=== PATIENT | male | born 1980 | race Caucasian/White ===

== ENCOUNTER 2023-07-17 07:51 | Outpatient (AMB) | payer OTHER, SELFPAY ==
--- NOTE | 2023-07-17 08:07 | MHC.PC.OV ---
Vital Signs 07/17/23 08:11 Height 5 ft 8 in Weight 178 lb 2 oz BMI 27.1 BP 118/80 Blood Pressure Location Rt brachial Position Sitting Pulse 64 Pulse Source Pulse Oximeter Pulse Oximetry (%) 98 Oxygen Delivery Method Room Air Intake Visit Reasons: Annual PE [employer] Intake Note: [facility] is [facility] [place] pt says he tends to have anxiety/Bp issues but with stress and life changes this changesd Allergies No Known Allergies Allergy (Verified 07/17/23 08:26) Medication List - Last Reconciled 07/17/23 by HEATHER Garcia ascorbate calcium (vitamin C) 500 mg PO DAILY cholecalciferol (vitamin D3) 50 mcg PO DAILY fexofenadine (Pinky Allergy) 180 mg PO DAILY Tobacco use date assessed: 07/17/23 Dental Screening Dental Screen Date: 07/17/23 Did you have a dental visit in the last 12 months?: Yes Did you have a dental problem in the last 6 months where you did not have access to dental care?: No Was dental information given to patient?: Patient has dentist HPI HPI Comments History of Present Illness Details Patient is a 43-year-old male here to [facility] and have his annual physical exam. He is an active member of the and recently moved up here from [place]. He has a past medical history significant for hypertension which he resolved with diet exercise. He has a surgical history of right ACL repair. He is up-to-date on immunizations. He has strong family history of prostate cancer, will draw PSA. He has a chief complaint of scratchy throat, particularly at night. The in office strep swab was negative. Patient denies any difficulty breathing, shortness of breath, recent fevers, chest pain, dizziness. He has tried taking honey which does provide some relief. [facility] Medical History (Updated 07/17/23 @ 10:23 by HEATHER Garcia) Lower back pain Rupture of anterior cruciate ligament of right knee Sleep apnea Hypertension Surgical History (Updated 07/17/23 @ 10:18 by HEATHER Garcia) History of repair of anterior cruciate ligament of right knee Family History Father Prostate cancer Paternal Grandmother Diabetes type 2, controlled Social History Housing: House Patient Tobacco Use Status: Never used Tobacco e-Cigarette/Vaping Use: Never Used Second Hand Smoke Exposure: No service: Yes ([employer] ) Current occupational status: employed Current occupational exposures/hazards: Yes Cognitive needs: No Hearing needs: No Vision needs: No Questionnaire PHQ-9 Over the last 2 weeks, how often have you been bothered by any of the following problems? 1. Little interest or pleasure in doing things: not at all 2. Feeling down, depressed, or hopeless: not at all 3. Trouble falling or staying asleep, or sleeping too much: not at all 4. Feeling tired or having little energy: not at all 5. Poor appetite or overeating: not at all 6. Feeling bad about yourself - or that you are a failure or have let yourself or your family down: not at all 7. Trouble concentrating on things, such as reading the newspaper or watching television: not at all 8. Moving or speaking so slowly that other people could have noticed. Or the opposite - being so fidgety or restless that you have been moving around a lot more than usual: not at all 9. Thoughts that you would be better off or of hurting yourself in some way: not at all Total score: 0 Depression Screening Interpretation: Negative Depression Screening Done: Yes 17466 - PHQ-9 Billing: Yes Source: Developed by Drs. Scar Mortensen, Priya Quinteros, Doe Palumbo and colleagues, with an educational gege from [employer]. Thrive Questionnaire Date Thrive assessed: 07/17/23 I am a: Patient What is your living situation today?: I have a steady place to live Within the past 12 months, did the food you bought not last and you didn't have the money to get more?: Never true Within the past 12 months, did you worry whether your food would run out before you got money to buy more?: Never true Do you have trouble paying for medicines?: No Do you have trouble getting transportation to medical appointments?: No Do you have trouble paying your heating and electricity bill?: No Do you have trouble taking care of your child, family member or friend?: No Do you have trouble with day-to-day activities such as bathing, preparing meals, shopping, managing finances, etc.?: No Are you currently unemployed and looking for a job?: No Are you interested in more education?: Yes AUDIT C Alcohol Use Questionnaire (AUDIT-C) 1. How often do you have a drink containing alcohol?: Monthly or less 2. How many drinks containing alcohol do you have on a typical day when you are drinking?: 1 or 2 3. How often do you have six or more drinks on one occasion?: Never Total Score: 1 BHUPINDER-7 AMB Questionnaire BHUPINDER-7 Date BHUPINDER - 7 assessed: 07/17/23 Feeling nervous, anxious, or on edge: 0 = Not at all Not being able to stop or control worryin = Not at all Worrying too much about different things: 0 = Not at all Trouble relaxin = Not at all Being so restless that it is hard to sit still: 0 = Not at all Becoming easily annoyed or irritable: 0 = Not at all Feeling afraid as if something awful might happen: 0 = Not at all Total BHUPINDER-7 score (0-4 normal; 5-9 mild; 10-14 moderate; 15-21 severe): 0 Source: Developed by Drs. Scar Mortensen, Priya Quinteros, Doe Palumbo and colleagues, with an educational gege from [employer]. BHUPINDER-7 Assessment Billing BHUPINDER-7 Assessment Tool: BHUPINDER-7 Assessment 25667 Review of Systems Const Details: Constitutional : No Weight loss, No Fever, No Chills, No Fatigue, No Malaise ENT/Mouth : Admits scratchy throat, No Rhinorrhea. Admits slightly diminished hearing in right ear. Eyes: No Eye Pain, No Swelling, No Redness Cardiovascular : No Chest Pain, No SOB, No Dyspnea on Exertion, No Orthopnea, No Edema, No Palpitations Respiratory : No Cough, No Sputum, No Wheezing Gastrointestinal : No Nausea, No Vomiting, No Diarrhea, No Constipation, No abdominal Pain, No Hematochezia, No Melena Genitourinary : No Dysuria, No Urinary Frequency, No Hematuria, Musculoskeletal : No joint pain, No Myalgias, No Joint Swelling Skin : Admits small hard white bump below eye, denies pain. Neuro : No Weakness, No Numbness, No Dizziness, No Headache Psych : No Anxiety/Panic, No Depression Heme/Lymph: No Bruising, No Bleeding,No Lymphadenopathy Endocrine : No Polyuria, No Polydipsia All other systems reviewed and are negative Physical exam (Primary Care) Vital Signs: Last Vital Signs Pulse 64 07/17/23 08:11 BP 118/80 07/17/23 08:11 Pulse Ox 98 07/17/23 08:11 Oxygen Delivery Method Room Air 07/17/23 08:11 Care Plan Goal for BP management: Vital signs reviewed are stable BMI result Body Mass Index 27.1 Tobacco/Smoking Status: Tobacco use Status Tobacco use date assessed 07/17/23 07/17/23 08:20 Patient Tobacco Use Status Never used Tobacco 07/17/23 08:20 e-Cigarette/Vaping Use Never Used 07/17/23 08:20 Depression Screening Interpretation: Negative Const Other: Appearance: Alert.? Oriented X3.? No acute distress.? Head: Normocephalic, atraumatic, no step-offs or deformities Eyes: Pupils equal, round and reactive to light.? ENT: Tonsils plus 2, positive for pharynx erythema, no exudates. Right TM not visible due to cerumen impaction. ? Neck: Normal inspection.? Neck supple.? No lymphadenopathy CVS: Normal heart rate and rhythm.? Pulses normal.? Respiratory: No respiratory distress.? Breath sounds normal.? Abdomen: Soft and nontender.? Bowel sounds normal Skin: Small round hard white bump, inferior to the left eye. No discharge. Extremities: No lower extremity edema.? Full ROM. Back: No midline tenderness, no C-spine tenderness, full range of motion, no CVA tenderness bilaterally Neuro: Oriented X 3.? No motor deficit.? No sensory deficit. CN 2-12 intact Results AMB Rapid Strep AMB Rapid Strep Negative Last Edit by Sarah Pleitez CMA on 07/17/23 08:53 Results Reviewed Results Reviewed: Will call patient with results. Assessment and Plan Assessment & Plan (1) Throat soreness: Comment: Patient's pharynx erythema tonsils are +2 bilaterally. Strep in office was negative. Some postnasal drip present. Patient will start on fluticasone. He has been educated on side effects these medication and how to take it properly. Code(s): J02.9 - Acute pharyngitis, unspecified (2) Milia: Comment: Patient has been instructed that he can try wash his face with an exfoliating face wash. He has been instructed to call the office if the problem is not resolved in 2 weeks. Code(s): L72.0 - Epidermal cyst (3) Impacted cerumen, right ear: Comment: Patient has been instructed to use [id number] earwax softening drops. Can return to the office or walk-in clinic for ear lavage. Code(s): H61.21 - Impacted cerumen, right ear Plan Take your medications as prescribed. If you were prescribed antibiotics today, it is important that you take your medication to their entirety, do not skip any doses, do not finish them early. Follow-up with your primary care provider this week. Return to the emergency department with new or worsening symptoms. Such as fevers, chills, chest pain, shortness of breath, nausea, vomiting, dizziness, headache, vision changes, lethargy In case of emergency call 911 Orders: Orders AMB Rapid Strep Screen Today Z13.9 - Encounter for screening, unspecified Complete Blood Count Auto Diff Today Z13.0 - Encounter for screening for diseases of the blood and blood-forming organs and certain disorders involving the immune mechanism Lipid Panel Today Z13.220 - Encounter for screening for lipoid disorders Vitamin D 25-OH (D2 and D3) Today Z13.21 - Encounter for screening for nutritional disorder Comprehensive Met. Panel Today Z91.89 - Other specified personal risk factors, not elsewhere classified PSA,Total (Free>4and<10) Today Z12.5 - Encounter for screening for malignant neoplasm of prostate TSH reflex Free T4 Today Z13.29 - Encounter for screening for other suspected endocrine disorder UA CC w/rflx Micro + Cult Today E86.0 - Dehydration Medications: New fluticasone propionate 50 mcg/actuation (Allergy Relief (fluticasone)) administer into each nostril 2 sprays intranasal DAILY 16 grams 0RF Coding Level of Care Code New Pt Level 4 (77881) Diagnoses Throat soreness J02.9 Milia L72.0 Impacted cerumen, right ear H61.21 Additional Codes BHUPINDER-7 Assessment Billing - BHUPINDER-7 Assessment Tool: BHUPINDER-7 Assessment 34594 ([id number]) Time Spent (min) 45
[2023-07-17 08:11] VITALS: BP 118/80; PULSE 64; O2SAT 98; BMI 27.1
== END 2023-07-17 09:04 | disposition home or self-care (01) ==
PROVIDERS: Visit Provider Nurse Practitioner Primary Care
DX: J02.9 Acute pharyngitis, unspecified (principal); L72.0 Epidermal cyst; H61.21 Impacted cerumen, right ear
CPT/HCPCS: 87880; 99204

== ENCOUNTER 2023-07-17 09:06 | Outpatient (REF) | payer OTHER, SELFPAY ==
[2023-07-22 12:53] LABS: Vitamin D 25-OH, D2 <4 ng/mL; Vitamin D 25-OH, D3 33 ng/mL; Vitamin D 25-OH, Total 33 ng/mL (30-100)
== END 2023-07-17 09:07 | disposition home or self-care (01) ==
LOC: HO.HMGCLDS 09:06
PROVIDERS: PCP Nurse Practitioner Primary Care; Visit Provider Nurse Practitioner Primary Care
DX: Z13.29 Encounter for screening for other suspected endocrine disorder (principal); Z12.5 Encounter for screening for malignant neoplasm of prostate; Z13.21 Encounter for screening for nutritional disorder; Z13.220 Encounter for screening for lipoid disorders; Z13.0 Encounter for screening for diseases of the blood and blood-forming organs and certain disorders involving the immune mechanism; E86.0 Dehydration; Z91.89 Other specified personal risk factors, not elsewhere classified
CPT/HCPCS: 36415; 80053; 80061; 81003; 82306; 84153; 84443; 85025

== ENCOUNTER 2023-10-27 14:21 | Outpatient (AMB) | payer OTHER, SELFPAY ==
--- NOTE | 2023-10-27 14:27 | MHC.OFFWIV ---
Intake Vital Signs 10/27/23 14:28 Height 5 ft 8 in Weight 178 lb BMI 27.1 BP 120/80 Blood Pressure Location Lt brachial Position Sitting Pulse 66 Pulse Source Pulse Oximeter Temp 97.9 F Temp Source Oral Pulse Oximetry (%) 98 Intake Visit Reasons: EP Dizzy Intake Note: pt is here today for dizzy started whiling laying down and felt weird and felt dizziness when standing Patient Tobacco Use Status: Never used Tobacco Allergies No Known Allergies Allergy (Verified 10/27/23 14:47) Medication List - Last Reconciled 10/27/23 by HEATHER Garcia ascorbate calcium (vitamin C) 500 mg PO DAILY cholecalciferol (vitamin D3) 50 mcg PO DAILY fexofenadine (Pinky Allergy) 180 mg PO DAILY fluticasone propionate 50 mcg/actuation (Allergy Relief (fluticasone)) 2 sprays intranasal DAILY Do you need a note to return to daycare/school/sports/work: Yes HPI HPI Comments History of Present Illness Details Patient is a 43-year-old man in today for sick visit. Patient states that 1 day prior when he was lying down he developed dizziness where he felt like the room was starting to spin. Since then he was able to go to sleep woke up and felt like though his symptoms had improved, he still was feeling dizzy throughout the day depending on position change. Denies recent fever, denies chest pain, shortness a breath, nausea, vomiting, diarrhea. Denies headache. He states that he did take out a large clump of ear wax 1 day prior. A physical exam patient has impacted cerumen. Also positive for Court-Hallpike maneuver. Will initiate bilateral ear lavage, prescribed meclizine, refer patient to physical therapy. [facility] Medical History (Updated 10/27/23 @ 14:56 by HEATHER Garcia) Lower back pain Rupture of anterior cruciate ligament of right knee Sleep apnea Hypertension Surgical History (Updated 07/17/23 @ 10:18 by HEATHER Garcia) History of repair of anterior cruciate ligament of right knee Family History Father Prostate cancer Paternal Grandmother Diabetes type 2, controlled Social History (Reviewed 07/17/23 @ 10:18 by FABIEN Garcia Housing: House Patient Tobacco Use Status: Never used Tobacco e-Cigarette/Vaping Use: Never Used Second Hand Smoke Exposure: No service: Yes ([employer] ) Current occupational status: employed Current occupational exposures/hazards: Yes Cognitive needs: No Hearing needs: No Vision needs: No Review of Systems Const All systems reviewed & are unremarkable except as noted in HPI and below Denies chills, Denies fever(s) and Denies headache(s) Eyes Denies blurry vision, Denies diplopia and Denies eye pain ENT Reports vertigo, Reports dizziness, Denies ear discharge, Denies otalgia, Denies headache(s) and Denies sore throat Card Denies chest pain and Denies dyspnea Resp Denies dyspnea Musc Denies tingling Neuro Reports vertigo, Reports dizziness, Denies headache(s), Denies tingling and Denies paresthesias Physical Exam Vital Signs: Last Vital Signs Temp 97.9 F 10/27/23 14:28 Pulse 66 10/27/23 14:28 BP 120/80 10/27/23 14:28 Pulse Ox 98 10/27/23 14:28 BMI result Body Mass Index 27.1 Vital signs reviewed stable. Const Other: Appearance: Alert.? Oriented X3.? No acute distress.? Head: Normocephalic, atraumatic. Eyes: Pupils equal, round and reactive to light.? ENT: Pharynx normal.?Cerumen impacted bilaterally. Post Lavage TM intact and pearly munoz. Neck: Normal inspection.? Neck supple.? CVS: Normal heart rate and rhythm.? Pulses normal.? Respiratory: No respiratory distress.? Breath sounds normal.? Neuro: Oriented X 3.? No motor deficit.? No sensory deficit. CN 2-12 intact Positive Court-Hallpike maneuver Assessment & Plan Assessment & Plan (1) Benign positional vertigo: Comment: Will prescribe meclizine. Will refer patient to physical therapy Code(s): H81.10 - Benign paroxysmal vertigo, unspecified ear Qualifiers: Laterality: unspecified laterality Qualified Code(s): H81.10 - Benign paroxysmal vertigo, unspecified ear Plan: Take your medications as prescribed. If you were prescribed antibiotics today, it is important that you take your medication to their entirety, do not skip any doses, do not finish them early. Follow-up with your primary care provider this week. Return to the emergency department with new or worsening symptoms. Such as fevers, chills, chest pain, shortness of breath, nausea, vomiting, dizziness, headache, vision changes, lethargy In case of emergency call 911 Plan Follow-up if problem persists. Orders: Orders AMB Cerumen Removal Today H61.23 - Impacted cerumen, bilateral PT Evaluation and Treatment Today H81.10 - Benign paroxysmal vertigo, unspecified ear Medications: New meclizine 50 mg PO DAILY PRN 20 tabs 0RF motion sickness Coding Level of Care Code Est Pt Level 3 (13757) Diagnoses Benign paroxysmal positional vertigo, unspecified laterality H81.10 Laterality: unspecified laterality Time Spent (min) 23
[2023-10-27 14:28] VITALS: BP 120/80; PULSE 66; TEMP 36.6; O2SAT 98; BMI 27.1
== END 2023-10-27 15:04 | disposition home or self-care (01) ==
PROVIDERS: PCP Nurse Practitioner Primary Care; Visit Provider Nurse Practitioner Primary Care
DX: H81.10 Benign paroxysmal vertigo, unspecified ear (principal)
CPT/HCPCS: 99213

== ENCOUNTER 2023-12-04 10:18 | Outpatient (AMB) | payer OTHER, SELFPAY ==
[2023-12-04 10:30] VITALS: BP 100/70; PULSE 66; O2SAT 96; BMI 27.1
--- NOTE | 2023-12-04 10:30 | A.OFFPC_ITS ---
Vital Signs 12/04/23 10:30 Height 5 ft 8 in Weight 178 lb BMI 27.1 BP 100/70 Blood Pressure Location Rt brachial Position Sitting Pulse 66 Pulse Source Pulse Oximeter Pulse Oximetry (%) 96 Oxygen Delivery Method Room Air Intake Visit Reasons: Rescheduled from 11/29 Intake Note: Pt is here today to c/o Lt knee pain due to falling playing freesbee and Lt foot has a calicus Allergies No Known Allergies Allergy (Verified 12/04/23 10:30) Tobacco use date assessed: 12/04/23 Dental Screening Dental Screen Date: 12/04/23 Did you have a dental visit in the last 12 months?: Yes Did you have a dental problem in the last 6 months where you did not have access to dental care?: Yes Was dental information given to patient?: Patient has dentist HPI HPI Comments History of Present Illness Details Patient is a 43-year-old male in today for follow-up. He has a past medical history significant for. Frequent impacted cerumen bilaterally: Patient utilizing earwax softening drops. Benign positional proximal vertigo: Patient currently undergoing PT with good effect. Dyslipidemia: Slightly elevated LDL. Patient is lower in with improved diet and exercise. Will redraw lipids within the next month. Patient has complaints of left knee discomfort x2 weeks. Patient states that he was playing ultimate Frisbee jumped and landed on his left knee awkwardly, and was unable to continue playing Frisbee after that. Denies hearing any popping or cracking. States that the pain has gotten progressively better over the past 2 weeks however he still feels that he is favoring the joint. Has utilized ibuprofen with mild to moderate effect patient denies any tingling or numbness, denies any deformities. He also reports full he believes to be a callus the plantar region of his foot that is started become painful. States that he runs often and feels like this has gotten worse over time. Patient utilizes proper foot wear while running. Denies any tingling or numbness. Denies any redness or discharge. [facility] Medical History (Updated 12/04/23 @ 10:57 by HEATHER Garcia) Lower back pain Rupture of anterior cruciate ligament of right knee Sleep apnea Hypertension Surgical History (Updated 07/17/23 @ 10:18 by HEATHER Garcia) History of repair of anterior cruciate ligament of right knee Family History Father Prostate cancer Paternal Grandmother Diabetes type 2, controlled Social History Housing: House Patient Tobacco Use Status: Never used Tobacco e-Cigarette/Vaping Use: Never Used Second Hand Smoke Exposure: No service: Yes ([employer] ) Current occupational status: employed Current occupational exposures/hazards: Yes Cognitive needs: No Hearing needs: No Vision needs: No Questionnaire Thrive Questionnaire Date Thrive assessed: 07/17/23 BHUPINDER-7 AMB Questionnaire BHUPINDER-7 Date BHUPINDER - 7 assessed: 07/17/23 Source: Developed by Drs. Scar Mortensen, Priya Quinteros, Doe Palumbo and colleagues, with an educational gege from [employer]. Review of Systems Const All systems reviewed & are unremarkable except as noted in HPI and below Physical exam (Primary Care) Tobacco/Smoking Status: Tobacco use Status Tobacco use date assessed 07/17/23 07/17/23 08:20 Patient Tobacco Use Status Never used Tobacco 10/27/23 14:30 e-Cigarette/Vaping Use Never Used 07/17/23 08:20 Thrive Assessment: Date of Thrive Assessment Date Thrive assessed 07/17/23 07/17/23 09:17 Const Other: Appearance: Alert.? Oriented X3.? No acute distress.? Head: Normocephalic, ?Neck: Normal inspection.? Neck supple.? Respiratory: No respiratory distress.? .? Abdomen: Soft and nontender.? Skin: Skin warm and dry.? Normal skin color.? Normal skin turgor. +Small plantar wart on left foot. +tenderness. No erythema or discharge. ? Extremities: No lower extremity edema.? No knee crepitus. Able to ambulate on toes and heels. Negative rosalba and Radha test. Neuro: Oriented X 3.? No motor deficit.? No sensory deficit. Assessment and Plan Assessment & Plan (1) Benign positional vertigo: Comment: Will prescribe meclizine. Patient undergoing physical therapy with good results Code(s): H81.10 - Benign paroxysmal vertigo, unspecified ear Qualifiers: Laterality: unspecified laterality Qualified Code(s): H81.10 - Benign paroxysmal vertigo, unspecified ear (2) Elevated LDL cholesterol level: Comment: Patient utilizing diet and exercise will redraw lipid panel 1 month Code(s): E78.00 - Pure hypercholesterolemia, unspecified (3) Plantar wart: Comment: Patient educated use proper footwear. Will refer to Podiatry Code(s): B07.0 - Plantar wart (4) Left knee pain: Comment: Negative Radha's and Rosalba's test in office. Will order left knee x-ray. Patient can utilize Tylenol and ibuprofen as directed. Code(s): M25.562 - Pain in left knee Qualifiers: Chronicity: acute Qualified Code(s): M25.562 - Pain in left knee Plan: Will follow-up with x-ray results Coding Level of Care Code Est Pt Level 4 (33120) Diagnoses Benign paroxysmal positional vertigo, unspecified laterality H81.10 Laterality: unspecified laterality Elevated LDL cholesterol level E78.00 Plantar wart B07.0 Acute pain of left knee M25.562 Chronicity: acute Time Spent (min) 30
== END 2023-12-04 16:09 | disposition home or self-care (01) ==
PROVIDERS: PCP Nurse Practitioner Primary Care; Visit Provider Nurse Practitioner Primary Care
DX: H81.10 Benign paroxysmal vertigo, unspecified ear (principal); E78.00 Pure hypercholesterolemia, unspecified; B07.0 Plantar wart; M25.562 Pain in left knee
CPT/HCPCS: 99214

== ENCOUNTER 2023-12-04 10:53 | Outpatient (REF) | payer OTHER, SELFPAY ==
--- NOTE | ~2023-12-04 | XR_ITS ---
EXAMINATION: XR KNEE, LEFT CLINICAL INFORMATION: Left knee pain. COMPARISON: None available. TECHNIQUE: Four views of the left knee. FINDINGS: Normal alignment. Joint spaces are maintained. No displaced fracture or dislocation. No significant joint effusion. XR/XR knee LT 4V IMPRESSION: No acute abnormality.
== END 2023-12-04 10:54 | disposition home or self-care (01) ==
LOC: HO.HMGCX 10:53
PROVIDERS: PCP Nurse Practitioner Primary Care; Visit Provider Nurse Practitioner Primary Care
DX: M25.562 Pain in left knee (principal)
CPT/HCPCS: 73564

== ENCOUNTER 2023-12-11 11:00 | Outpatient (RCR) | payer OTHER, SELFPAY ==
[2023-11-13 10:58] VITALS: BP 122/80
--- NOTE | 2023-11-13 12:11 | MHC.PT.EP ---
[facility] [place] Office [place] Office [place] Office [address] Samm Esteban [address] [phone] F: [phone] F: [phone] F: [phone] F: [phone] Physical Therapy Plan of Care Date of Evaluation: 11/13/23 Date of Surgery: Diagnosis: BPPV, unspecified ear Assessment: 43 y/o male referred to PT with BPPV. He desribes dizziness as wooziness, on a boat, a rocking sensation. THis started 3-4 weeks ago of insidious onset and was initially constant but now is intermittent. Sx increase with quick head movements, walking in the dark, and moving too quickly. Denies hearing changes, visual changes, recent illness, or recent tick bites. S/s consistent with a unilateral vestibular hypofunction (L side) secondary to impaired VOR, poor balance with head turns during gait, FGA, and negative for BPPV. Recommend PT every other week for 4 visits. He is a good candidate for PT d/t motivation and PLOF. Educated pt on vestibular sx, hypofunction, adaptation exercises, safety, and HEP. Frequency and Duration: The patient will be seen 1x/week for 6 weeks Short Term Goals: I with HEP Snf Goals: Pt to be able to functionally move in all planes without provocation of dizziness and return to PLOF in 6 weeks Pt to be educated on sx and indications to return to therapy when needed in 6 weeks Pt to be I with HEP and self management Treatment Plan: Modalities to reduce pain, spasms and effusion. Manual therapy to restore motion and function. Therapeutic exercise to improve strength and flexibility. Neuromuscular re-education for posture and balance. Therapeutic activities to return to functional activities of daily living. Electronically signed by: Maribel Nunez PT Please sign and return to therapist. Thank you for your referral.
--- NOTE | 2023-12-11 11:41 | MHC.PT.DC ---
[facility] [place] Office [place] Office [place] Office [address] Samm Esteban [address] [phone] F: [phone] F: [phone] F: [phone] F: [phone] Physical Therapy Discharge Report Diagnosis: BPPV, unspecified ear Date of Surgery: Date of Evaluation: 11/13/23 Date of Discharge: 12/11/23 Treatments to Date: 3 Cancellations to Date: 0 No Shows to Date: 0 Discharge Status: Achieved Goals Improved Function Independent with HEP Discharge Summary: Pt has met all goals and s appropriate for d/c at this time. He demonstrates minimal-no sway with eyes closed conditions and had no dizziness with high level exercises. Reviewed HEP and d/c at this time Electronically signed by: Maribel Nunez PT Please sign and return to therapist. Thank you for your referral.
== END 2023-12-11 11:41 | disposition home or self-care (01) ==
LOC: HO.PTCHIC 11:00
PROVIDERS: PCP Nurse Practitioner Primary Care; Visit Provider Nurse Practitioner Primary Care
DX: H81.10 Benign paroxysmal vertigo, unspecified ear (principal)
CPT/HCPCS: 97112; 97161

== ENCOUNTER 2024-02-19 07:00 | Outpatient (RCR) | payer OTHER, SELFPAY ==
--- NOTE | 2024-01-06 14:49 | MHC.PT.EP ---
[facility] [place] [facility] [place] [facility] [place] [facility] [address] Samm Esteban [address] [phone] F: [phone] F: [phone] F: [phone] F: [phone] Physical Therapy Plan of Care Date of Evaluation: 01/06/24 Date of Surgery: n/a Diagnosis: pain in L knee Assessment: Patient is a 43 year old male presenting to PT with complaints of pain in his L knee. Pt reports onset of pain began 1-2 months ago due to jumping and hyperextending his knee when playing frisbee. He presents today with impairments in pain, hip strength, knee strength. 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 Clinical presentation today is most consistent with signs and sx associated with L knee pain and pt will benefit from skilled PT 2 week x 4 weeks to address the following problems and impairments noted upon evaluation: pain, hip strength, knee strength. These problems limit the patient with the following functional activities: work, ADLs, running, stair negotiation, transfers. The prescribed treatment plan of care is medically necessary. Co-morbidities of HTN were identified and taken into considerations of plan of care. Pt was educated on HEP, role of PT, prognosis, POC. Frequency and Duration: The patient will be seen 2 x week x 4 weeks Short Term Goals: Pt will demonstrate improved hip MMT strength by 1/3 grade in 2 weeks for improved lumbopelvic stability. Pt will demonstrate improved L knee MMT strength to 5/5 in 2 weeks. [employer] Goals: Pt will demonstrate improved LEFI score by 9 points in 4 weeks for improved functional mobility. Pt will demonstrate ability to descend stairs with min to no pain in 4 weeks for improved access to his home. Pt will demonstrate ability to transfer and push off his LLE with min to no pain or instability in 4 weeks for return to PLOF. Treatment Plan: Modalities to reduce pain, spasms and effusion. Manual therapy to restore motion and function. Therapeutic exercise to improve strength and flexibility. Neuromuscular re-education for posture and balance. Therapeutic activities to return to functional activities of daily living. Electronically signed by: Jamila Yanes, PT, DPT, ATC Please sign and return to therapist. Thank you for your referral.
--- NOTE | 2024-02-19 07:51 | MHC.PT.DC ---
[facility] [place] [facility] [place] [facility] [place] Office [address] Samm Esteban [address] [phone] F: [phone] F: [phone] F: [phone] F: [phone] Physical Therapy Discharge Report Diagnosis: pain in L knee Date of Surgery: n/a Date of Evaluation: 01/06/24 Date of Discharge: 02/19/24 Treatments to Date: 4 Cancellations to Date: 0 No Shows to Date: Discharge Status: Achieved Goals Improved Function Independent with HEP Patient Elected to Stop Discharge Summary: 02/19/2024: Pt has made good progress since start of care. He is having much less pain overall and able to complete almost every activity pain free. Occasionally he gets some mild discomfort. He feels he is ready to continue with HEP at home and I feel this is reasonable based on his progress. Pt to be d/c today and knows to continue with his HEP. Electronically signed by: Jamila Yanes, PT, DPT, ATC Please sign and return to therapist. Thank you for your referral.
== END 2024-02-19 07:51 | disposition home or self-care (01) ==
LOC: HO.PTCHIC 07:00
PROVIDERS: PCP Nurse Practitioner Primary Care; Visit Provider Nurse Practitioner Primary Care
DX: M25.562 Pain in left knee (principal)
CPT/HCPCS: 97110; 97161

== ENCOUNTER 2024-07-04 08:01 | Outpatient (AMB) | payer OTHER, SELFPAY ==
--- OUTSIDE RECORDS SUMMARY | 2024-07-04 08:07 | XMS_ITS ---
Author Organization [facility] Address [address] [place] [address] Phone Care Team Providers Care Activities Director Name Role Phone Luis Fernando WALDROP, Lobito George [phone] [facility] P rovider [phone] Plan of Treatment Findings Encounter Date Recommended mattress / helen w covers for dust mites Post Test with Lobito Gould MD 03/11/2021 Last Documented On 1 1:12PM ; [facility] Recommended allergy sensitiv ity testing - abbrev New Patient with Lobito Gould MD 03/04/2021 Last Documented On 1 3:12PM ; [facility] Instructions to patient Avoid allergens Last Documented On 1 1:11PM ; [facility] Instructions for patient - p janell use of nasal spray Last Documented On 1 3:11PM ; [facility] Assessments Includes: Assessments for all patient encounters Findings Encounter Date Allergic rhinitis Follow Up with Lobito fiore MD 06/10/2021 Last Documented On 1 12:44PM ; [facility] Chronic rhinitis Post Test with Lobito Gould MD 03/11/2021 Last Documented On 1 1:12PM ; [facility] Chronic rhinitis New Patient with Lobito kebede MD 03/04/2021 Last Documented On 1 3:12PM ; [facility] Instructions Includes: Instructions for all patient encounters Instructions to patient Avoid allergens Last Documented On 1 1:11PM ; [facility] Instructions for patient - p janell use of nasal spray Last Documented On 3:11PM ; [facility] Medical Equipment - Implanted Devices Includes: Current and historical Devices No Medical Equipment Recorded Medications Includes: Current and historical Medications Current Medications (continue as prescribed) Fluticasone Propionate 50 MCG/ACT Nasal Suspension 06/10/2021 Provider: Lobito fiore MD Diagnosis: Allergic rhiniti s, unspecified 2 sp en qd as needed Last Documented On 12:45PM By Lobito Gould MD ; [facility] Fexofenadine HCl 180 MG Oral Tablet 03/02/2021 Provider: Lisa REYNA ([place]) Diagnosis: 1 tab po qd Last Documented On 2:43PM By Jimmy Luther ; [facility] Past Medications on file Fluticasone Propionate 50 MCG/ACT Nasal Suspension 03/04/2021 - 06/10/2021 Provider: Lobito pham MD Diagnosis: Chronic rhinitis 2 sp en qam Last Documented On 12:25PM By Stef Snow ; [facility] Azelastine HCl 0.1% Nasal Solution 03/02/2021 - 03/02/2021 Provider: Lisa REYNA ([place]) Diagnosis: prn Last Documented On 2:58PM By Lobito Gould MD ; [facility] Medications Administered Includes: Administered Medications in patient's chart No Administered Medications Recorded Results Includes: Results from 07/04/2023 through 07/04/2024 No Results Recorded For Specified Dates History of Present Illness History of Present Illness not supported for this document type No History of Present Illness Recorded Social History Description Last Updated Past medical history reviewed 06/10/2021 Last Documented On 12:44PM ; [facility] Smoking status : Never smoker 03/04/2021 Last Documented On 3:12PM ; [facility] Air-conditioning filters are changed tim ry 3 months 03/04/2021 Last Documented On 3:12PM ; [facility] Environmental history reviewed 1 Last Documented On 1 3:12PM ; [facility] Housing has central cooling 03/04/2021 Last Documented On 1 3:12PM ; [facility] Housing has windows closed 03/04/2021 Last Documented On 1 3:12PM ; [facility] Lives in apartment 03/04/2021 Last Documented On 1 3:12PM ; [facility] Mattress is encased 03/04/2021 Last Documented On 1 3:12PM ; [facility] No carpets in residence 03/04/2021 Last Documented On 1 3:12PM ; [facility] No contact with pets or other animals Last Documented On 1 3:12PM ; [facility] No exposure to environmental tobacco smo ke 03/04/2021 Last Documented On 1 3:12PM ; [facility] No exposure to molds 03/04/2021 Last Documented On 1 3:12PM ; [facility] No HEPA filters 03/04/2021 Last Documented On 1 3:12PM ; [facility] No secondhand cigarette smoke exposure 0 03/04/2021 Last Documented On 1 3:12PM ; [facility] No wall unit cooling in residence 2020 Last Documented On 1 3:12PM ; [facility] Not living near a major source of pollut ion 03/04/2021 Last Documented On 1 3:12PM ; [facility] Patient does not sleep with stuffed anim als 03/04/2021 Last Documented On 1 3:12PM ; [facility] Patient is not exposed to clutter that c ollects dust in the residence 03/04/2021 Last Documented On 1 3:12PM ; [facility] [place] Pillows are encased 03/04/2021 Last Documented On 3:12PM ; [facility] [place] Pillows are not feather 03/04/2021 Last Documented On 3:12PM ; [facility] [place] Presence of ceiling fan(s) in residence 03/04/2021 Last Documented On 3:12PM ; [facility] [place] The age of the mattress is 2 years old 0 03/04/2021 Last Documented On 3:12PM ; [facility] [place] The age of the residence is 50 years old 03/04/2021 Last Documented On 3:12PM ; [facility] [place] The residence is surrounded by Last Documented On 3:12PM ; [facility] [place] Windows are covered with horizontal blin ds 03/04/2021 Last Documented On 3:12PM ; [facility] [place] Procedures and Surgical History Surgical History Last Updated Prior surgery - knee 03/04/2021 Last Documented On 3:12PM ; [facility] [place] Medical History Includes: Medical History in patient's chart Description Last Updated Past medical history reviewed 06/10/2021 Last Documented On 12:44PM ; [facility] [place] Patient reported no PMH 03/04/2021 Last Documented On 3:12PM ; [facility] [place] Family History Includes: Family History in patient's chart Description Last Updated No family history of allergies Last Documented On 3:12PM ; [facility] [place] No family history of asthma 03/04/2021 Last Documented On 3:12PM ; [facility] [place] Review of Systems Review of Systems not supported for this document type No Review of Systems Recorded Mental Status No Mental Status Recorded Functional Status No Functional Status Recorded Physical Exam Physical Exam not supported for this document type No Physical Exam Recorded Allergies Includes: Active, inactive, and resolved Allergies No Known Allergies Insurance Includes: Active Insurance Policies Plan Name Member ID Group # Subscriber Relationship Effect kiran Dates 1 - [facility] [id number] Ellis Ellis Self 07/13/2017 - Un known Clinical Notes Includes: Signed Clinical Notes starting from 11/29/2022 No Clinical Notes Recorded
--- OUTSIDE RECORDS SUMMARY | 2024-07-04 08:07 | XMS_ITS | Continuity of Care Document ---
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 It does not include entries that were removed or entered in error. Problem Status Onset Date Problem Type Date of Resolution Comments Source Encounter for other administrative examinations Inactive 1 Condition DoD Encounter for immunization Inactive 1 Condition DoD Other insomnia Active 8 Condition DoD Pain in right knee Active 8 Condition DoD Other chronic pain Active 8 Condition DoD Low back pain Active 8 Condition DoD Chondromalacia patellae, right knee Active 8 Condition DoD Other disorders of refraction Active 8 Condition DoD Other intervertebral disc degeneration, lumbar region Active 8 Condition DoD Acquired spondylolysis Active Condition [facility] Low back pain Active Condition [facility] Personal History of return from Deployment Active Condition [facility] Primary hypertension Active Condition [facility] Adjustment disorder with anxiety Active Condition [facility] Personal history of deployment Active Condition DoD Vasectomy status Active Condition DoD backache lower Active Condition DoD diarrhea Inactive Condition [facility] Need For Vaccination Against Bacterial Diseases Inactive Condition [facility] Need For Vaccination Against Smallpox Inactive Condition [facility] visit for: occupational health / fitness exam Active Condition [facility] routine pre-employment screening examination Active Condition Do[facility] visit for: screening exam pulmonary tuberculosis Inactive Condition [facility] assessment of patient condition work status Active Condition [facility] assessment of patient condition work-related Active Condition [facility] visit for: follow-up exam Inactive Condition DoD pain in leg lower Inactive Condition Do[facility] visit for: administrative purpose Inactive Condition DoD upper respiratory infection Inactive Condition [facility] visit for: services physical Active Condition Do[facility] Patient Education Active Condition DoD Guidance: Concerns About Unsafe Sexual Practices Inactive Condition DoD Inquiry And Counseling: Contraceptive Practices Active Condition DoD Patient Education Dietary Changing Eating Habits Active Condition [facility] visit for: ears / hearing exam Active Condition [facility] Medications Combined list of outpatient medications from Department of 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Medications provided include 1) outpatient medications from the last 15 months, and 2) patient-reported medications. Medication Details Route Status Patient Instructions Prescription Expires Prescription Number Last Dispense Date Ordering Provider Order Date Order Qty Source chlorhexidi ne oral rinse 0.12% liquid [473mL] See Rx Instruct ions, 0, 0, # 473 mL, 0 total refill(s ), Hard Stop Complet ed 03/26/2023 473.0 Ambulat ory Pharmac y FLUTICASONE PROPIONATE (FLUTICASON E PROPIONATE) , 50MCG, SPRAY SUSP, NASAL, APOTEX CONNER, 16 g AER W/ADAP Cancele d [id number] : 2023 0 Pharmac y Data Transac tion Service Facilit y FLUTICASONE PROPIONATE (FLUTICASON E PROPIONATE) , 50MCG, SPRAY SUSP, NASAL, [facility] 16 g AER W/ADAP Active [id number] 2023 16 Pharmac y Data Transac tion Service Facilit y PriLOSEC OTC 20 mg oral delayed release tablet 1 tab(s), Oral, BID, before a meal, # 90 cap(s), 3 total refill(s ), Maintena nce, 1 tab(s) Oral BID,Inst r:before a meal, Pharmacy : [facility] Oral (given by mouth) Discont inued 04/22/2022 90.0 7239C-S [facility] Allergies, Adverse Reactions, Alerts Combined list of allergies from Department of 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 It does not include entries that were removed or entered in error. Substance Category Reaction Severity Reaction type Status Date Reported Comments Source No Known Allergies Drug allergy (disorder) active 08/06/2017 [facility] [place] Immunizations Combined list of available immunizations from the Department of 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 Immunization Series Date Given Administered By Site Reaction Lot Number CVX Code Drug Sales Support Rep Status Comments Source COVID Vaccine ThermoCeramix 2020 SREE [id number] complet ed Result Comment: Unit: Unknown Route: Intramusc ular(IM) Manufactu rer: ThermoCeramix, [employer]ur[employer] (PFR) 39C-S [facility] SARS-COV-2 (COVID-19) vaccine, mRNA, spike protein, LNP, preservative free, 30 mcg/0.3mL dose 2 12/01/ 2021 JOI CHURCHILL [id number] Pfizer, Inc (PFR) complet ed SARS-COV- 2 (COVID-19 ) vaccine, mRNA, spike protein, LNP, preservat kiran free, 30 mcg/0.3mL dose DoD influenza, injectable, quadrivalent- pf 2020 OLLIECOLLINS [id number] complet ed Result Comment: Route: Unknown Manufactu rer: Seqirus (SEQ) [facility] [place], inj, MDCK, quadrivalent- pf 2020 OLLIECOLLINS 171 complet ed Result Comment: Unit: Unknown Manufactu rer: () [facility] Influenza, injectable, MDCK, preservative free, quadrivalent 2020 ANDREA, () Not Given Influenza , injectabl e, MDCK, preservat kiran free, quadrival ent DoD Influenza, injectable, quadrivalent, preservative free 1 2020 [id number] 150 Seqirus (SEQ) comple t ed Influenza , injectabl e, quadrival ent, preservat kiran free DoD Influenza, injectable, Madin Anna Canine Kidney, preservative free, quadrivalent 0 2020 171 Seqirus (SEQ) comple t ed Influenza , injectabl e, Madin Anna Canine Kidney, preservat kiran free, quadrival ent DoD anthrax vaccine 2020 OLLIECOLLINS [id number] 24 complet ed Result Comment: Route: Unknown Manufactu rer: [employer] [place] ([facility]) 39CS [facility] anthrax vaccine 4 2020 [id number] [employer] [place] (MIP) complet ed anthrax vaccine DoD SARS-CoV-2 (COVID-19) Ad26 vaccine, rec 2020 OLLIECOLLINS [id number] complet ed Result Comment: Route: Unknown Manufactu rer: Rosa (BESSY) [facility] SARS-COV-2 (COVID-19) vaccine, vector non-replicati ng, recombinant spike protein-Ad26, preservative free, 0.5 mL 1 2020 [id number] Rosa (JSN) comple t ed SARS-COV- 2 (COVID-19 ) vaccine, vector non-repli cating, recombina nt spike protein-A d26, preservat kiran free, 0.5 mL DoD influenza, seasonal, injectable 2019 OLLIECOLLINS [id number] 141 complet ed Result Comment: Route: Unknown Manufactu rer: Seqirus (SEQ) [facility] Influ[facility], inj, MDCK, quadrivalent- pf 2019 OLLIECOLLINS 171 complet ed Result Comment: Unit: Unknown Manufactu rer: () 7239C-S [facility] Influenza, injectable, MDCK, preservative free, quadrivalent 2019 FINDLEN, () Not Given Influenza , injectabl e, MDCK, preservat kiran free, quadrival ent DoD Influenza, seasonal, injectable 1 2019 [id number] 141 Seqirus (SEQ) comple t ed Influenza , seasonal, injectabl e DoD Influenza, injectable, Madin Anna Canine Kidney, preservative free, quadrivalent 0 2019 171 (MVX) complet ed Influenza , injectabl e, Madin Anna Canine Kidney, preservat kiran free, quadrival ent DoD typhoid Vi capsular polysaccharid e vac 2019 [id number] 101 sanofi pasteur complet ed typhoid Vi capsular polysacch aride vac 03/07/20 Given Ambulat ory Pharmac y anthrax vaccine 2019 [id number] 24 Emergent Bios[employer] complet ed anthrax vaccine 03/07/20 Given Ambulat ory Pharmac y poliovirus vaccine, inactivated 2019 [id number] 10 sanofi pasteur complet ed polioviru s vaccine, inactivat ed 03/07/20 Given Ambulat ory Pharmac y tetanus-dipht h toxoids (Td) adult/adol 2019 [id number] 09 sanofi pasteur complet ed tetanus-d iphth toxoids (Td) adult/ado l 03/07/20 Given Ambulat ory Pharmac y measles/mumps /rubella virus vaccine 2019 [id number] 03 Merck & Company Inc complet ed measles/m umps/rube lla virus vaccine 03/07/20 Given Ambulat ory Pharmac y typhoid Vi capsular polysaccharid e vac 2019 [id number] 101 sanofi pasteur complet ed typhoid Vi capsular polysacch aride vac 03/07/20 Given Ambulat ory Pharmac y anthrax vaccine 2019 [id number] 24 [employer] complet ed anthrax vaccine 03/07/20 Given Ambulat ory Pharmac y poliovirus vaccine, inactivated 2019 [id number] 10 sanofi pasteur complet ed polioviru s vaccine, inactivat ed 03/07/20 Given Ambulat ory Pharmac y tetanus-dipht h toxoids (Td) adult/adol 2019 [id number] 09 sanofi pasteur complet ed tetanus-d iphth toxoids (Td) adult/ado l 03/07/20 Given Ambulat ory Pharmac y measles/mumps /rubella virus vaccine 2019 [id number] Merck & Company Inc complet ed measles/m umps/rube lla virus vaccine 03/07/20 Given Ambulat ory Pharmac y measles, mumps and rubella virus vaccine 1 2019 [id number] 03 Merck (MSD) complet ed measles, mumps and rubella virus vaccine DoD tetanus and diphtheria toxoids, adsorbed, preservative free, for adult use (2 Lf of tetanus toxoid and 2 Lf of diphtheria toxoid) 1 2019 [id number] 09 Sanofi Pasteur (PMC) complet ed tetanus and diphtheri a toxoids, adsorbed, preservat kiran free, for adult use (2 Lf of tetanus toxoid and 2 Lf of diphtheri a toxoid) DoD poliovirus vaccine, inactivated 1 2019 [id number] 10 Sanofi Pasteur (PMC) complet ed polioviru s vaccine, inactivat ed DoD anthrax vaccine 1 2019 [id number] 24 [facility] [employer] [place] ([facility]) complet ed anthrax vaccine DoD typhoid Vi capsular polysaccharid e vaccine 1 2019 [id number] 101 Sanofi Pasteur (PMC) complet ed typhoid Vi capsular polysacch aride vaccine DoD influenza, seasonal, injectable 2018 TRANSCR IBED 141 Seqirus complet ed influenza , seasonal, injectabl e 04/04/19 Given Ambulat ory Pharmac y Influenza, inj, MDCK, quadrivalent- pf 2018 171 complet ed Influenza , inj, MDCK, quadrival ent-pf 04/04/19 Given Ambulat ory Pharmac y Influenza, inj, MDCK, quadrivalent- pf 2018 171 complet ed Influenza , inj, MDCK, quadrival ent-pf 04/04/19 Given Ambulat ory Pharmac y influenza, seasonal, injectable 2018 TRANSCR IBED 141 Seqirus complet ed influenza , seasonal, injectabl e 04/04/19 Given Ambulat ory Pharmac y Influenza, seasonal, injectable 1 2018 141 Seqirus (SEQ) comple t ed Influenza , seasonal, injectabl e DoD Influenza, injectable, Madin Anna Canine Kidney, preservative free, quadrivalent 0 2018 171 (MVX) complet ed Influenza , injectabl e, Madin Palmer Canine Kidney, preservat kiran free, quadrival ent DoD Influenza, inj, MDCK, quadrivalent- pf 2017 171 complet ed Influenza , inj, MDCK, quadrival ent-pf 04/30/18 Given Ambulat ory Pharmac y influenza, seasonal, injectable 2017 [id number] 141 Seqirus complet ed influenza , seasonal, injectabl e 04/30/18 Given Ambulat ory Pharmac y Influenza, inj, MDCK, quadrivalent- pf 2017 171 complet ed Influenza , inj, MDCK, quadrival ent-pf 04/30/18 Given Ambulat ory Pharmac y influenza, seasonal, injectable 2017 [id number] 141 Seqirus complet ed influenza , seasonal, injectabl e 04/30/18 Given Ambulat ory Pharmac y Influenza, seasonal, injectable 1 2017 [id number] 141 Seqirus (SEQ) comple t ed Influenza , seasonal, injectabl e DoD Influenza, injectable, Madin Anna Canine Kidney, preservative free, quadrivalent 0 2017 171 (MVX) complet ed Influenza , injectabl e, Madin Anna Canine Kidney, preservat kiran free, quadrival ent DoD Influenza, inj, MDCK, quadrivalent- pf 2016 [id number] 171 Seqirus complet ed Influenza , inj, MDCK, quadrival ent-pf 05/15/17 Given Ambulat ory Pharmac y Influenza, inj, MDCK, quadrivalent- pf [id number] 171 Seqirus complet ed Influenza , inj, MDCK, quadrival ent-pf 05/15/17 Given Ambulat ory Pharmac y Influenza, injectable, Madin Palmer Canine Kidney, preservative free, quadrivalent 7 [id number] 171 Seqirus (SEQ) comple t ed Influenza , injectabl e, Madin Anna Canine Kidney, preservat kiran free, quadrival ent DoD influenza, seasonal, injectable 2015 TRANSCR IBED 141 complet ed influenza , seasonal, injectabl e 05/05/16 Given Ambulat ory Pharmac y influenza, seasonal, injectable 2015 TRANSCR IBED 141 complet ed influenza , seasonal, injectabl e 05/05/16 Given Ambulat ory Pharmac y Influenza, seasonal, injectable 1 2015 141 Transcribed (TRS) complet ed Influenza , seasonal, injectabl e DoD INFLUENZA, SEASONAL, INJECTABLE 2015 141 complet ed [facility] influenza, seasonal, injectable-pf 2014 [id number] 140 [employer] complet ed influenza , seasonal, injectabl e-pf 04/14/15 Given Ambulat ory Pharmac y influenza, seasonal, injectable-pf 2014 [id number] 140 [employer] complet ed influenza , seasonal, injectabl e-pf 04/14/15 Given Ambulat ory Pharmac y INFLUENZA, UNSPECIFIED FORMULATION 2014 88 complet ed [employer] [facility], [place] - Immunizat ion record [facility] Influenza, seasonal, injectable, preservative free 8 2014 [id number] 140 [employer] (CSL) complet ed Influenza , seasonal, injectabl e, preservat kiran free DoD tuberculin purified protein derivative 2014 [id number] 96 sanofi pasteur complet ed tuberculi n purified protein derivativ e 02/18/15 Given Ambulat ory Pharmac y measles, mumps and rubella virus vaccine 0 2014 03 () Not Given measles, mumps and rubella virus vaccine DoD varicella virus vaccine 0 2014 21 () Not Given varicella virus vaccine DoD INFLUENZA, UNSPECIFIED FORMULATION 2013 88 complet ed [facility] influenza, seasonal, injectable 2012 UNK 141 Unknown complet ed influenza , seasonal, injectabl e 06/03/13 Given Ambulat ory Pharmac y influenza, seasonal, injectable 2012 UNK 141 Unknown complet ed influenza , seasonal, injectabl e 06/03/13 Given Ambulat ory Pharmac y Influenza, seasonal, injectable 0 2012 UNK 141 Unknown (UNK) comple t ed Influenza , seasonal, injectabl e DoD INFLUENZA, UNSPECIFIED FORMULATION 2012 88 complet ed [place] [facility] typhoid Vi capsular polysaccharid e vac 2012 UNK 101 Unknown complet ed typhoid Vi capsular polysacch aride vac 08/25/12 Given Ambulat ory Pharmac y typhoid Vi capsular polysaccharid e vac 2012 UNK 101 Unknown complet ed typhoid Vi capsular polysacch aride vac 08/25/12 Given Ambulat ory Pharmac y typhoid Vi capsular polysaccharid e vaccine 1 2012 UNK 101 Unknown (UNK) comple t ed typhoid Vi capsular polysacch aride vaccine DoD influenza, seasonal, injectable 2011 UNKNOWN 141 Unknown complet ed influenza , seasonal, injectabl e 04/01/12 Given Ambulat ory Pharmac y influenza, seasonal, injectable-pf 2011 [id number] 140 sanofi pasteur complet ed influenza , seasonal, injectabl e-pf 04/01/12 Given Ambulat ory Pharmac y influenza, seasonal, injectable 2011 UNKNOWN 141 Unknown complet ed influenza , seasonal, injectabl e 04/01/12 Given Ambulat ory Pharmac y influenza, seasonal, injectable-pf 2011 [id number] 140 sanofi pasteur complet ed influenza , seasonal, injectabl e-pf 04/01/12 Given Ambulat ory Pharmac y Influenza, seasonal, injectable, preservative free 0 2011 [id number] 140 Sanofi Pasteur ([facility]) complet ed Influenza , seasonal, injectabl e, preservat kiran free DoD Influenza, seasonal, injectable 0 2011 UNKNOWN 141 Unknown (UNK) comple t ed Influenza , seasonal, injectabl e DoD anthrax vaccine 2011 UNK 24 complet ed anthrax vaccine 07/16/11 Given Ambulat ory Pharmac y anthrax vaccine 3 2011 UNK 24 (EBS) complet ed anthrax vaccine DoD vaccinia (smallpox) vaccine 2010 zzLef t Arm VV04-00 3A 75 complet ed vaccinia (smallpox ) vaccine 05/20/11 Given Ambulat ory Pharmac y anthrax vaccine 2010 zzRig ht Arm [id number] 24 Unknown complet ed anthrax vaccine 05/20/11 Given Ambulat ory Pharmac y vaccinia (smallpox) vaccine 2010 VV04-00 3A 75 complet ed vaccinia (smallpox ) vaccine 05/20/11 Given Ambulat ory Pharmac y anthrax vaccine 2010 UNK 24 complet ed anthrax vaccine 05/20/11 Given Ambulat ory Pharmac y anthrax vaccine 1 2010 DANTE XIONG [id number] 24 Other (OTH) complet ed anthrax vaccine DoD vaccinia (smallpox) vaccine 1 2010 DANTE XIONG VV04-00 3A 75 Paula ([place]) complet ed vaccinia (smallpox ) vaccine DoD tuberculin purified protein derivative 2010 zzLef t Arm [id number] 96 complet ed tuberculi n purified protein derivativ e 04/23/11 Given Ambulat ory Pharmac y tuberculin skin test; purified protein derivative solution, intradermal 1 2010 RAFA TREJO [id number] 96 [employer] [facility] complet ed tuberculi n skin test; purified protein derivativ e solution, intraderm al DoD influenza, seasonal, injectable 2010 [id number] 141 Unknown complet ed influenza , seasonal, injectabl e 03/06/11 Given Ambulat ory Pharmac y influenza virus vaccine,split 2010 [id number] 15 Unknown complet ed influenza virus vaccine,s plit 03/06/11 Given Ambulat ory Pharmac y influenza, seasonal, injectable 2010 [id number] 141 Unknown complet ed influenza , seasonal, injectabl e 03/06/11 Given Ambulat ory Pharmac y influenza virus vaccine,split 2010 [id number] 15 Unknown complet ed influenza virus vaccine,s plit 03/06/11 Given Ambulat ory Pharmac y influenza virus vaccine, split virus (incl. purified surface antigen)-reti red CODE 0 2010 [id number] 15 Other (OTH) complet ed influenza virus vaccine, split virus (incl. purified surface antigen)- retired CODE DoD Influenza, seasonal, injectable 0 2010 [id number] 141 Other (OTH) complet ed Influenza , seasonal, injectabl e DoD hepatitis A-hepatitis B vaccine 2010 UNK 104 Unknown complet ed hepatitis A-hepatit is B vaccine 10/05/10 Given Ambulat ory Pharmac y hepatitis A-hepatitis B vaccine 2010 UNK 104 Unknown complet ed hepatitis A-hepatit is B vaccine 10/05/10 Given Ambulat ory Pharmac y hepatitis A and hepatitis B vaccine 3 2010 UNK 104 Unknown (UNK) comple t ed hepatitis A and hepatitis B vaccine DoD influenza virus vaccine, live 2009 [id number] 111 Unknown complet ed influenza virus vaccine, live 04/29/10 Given Ambulat ory Pharmac y influenza virus vaccine,split 2009 UNKNOWN 15 Unknown complet ed influenza virus vaccine,s plit 04/29/10 Given Ambulat ory Pharmac y influenza virus vaccine, live 2009 [id number] 111 Unknown complet ed influenza virus vaccine, live 04/29/10 Given Ambulat ory Pharmac y influenza virus vaccine,split 2009 UNKNOWN 15 Unknown complet ed influenza virus vaccine,s plit 04/29/10 Given Ambulat ory Pharmac y influenza virus vaccine, split virus (incl. purified surface antigen)-reti red CODE 0 2009 UNKNOWN 15 Unknown (UNK) comple t ed influenza virus vaccine, split virus (incl. purified surface antigen)- retired CODE DoD influenza virus vaccine, live, attenuated, for intranasal use 0 2009 [id number] 111 Unknown (UNK) comple t ed influenza virus vaccine, live, attenuate d, for intranasa l use DoD hepatitis A-hepatitis B vaccine 2009 [id number] 4BA 104 [employer] complet ed hepatitis A-hepatit is B vaccine 04/01/10 Given Ambulat ory Pharmac y typhoid Vi capsular polysaccharid e vac 2009 [id number] 101 [employer] complet ed typhoid Vi capsular polysacch aride vac 04/01/10 Given Ambulat ory Pharmac y yellow fever vaccine 2009 [id number] 37 [employer] complet ed yellow fever vaccine 04/01/10 Given Ambulat ory Pharmac y anthrax vaccine 2009 UNK 24 complet ed anthrax vaccine 04/01/10 Given Ambulat ory Pharmac y poliovirus vaccine, inactivated 2009 E0123 10 [employer] comple t ed polioviru s vaccine, inactivat ed 04/01/10 Given Ambulat ory Pharmac y yellow fever vaccine 2009 [id number] 37 [employer] complet ed yellow fever vaccine 04/01/10 Given Ambulat ory Pharmac y anthrax vaccine 2009 UNK 24 complet ed anthrax vaccine 04/01/10 Given Ambulat ory Pharmac y poliovirus vaccine, inactivated 2009 e0123 10 [employer] comple t ed polioviru s vaccine, inactivat ed 04/01/10 Given Ambulat ory Pharmac y hepatitis A-hepatitis B vaccine 2009 ahabb18 4ba 104 [facility] complet ed hepatitis A-hepatit is B vaccine 04/01/10 Given Ambulat ory Pharmac y typhoid Vi capsular polysaccharid e vac 2009 [id number] 101 [employer] complet ed typhoid Vi capsular polysacch aride vac 04/01/10 Given Ambulat ory Pharmac y poliovirus vaccine, inactivated 0 2009 E0123 10 [employer] (MED) complet ed polioviru s vaccine, inactivat ed DoD anthrax vaccine 1 2009 UNK 24 (EBS) complet ed anthrax vaccine DoD yellow fever vaccine 0 2009 [id number] 37 [employer] [place] (MIP) complet ed yellow fever vaccine DoD typhoid Vi capsular polysaccharid e vaccine 1 2009 [id number] 101 [facility] ([facility]) complet ed typhoid Vi capsular polysacch aride vaccine DoD hepatitis A and hepatitis B vaccine 2 2009 [id number] 4BA 104 [employer] (SKB) complet ed hepatitis A and hepatitis B vaccine DoD tetanus, diphtheria, acellular pertu is 2009 [id number] 4BA 115 sanofi pasteur complet ed tetanus, diphtheri a, acellular pertussis 02/25/10 Given Ambulat ory Pharmac y meningococcal A,C,Y,W-135 (MCV4P) 2009 [id number] 114 [employer] complet ed meningoco ccal A,C,Y,W-1 35 (MCV4P) 02/25/10 Given Ambulat ory Pharmac y hepatitis A-hepatitis B vaccine 2009 AHABB18 4AA 104 [employer] complet ed hepatitis A-hepatit is B vaccine 02/25/10 Given Ambulat ory Pharmac y meningococcal polysaccharid e (MPSV4) 2009 UNKNOWN 32 Unknown complet ed meningoco ccal polysacch aride (MPSV4) 02/25/10 Given Ambulat ory Pharmac y tetanus-dipht h toxoids (Td) adult/adol 2009 UNKNOWN 09 Unknown complet ed tetanus-d iphth toxoids (Td) adult/ado l 02/25/10 Given Ambulat ory Pharmac y tetanus, diphtheria, acellular pertu is 2009 [id number] 4BA 115 sanofi pasteur complet ed tetanus, diphtheri a, acellular pertussis 02/25/10 Given Ambulat ory Pharmac y meningococcal A,C,Y,W-135 (MCV4P) 2009 [id number] 114 [employer] complet ed meningoco ccal A,C,Y,W-1 35 (MCV4P) 02/25/10 Given Ambulat ory Pharmac y hepatitis A-hepatitis B vaccine 2009 [id number] 4AA 104 [employer] complet ed hepatitis A-hepatit is B vaccine 02/25/10 Given Ambulat ory Pharmac y meningococcal polysaccharid e (MPSV4) 2009 UNKNOWN 32 Unknown complet ed meningoco ccal polysacch aride (MPSV4) 02/25/10 Given Ambulat ory Pharmac y tetanus-dipht h toxoids (Td) adult/adol 2009 UNKNOWN 09 Unknown complet ed tetanus-d iphth toxoids (Td) adult/ado l 02/25/10 Given Ambulat ory Pharmac y TDAP 2009 115 complet ed [facility] tetanus and diphtheria toxoids, adsorbed, preservative free, for adult use (2 Lf of tetanus toxoid and 2 Lf of diphtheria toxoid) 1 2009 UNKNOWN 09 Unknown (UNK) comple t ed tetanus and diphtheri a toxoids, adsorbed, preservat kiran free, for adult use (2 Lf of tetanus toxoid and 2 Lf of diphtheri a toxoid) DoD meningococcal polysaccharid e vaccine (MPSV4) 1 2009 UNKNOWN 32 Unknown (UNK) comple t ed meningoco ccal polysacch aride vaccine (MPSV4) DoD hepatitis A and hepatitis B vaccine 1 2009 [id number] 4AA 104 [employer] (SKB) complet ed hepatitis A and hepatitis B vaccine DoD meningococcal polysaccharid e (groups A, C, Y and W-135) diphtheria toxoid conjugate vaccine (MCV4P) 0 2009 [id number] 114 [employer] (AVB) complet ed meningoco ccal polysacch aride (groups A, C, Y and W-135) diphtheri a toxoid conjugate vaccine (MCV4P) DoD tetanus toxoid, reduced diphtheria toxoid, and acellular pertu is vaccine, adsorbed 0 2009 [id number] 4BA 115 Sanofi Pasteur (PMC) complet ed tetanus toxoid, reduced diphtheri a toxoid, and acellular pertussis vaccine, adsorbed DoD Results Combined list of recent chemistry, hematology and other laboratory results from Department of Defense and Veterans Affairs, ranging from 15 months to all on record, depending upon the facility. Order Name Results Value Reference Range Date Interpretation Specimen Comments Source Infectio us Disease HIV-1/O/2 Non-Reac tive 1 ( 3 2:47 PM) 04/21 N Interpretiv e Data: INTERPRETAT ION: This method is a screening procedure for the detection of HIV p24 Antigen and Antibodies to HIV-1, including Group O, and/or HIV-2. NON-REACTIV E: HIV-1 antigen and HIV-1 / HIV-2 antibodies were not detected. No laboratory evidence of HIV infection. A negative test result does not exclude the possibility of exposure to or infection with HIV. HIV antibodies and/or p24 antigen may be undetectabl e in some stages of the infection and in some clinical conditions. If acute HIV infection is suspected, consider submitting another specimen to a reference laboratory for HIV-1 RNA. SCREEN REACTIVE - CONFIRMATIO N TO FOLLOW: Possible presence of HIV-1antibo dies, HIV-2 antibodies and/or HIV-1 p24 antigen. Specimen will reflex to the confirmatio n testing that fulfills the Center for Disease Control and Prevention' s HIV diagnostic algorithm. Refer to [facility] Lab Guide for additional information : [email or web address]. [email or web address]/ [email or web address]/EPIL [email or web address]/la [email or web address] x Testing performed by [facility] Rogelio whitfield Sendouts Repository Sample Received ( 3 2:47 PM) 04/21 N [facility] Vital Signs Combined list of inpatient and outpatient Vital Signs from Department of Defense and Veterans Affairs, ranging from 12 months to all on record, depending upon the facility. Vital Sign Value Date Comments Source Systolic Blood Pressure 123mm[Hg] 04/22/2022 11:55:00 Ambulatory Pharmacy Diastolic Blood Pressure 78mm[Hg] 04/22/2022 11:55:00 [facility]ulatory [facility] Mean Arterial Pressure, Calc 93mm[Hg] 04/22/2022 11:55:00 Ambulatory [facility] Peripheral Pulse Rate 58bpm 04/22/2022 11:55:00 [facility]ulatory [facility]acy Respiratory Rate 16br/min 04/22/2022 11:55:00 [facility]ulatory Pharmacy Temperature Temporal Artery 36.3Cel 04/22/2022 11:55:00 Ambulatory Pharmacy Blood Pressure Manual 04/22/2022 11:55:00 Ambulatory Pharmacy Encounters Combined list of: 1) Encounters from Department of Veterans Affairs facilities going back up to thelast 18 months. 2) Encounters from the Department of Defense facilities going back up to 280 months. Location Location Details Encounter Type Encounter Number Reason For Visit Attending Provider ADM Date DC Date Status Disposition Source [facility](Au diology [facility] 1523) OUTPATIENT [id number] TAWNY JOYCE 02/22 Released w/o Limitations [facility]( Audiolo gy [facility] 1523) [facility](We [facility] Male) OUTPATIENT [id number] ARTI VILLEGAS 02/25 Released w/o Limitations [facility]( [facility](Op tometry [facility] 1523) OUTPATIENT [id number] recruit screen OMER MEJÍA 02/28 Released w/o Limitations [facility]( Optomet ry [facility] 1523) [facility](Ct litary Sick Call [facility] 237) OUTPATIENT [id number] att...h ead and neck issues ELZBIETA RDZ 08/02 Released w/o Limitations [facility]( Militar y Sick Call [facility] 237) [facility](Ct litary Sick Call [place] [address]) OUTPATIENT [id number] OSS MICHELE EMMANUEL 08/20 Released w/o Limitations [facility]( Militar y Sick Call [facility] 237) [facility](Ct litary Sick Call [place] [address]) OUTPATIENT [id number] 9 Finn : Twisted right ankle COLTRO, JB 09/05 Released with Work/Duty Limitations [facility]( Militar y Sick Call [facility] 237) [facility](Ct litary Sick Call [place] [address]) TELE CONSULT [id number] pt to see coltro tomorro w 09-06-10 for xray results ROMA NAVARRO 09/05 Referred for Appointment [facility]( Militar y Sick Call [facility] 237) [facility] [place] [address] OUTPATIENT [id number] 9C: FOLLOW UP JB BARON 09/06 Released with Work/Duty Limitations [facility]( Militar y Sick Call [facility] 237) [facility](Ct litary Sick Call [place] [address]) OUTPATIENT [id number] 9C f/u COLTRO, JB 09/13 Released w/o Limitations [facility]( Militar y Sick Call [facility] 237) [facility](Immuniz ations [facility]) OUTPATIENT [id number] vaccine MORIAH ODELL 01/30 Released w/o Limitations [facility](Imm unizati ons [facility] ) [facility](Hearing Cons Dane Sta) OUTPATIENT [id number] FRANKI MELO Lashay 01/30 Released w/o Limitations [facility](Hea ring Cons Dane Sta) [facility] h(Optomet ry [facility]) OUTPATIENT [id number] CARLOS CHELSEA MANNING [place] 02/05 Released w/o Limitations [facility](Opt ometry [facility] ) [facility](Immuniz ations [facility]) OUTPATIENT [id number] vaccine RAFA TREJO 04/23 Released w/o Limitations [facility](Imm unizati ons [facility] ) [facility] OUTPATIENT [id number] IA/AFG RAFA PARHAM 05/16 Released w/o Limitations [facility](Dep loyment [facility] ) [facility](Immuniz ation NMCP) OUTPATIENT [id number] NMPS- ANT, SPDANTE SHELTON 05/19 [facility]ased w/o Limitations [facility](Imm unizati on NMCP) [facility] h(NMPS) OUTPATIENT [id number] MOB RAFA PARHAM 05/19 Released w/o Limitations [facility] OUTPATIENT [id number] 10/30 Released w/o Limitations [facility] OUTPATIENT [id number] 12/27 Released w/o Limitations Theater Facilit y [facility] h(NMPS) OUTPATIENT [id number] Notes Entered by: JARVIS HAIR 28 May 2012 0847 ------- ------- ------- ------- -- GUERO WEBER 05/28 Released w/o Limitations [facility](NMP S) [facility] [facility](Hearing Cons Dane Sta) OUTPATIENT [id number] JOSE ALFREDO GARZON 09/21 Released w/o Limitations [facility](Hea ring Cons Dane Sta) [facility](Hearing Cons Dane Sta) OUTPATIENT [id number] MARI SYLVESTER 09/24 Released w/o Limitations [facility](Hea ring Cons Dane Sta) [facility](Hearing Cons Dane Sta) OUTPATIENT [id number] JOSE ALFREDO GARZON 11/08 Released w/o Limitations [facility](Hea ring Cons Dane Sta) [facility](Hearing Cons Dane Sta) OUTPATIENT [id number] JOSE ALFREDO GARZON 12/16 Released w/o Limitations [facility](Hea ring Cons Dane Sta) [facility]) OUTPATIENT [id number] Notes Entered by: BRANDO HARRISON 09 Jan 2014 1329 ------- ------- ------- ------- -- Lower back pain, worseni ng over past 2-3 days CHELLE DANIELS 01/09 Released w/o Limitations [facility] ) [facility](Medical Readiness SURFLANT) OUTPATIENT [id number] Notes Entered by: WALT HOWELL F 10 Jan 2014 0904 ------- ------- ------- ------- -- Separat ion Physica l IRENE HOWELL 01/10 Released w/o Limitations [facility](Med ical Readine ss SURFLAN T) [facility]) OUTPATIENT [id number] LOWER BACK SPRAIN ABHIJIT PORTILLO 01/19 Released w/o Limitations [facility](Oce anuj Fleet Chiropr actic Clinic) [employer]([facility]) OUTPATIENT [id number] REFERRA L FOR CHIROPR ACTIC CLINIC MISSAEL MULLEN 09/12 Released w/o Limitations [employer](F [facility] [place]) [employer](PT [facility]) OUTPATIENT [id number] RIDGE MEANS 09/17 Released w/o Limitations [employer](P T Family Health) [employer](Chi ropractic -Clinic) OUTPATIENT [id number] Low Back MATHEUS DE [place] 09/19 Released w/o Limitations [employer](C hiropra ctic-Cl inic) [employer](PT Physical Thpy-Out) OUTPATIENT [id number] Pas entered the order SG CONSTANTINO 09/20 Released w/o Limitations [employer](P T Physica l Thpy-Ou t) [employer](Chi ropractic -Clinic) OUTPATIENT [id number] MATHEUS DE [place] 09/25 Released w/o Limitations [employer](C hiropra ctic-Cl inic) [employer](PT Physical Thpy-Out) OUTPATIENT [id number] DEMETRIUS KOHLI 10/04 Released w/o Limitations [employer](P T Physica l Thpy-Ou t) [employer](Chi ropractic -Clinic) OUTPATIENT [id number] MATHEUS DE [place] 10/16 Released w/o Limitations [employer](C hiropra ctic-Cl inic) [employer](Urg ent Care Clinic) OUTPATIENT [id number] referra l to urology SAMANTHA BRANDON 10/17 Released w/o Limitations [employer](U [facility]) [employer](Chi ropractic -Clinic) OUTPATIENT [id number] MATHEUS DE [place] 10/23 Released w/o Limitations [employer](C hiropra ctic-Cl inic) [employer](Urg ent Care Clinic) TELE CONSULT [id number] Notes Entered by: BRANDT FRAIRE 26 Oct 2015 2136 ------- ------- ------- ------- -- SUYAPA Dougherty 10/26 [employer](U ent Care Clinic) [employer](Urg ent Care Clinic) TELE CONSULT [id number] Notes Entered by: RODERICK PRIETO 29 Oct 2015 1113 ------- ------- ------- ------- -- Lab results ARLENE HAYNES Marissa 10/28 [employer]([facility]) [employer]([facility]) TELE CONSULT [id number] Notes Entered by: CHRISTIAN GRANT CIA 13 Nov 2015 0945 ------- ------- ------- ------- -- Network Results Sleep Titrati on DIEGO RYAN 11/12 [employer]([facility]) [employer] OUTPATIENT [id number] MATHEUS DE [place] 11/18 Released w/o Limitations [facility](C hiropra ctic-Cl inic) Maribeth zayas [facility] [place]([address] [place]) OUTPATIENT [id number] initial visit ERNIE CERVANTES 07/20 Released with Work/Duty Limitations Maribeth corcoran [facility] [place]([address] Team A [place]) Maribeth zayas [facility] [place]([address] Team A [place]) OUTPATIENT [id number] sore throat ERNIE CERVANTES 08/06 Sick at Home/Quarter s DCarlos corcoran [facility] [place]([address] Team A [place]) Maribeth zayas [facility] [place]([address] Team A [place]) TELE CONSULT [id number] Notes Entered by: RAINE JAIN 01 Sep 2017 1025 ------- ------- ------- ------- -- MRI lumbar spine wo GENEVIEVE Lang 09/01 Maribeth corcoran [facility] [place]([address] Team A SCOM) Maribeth zayas [facility] [place]([address] Team A [place]) OUTPATIENT [id number] test results ERNIE CERVANTES 09/14 Released with Work/Duty Limitations [facility] [place]([address] Team A SCOM) Maribeth zayas [facility] [place]([address] Team A SCOM) OUTPATIENT [id number] harrisontamiko klein in leg/reinaldo ERNIE Molina 02/24 Released with Work/Duty Limitations [facility] [place]([address] Team A SCOM) Maribeth zayas [facility]([address] Team A SCOM) OUTPATIENT [id number] pha ERNIE CERVANTES 03/08 Released w/o Limitations Mar[facility] [place] ([address] Team A SCOM) Maribeth zayas [facility] [place] Team A SCOM) OUTPATIENT [id number] Notes Entered by: HUEY BURRELL 07 Apr 2018 0709 ------- ------- ------- ------- -- Right Knee Pain (No Referra ls) ERNIE CERVANTES 04/07 Released with Work/Duty Limitations Mar[facility] [place] ([address] Team A SCOM) Maribeth zayas [facility]([address] Team A SCOM) TELE CONSULT [id number] Notes Entered by: CORA VINCENT 12 Apr 2018 1429 ------- ------- ------- ------- -- pt referra l ERNIE CERVANTES 04/12 [facility] [place]([address] Team A SCOM) Maribeth zayas [facility]([address] Team A SCOM) TELE CONSULT [id number] Notes Entered by: RAINE JAIN 27 May 2018 0755 ------- ------- ------- ------- -- MRI right knee wo contras t ERNIE CERVANTES 05/27 [facility] [place] ([facility] F01A Team A SCOM) Maribeth zayas [facility] [place] ([facility] F01A Team A SCOM) TELE CONSULT [id number] Notes Entered by: RAINE JAIN 14 Jun 2018 0949 ------- ------- ------- ------- -- Orthope dic consult report - right knee ERNIE CERVANTES 06/14 [facility] [place] ([facility] F01A Team A SCOM) Maribeth zayas [facility] [place]([facility] Team A SCOM) TELE CONSULT [id number] Notes Entered by: Raza CARBAJAL 15 Jun 2018 1444 ------- ------- ------- ------- -- Pre-op (ortho) ERNIE CERVANTES 06/15 [facility] A SCOM) Maribeth zayas [facility] [place]([facility] F01A Team A SCOM) OUTPATIENT [id number] check up/ phy ERNIE CERVANTES 06/18 Released with Work/Duty Limitations [facility] [place] ([facility] F01A Team A SCOM) Maribeth zayas [facility] [place] ([facility] Team A SCOM) OUTPATIENT [id number] 9 provide r called to follow up ERNIE CERVANTES 07/09 Released with Work/Duty Limitations Mar[facility] [place] ([facility] F01A Team A SCOM) Maribeth zayas [facility] [place] ([facility] F01A Team A SCOM) OUTPATIENT [id number] eavl from having knee surg KSENIA CANTU 09/24 Released w/o Limitations Mar[facility] [place] ([facility] F01A Team A SCOM) Maribeth zayas [facility] [place] ([facility] F01A Team A SCOM) OUTPATIENT [id number] follow up from knee surgery MELQUIADES CANTUDA J 10/21 Released w/o Limitations Maribeth corcoran [facility] [place]([facility] Team A SCOM) Maribeth zayas [facility] [place]([address] Team A SCOM) OUTPATIENT [id number] 4 f/u ER visit ISHAAN-YURIY SCOTTY, KSENIA J 11/15 Released w/o Limitations Maribeth corcoran [facility] [place]([address] Team A SCOM) Maribeth zayas [facility]([address] Team A SCOM) TELE CONSULT [id number] Notes Entered by: RAINE JAIN 10 Dec 2018 0758 ------- ------- ------- ------- -- Orthope dic f/u consult report - right knee ISHAAN-YURIY SCOTTY, [facility] 12/10 Maribeth corcoran [facility] [place]([address] Team A SCOM) Maribeth zayas [facility] [place]([address] Team A [place]) TELE CONSULT [id number] Notes Entered by: RAINE JAIN 02 Feb 2019 0841 ------- ------- ------- ------- -- Orthope dic f/u consult report - right knee postop ISHAAN-YURIY SCOTTY, KSENIA J 02/02 Maribeth corcoran [facility] [place]([address] Team A SCOM) Maribeth zayas [facility] [place]([address] Team A SCOM) OUTPATIENT [id number] ishaan-e scobar/ back pain ISHAAN-YURIY SCOTTY, KSENIA J 02/07 Released w/o Limitations Maribeth corcoran [facility] [place]([address] Team A SCOM) Maribeth zayas [facility] [place]([address] Team A SCOM) OUTPATIENT [id number] ishaan-e scobar/ pha ISHAAN-YURIY BAR, KSENIA J 04/01 Released w/o Limitations Maribeth corcoran [facility] [place]([address] Team A SC) Maribeth zayas [facility] [place]([address] Team A [facility]) TELE CONSULT [id number] Notes Entered by: Heber SCOTT 10 May 2019 1432 ------- ------- ------- ------- -- pt report KSENIA CANTU 05/10 [facility] [place]([address] Team A [facility]) Maribeth zayas [facility] [place]([address] Team A [facility]) TELE CONSULT [id number] Notes Entered by: АЛЕКСАНДР MCGOVERN 07 Jun 2019 1327 ------- ------- ------- ------- -- Physica l Therapy ReferHERMELINDO Mac 06/07 [facility] [place]([address] Team A [facility] Maribeth Benjamin r [facility] [place]([address] Team A [facility]) OUTPATIENT [id number] acd/pro blem with shots/3 05[birth year]491- 1934/vi rtHERMELINDO Kirby 03/08 Released w/o Limitations [facility] [place] ([address] Team A [facility]) Maribeth Benjamin r [facility] [place]([address] Team A [facility]) OUTPATIENT [id number] Ear Checkup KSENIA CANTU 06/12 Released w/o Limitations DCarlos [facility] [place]([address] Team A [facility]) Maribeth Benjamin r [facility] [place](Opsurg e Multi-Spe cialty [facility]) TELE CONSULT [id number] Notes Entered by: RADHA LEWIS 21 Jun 2020 1343 ------- ------- ------- ------- -- COVID Results MARQUES DAVIS 06/21 Maribeth corcoran [facility] [place](Opsu rge Multi-S pecialt y [facility]) [facility] Facility OUTPATIENT [id number] Theater Provider 09/25 Released w/o Limitations [facility] OUTPATIENT [id number] 1 Theater Provider 11/13 Released w/o Limitations Theater Facilit y D. DCarlos zayas [facility] [place]([facility] F01A Team A SCOM) OUTPATIENT [id number] 2 resched uled//g eneral checkup /physic al f2f KSENIA CANTU 01/22 Released w/o Limitations DCarlos corcoran [facility] [place] JACQUELINE([facility] F01A Team A SCOM) Maribeth zayas [facility] [place] JACQUELINE([facility] F01A Team A SCOM) OUTPATIENT [id number] f2f//fo llow-up urgent care visit KSENIA CANTU 09/12 Released w/o Limitations DCarlos corcoran [facility] [place] JACQUELINE([facility] Team A SCOM) Maribeth zayas [facility] [place] JACQUELINE([facility] Team A SCOM) TELE CONSULT [id number] Notes Entered by: RAINE JAIN 23 Sep 2021 0950 ------- ------- ------- ------- -- Chest Xray KSENIA CANTU 09/23 Maribeth corcoran [facility] [place] JACQUELINE([facility] Team A SCOM) Maribeth zayas [facility] [place]([facility] Team A SCOM) OUTPATIENT [id number] Discuss followu p on hbp medicat ion//vr //[id number] KSENIA CANTU 10/29 Released w/o Limitations DCarlos [facility] [place] JACQUELINE([facility] F01A Team A SCOM) [facility]) TELE CONSULT [id number] Notes Entered by: Nicole GR 15 Nov 2021 0720 ------- ------- ------- ------- -- SICK CALL- COVID TEST SHONA OCONNOR Chloe 11/15 [facility]) Maribeth zayas [facility] F01A Team A SCOM) OUTPATIENT [id number] VR [id number] 934/[facility] CARLY Murphy 01/08 Sick at Home/Quarter s Maribeth [facility] F01A Team A SCOM) Maribeth zayas [facility] F01A Team A SCOM) OUTPATIENT [id number] 2 annual check up KSENIA CANTU 04/22 Released w/o Limitations Mar[facility]eth [place] [facility] F01A Team A SCOM) [id number] AMDS Dental [id number] SILVANA CAO 08/15 Discharge Disposition: Home or Self Care 8344R-4 39 AMDS 6118M-[facility] Between Visit [id number] 05/03 Discharge Disposition: Home or Self Care 6118M-[facility] [id number]-439 AMDS Between Visit [id number] 05/06 Discharge Disposition: Home or Self Care 8344R-4 39 AMDS Procedures Combined list of: 1) Procedures from Department of Veterans Affairs facilities going [facility], not all VA non-surgical procedures are included; 2) All procedures from the Department of Defense facilities. Procedure Procedure Type Code Date Perfomer Comments Sour e Application of a modality to one or more areas; traction, mechanical Application of a modality to one or more areas; traction, mechanical [address] [place], [place] [address]Michael oglesby Chiropractic manipulative treatment (CMT); spinal, one to two regions Chiropractic manipulative treatment (CMT); spinal, one to two regions [address] [place], [place] [address]Brandan oglesby Application of a modality to one or more areas; hot or cold packs Application of a modality to one or more areas; hot or cold packs [id number] Chiropractic manipulative treatment (CMT); spinal, three to four regions Chiropractic manipulative treatment (CMT); spinal, three to four regions [phone] [facility] miguel ELECTROCARDIOGRAM, ROUTINE ECG WITH AT LEAST 12 LEADS; WITH INTERPRETATION AND REPORT 12/23/2021 [facility] APPLICATION OF A MODALITY TO 1 OR MORE AREAS; HOT OR COLD PACKS 11/19/2015 [facility] APPLICATION OF A MODALITY TO 1 OR MORE AREAS; HOT OR COLD PACKS 10/24/2015 [facility] APPLICATION OF A MODALITY TO 1 OR MORE AREAS; HOT OR COLD PACKS 10/17/2015 [facility] THERAPEUTIC PROCEDURE, 1 OR MORE AREAS, EACH 15 MINUTES; THERAPEUTIC EXERCISES TO DEVELOP STRENGTH AND ENDURANCE, RANGE OF MOTION AND FLEXIBILITY 10/05/2015 [facility] APPLICATION OF A MODALITY TO 1 OR MORE AREAS; HOT OR COLD PACKS 09/26/2015 [facility] THERAPEUTIC PROCEDURE, 1 OR MORE AREAS, EACH 15 MINUTES; THERAPEUTIC EXERCISES TO DEVELOP STRENGTH AND ENDURANCE, RANGE OF MOTION AND FLEXIBILITY 09/21/2015 [facility] POSITIONING CUSHION/PILLOW/WEDGE, ANY SHAPE OR SIZE, INCLUDES ALL COMPONENTS AND ACCESSORIES 09/20/2015 [facility] THERAPEUTIC PROCEDURE, 1 OR MORE AREAS, EACH 15 MINUTES; THERAPEUTIC EXERCISES TO DEVELOP STRENGTH AND ENDURANCE, RANGE OF MOTION AND FLEXIBILITY 09/18/2015 [facility] BRIEF EMOTIONAL/BEHAVIORAL ASSESSMENT (EG, DEPRESSION INVENTORY, ATTENTION-DEFICIT/HYP ERACTIVITY DISORDER [ADHD] SCALE), WITH SCORING AND DOCUMENTATION, PER STANDARDIZED INSTRUMENT 04/15/2021 [facility] TELE ASSESS & MGT SRV PROV QUAL NONPHYS HLTH CARE PRO TO EST PAT,PARENT,GUARD NOT ORIG REL ASSESS & MGT SRV PROV W/IN PREV 7 DAYS NOR LEAD ASSESS & MGT SRV/PX W/IN NXT 24 HR/SOON APT;5-10 MIN MED DIS 04/12/2021 [facility] WAIVER SERVICES; NOT OTHERWISE SPECIFIED (NOS) 03/08/2020 [facility] LIDOCAINE 70 MG/TETRACAINE 70 MG, PER PATCH 07/20/2017 [facility] INFLUENZA VIRUS VACCINE, TRIVALENT, LIVE (LAIV3), FOR INTRANASAL USE 04/29/2010 [facility] YELLOW FEVER VACCINE, LIVE, FOR SUBCUTANEOUS USE 04/01/2010 [facility] VIS FUNCT SCREEN,AUTOMAT/SEMI-A UTOMAT BILAT QUANT DETERM VISUAL ACUITY,OCULAR ALIGN,COLOR VISION,PSEUDOISOCHROM AT PLATES,& FIELD VIS (MAY INC ALL/SOME SCRN DETERM FOR CONTRAST SENSITIV,VIS UND GLARE) 02/28/2010 [facility] YELLOW FEVER VACCINE, LIVE, FOR SUBCUTANEOUS USE 02/25/2010 [facility] SKIN TEST; TUBERCULOSIS, INTRADERMAL 02/22/2010 [facility] AUDIOMETRIC TESTING OF GROUPS 02/22/2010 [facility] COLLECTION OF VENOUS BLOOD BY VENIPUNCTURE 02/21/2010 [facility] CHIROPRACTIC MANIPULATIVE TREATMENT (CMT); SPINAL, 1-2 REGIONS 01/19/2014 [facility]D SCREENING TEST, PURE TONE, AIR ONLY 12/16/2013 [facility]D AUDIOMETRIC TESTING OF GROUPS 11/08/2012 DoD SCREENING TEST, PURE TONE, AIR ONLY 09/24/2012 DoD AUDIOMETRIC TESTING OF GROUPS 09/21/2012 [facility] COLLECTION OF VENOUS BLOOD BY VENIPUNCTURE 05/28/2012 [facility] IMMUNIZATION ADMINISTRATION (INCLUDES PERCUTANEOUS, INTRADERMAL, SUBCUTANEOUS, OR INTRAMUSCULAR INJECTIONS); EACH ADDITIONAL VACCINE (SINGLE OR COMBINATION VACCINE/TOXOID) 05/19/2011 DoD SKIN TEST; TUBERCULOSIS, INTRADERMAL 04/23/2011 DoD VIS FUNCT SCREEN,AUTOMAT/SEMI-A UTOMAT BILAT QUANT DETERM VISUAL ACUITY,OCULAR ALIGN,COLOR VISION,PSEUDOISOCHROM AT PLATES,& FIELD VIS (MAY INC ALL/SOME SCRN DETERM FOR CONTRAST SENSITIV,VIS UND GLARE) 02/05/2011 DoD SCREENING TEST, PURE TONE, AIR ONLY 01/30/2011 DoD Social History Combined list of available smoking, tobacco, and other social history from Department of 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 Social History Type Response Date Comment Sourc e Male 03/13/2020 [facility] Tobacco smoking status NHIS LIFETIME NON-USER OF TOBACCO 04/15/2016 [facility] History of tobacco use LIFETIME NON-USER OF TOBACCO 05/28/2015 [facility] History of tobacco use LIFETIME NON-USER OF TOBACCO 05/08/2015 [facility] History of tobacco use LIFETIME NON-USER OF TOBACCO 06/14/2014 [facility] Sexual Orientation Ambula tory Pharmacy Gender identity Ambulator y Pharmacy This section is an empty social history section. DoD Assessment and Plan Combined list of future care activities from Department of Defense and Veterans Affairs facilities (e.g., assessment and plan notes, appointments, orders, and referrals). Additional future care activities may be listed in the Plan of Care section. Result Assessment and Plan Date Source Assessment and Plan Extracted from:Title : LONNIE Author: KSENIA TURNER Date: 02/04/23 1.?Obstructive sleep apnea of adult Reviewed sleep study, with obstructive sleep apnea, referral given for CPAP machine and all equipment Ordered: Referral Request 2.0 ? [facility] ? ? Extracted from:Title: LONNIE Author: KSENIA TURNER Date: 11/28/22 1.?Obstructive sleep apnea of adult Reviewed sleep study, obstructive sleep apnea, referral given for sleep study with CPAP titration. Ordered: Referral Request 2.0 ? Extracted from:Title: sleep disorder Author: KSENIA TURNER Date: 10/29/22 1.?Sleep disorder Pt with hx of obstructive sleep apnea, was recommended CPAP in 2016 but never picked up machine to start treatment, pt would like a sleep study, continues with sleep issues. Ordered: Referral Request 2.0 ? 2.?Obstructive sleep apnea of adult Ordered: Referral Request 2.0 ? 3.?Encounter for screening for eye and ear disorders Referral for annual eye exam Ordered: Referral Request 2.0 ? Extracted from:Title: Office Clinic Note Author: KSENIA TURNER Date: 04/22/22 1.?Well adult monitoring check done 2.?Primary hypertension Extracted from:Title: Office Clinic Note- annual exam Author: KSENIA TURNER Date: 04/22/22 1.?Well adult monitoring check done Patient presents today for annual visit. ?Physical exam complete.??..?Counseled?on avoidance of ETOH and tobacco.?Discussed?current recommended schedule for cancer screening testing and exams for; thyroid, mouth, skin, genital/gonadal and lymphatic cancers.?Discussed with patient to keep a healthy lifestyle by eating a well balanced diet low in fat and sodium, discussed exercise regimen 3-5 times a week for 30 minutes a daily and proper hygiene.? ? ? 2.?Primary hypertension Pt was previously diagnosed with HTN, he reports self discontinuing anti-HTN medication.? Pt reports he started exercise program, meditating and watching his diet with sodium intake, VS stable today.? Recommended to f/u with PCM if blood pressure starts to rise, verb understanding. 07/04/2024 Ambulatory Pharmacy Advance Directives List of completed, amended, or rescinded Advance Directives on record at Department of Veterans Affairs facilities. An actual copy of the Directive is not included. Date Advance Directive Provider Source 06/14/2014 ADVANCE DIRECTIVE DISCUSSION AARON KWON [facility] Functional Status Combined list of recent functional and cognitive assessments recorded at Department of Defense and Veterans Affairs (VA).VA Functional [place] Measurement (FIM) Scale: 1 = Total Assistance (Subject = 0% +), 2 = Maximal Assistance (Subject = 25% +), 3 = Moderate Assistance (Subject = 50% +), 4 = Minimal Assistance (Subject = 75% +), 5 = Supervision, 6 = Modified Wheatland (Device), 7 = Complete [place] (Timely, Safely). Assessment Date/Time Source Assessment Type Assessment Skill Assessment Score Assessment Details No data available for this section
--- OUTSIDE RECORDS SUMMARY | 2024-07-04 08:07 | XMS_ITS ---
Care Plan - [facility] Created on: July 04, 2024 Ellis Corral : 1980 Sex: Male Author Organization [facility] Address [address] [place] [id number] Phone Care Team Providers Care Endocrinology Physician Name Role Phone Luis Fernando WALDROP, Lobito George [phone] [facility], Clinic Station Primary Care Milan mckeon [phone]
--- OUTSIDE RECORDS SUMMARY | 2024-07-04 08:08 | XMS_ITS | Clinical Summary ---
Author Organization [facility] Address [address] [place] [address] Phone Care Team Providers Care Vp Strategy Name Role Phone Luis Fernando WALDROP, Lobito George [phone] [facility], Clinic Station Primary Care P rovider [phone] Reason for Visit and Chief Complaint visit for: comprehensive medical evaluation :Consultation - The Chief Complaint is: allergies Plan of Treatment - Recommended allergy sensitivity testing - abbrev - Last Documented On 03/04/2021 3:12PM ; [facility] Pending Tests Order Diagnosis Results Due Ordering P rovider Plan:Test/Treatme nt1 - Allergy Tests Allergy Sensitivity Test Chronic rhinitis 03/04/21 Lobito Gould MD Last Documented On 3:09PM ; [facility] Instructions to patient Instructions for patient - p janell use of nasal spray Last Documented On 1 3:11PM ; [facility] Assessments Includes: Assessments from this encounter Findings - Chronic rhinitis - Last Documented On 03/04/2021 3:12PM ; [facility] Instructions Includes: Instructions from this encounter Instructions to patient Instructions for patient - p janell use of nasal spray Last Documented On 3:11PM ; [facility] Medical Equipment - Implanted Devices Includes: Current Devices No Medical Equipment Recorded Medications Includes: Medications discussed during this encounter and other current Medications New / Renewed during this visit Lobito Gould MD on 03/04/2021 Fluticasone Propionate 50 MCG/ACT Nasal Suspension Provider: Lobito fiore MD 30 day supply: 16 gram, 3 refills Diagnosis: Chronic rhinitis 2 sp en qam [facility] [id number] [facility] [address] [place] [address], [phone] - Last Documented On 1 12:25PM By Stef Snow ; [facility] Current Medications (continue as prescribed) Fluticasone Propionate 50 MCG/ACT Nasal Suspension 06/10/2021 Provider: Lobito fiore MD Diagnosis: Allergic rhiniti s, unspecified 2 sp en qd as needed Last Documented On 1 12:45PM By Lobito Gould MD ; [facility] Fexofenadine HCl 180 MG Oral Tablet 03/02/2021 Provider: Lisa Renee ([place]) [employer] Diagnosis: 1 tab po qd Last Documented On 2:43PM By Jimmy Luther ; [facility] Medications Administered Includes: Administered Medications from this encounter No Administered Medications Recorded Vital Signs Includes: Vital Signs from this encounter Vital Name 03/04/2021 02:39P Blood Pressure Sitting L 122/70 Pulse Rate-Sitting (bpm) 75 Respiration Rate (breaths/min) 20 Temp-Tympanic (F) 98 Height (in) 68 Weight (lb) 176 Body Mass Index (kg/m2) 26.8 Body Surface Area (m2) 1.9 Oxygen Saturation (%) 98 Last Documented: On 03/04/2021 2:40PM ; [facility] Results Includes: Results discussed during this encounter No Results Recorded For Specified Dates History of Present Illness Includes: History of Present Illness from this encounter HPI He is referred by PCP for evaluation. He gets itchy throat at night for several years. 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 Itchy throat improved with use of Astelin or Pinky. He has sneezing and runny nose in the morning. No nasal congestion. Ellis Corral is a 41 year old male. - Allergy list reviewed - Medication reconciliation performed - Reliability of source of patient information was good - Occasional itching of the eyes - Occasional eyes watering / discharge - Nasal discharge - Sneezing - Frequent itchy throat for 5 years - No postnasal drip - No nasal passage blockage (stuffiness) - No shortness of breath - No cough - No wheezing - No taste disturbances Social History Description Last Updated Smoking status : Never smoker 03/04/2021 Last Documented On 1 3:12PM ; [facility] Air-conditioning filters are changed tim ry 3 months 03/04/2021 Last Documented On 1 3:12PM ; [facility] Environmental history reviewed 1 Last Documented On 1 3:12PM ; [facility] Housing has central cooling 03/04/2021 Last Documented On 3:12PM ; [facility] Housing has windows closed 03/04/2021 Last Documented On 1 3:12PM ; [facility] Lives in apartment 03/04/2021 Last Documented On 3:12PM ; [facility] Mattress is encased 03/04/2021 Last Documented On 3:12PM ; [facility] No carpets in residence 03/04/2021 Last Documented On 1 3:12PM ; [facility] No contact with pets or other animals Last Documented On 1 3:12PM ; [facility] No exposure to environmental tobacco smo ke 03/04/2021 Last Documented On 1 3:12PM ; [facility] No exposure to molds 03/04/2021 Last Documented On 3:12PM ; [facility] No HEPA filters 03/04/2021 Last Documented On 1 3:12PM ; [facility] No secondhand cigarette smoke exposure 0 03/04/2021 Last Documented On 1 3:12PM ; [facility] No wall unit cooling in residence 2020 Last Documented On 1 3:12PM ; [facility] Not living near a major source of pollut ion 03/04/2021 Last Documented On 3:12PM ; [facility] Patient does not sleep with stuffed anim als 03/04/2021 Last Documented On 3:12PM ; [facility] [place] Patient is not exposed to clutter that c ollects dust in the residence 03/04/2021 Last Documented On 3:12PM ; [facility] [place] Pillows are encased 03/04/2021 Last Documented On 3:12PM ; [facility] [place] Pillows are not feather 03/04/2021 Last Documented On 1 3:12PM ; [...] [place] Medical History Includes: Medical History addressed during this encounter Description Last Updated Patient reported no PMH 03/04/2021 Last Documented On 3:12PM ; [facility] [place] Family History Includes: Family History addressed during this encounter Description Last Updated No family history of allergies Last Documented On 3:12PM ; [facility] [place] No family history of asthma 03/04/2021 Last Documented On 3:12PM ; [facility] [place] Review of Systems Includes: Review of Systems from this encounter Encounter Background Information: ROS obtainable: The patient has provided me with the following subjective historic information. Systemic: Not feeling tired. No fever, no recent weight loss, and no recent weight gain. Head: No headache, no complains of recurrent sinus infections (recurrent), no sinus pain, and no sinus pressure. Eyes: No excessive blinking. No swelling around the eyes, no dryness of the eyes, and no itching of the eyes. No discharge from the eyes and no red eyes. Otolaryngeal: Ears do not feel clogged, no earache, and no recurrent infections of the ears. No popping noise in the ears and no tinnitus. Nasal discharge watery. No postnasal drip (PND) and no epistaxis. Frequent breathing through the mouth, snoring (excessive), sneezing, and nasal itching. No nasal lump or mass (polyp). Nasal congestion, hoarseness /laryngitis, and sore throat. No feeling of tightness in the throat, no swollen lips, and no swollen tongue. Cardiovascular: No chest pain or discomfort and no chest tightness or heavy pressure. Pulmonary: No shortness of breath, no dry cough, and no constant chronic cough. No nocturnal cough. Not coughing up sputum and no complaints of recurrent pneumonia. No hemoptysis and no wheezing. Gastrointestinal: No dysphagia and no heartburn /indigestion. No nausea, no vomiting, and no abdominal pain. Genitourinary: No increase in urinary frequency. Able to urinate (retention). No dysuria. Endocrine: No polydipsia. Hematologic: No hematologic symptoms and no tendency for easy bruising. Musculoskeletal: No back pain and no soft tissue swelling. Neurological: No dizziness, no vertigo, no convulsions /seizures, and no anosmia. No numbness. Psychological: No insomnia and no sleep apnea. Skin: No pruritus and no rash. Allergic and Immunologic: No complaint of allergic reaction from ingested food. Other Reporting Data: No other reporting data. Cardiovascular Disorder: No diagnosis of hypertension. Endocrine Disorder: No diagnosis of diabetes mellitus. Rheumatologic Disorder: No diagnosis of arthritis. Orthopedic Disorder: No diagnosis of fracture. Hematologic Disorder: No diagnosis of anemia. Immunologic Disorder: No diagnosis of hay fever. Past Medical: No recurrent bronchopulmonary infections (bronchitis/chest colds). No allergy to insects and no known drug allergies. No food intolerance. Standard Measurements: The patient was not overweight. Eyes: Infraorbital discoloration (shiners). Lymph Nodes: No adenopathy. Skin: No urticaria (hives), no abscess was noted, and no eczema. Mental Status Includes: Mental Status from this encounter No Mental Status Recorded Functional Status Includes: Functional Status from this encounter No Functional Status Recorded Physical Exam Includes: Physical Exam from this encounter Allergies Includes: Active Allergies No Known Allergies Encounters Encounter Provider Location Date Check-In Time Check-Out Time Diagnosis New Patient Lobito Gould MD [facility] 1 2:26PM 3:12PM Rhinitis Chronic Insurance Includes: Active Insurance Policies Plan Name Member ID Group # Subscriber Relationship Effect kiran Dates 1 - [id number] [id number] Ellis Ellis Self 07/13/2017 - Un known Clinical Notes Includes: Clinical Notes from this encounter No Clinical Notes Recorded
--- OUTSIDE RECORDS SUMMARY | 2024-07-04 08:08 | XMS_ITS | Clinical Summary ---
Author Organization [facility] Address [address] [place] [address] Phone Care Team Providers Care Group Home Paraprofessional Name Role Phone Luis Fernando WALDROP, Lobito George [phone] [facility] ([facility], Clinic [facility] Primary Care P rovider [phone] Reason for Visit and Chief Complaint visit for: follow-up exam - The Chief Complaint is: allergies Plan of Treatment - Recommended mattress / pillow covers for dust mites - Last Documented On 03/11/2021 1:12PM ; [facility] Pending Tests Order Diagnosis Results Due Ordering P rovider Return Follow Up - Month(s) 3 months Chronic rhinitis Lobito Gould MD Last Documented On 1 1:12PM ; [facility] Plan: Medications - Medication Care Plan Continue current Medications Chronic rhinitis 03/11/21 Lobito Gould MD Last Documented On 1 1:12PM ; [facility] Instructions to patient Avoid allergens Last Documented On 1:11PM ; [facility] Assessments Includes: Assessments from this encounter Findings - Chronic rhinitis - Last Documented On 03/11/2021 1:12PM ; [facility] Instructions Includes: Instructions from this encounter Instructions to patient Avoid allergens Last Documented On 1:11PM ; [facility] Medical Equipment - Implanted Devices Includes: Current Devices No Medical Equipment Recorded Medications Includes: Medications discussed during this encounter and other current Medications Current Medications (continue as prescribed) Fluticasone Propionate 50 MCG/ACT Nasal Suspension 06/10/2021 Provider: Lobito fiore MD Diagnosis: Allergic rhiniti s, unspecified 2 sp en qd as needed Last Documented On 11/29/202 1 12:45PM By Lobito Gould MD ; [facility] Fexofenadine HCl 180 MG Oral Tablet 03/02/2021 Provider: Lisa REYNA ([place]) Diagnosis: 1 tab po qd Last Documented On 2:43PM By Jimmy Luther ; [facility] Medications Administered Includes: Administered Medications from this encounter No Administered Medications Recorded Vital Signs Includes: Vital Signs from this encounter Vital Name 03/11/2021 11:51A Blood Pressure Sitting L 110/80 Pulse Rate-Sitting (bpm) 63 Respiration Rate (breaths/min) 20 Temp-Oral (F) 97.1 Height (in) 68 Weight (lb) 175 Body Mass Index (kg/m2) 26.6 Body Surface Area (m2) 1.9 Oxygen Saturation (%) 99 Last Documented: On 03/11/2021 11:52A M ; [facility] Results Includes: Results discussed during this encounter No Results Recorded For Specified Dates History of Present Illness Includes: History of Present Illness from this encounter HPI Patient doing well. No nasal congestion, sneezing or runny nose. No cough, SOB or wheezing. Ellis Corral is a 41 year old male. - Allergy list reviewed - Medication reconciliation performed - Reliability of source of patient information was good - No nasal discharge - No nasal passage blockage (stuffiness) - No sneezing - No shortness of breath - No cough - No wheezing Social History Description Last Updated Past medical history reviewed 03/11/2021 Last Documented On 1 1:12PM ; [facility] Smoking Status Unknown Procedures and Surgical History Includes: Procedures from this encounter Procedures Code Diagnosis Performing Provider Service L ocation Service Date avoid allergens Last Documented On 1 1:11PM ; [facility] medication list reviewed Last Documented On 1 1:09PM ; [facility] percutaneous tests with allergenic extracts was [id number] Last Documented On 11:52AM ; [facility] intradermal tests with allergenic extracts (imme diate) was 58 [id number] Last Documented On 12:38PM ; [facility] allergy sensitivity testing Last Documented On 1 11:52AM ; [facility] Medical History Includes: Medical History addressed during this encounter Description Last Updated Past medical history reviewed 03/11/2021 Last Documented On 1 1:12PM ; [facility] Family History Includes: Family History addressed during this encounter No Family History Recorded Review of Systems Includes: Review of Systems from this encounter No Review of Systems Recorded Mental Status Includes: Mental Status from this encounter No Mental Status Recorded Functional Status Includes: Functional Status from this encounter No Functional Status Recorded Physical Exam Includes: Physical Exam from this encounter Allergies Includes: Active Allergies No Known Allergies Encounters Encounter Provider Location Date Check-In Time Check-Out Time Diagnosis Post Test Lobito Gould MD [place] [facility] 1 11:04AM 1:08PM Rhinitis Chronic Insurance Includes: Active Insurance Policies Plan Name Member ID Group # Subscriber Relationship Effect kiran Dates 1 - [facility] [id number] Ellis Corral Self 07/13/2017 - Un known Clinical Notes Includes: Clinical Notes from this encounter No Clinical Notes Recorded
--- OUTSIDE RECORDS SUMMARY | 2024-07-04 08:08 | XMS_ITS | Clinical Summary ---
Author Organization [facility] Address [address] [place] [address] Phone Care Team Providers Care Architectural Inspector Name Role Phone Luis Fernando WALDROP, Lobito George [phone] [facility] [place] Primary Care P rovider [phone] Reason for Visit and Chief Complaint visit for: follow-up exam - The Chief Complaint is: allergies Plan of Treatment Pending Tests Order Diagnosis Results Due Ordering P rovider Return Follow Up - Month(s) 6 months Allergic rhinitis, unspecified 06/10/21 Lobito Gould MD Last Documented On 12:44PM ; [facility] Assessments Includes: Assessments from this encounter Findings - Allergic rhinitis - Last Documented On 06/10/2021 12:44PM ; [facility] Medical Equipment - Implanted Devices Includes: Current Devices No Medical Equipment Recorded Medications Includes: Medications discussed during this encounter and other current Medications Discontinued / Stopped on this date Lobito Gould MD on 03/04/2021 Fluticasone Propionate 50 MC G/ACT Nasal Suspension Provider: Lobito Gould MD Diagnosis: Chronic rhinitis Last Documented On 12:25PM By Stef Snow ; [facility] New / Renewed during this visit Lobito Gould MD on 06/10/2021 Fluticasone Propionate 50 MCG/ACT Nasal Suspension Provider: Lobito fiore MD 30 day supply: 16 gram, 3 refills Diagnosis: Allergic rhinitis, unspecified 2 sp en qd as needed Pharmacy: [facility] [id number] [address], [phone] - Last Documented On 12:45PM By Lobito Gould MD ; [facility] Current Medications (continue as prescribed) Fexofenadine HCl 180 MG Oral Tablet 03/02/2021 Provider: Lisa REYNA ([place]) Diagnosis: 1 tab po qd Last Documented On 1 2:43PM By Jimmy Luther ; [facility] Medications Administered Includes: Administered Medications from this encounter No Administered Medications Recorded Vital Signs Includes: Vital Signs from this encounter Vital Name 06/10/2021 12:25P Blood Pressure Sitting R 122/84 Pulse Rate-Sitting (bpm) 68 Respiration Rate (breaths/min) 22 Temp-Tympanic (F) 96.9 Height (in) 68 Weight (lb) 172 Body Mass Index (kg/m2) 26.2 Body Surface Area (m2) 1.9 Oxygen Saturation (%) 98 Last Documented: On 06/10/2021 12:26P M ; [facility] Results Includes: Results discussed during this encounter No Results Recorded For Specified Dates History of Present Illness Includes: History of Present Illness from this encounter HPI He feels much better since he has been taking Pinky. Ellis Corral is a 41 year old male. - Allergy list reviewed - Medication list reviewed - Reliability of source of patient information was good - No nasal discharge - No nasal passage blockage (stuffiness) - No sneezing - No shortness of breath - No cough - No wheezing Social History Description Last Updated Past medical history reviewed 06/10/2021 Last Documented On 12:44PM ; [facility] Smoking Status Unknown Procedures and Surgical History Includes: Procedures from this encounter Procedures Code Diagnosis Performing Provider Service L ocation Service Date medication list reviewed Last Documented On 1 12:26PM ; [facility] Medical History Includes: Medical History addressed during this encounter Description Last Updated Past medical history reviewed 06/10/2021 Last Documented On 12:44PM ; [facility] Family History Includes: Family History addressed during [...] Location Date Check-In Time Check-Out Time Diagnosis Follow Up Lobito Gould MD [place] [facility] 1 12:16PM 12:46PM Allergic Rhinitis Insurance Includes: Active Insurance Policies Plan Name Member ID Group # Subscriber Relationship Effect kiran Dates 1 - [facility] [id number] Ellis Ellis Self 07/13/2017 - Un known Clinical Notes Includes: Clinical Notes from this encounter No Clinical Notes Recorded
[2024-07-04 08:11] VITALS: BP 126/90; PULSE 64; TEMP 36.9; O2SAT 98
--- NOTE | 2024-07-04 08:11 | AM.OFFWIN_ITS ---
Intake Vital Signs 07/04/24 08:11 Weight 185 lb BP 126/90 H Blood Pressure Location Rt brachial Position Sitting Pulse 64 Pulse Source Pulse Oximeter Temp 98.4 F Temp Source Oral Pulse Oximetry (%) 98 Oxygen Delivery Method Room Air Intake Visit Reasons: EP-stomach ache Intake Note: Patient here for stomach issues for the past month, states he feels like a tickle in the anus at night. Patient Tobacco Use Status: Never used Tobacco Allergies No Known Allergies Allergy (Verified 07/04/24 08:20) Do you need a note to return to daycare/school/sports/work: No HPI EP-stomach ache HPI Details This note is constructed using voice recognition software. While every effort has been made to ensure accuracy, campaign management specialist errors may have been included. The patient is a 44 year old male who presents to the clinic today with anal itch. He reports that he has itch in the evening time, and when he Google that he saw pinworms which made him nervous. He has not had any particular exposure to anything. He denies fever, chills, nausea, vomiting, diarrhea, or any other GI change in pattern. [facility] Medical History Lower back pain Rupture of anterior cruciate ligament of right knee Sleep apnea Hypertension Surgical History (Updated 07/17/23 @ 10:18 by HEATHER Garcia) History of repair of anterior cruciate ligament of right knee Family History Father Prostate cancer Paternal Grandmother Diabetes type 2, controlled Social History Housing: House Patient Tobacco Use Status: Never used Tobacco e-Cigarette/Vaping Use: Never Used Second Hand Smoke Exposure: No service: Yes ([employer] ) Current occupational status: employed Current occupational exposures/hazards: Yes Cognitive needs: No Hearing needs: No Vision needs: No Review of Systems Const All systems reviewed & are unremarkable except as noted in HPI and below Physical Exam Vital Signs: Last Vital Signs Temp 98.4 F 07/04/24 08:11 Pulse 64 07/04/24 08:11 BP 126/90 H 07/04/24 08:11 Pulse Ox 98 07/04/24 08:11 Oxygen Delivery Method Room Air 07/04/24 08:11 Const General: cooperative, healthy appearing, comfortable, no acute distress and well developed Orientation/consciousness: patient oriented x3 Limitations: no limitations Resp Effort & Inspection: normal respiratory effort and able to speak in complete sentences GI Inspection: Yes normal to inspection Palpation (GI): Soft to palpation and nontender Rectal Exam - Male: Yes Visual inspection abnormal (Fungal rash perirectal, no discharge) Neuro General: patient oriented x3 Assessment & Plan Assessment & Plan (1) Anal itch: Code(s): L29.0 - Pruritus ani Plan: Physical examination consistent with fungal rash. Atypical cream sent to requested pharmacy. Advised patient to follow up as needed with worsening or failure to resolve. Plan See above for full details and plan. Medications: New clotrimazole 1% 1 appl topical BID 2 weeks 15 grams 0RF Coding Level of Care Code Est Pt Level 3 (18006) Diagnoses Anal itch L29.0
== END 2024-07-04 09:22 | disposition home or self-care (01) ==
PROVIDERS: Visit Provider Registered Nurse
DX: L29.0 Pruritus ani (principal)

== ENCOUNTER → 2024-07-04 08:01 | Outpatient (BNVA) | payer OTHER, SELFPAY | PROVIDERS: Visit Provider Registered Nurse | DX: L29.0 Pruritus ani (principal) | CPT/HCPCS: 99212 ==

== ENCOUNTER 2024-08-04 08:09 | Outpatient (AMB) | payer OTHER, SELFPAY ==
--- OUTSIDE RECORDS SUMMARY | 2024-08-04 08:22 | XMS_ITS ---
Author Organization [facility] Address [address] [place] [address] Phone Care Team Providers Care Industrial Training Specialist Name Role Phone Luis Fernando WALDROP, Lobito George [phone] [facility] Primary Care P rovider [phone] Plan of Treatment Findings Encounter Date Recommended mattress / helen w covers for dust mites Post Test with Lobito Gould MD 03/11/2021 Last Documented On 1 1:12PM ; [facility] Recommended allergy sensitiv ity testing - abbrev New Patient with Lobito Gould MD 03/04/2021 Last Documented On 1 3:12PM ; [facility] Instructions to patient Avoid allergens Last Documented On 1 1:11PM ; [facility] Instructions for patient - p janell use of nasal spray Last Documented On 1 3:11PM ; [facility] Assessments Includes: Assessments for all patient encounters Findings Encounter Date Allergic rhinitis Follow Up with Lobito fiore MD 06/10/2021 Last Documented On 1 12:44PM ; [facility] Chronic rhinitis Post Test with Lobito Gould MD 03/11/2021 Last Documented On 1 1:12PM ; [facility] Chronic rhinitis New Patient with Lobito kebede MD 03/04/2021 Last Documented On 1 3:12PM ; [facility] Instructions Includes: Instructions for all patient encounters Instructions to patient Avoid allergens Last Documented On 1 1:11PM ; [facility] Instructions for patient - p janell use of nasal spray Last Documented On 3:11PM ; [facility] Medical Equipment - Implanted Devices Includes: Current and historical Devices No Medical Equipment Recorded Medications Includes: Current and historical Medications Current Medications (continue as prescribed) Fluticasone Propionate 50 MCG/ACT Nasal Suspension 06/10/2021 Provider: Lobito fiore MD Diagnosis: Allergic rhiniti s, unspecified 2 sp en qd as needed Last Documented On 12:45PM By Lobito Gould MD ; [facility] Fexofenadine HCl 180 MG Oral Tablet 03/02/2021 Provider: Lisa REYNA ([place]) Diagnosis: 1 tab po qd Last Documented On 2:43PM By Jimmy Luther ; [facility] Past Medications on file Fluticasone Propionate 50 MCG/ACT Nasal Suspension 03/04/2021 - 06/10/2021 Provider: Lobito pham MD Diagnosis: Chronic rhinitis 2 sp en qam Last Documented On 12:25PM By Stef Snow ; [facility] Azelastine HCl 0.1% Nasal Solution 03/02/2021 - 03/02/2021 Provider: Lisa REYNA ([place]) Diagnosis: prn Last Documented On 2:58PM By Lobito Gould MD ; [facility] Medications Administered Includes: Administered Medications in patient's chart No Administered Medications Recorded Results Includes: Results from 08/04/2023 through 08/04/2024 No Results Recorded For Specified Dates History of Present Illness History of Present Illness not supported for this document type No History of Present Illness Recorded Social History Description Last Updated Past medical history reviewed 06/10/2021 Last Documented On 12:44PM ; [facility] Smoking status : Never smoker 03/04/2021 Last Documented On 3:12PM ; [facility] Air-conditioning filters are changed tim ry 3 months 03/04/2021 Last Documented On 3:12PM ; [facility] Environmental history reviewed 1 Last Documented On 1 3:12PM ; [facility] Housing has central cooling 03/04/2021 Last Documented On 1 3:12PM ; [facility] Housing has windows closed 03/04/2021 Last Documented On 1 3:12PM ; [facility] Lives in apartment 03/04/2021 Last Documented On 1 3:12PM ; [facility] Mattress is encased 03/04/2021 Last Documented On 1 3:12PM ; [facility] No carpets in residence 03/04/2021 Last Documented On 1 3:12PM ; [facility] No contact with pets or other animals Last Documented On 1 3:12PM ; [facility] No exposure to environmental tobacco smo ke 03/04/2021 Last Documented On 1 3:12PM ; [facility] No exposure to molds 03/04/2021 Last Documented On 1 3:12PM ; [facility] No HEPA filters 03/04/2021 Last Documented On 1 3:12PM ; [facility] No secondhand cigarette smoke exposure 0 03/04/2021 Last Documented On 1 3:12PM ; [facility] No wall unit cooling in residence 2020 Last Documented On 1 3:12PM ; [facility] Not living near a major source of pollut ion 03/04/2021 Last Documented On 1 3:12PM ; [facility] Patient does not sleep with stuffed anim als 03/04/2021 Last Documented On 1 3:12PM ; [facility] Patient is not exposed to clutter that [...] Subscriber Relationship Effect kiran Dates 1 - [facility] [id number] Ellis Ellis Self 07/13/2017 - Un known Clinical Notes Includes: Signed Clinical Notes starting from 11/29/2022 No Clinical Notes Recorded
--- OUTSIDE RECORDS SUMMARY | 2024-08-04 08:22 | XMS_ITS | Clinical Summary ---
Author Organization [facility] Address [address] [place] [address] Phone Care Team Providers Care Actuarial Associate Name Role Phone Luis Fernando WALDROP, Lobito George [phone] [facility] ([facility], [facility] Station Primary Care P rovider [phone] Reason for Visit and Chief Complaint visit for: follow-up exam - The Chief Complaint is: allergies Plan of Treatment Pending Tests Order Diagnosis Results Due Ordering P rovider Return Follow Up - Month(s) 6 months Allergic rhinitis, unspecified 06/10/21 Lobito Gould MD Last Documented On 12:44PM ; [facility] Assessments Includes: Assessments from this encounter Findings - Allergic rhinitis - Last Documented On 06/10/2021 12:44PM ; [facility] Medical Equipment - Implanted Devices Includes: Current Devices No Medical Equipment Recorded Medications Includes: Medications discussed during this encounter and other current Medications Discontinued / Stopped on this date Lobito Gould MD on 03/04/2021 Fluticasone Propionate 50 MC G/ACT Nasal Suspension Provider: Lobito Gould MD Diagnosis: Chronic rhinitis Last Documented On 12:25PM By Stef Snow ; [facility] New / Renewed during this visit Lobito Gould MD on 06/10/2021 Fluticasone Propionate 50 MCG/ACT Nasal Suspension Provider: Lobito fiore MD 30 day supply: 16 gram, 3 refills Diagnosis: Allergic rhinitis, unspecified 2 sp en qd as needed Pharmacy: [facility] [id number] [address], [phone] - Last Documented On 12:45PM By Lobito Gould MD ; [facility] Current Medications (continue as prescribed) Fexofenadine HCl 180 MG Oral Tablet 03/02/2021 Provider: Lisa REYNA ([place]) Diagnosis: 1 tab po qd Last Documented On 1 2:43PM By Jimmy Luther ; [facility] Medications Administered Includes: Administered Medications from this [...] 12:26P M ; [facility] Results Includes: Results discussed during this encounter [...] On 12:44PM ; [facility] Smoking Status Unknown Procedures and Surgical History Includes: Procedures from this encounter Procedures Code Diagnosis Performing Provider Service L ocation Service Date medication list reviewed Last Documented On 1 12:26PM ; [facility] Medical History Includes: Medical History addressed during this encounter Description Last Updated Past medical history reviewed 06/10/2021 Last Documented On 12:44PM ; [facility] Family History Includes: Family History addressed during [...] Time Diagnosis Follow Up Lobito Gould MD [place] Office 1 12:16PM 12:46PM Allergic Rhinitis Insurance Includes: Active Insurance Policies Plan Name Member ID Group # Subscriber Relationship Effect kiran Dates 1 - [facility] [id number] Ellis Ellis Self 07/13/2017 - Un known Clinical Notes Includes: Clinical Notes from this encounter No Clinical Notes Recorded
--- OUTSIDE RECORDS SUMMARY | 2024-08-04 08:22 | XMS_ITS ---
Care Plan - [facility] Created on: August 04, 2024 Ellis Ellis : 1980 Sex: Male Author Organization [facility] Address [address] [place] [id number] Phone Care Team Providers Care Lamp Assembler Name Role Phone Luis Fernando WALDROP, Lobito George [phone] [facility], Clinic Station Primary Care [place] mckeon [phone]
--- OUTSIDE RECORDS SUMMARY | 2024-08-04 08:22 | XMS_ITS | Continuity of Care Document ---
Author Name [facility] Organization [facility] Care Team Providers Care Securities Consultant Name Role Phone [facility] Unavailable Unavailable Problems Combined list of problems from Department of 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 It does not include entries that were removed or entered in error. Problem Status Onset Date Problem Type Date of Resolution Comments Source Encounter for other administrative examinations Inactive 1 Condition [facility] Encounter for immunization Inactive 1 Condition DoD Other insomnia Active 8 Condition DoD Pain in right knee Active 8 Condition DoD Other chronic pain Active 8 Condition DoD Low back pain Active 8 Condition DoD Chondromalacia patellae, right knee Active 8 Condition DoD Other disorders of refraction Active 8 Condition DoD Other intervertebral disc degeneration, lumbar region Active 8 Condition DoD Primary hypertension Active Condition Ambulatory Pharmacy Acquired spondylolysis Active Condition [facility] Low back pain Active Condition [facility] Personal History of return from Deployment Active Condition [facility] Adjustment disorder with anxiety Active Condition [facility] Personal history of deployment Active Condition [facility] Vasectomy status Active Condition DoD backache lower Active Condition DoD diarrhea Inactive Condition DoD Need For Vaccination Against Bacterial Diseases Inactive Condition [facility] Need For Vaccination Against Smallpox Inactive Condition [facility] visit for: occupational health / fitness exam Active Condition [facility] routine pre-employment screening examination Active Condition DoD [...] CONNER, 16 g AER W/ADAP Cancele d [id number] : 2023 0 Pharmac y Data Transac tion Service Facilit y FLUTICASONE PROPIONATE (FLUTICASON E PROPIONATE) , 50MCG, SPRAY SUSP, NASAL, [facility]., 16 g AER W/ADAP Active [id number] 2023 16 Pharmac y Data Transac tion Service Facilit y PriLOSEC OTC 20 mg oral delayed release tablet 1 tab(s), Oral, BID, before a meal, # 90 cap(s), 3 total refill(s ), Maintena mie, Pharmacy : [facility] Oral (given by mouth) Discont inued 04/22/2022 90.0 7239C-S [facility] Allergies, Adverse Reactions, Alerts Combined list of allergies from Department of 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 It does not include entries that were removed or entered in error. Substance Category Reaction Severity Reaction type Status Date Reported Comments Source No Known Allergies Drug allergy (disorder) active 08/06/2017 [facility] Immunizations Combined list of available immunizations from the Department of 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 Immunization Series Date Given Administered By Site Reaction Lot Number CVX Code Drug Binman Status Comments Source COVID Vaccine Wm 2020 SREE [id number] complet ed Result Comment: Unit: Unknown Route: Intramusc ular(IM) Manufactu rer: Advestigo, Inc (PFR) 7275C-S [facility] SARS-COV-2 (COVID-19) vaccine, mRNA, spike protein, LNP, preservative free, 30 mcg/0.3mL dose 2 2020 JOI CHURCHILL [id number] Pfizer, Inc (PFR) complet ed SARS-COV- 2 (COVID-19 ) vaccine, mRNA, spike protein, LNP, preservat kiran free, 30 mcg/0.3mL dose DoD influenza, injectable, quadrivalent- pf 2020 OLLIECOLLINS [id number] complet ed Result Comment: Route: Unknown Manufactu rer: Seqirus (SEQ) [facility] Influenza, inj, MDCK, quadrivalent- pf 2020 OLLIECOLLINS 171 complet ed Result Comment: Unit: Unknown Manufactu rer: () 7239CS [facility] Influenza, injectable, MDCK, preservative free, quadrivalent 2020 ANDREA, () Not Given Influenza , injectabl e, MDCK, preservat kiran free, quadrival ent DoD Influenza, injectable, quadrivalent, preservative free 1 2020 [id number] 150 Seqirus (SEQ) comple t ed Influenza , injectabl e, quadrival ent, preservat kiran free DoD Influenza, injectable, Madin [place] Canine Kidney, preservative free, quadrivalent 0 2020 171 Seqirus (SEQ) comple t ed Influenza , injectabl e, Madin Anna Canine Kidney, preservat kiran free, quadrival ent DoD anthrax vaccine 2020 OLLIECOLLINS [id number] complet ed Result Comment: Route: Unknown Manufactu rer: Emergent [employer] e [employer] s [place] (MIP) [facility] anthrax [facility] 4 2020 [id number] 24 [employer] [place] (MIP) complet ed anthrax vaccine DoD SARS-CoV-2 (COVID-19) Ad26 vaccine, rec 2020 OLLIECOLLINS [id number] complet ed Result Comment: Route: Unknown Manufactu rer: Rosa (BESSY) [facility] [place] SARS-COV-2 (COVID-19) vaccine, vector non-replicati ng, recombinant spike protein-Ad26, preservative free, 0.5 mL 1 2020 [id number] 212 Rosa (JSN) comple t ed SARS-COV- 2 (COVID-19 ) vaccine, vector non-repli cating, recombina nt spike protein-A d26, preservat kiran free, 0.5 mL DoD influenza, seasonal, injectable 2019 OLLIECOLLINS [id number] 141 complet ed Result Comment: Route: Unknown Manufactu rer: Seqirus (SEQ) 7239[facility] [place] Influenza, inj, MDCK, quadrivalent- pf 2019 OLLIECOLLINS 171 complet ed Result Comment: Unit: Unknown Manufactu rer: () 7239C[facility] [place] Influenza, injectable, MDCK, preservative free, quadrivalent 2019 FINDLEN, () Not Given Influenza , injectabl e, MDCK, preservat kiran free, quadrival ent DoD Influenza, seasonal, injectable 1 2019 [id number] 141 Seqirus (SEQ) comple t ed Influenza , seasonal, injectabl e DoD Influenza, injectable, Madin [place] Canine Kidney, preservative free, quadrivalent 0 2019 171 (MVX) complet ed Influenza , injectabl e, Madin Anna Canine Kidney, preservat kiran free, quadrival ent DoD typhoid Vi capsular polysaccharid e vac 2019 [id number] 101 sanofi pasteur complet ed typhoid Vi capsular polysacch aride vac 03/07/20 Given Ambulat ory Pharmac y anthrax vaccine 2019 [id number] 24 Emergent Biosolutions complet ed anthrax vaccine 03/07/20 Given Ambulat ory Pharmac y poliovirus vaccine, inactivated 2019 [id number] 10 sanofi pasteur complet ed polioviru s vaccine, inactivat ed 03/07/20 Given Ambulat ory Pharmac y tetanus-dipht h toxoids (Td) adult/adol 2019 [id number] 09 sanofi pasteur complet ed tetanus-d iphth toxoids (Td) adult/ado l 03/07/20 Given Ambulat ory Pharmac y measles/mumps /rubella virus vaccine 2019 [id number] 03 Merck & Company Inc complet ed measles/m umps/rube lla virus vaccine 03/07/20 Given Ambulat ory Pharmac y typhoid Vi capsular polysaccharid e vac 2019 [id number] 101 sanofi pasteur complet ed typhoid Vi capsular polysacch aride vac 03/07/20 Given Ambulat ory Pharmac y anthrax vaccine 2019 [id number] 24 [employer] complet ed anthrax vaccine 03/07/20 Given Ambulat ory Pharmac y poliovirus vaccine, inactivated 2019 [id number] 10 sanofi pasteur complet ed polioviru s vaccine, inactivat ed 03/07/20 Given Ambulat ory Pharmac y tetanus-dipht h toxoids (Td) adult/adol 2019 [id number] 09 sanofi pasteur complet ed tetanus-d iphth toxoids (Td) adult/ado l 03/07/20 Given Ambulat ory Pharmac y measles/mumps /rubella virus vaccine 2019 [id number] 03 Merck & Company Inc complet ed measles/m umps/rube lla virus vaccine 03/07/20 Given Ambulat ory Pharmac y measles, mumps and rubella virus vaccine 1 2019 [id number] 03 Merck (MSD) complet ed measles, mumps and rubella virus vaccine DoD tetanus and diphtheria toxoids, adsorbed, preservative free, for adult use (2 Lf of tetanus toxoid and 2 Lf of diphtheria toxoid) 1 2019 [id number] 09 Sanofi Pasteur ([facility]) complet ed tetanus and diphtheri a toxoids, adsorbed, preservat kiran free, for adult use (2 Lf of tetanus toxoid and 2 Lf of diphtheri a toxoid) DoD poliovirus vaccine, inactivated 1 2019 [id number] 10 Sanofi Pasteur (PMC) complet ed polioviru s vaccine, inactivat ed DoD anthrax vaccine 1 2019 [id number] 24 [facility] [employer] [place] ([facility]) complet ed anthrax vaccine DoD typhoid Vi capsular polysaccharid e vaccine 1 2019 [id number] 101 Sanofi Pasteur (PMC) complet ed typhoid [...] seasonal, injectabl e DoD Influenza, injectable, Madin [place] Canine Kidney, preservative free, quadrivalent 0 2018 171 (MVX) complet ed Influenza , injectabl e, Madin Anna Canine Kidney, preservat kiran free, quadrival ent DoD Influenza, inj, MDCK, quadrivalent- pf 2017 171 complet ed Influenza , inj, MDCK, quadrival ent-pf 04/30/18 Given Ambulat ory Pharmac y influenza, seasonal, injectable 2017 [id number] 141 Seqirus complet ed influenza , seasonal, injectabl e 04/30/18 Given Ambulat ory Pharmac y Influenza, inj, MDCK, quadrivalent- pf 2017 171 complet ed Influenza , inj, MDCK, quadrival ent-pf 04/30/18 Given Ambulat ory Pharmac y influenza, seasonal, injectable 2017 [id number] 141 Seqirus complet ed influenza , seasonal, injectabl e 04/30/18 Given Ambulat ory Pharmac y Influenza, seasonal, injectable 1 2017 [id number] 141 Seqirus (SEQ) comple t ed Influenza , seasonal, injectabl e DoD Influenza, injectable, Madin [place] Canine Kidney, preservative free, quadrivalent 0 2017 171 (MVX) complet ed Influenza , injectabl e, Madin [place] Canine Kidney, preservat kiran free, quadrival ent DoD Influenza, inj, MDCK, quadrivalent- pf [id number] 171 Seqirus complet ed Influenza , inj, MDCK, quadrival ent-pf 05/15/17 Given Ambulat ory Pharmac y Influenza, inj, MDCK, quadrivalent- pf [id number] 171 Seqirus complet ed Influenza , inj, MDCK, quadrival ent-pf 05/15/17 Given Ambulat ory Pharmac y Influenza, injectable, Madin [place] Canine Kidney, preservative free, quadrivalent 7 [id number] [...] INFLUENZA, SEASONAL, INJECTABLE 2015 141 complet ed [facility] influenza, seasonal, injectable-pf 2014 [id number] 140 CSL Behring complet ed influenza , seasonal, injectabl e-pf 04/14/15 Given Ambulat ory Pharmac y influenza, seasonal, injectable-pf 2014 [id number] 140 CSL Behring complet ed influenza , seasonal, injectabl e-pf 04/14/15 Given Ambulat ory Pharmac y INFLUENZA, UNSPECIFIED FORMULATION 2014 88 complet ed [facility] [facility] - Immunizat ion record [facility] Influenza, seasonal, injectable, preservative free 8 2014 [id number] 140 CSL [employer] Inc[employer] (CSL) complet ed Influenza , seasonal, injectabl e, preservat kiran free DoD tuberculin purified protein derivative 2014 [id number] 96 sanofi pasteur complet ed tuberculi n purified protein derivativ e 02/18/15 Given Ambulat ory Pharmac y measles, mumps and rubella virus vaccine 0 2014 03 () Not Given measles, mumps and rubella virus vaccine DoD varicella virus vaccine 0 2014 21 () Not Given varicella virus vaccine DoD INFLUENZA, UNSPECIFIED FORMULATION 2013 88 complet ed [facility] influenza, seasonal, injectable 2012 UNK 141 Unknown [...] INFLUENZA, UNSPECIFIED FORMULATION 2012 88 complet ed [place] [facility] typhoid Vi capsular polysaccharid e vac 2012 [...] ory Pharmac y influenza, seasonal, injectable-pf 2011 [id number] 140 sanofi pasteur complet ed influenza , seasonal, injectabl e-pf 04/01/12 Given Ambulat ory Pharmac y influenza, seasonal, injectable 2011 UNKNOWN 141 Unknown complet ed influenza , seasonal, injectabl e 04/01/12 Given Ambulat ory Pharmac y influenza, seasonal, injectable-pf 2011 [id number] 140 sanofi pasteur complet ed influenza , seasonal, injectabl e-pf 04/01/12 Given Ambulat ory Pharmac y Influenza, seasonal, injectable, preservative free 0 2011 [id number] 140 Sanofi Pasteur ([facility]) complet ed Influenza , seasonal, injectabl e, [...] ory Pharmac y anthrax vaccine 2010 zzRig Arm [id number] 24 Unknown complet ed anthrax vaccine 05/20/11 Given Ambulat ory Pharmac y vaccinia (smallpox) vaccine 2010 VV04-00 3A 75 complet ed vaccinia (smallpox ) vaccine 05/20/11 Given Ambulat ory Pharmac y anthrax vaccine 2010 UNK 24 complet ed anthrax vaccine 05/20/11 Given Ambulat ory Pharmac y anthrax vaccine 1 2010 DANTE XIONG [id number] 24 Other (OTH) complet ed anthrax vaccine DoD vaccinia (smallpox) vaccine 1 2010 DANTE XIONG VV04-00 3A 75 Paula (BAY) complet ed vaccinia (smallpox ) vaccine DoD tuberculin purified protein derivative 2010 zzLef t Arm [id number] 96 complet ed tuberculi n purified protein derivativ e 04/23/11 Given Ambulat ory Pharmac y tuberculin skin test; purified protein derivative solution, intradermal 1 2010 RAFA TREJO [id number] 96 AVENTIS PASTEUR (PROTECTION SPECIALIST) complet ed tuberculi n skin test; purified protein derivativ e solution, intraderm al DoD influenza, seasonal, injectable 2010 [id number] 141 Unknown complet ed influenza , seasonal, injectabl e 03/06/11 Given Ambulat ory Pharmac y influenza virus vaccine,split 2010 [id number] 15 Unknown complet ed influenza virus vaccine,s plit 03/06/11 Given Ambulat ory Pharmac y influenza, seasonal, injectable 2010 [id number] 141 Unknown complet ed influenza , seasonal, injectabl e 03/06/11 Given Ambulat ory Pharmac y influenza virus vaccine,split 2010 [id number] 15 Unknown complet ed influenza virus vaccine,s plit 03/06/11 Given Ambulat ory Pharmac y influenza virus vaccine, split virus (incl. purified surface antigen)-reti red CODE 0 2010 [id number] 15 Other (OTH) complet ed influenza virus vaccine, split virus (incl. purified surface antigen)- retired CODE DoD Influenza, seasonal, injectable 0 2010 [id number] 141 Other (OTH) complet ed Influenza , [...] vaccine DoD influenza virus vaccine, live 2009 [id number] 111 Unknown complet ed influenza virus vaccine, live 04/29/10 Given Ambulat ory Pharmac y influenza virus vaccine,split 2009 UNKNOWN 15 Unknown complet ed influenza virus vaccine,s plit 04/29/10 Given Ambulat ory Pharmac y influenza virus vaccine, live 2009 [id number] 111 Unknown complet ed influenza virus vaccine, [...] live, attenuated, for intranasal use 0 2009 [id number] 111 Unknown (UNK) comple t ed influenza virus vaccine, live, attenuate d, for intranasa l use DoD hepatitis A-hepatitis B vaccine 2009 [id number] 4BA 104 EzFlop - A First of Its Kind Flip FlopoSmithKli me complet ed hepatitis A-hepatit is B vaccine 04/01/10 Given Ambulat ory Pharmac y typhoid Vi capsular polysaccharid e vac 2009 [id number] 101 [id number] complet ed typhoid Vi capsular polysacch aride vac 04/01/10 Given Ambulat ory Pharmac y yellow fever vaccine 2009 [id number] 37 Emergent Biosolutions complet ed yellow fever vaccine 04/01/10 Given Ambulat ory Pharmac y anthrax vaccine 2009 UNK 24 complet ed anthrax vaccine 04/01/10 Given Ambulat ory Pharmac y poliovirus vaccine, inactivated 2009 E0123 10 PayEase Inc comple t ed polioviru s vaccine, inactivat ed 04/01/10 Given Ambulat ory Pharmac y yellow fever vaccine 2009 [id number] 37 Emergent [employer]olutions complet ed yellow fever vaccine 04/01/10 Given Ambulat ory Pharmac y anthrax vaccine 2009 UNK 24 complet ed anthrax vaccine 04/01/10 Given Ambulat ory Pharmac y poliovirus vaccine, inactivated 2009 e0123 10 [employer] Inc comple t ed polioviru s vaccine, inactivat ed 04/01/10 Given Ambulat ory Pharmac y hepatitis A-hepatitis B vaccine 2009 ahabb18 4ba [facility] hepatitis A-hepatit is B vaccine 04/01/10 Given Ambulat ory Pharmac y typhoid Vi capsular polysaccharid e vac 2009 [id number] 101 [id number] complet ed typhoid Vi capsular polysacch aride vac 04/01/10 Given Ambulat ory Pharmac y poliovirus vaccine, inactivated 0 2009 E0123 10 Novacta Biosystems. (MED) complet ed polioviru s vaccine, inactivat ed DoD anthrax vaccine 1 2009 UNK 24 (EBS) complet ed anthrax vaccine DoD yellow fever vaccine 0 2009 [id number] 37 [employer]gent [employer] [place] ([facility]) complet ed yellow fever vaccine DoD typhoid Vi capsular polysaccharid e vaccine 1 2009 [id number] 101 [facility] ([facility]AL) complet ed typhoid Vi capsular polysacch aride vaccine DoD hepatitis A and hepatitis B vaccine 2 2009 [id number] 4BA 104 [email or web address] (SKB) complet ed hepatitis A and hepatitis B vaccine DoD tetanus, diphtheria, acellular pertu is 2009 [id number] 4BA 115 sanofi pasteur complet ed tetanus, diphtheri a, acellular pertussis 02/25/10 Given Ambulat ory Pharmac y meningococcal A,C,Y,W-135 (MCV4P) 2009 [id number] 114 CSL Behring complet ed meningoco ccal [...] y tetanus, diphtheria, acellular pertu is 2009 [id number] 4BA 115 sanofi pasteur complet ed tetanus, diphtheri a, acellular pertussis 02/25/10 Given Ambulat ory Pharmac y meningococcal A,C,Y,W-135 (MCV4P) 2009 [id number] 114 CSL Behring complet ed meningoco ccal [...] Pharmac y TDAP 2009 115 complet ed [facility] tetanus and diphtheria toxoids, adsorbed, preservative free, [...] B vaccine 1 2009 AHABB18 4AA 104 [employer] (SKB) complet ed hepatitis A and hepatitis B vaccine DoD meningococcal polysaccharid e (groups A, C, Y and W-135) diphtheria toxoid conjugate vaccine (MCV4P) 0 2009 [id number] 114 [employer] Behring [employer] (AVB) complet ed meningoco ccal polysacch aride (groups A, C, Y and W-135) diphtheri a toxoid conjugate vaccine (MCV4P) DoD tetanus toxoid, reduced diphtheria toxoid, and acellular pertu is vaccine, adsorbed 0 2009 [id number] 4BA 115 Sanofi Pasteur (PMC) complet ed [...] Prevention' s HIV diagnostic algorithm. Refer to [facility] Lab Guide for additional information : [email or web address] x Testing [...] ADM Date DC Date Status Disposition Source [facility](Au diology [facility] 1523) OUTPATIENT [id number] TAWNY JOYCE 02/22 Released w/o Limitations [facility]( Audiolo gy [facility] 1523) [facility] Male) OUTPATIENT [id number] ARTI VILLEGAS 02/25 Released w/o Limitations [facility]( [facility] Male) [facility](Op tometry [facility] 1523) OUTPATIENT [id number] recruit screen OMER MEJÍA 02/28 Released w/o Limitations [facility]( Optomet ry [facility] 1523) [facility](Mi litary Sick Call [facility] 237) OUTPATIENT [id number] att...h ead and neck issues KELBYMALATHI ELZBIETA Raza 08/02 Released w/o Limitations [facility]( Militar y Sick Call [facility] 237) [facility](Mi [place]itary S[place] [address]) OUTPATIENT [id number] OSS MICHELE EMMANUEL 08/20 Released w/o Limitations [facility]( Militar y Sick Call [facility] 237) [facility]([place]itary S[place] [address]) OUTPATIENT [id number] 9 Finn : Twisted right ankle COLTRO, JB 09/05 Released with Work/Duty Limitations [facility]( Militar y Sick Call [facility] 237) [facility]([place]itary [place] [address]) TELE CONSULT [id number] pt to see coltro tomorro w 09-06-10 for xray results ROMA NAVARRO 09/05 Referred for Appointment [facility]( Militar y Sick Call [facility] 237) [facility]([place]itary [place] [address]) OUTPATIENT [id number] 9C: FOLLOW UP COLTRTorrie, JB 09/06 Released with Work/Duty Limitations [facility]( Militar y Sick Call [facility] 237) [facility]([place]itary [place] [address]) OUTPATIENT [id number] 9C f/u COLTRO, JB 09/13 Released w/o Limitations [facility] [place]( Militar y Sick Call [facility] 237) [facility](Immuniz ations [facility]) OUTPATIENT [id number] vaccine MORIAH ODELL 01/30 Released w/o Limitations [facility](Imm unizati ons [facility] ) [facility](Hearing Cons [place]ane [place]) OUTPATIENT [id number] FRANKI MELO 01/30 Released w/o Limitations [facility] [place] [facility](Hea ring Cons [facility]ane [facility]) [facility] [place](Optomet [place] [facility]) OUTPATIENT [id number] CARLOS CHELSEA MANNING [place] 02/05 Released w/o Limitations [facility] [place]Opt [place] [facility] ) [facility] [place](Immuniz ations [facility]) OUTPATIENT [id number] vaccine RAFA TREJO 04/23 Released w/o Limitations [facility] [place](Imm unizati [place] [facility] ) [facility] [place](Deploym [facility]) OUTPATIENT [id number] IA/AFG RAFA PARHAM 05/16 Released w/o Limitations [facility] [place] [facility](Dep loyment [facility] ) [facility] [place](Immuniz ation [facility]) OUTPATIENT [id number] NMPS- ANT, SPDANTE SHELTON 05/19 Released w/o Limitations [facility] [place] [facility](Imm unizati on [facility]) [facility] [place](NM[facility]) OUTPATIENT [id number] MOB RAFA PARHAM 05/19 Released w/o Limitations [facility] [place] [facility](NMP S) [facility] OUTPATIENT [id number] 10/30 Released w/o Limitations [facility] OUTPATIENT [id number] 12/27 Released w/o Limitations [facility] [place]([facility]) OUTPATIENT [id number] Notes Entered by: JARVIS HAIR 28 May 2012 0847 ------- ------- ------- ------- -- GUERO WEBER 05/28 Released w/o Limitations [facility] [place]) [facility] [place](Hearing Cons [facility]) OUTPATIENT [id number] JOSE ALFREDO GARZON 09/21 Released w/o Limitations [facility] [place] [facility](Hea ring Cons [facility]) [facility](Hearing Cons Dane Sta) OUTPATIENT [id number] MARI SYLVESTER 09/24 Released w/o Limitations [facility](Hea ring Cons [facility]) [facility](Hearing Cons Dane Sta) OUTPATIENT [id number] JOSE ALFREDO GARZON 11/08 Released w/o Limitations [facility](Hea ring Cons [facility]ane [facility]) [facility](Hearing Cons Dane Sta) OUTPATIENT [id number] JOSE ALFREDO GARZON 12/16 Released w/o Limitations [facility](Hea ring Cons Dane Sta) [facility]) OUTPATIENT [id number] Notes Entered by: BRANDO HARRISON 09 Jan 2014 1329 ------- ------- ------- ------- -- Lower back pain, worseni ng over past 2-3 days CHELLE DANIELS 01/09 Released w/o Limitations [facility] [place] ) [facility](Medical Readiness SURFLANT) OUTPATIENT [id number] Notes Entered by: WALT HOWELL 10 Jan 2014 0904 ------- ------- ------- ------- -- Separat ion Physica l IRENE HOWELL 01/10 Released w/o Limitations [facility](Med ical Readine ss SURFLAN T) [facility]) OUTPATIENT [id number] LOWER BACK SPRAIN ABHIJIT PORTILLO 01/19 Released w/o Limitations [facility]) [employer]([facility]) OUTPATIENT [id number] REFERRA L FOR CHIROPR ACTIC CLINIC MISSAEL MULLEN 09/12 Released w/o Limitations [employer]([facility]) [employer]([facility]) OUTPATIENT [id number] RIDGE MEANS 09/17 Released w/o Limitations [employer](P T Family [facility]) [employer] OUTPATIENT [id number] Low Back MATHEUS DE LOS SANTOS 09/19 Released w/o Limitations [employer](C hiropra ctic-Cl inic) [employer](PT Physical Thpy-Out) OUTPATIENT [id number] Pas entered the order SG CONSTANTINO 09/20 Released w/o Limitations [employer](P T Physica l Thpy-Ou t) [employer]([facility] OUTPATIENT [id number] MATHEUS DE LOS SANTOS 09/25 Released w/o Limitations [employer](C hiropra ctic-Cl inic) [employer](PT Physical Thpy-Out) OUTPATIENT [id number] DEMETRIUS KOHLI 10/04 Released w/o Limitations [employer](P T Physica l Thpy-Ou t) [employer]([facility] OUTPATIENT [id number] MATHEUS DE LOS SANTOS 10/16 Released w/o Limitations [employer](C hiropra ctic-Cl inic) [employer]([facility] Clinic) OUTPATIENT [id number] referra l to urology SAMANTHA BRANDON 10/17 Released w/o Limitations [employer](U [facility]) [employer]([facility] OUTPATIENT [id number] MATHEUS DE LOS SANTOS 10/23 Released w/o Limitations [employer](C hiropra ctic-Cl inic) [employer]([facility]) TELE CONSULT [id number] Notes Entered by: BRANDT FRAIRE 26 Oct [id number] ------- ------- ------- ------- -- SUYAPA Dougherty 10/26 [employer]([facility] ent Care [facility]) [employer]([facility]) TELE CONSULT [id number] Notes Entered by: RODERICK PRIETO 29 Oct 2015 1113 ------- ------- ------- ------- -- Lab results ARLENE HAYNES Marissa 10/28 [employer]([facility]) [employer]([facility]) TELE CONSULT [id number] Notes Entered by: CHRISTIAN GRANT CIA 13 Nov 2015 0945 ------- ------- ------- ------- -- Network Results Sleep Titrati on DIEGO RYAN 11/12 [employer]([facility]) [employer]([facility] ropractic [facility]) OUTPATIENT [id number] MATHEUS DE LOS SANTOS 11/18 Released w/o Limitations [facility](C hiropra ctic-Cl inic) Maribeth zayas [facility] [employer]ILL[employer]([address] Team A [place]) OUTPATIENT [id number] initial visit ERNIE CERVANTES 07/20 Released with Work/Duty Limitations Maribeth corcoran [facility] [employer] [facility]([address] Team A SCOM) Maribeth zayas [facility] [employer] [facility]([address] Team A SCOM) OUTPATIENT [id number] sore throat ERNIE CERVANTES 08/06 Sick at Home/Quarter s D. Maribeth corcoran [facility] [employer] [facility]([address] Team A SCOM) Maribeth zayas [facility] [employer] [facility]([address] Team A [place]) TELE CONSULT [id number] Notes Entered by: RAINE JAIN 01 Sep 2017 1025 ------- ------- ------- ------- -- MRI lumbar spine wo GENEVIEVE Lang 09/01 Maribeth corcoran [facility] [facility]([address] Team A SCOM) Maribeth zayas [facility] [employer] [facility]([address] Team A SCOM) OUTPATIENT [id number] test results ERNIE CERVANTES 09/14 Released with Work/Duty Limitations [facility] Team A SCOM) Maribeth zayas [facility] ([facility] Team A SCOM) OUTPATIENT [id number] harrisontamiko klein in leg/reinaldoERNIE Dawson 02/24 Released with Work/Duty Limitations Maribeth [facility] ([facility] Team A SCOM) Maribeth zayas [facility] ([address] Team A SCOM) OUTPATIENT [id number] ERNIE Beckett 03/08 Released w/o Limitations [facility] ([address] Team A SCOM) Maribeth zayas [facility] ([address] Team A SCOM) OUTPATIENT [id number] Notes Entered by: HUEY BURRELL 07 Apr 2018 0709 ------- ------- ------- ------- -- Right Knee Pain (No Referra ls) ERNIE CERVANTES 04/07 Released with Work/Duty Limitations [facility] ([address] Team A SCOM) Maribeth zayas [facility] ([address] Team A SCOM) TELE CONSULT [id number] Notes Entered by: CORA VINCENT 12 Apr 2018 1429 ------- ------- ------- ------- -- pt referra l ERNIE CERVANTES 04/12 [facility] ([address] Team A SCOM) Maribeth zayas [facility] ([address] Team A SCOM) TELE CONSULT [id number] Notes Entered by: RAINE JAIN 27 May 2018 0755 ------- ------- ------- ------- -- MRI right knee wo contras t ERNIE CERVANTES 05/27 [facility] [place]([address] Team A SCOM) Maribeth zayas [facility] HI([facility] F01A Team A SCOM) TELE CONSULT [id number] Notes Entered by: RAINE JAIN 14 Jun 2018 0949 ------- ------- ------- ------- -- Orthope dic consult report - right knee ERNIE CERVANTES 06/14 Maribeth [facility] HI([facility] F01A Team A SCOM) Maribeth zayas [facility] F01A Team A SCOM) TELE CONSULT [id number] Notes Entered by: Raza CARBAJAL 15 Jun 2018 1444 ------- ------- ------- ------- -- Pre-op (ortho) ERNIE CERVANTES 06/15 Maribeth corcoran [facility] [place]([address] Team A SCOM) Maribeth zayas [facility]([address] Team A SCOM) OUTPATIENT [id number] check up/ phy ERNIE CERVANTES 06/18 Released with Work/Duty Limitations Maribeth [facility] HI([facility] Team A SCOM) Maribeth zayas [facility] [place]([address] Team A SCOM) OUTPATIENT [id number] provide r called to follow up ERNIE CERVANTES 07/09 Released with Work/Duty Limitations Maribeth [facility] HI([facility] F01A Team A SCOM) Maribeth zayas [facility] [facility] F01A Team A SCOM) OUTPATIENT [id number] eavl from having knee surg KSENIA CANTU 09/24 Released w/o Limitations Maribeth corcoran [facility] HI([facility] F01A Team A SCOM) Maribeth zayas [facility] [facility] F01A Team A SCOM) OUTPATIENT [id number] follow up from knee surgery KSENIA CANTU 10/21 Released w/o Limitations Maribeth corcoran [facility] [employer] [facility] F01A Team A SCOM) Maribeth zayas [facility] [facility] Team A SCOM) OUTPATIENT [id number] f/u ER visit ISHAAN-YURIY BAR, KSENIA J 11/15 Released w/o Limitations Maribeth corcoran [facility] [employer] [facility]([address] Team A SCOM) Maribeth zayas [facility] Team A SC) TELE CONSULT [id number] Notes Entered by: RAINE JAIN 10 Dec 2018 0758 ------- ------- ------- ------- -- Orthope dic f/u consult report - right knee ISHAAN-YURIY BAR, KSENIA J 12/10 Maribeth corcoran [facility] [facility]([address] Team A SC) Marbieth zayas [facility] [place]([address] Team A SC) TELE CONSULT [id number] Notes Entered by: RAINE JAIN 02 Feb 2019 0841 ------- ------- ------- ------- -- Orthope dic f/u consult report - right knee postop ISHAAN-YURIY BAR, KSENIA J 02/02 Maribeth corcoran [facility] [facility]([address] Team A SC) Maribeth zayas [facility] [place]([address] Team A SC) OUTPATIENT [id number] ishaan-e scobar/ back pain ISHAAN-YURIY BAR, KSENIA J 02/07 Released w/o Limitations Maribeth corcoran [facility] HI([facility] F0 Team A SCOM) Maribeth zayas [facility] [place]([address] Team A SCOM) OUTPATIENT [id number] ishaan-e scobar/ pha ISHAAN-YURIY BAR, KSENIA J 04/01 Released w/o Limitations Maribeth corcoran [facility] HI([facility] Team A SCOM) Maribeth zayas [facility] [place]([address] Team A SC) TELE CONSULT [id number] Notes Entered by: Heber SCOTT 10 May 2019 1432 ------- ------- ------- ------- -- pt report KSENIA CANTU 05/10 Maribeth [facility] [place]([address] Team A SC) Maribeth zayas [facility] HI([address] A SC) TELE CONSULT [id number] Notes Entered by: АЛЕКСАНДР MCGOVERN 07 Jun 2019 1327 ------- ------- ------- ------- -- Physica l Therapy HERMELINDO Estrella 06/07 Maribeth [facility] [place]([address] Team A SC) Maribeth zayas [facility] [place]([address] Team A SC) OUTPATIENT [id number] acd/pro blem with shots/3 05-491- 1934/vi rtHERMELINDO Kirby 03/08 Released w/o Limitations DCarlos [facility] [place]([address] Team A SC) Maribeth zayas [facility] [place]([address] Team [facility] OUTPATIENT [id number] Ear Checkup KSENIA CANTU 06/12 Released w/o Limitations DCarlos [facility] [place]([address] Team A SCOM) Maribeth zayas [facility] [facility] TELE CONSULT [id number] Notes Entered by: RADHA LEWIS 21 Jun 2020 1343 ------- ------- ------- ------- -- COVID Results MARQUES DAVIS 06/21 Maribeth [facility] [employer] JACQUELINE(Opsu rge Multi-S pecialt y [facility]) Theater Facility OUTPATIENT [id number] Theater Provider 09/25 Released w/o Limitations Theater Facilit y Theater Facility OUTPATIENT [id number] Theater Provider 11/13 Released w/o Limitations Theater Facilit y D. DCarlos zayas [facility] [employer] JACQUELINE([facility] F01A Team A SCOM) OUTPATIENT [id number] resched uled//g eneral checkup /physic al f2f KSENIA CANTU 01/22 Released w/o Limitations DCarlos corcoran [facility] [employer] [facility] Team A SCOM) Maribeth zayas [facility] [facility] Team A SCOM) OUTPATIENT [id number] 9 f2f//fo llow-up urgent care visit KSENIA CANTU 09/12 Released w/o Limitations Maribeth corcoran [facility] [place] Team A SCOM) Maribeth zayas [facility] [employer] [facility]([address] Team A SCOM) TELE CONSULT [id number] Notes Entered by: RAINE JAIN 23 Sep 2021 0950 ------- ------- ------- ------- -- Chest Xray KSENIA CANTU 09/23 Maribeth corcoran [facility] [place]([facility] Team A SCOM) Maribeth zayas [facility] [employer] [facility]([address] Team A SCOM) OUTPATIENT [id number] Discuss followu p on hbp medicat ion//vr //[id number] KSENIA CANTU 10/29 Released w/o Limitations Maribeth [facility] PH[facility]IPS([facility] F01A Team A SCOM) [facility]) TELE CONSULT [id number] Notes Entered by: Nicole GR 15 Nov 2021 0720 ------- ------- ------- ------- -- SICK CALL- COVID TEST SHONA OCONNOR 11/15 [facility] Maribeth zayas [facility] F01A Team A SCOM) OUTPATIENT [id number] 93/[facility] CARLY Murphy 01/08 Sick at Home/Quarter s Maribeth corcoran [facility] F01A Team A SCOM) Maribeth zayas [facility] F01A Team A SCOM) OUTPATIENT [id number] annual check up KSENIA CANTU 04/22 Released w/o Limitations Maribeth [facility] F01A Team A SCOM) [id number] AMDS Dental [id number] SILVANA KILEY 08/15 Discharge Disposition: Home or Self Care 8344R-4 39 AMDS 6118M-CBM [facility] Between Visit [id number] 05/03 Discharge Disposition: Home or Self Care 6118M-C [facility] r 8344R-439 AMDS Between Visit [id number] 05/06 Discharge Disposition: Home or Self Care 8344R-4 39 AMDS Procedures Combined list of: 1) Procedures from Department of Veterans Affairs facilities [facility], not all VA non-surgical procedures are included; 2) All procedures from the Department of Defense facilities. Procedure Procedure Type Code Date Perfomer Comments Sourc e Application of a modality to one or more areas; traction, mechanical Application of a modality to one or more areas; traction, mechanical 14065 7239[facility] Chiropractic manipulative treatment (CMT); spinal, one to two regions Chiropractic manipulative treatment (CMT); spinal, one to two regions 52260 7239[facility] Application of a modality to one or more areas; hot or cold packs Application of a modality to one or more areas; hot or cold packs 92709 7239[facility] Chiropractic manipulative treatment (CMT); spinal, three to four regions Chiropractic manipulative treatment (CMT); spinal, three to four regions 44100 7239[facility] ELECTROCARDIOGRAM, ROUTINE ECG WITH AT LEAST 12 LEADS; WITH INTERPRETATION AND REPORT 12/24/19 22 [facility] APPLICATION OF A MODALITY TO 1 OR MORE AREAS; HOT OR COLD PACKS 11/19/19 16 [facility] APPLICATION OF A MODALITY TO 1 OR MORE AREAS; HOT OR COLD PACKS 10/24/19 16 [facility] APPLICATION OF A MODALITY TO 1 OR MORE AREAS; HOT OR COLD PACKS 10/17/19 16 [facility] THERAPEUTIC PROCEDURE, 1 OR MORE AREAS, EACH 15 MINUTES; THERAPEUTIC EXERCISES TO DEVELOP STRENGTH AND ENDURANCE, RANGE OF MOTION AND FLEXIBILITY 10/05/19 16 [facility] APPLICATION OF A MODALITY TO 1 OR MORE AREAS; HOT OR COLD PACKS 09/26/19 16 [facility] THERAPEUTIC PROCEDURE, 1 OR MORE AREAS, EACH 15 MINUTES; THERAPEUTIC EXERCISES TO DEVELOP STRENGTH AND ENDURANCE, RANGE OF MOTION AND FLEXIBILITY 09/21/19 16 [facility] POSITIONING CUSHION/PILLOW/WED GE, ANY SHAPE OR SIZE, INCLUDES ALL COMPONENTS AND ACCESSORIES 09/20/19 16 [facility] THERAPEUTIC PROCEDURE, 1 OR MORE AREAS, EACH 15 MINUTES; THERAPEUTIC EXERCISES TO DEVELOP STRENGTH AND ENDURANCE, RANGE OF MOTION AND FLEXIBILITY 09/18/19 16 [facility] BRIEF EMOTIONAL/BEHAVIOR AL ASSESSMENT (EG, DEPRESSION INVENTORY, ATTENTION-DEFICIT/ HYPERACTIVITY DISORDER [ADHD] SCALE), WITH SCORING AND DOCUMENTATION, PER STANDARDIZED INSTRUMENT 04/15/20 [facility] TELE ASSESS & MGT SRV PROV QUAL NONPHYS HLTH CARE PRO TO EST PAT,PARENT,GUARD NOT ORIG REL ASSESS & MGT SRV PROV W/IN PREV 7 DAYS NOR LEAD ASSESS & MGT SRV/PX W/IN NXT 24 HR/SOON APT;5-10 MIN MED DIS 04/12/20 21 [facility] WAIVER SERVICES; NOT OTHERWISE SPECIFIED (NOS) 03/08/20 20 [facility] LIDOCAINE 70 MG/TETRACAINE 70 MG, PER PATCH 07/20/19 18 [facility] INFLUENZA VIRUS VACCINE, TRIVALENT, LIVE (LAIV3), FOR INTRANASAL USE 04/29/20 10 [facility] YELLOW FEVER VACCINE, LIVE, FOR SUBCUTANEOUS USE 04/01/20 10 [facility] VIS FUNCT SCREEN,AUTOMAT/LINH I-AUTOMAT BILAT QUANT DETERM VISUAL ACUITY,OCULAR ALIGN,COLOR VISION,PSEUDOISOCH ROMAT PLATES,& FIELD VIS (MAY INC ALL/SOME SCRN DETERM FOR CONTRAST SENSITIV,VIS UND GLARE) 02/29/20 10 [facility] YELLOW FEVER VACCINE, LIVE, FOR SUBCUTANEOUS USE 02/26/20 10 [facility] SKIN TEST; TUBERCULOSIS, INTRADERMAL 02/23/20 10 [facility] AUDIOMETRIC TESTING OF GROUPS 02/23/20 10 [facility] COLLECTION OF VENOUS BLOOD BY VENIPUNCTURE 02/22/20 10 [facility] CHIROPRACTIC MANIPULATIVE TREATMENT (CMT); SPINAL, 1-2 REGIONS 01/20/20 14 [facility] SCREENING TEST, PURE TONE, AIR ONLY 12/17/19 14 [facility] AUDIOMETRIC TESTING OF GROUPS 11/09/19 13 [facility] SCREENING TEST, PURE TONE, AIR ONLY 09/25/19 13 [facility] AUDIOMETRIC TESTING OF GROUPS 09/22/19 13 [facility] COLLECTION OF VENOUS BLOOD BY VENIPUNCTURE 05/28/20 12 [facility] IMMUNIZATION ADMINISTRATION (INCLUDES PERCUTANEOUS, INTRADERMAL, SUBCUTANEOUS, OR INTRAMUSCULAR INJECTIONS); EACH ADDITIONAL VACCINE (SINGLE OR COMBINATION VACCINE/TOXOID) 05/19/20 11 [facility] SKIN TEST; TUBERCULOSIS, INTRADERMAL 04/23/20 11 [facility] VIS FUNCT SCREEN,AUTOMAT/LINH I-AUTOMAT BILAT QUANT DETERM VISUAL ACUITY,OCULAR ALIGN,COLOR VISION,PSEUDOISOCH ROMAT PLATES,& FIELD VIS (MAY INC ALL/SOME SCRN DETERM FOR CONTRAST SENSITIV,VIS UND GLARE) 02/06/20 11 [facility] SCREENING TEST, PURE TONE, AIR ONLY 01/31/20 11 [facility] Modalities Traction Modalities Traction 97893 11/19/19 16 MATHEUS DE LOS SANTOS [facility] Modalities Heat Hot Packs Modalities Heat Hot Packs 02010 11/19/19 16 MATHEUS DE LOS SANTOS [facility] Chiropractic Manip Treatmt (CMT) Spinal Three To Four Region Chiropractic Manip Treatmt (CMT) Spinal Three To Four Region 45461 11/19/19 16 MATHEUS DE LOS SANTOS [facility] Modalities Traction Modalities Traction 80137 10/24/19 16 MATHEUS DE LOS SANTOS Modalities Heat Hot Packs Modalities Heat Hot Packs 76477 10/24/19 16 MATHEUS DE LOS SANTOS [facility] Chiropractic Manip Treatmt (CMT) Spinal Three To Four Region Chiropractic Manip Treatmt (CMT) Spinal Three To Four Region 20357 10/24/19 16 MATHEUS DE LOS SANTOS Modalities Traction Modalities Traction 50188 10/17/19 16 MATHEUS DE LOS SANTOS Modalities Heat Hot Packs Modalities Heat Hot Packs 11602 10/17/19 16 MATHEUS DE LOS SANTOS Chiropractic Manip Treatmt (CMT) Spinal Three To Four Region Chiropractic Manip Treatmt (CMT) Spinal Three To Four Region 75994 10/17/19 16 MATHEUS DE LOS SANTOS Physical Therapy: ___ Se ion Segments, 15 Minutes Each Physical Therapy: ___ Session Segments, 15 Minutes Each 45940 10/05/19 16 DEMETRIUS KOHLI Modalities Traction Modalities Traction 13027 09/26/19 16 MATHEUS DE LOS SANTOS Modalities Heat Hot Packs Modalities Heat Hot Packs 45231 09/26/19 16 MATHEUS DE LOS SANTOS Chiropractic Manip Treatmt (CMT) Spinal Three To Four Region Chiropractic Manip Treatmt (CMT) Spinal Three To Four Region 86825 09/26/19 16 MATHEUS DE LOS SANTOS Physical Therapy: ___ Se ion Segments, 15 Minutes Each Physical Therapy: ___ Session Segments, 15 Minutes Each 34922 09/21/19 16 SG CONSTANTINO Positioning cushion/pillow/wed ge, any shape or size, includes all components and acce ories 09/20/19 16 MATHEUS DE LOS SANTOS Cervical pillow, coby, soft Bettye Hot water bottle, ice cap or collar, heat and/or cold wrap, any type 09/20/19 16 MATHEUS DE LOS SANTOS Chiropractic Manip Treatmt (CMT) Spinal Three To Four Region Chiropractic Manip Treatmt (CMT) Spinal Three To Four Region 57488 09/20/19 16 MATHEUS DE LOS SANTOS A isted Exercises For ROM Assisted Exercises For ROM 63353 09/18/19 16 [facility] Physical Therapy Service Evaluation Physical Therapy Service Evaluation 98131 09/18/19 16 [facility] Chiropractic Manip Treatmt (CMT) Spinal One To Two Regions Chiropractic Manip Treatmt (CMT) Spinal One To Two Regions 84129 01/20/20 14 ABHIJIT PORTILLO Audiogram (Screening) Audiogram (Screening) 12944 12/17/19 14 JOSE ALFREDO GARZON [facility] Audiometry Group Testing Audiometry Group Testing 40334 12/17/19 14 JOSE ALFREDO GARZON [facility] Audiogram (Screening) Audiogram (Screening) 88001 11/09/19 13 JOSE ALFREDO GARZON [facility] Audiometry Group Testing Audiometry Group Testing 60495 11/09/19 13 JOSE ALFREDO GARZON [facility] Audiometry Group Testing Audiometry Group Testing 91629 09/25/19 13 JOJO ARMENTA [facility] Audiogram (Screening) Audiogram (Screening) 90448 09/25/19 13 JOJO ARMENTA [facility] Audiogram (Screening) Audiogram (Screening) 16026 09/22/19 13 JOSE ALFREDO GARZON [facility] Audiometry Group Testing Audiometry Group Testing 07736 09/22/19 13 JOSE ALFREDO GARZON [facility] Venipuncture Venipuncture 57388 05/28/20 12 GUERO MCKEON DRAWN AT [facility] Immunization Administration By Injection, Each Additional Vaccine 05/20/20 11 DANTE PISANO [facility] Physician Supervised Services Provision Of Educational Supplies Physician Supervised Services Provision Of Educational Supplies 80435 05/20/20 [address] [facility] Physician Services Special Review / Reporting Of Patient Status Physician Services Special Review / Reporting Of Patient Status 27261 05/20/20 11 [facility] L[facility]IA [facility] Physician Supervised Group Educational Services 05/20/[address] [facility] Vaccines Vaccines 02369 05/20/20 11 [facility] Immunization Administration By Injection, One Vaccine Immunization Administration By Injection, One Vaccine 26492 05/20/20 11 [facility] Skin Test Anergy Tuberculin Intradermal Skin Test Anergy Tuberculin Intradermal 83289 04/23/20 11 RAFA TREJO [facility] Visual Function Screening Visual Function Screening 97251 02/06/20 11 CHELSEA PORTER [facility] Screening Test Of Visual Acuity, Quantitative, Bilateral Screening Test Of Visual Acuity, Quantitative, Bilateral 84231 02/06/20 11 CHELSEA PORTER [facility] Audiometry Group Testing Audiometry Group Testing 26675 01/31/20 11 FRANKI MELO [facility] Audiogram (Screening) Audiogram (Screening) 84544 01/31/20 11 FRANKI MELO [facility] Visual Function Screening Visual Function Screening 12103 02/29/20 10 OMER MEJÍA [facility] Screening Test Of Visual Acuity, Quantitative, Bilateral Screening Test Of Visual Acuity, Quantitative, Bilateral 80599 02/29/20 10 OMER MEJÍA [facility] Threshold Audiogram (Pure Tone) Threshold Audiogram (Pure Tone) 82015 02/23/20 10 [facility] Audiometry Group Testing Audiometry Group Testing 99318 02/23/20 10 [facility] Waiver services; not otherwise specified (NOS) HERMELINDO LOMELI [facility] Non-Physician Phone Call To Patient/Provider Brief (5-10min) Non-Physician Phone Call To Patient/Provider Brief (5-10min) 58022 SHEBA CURTIS [facility] Psychiatric Diagnostic Evaluation Psychiatric Diagnostic Evaluation 15515 SHBEA CURTIS [facility] Psychometric Emotional / Behavioral A e ment Psychometric Emotional / Behavioral Assessment 57910 SHEBA CURTIS [facility] Social History Combined list of available smoking, tobacco, and other social history from Department of 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 Social History Type Response Date Comment Sourc e Male 03/13/2020 Ambulatory Pha rmacy Tobacco smoking status NHIS LIFETIME NON-USER OF TOBACCO 04/15/2016 [facility] History of tobacco use LIFETIME NON-USER OF TOBACCO 05/28/2015 [facility] History of tobacco use LIFETIME NON-USER OF TOBACCO 05/08/2015 [facility] History of tobacco use LIFETIME NON-USER OF TOBACCO 06/14/2014 [facility] Sexual Orientation Ambula tory Pharmacy Gender identity [...] Plan Extracted from:Title : LONNIE Author: KSENIA TUNRER Date: 02/04/23 1.?Obstructive sleep apnea of adult Reviewed sleep study, with obstructive sleep apnea, referral given for CPAP machine and all equipment Ordered: Referral Request 2.0 ? [facility] ? ? Extracted from:Title: LONNIE Author: KSENIA [...] blood pressure starts to rise, verb understanding. 08/04/2024 Ambulatory Pharmacy Advance Directives List of completed, amended, or rescinded Advance Directives on record at Department of [facility] Affairs facilities. An actual copy of the Directive is not included. Date Advance Directive Provider Source 06/14/2014 ADVANCE DIRECTIVE DISCUSSION AARON KWON [facility] Functional Status Combined list of recent functional and cognitive assessments recorded at Department of Defense and Veterans Affairs (VA).VA Functional [place] Measurement (FIM) Scale: 1 = Total Assistance (Subject = 0% +), 2 = Maximal Assistance (Subject = 25% +), 3 = Moderate Assistance (Subject = 50% +), 4 = Minimal Assistance (Subject = 75% +), 5 = Supervision, 6 = Modified [place] (Device), 7 = Complete [place] (Timely, Safely). Assessment Date/Time Source Assessment Type Assessment Skill Assessment Score Assessment Details No data available for this section
--- OUTSIDE RECORDS SUMMARY | 2024-08-04 08:23 | XMS_ITS | Clinical Summary ---
Author Organization [facility] Address [address] [place] [address] Phone Care Team Providers Care Instructor Traffic Safety Name Role Phone Luis Fernando WALDROP, Lobito George [phone] [facility], [facility] Primary Care P rovider [phone] Reason for Visit and Chief Complaint visit for: comprehensive medical evaluation :Consultation - The Chief Complaint is: allergies Plan of Treatment - Recommended allergy sensitivity testing - abbrev - Last Documented On 03/04/2021 3:12PM ; [facility] Pending Tests Order Diagnosis Results Due Ordering P rovider Plan:Test/Treatme nt1 - Allergy Tests Allergy Sensitivity Test Chronic rhinitis 03/04/21 Lobito Gould MD Last Documented On 1 3:09PM ; [facility] Instructions to patient Instructions for patient - p janell use of nasal spray Last Documented On 1 3:11PM ; [facility] Assessments Includes: Assessments from this encounter Findings - Chronic rhinitis - Last Documented On 03/04/2021 3:12PM ; [facility] Instructions Includes: Instructions from this encounter Instructions to patient Instructions for patient - p janell use of nasal spray Last Documented On 3:11PM ; [facility] Medical Equipment - Implanted Devices Includes: Current Devices No Medical Equipment Recorded Medications Includes: Medications discussed during this encounter and other current Medications New / Renewed during this visit Lobito Gould MD on 03/04/2021 Fluticasone Propionate 50 MCG/ACT Nasal Suspension Provider: Lobito fiore MD 30 day supply: 16 gram, 3 refills Diagnosis: Chronic rhinitis 2 sp en qam [facility]: [facility] [id number] [id number] [place] [address], [phone] - Last Documented On 1 12:25PM By Stef Snow ; [facility] Current Medications (continue as prescribed) Fluticasone Propionate 50 MCG/ACT Nasal Suspension 06/10/2021 Provider: Lobito fiore MD Diagnosis: Allergic rhiniti s, unspecified 2 sp en qd as needed Last Documented On 1 12:45PM By Lobito Gould MD ; [facility] Fexofenadine HCl 180 MG Oral Tablet 03/02/2021 Provider: Lisa Renee ([place]) 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 He gets itchy throat at night for several years. 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 Itchy throat improved with use of [...] 3:12PM ; [facility] Air-conditioning filters are changed tim ry 3 months 03/04/2021 Last Documented On 1 3:12PM ; [facility] Environmental history reviewed 1 Last Documented On 1 3:12PM ; [facility] Housing has central cooling 03/04/2021 Last Documented On 3:12PM ; [facility] Housing has windows closed 03/04/2021 Last Documented On 1 3:12PM ; [facility] Lives in apartment 03/04/2021 Last Documented On 3:12PM ; [facility] Mattress is encased 03/04/2021 Last Documented On 3:12PM ; [facility] No carpets in residence 03/04/2021 Last Documented On 1 3:12PM ; [facility] No contact with pets or other animals Last Documented On 1 3:12PM ; [facility] No exposure to environmental tobacco smo ke 03/04/2021 Last Documented On 1 3:12PM ; [facility] No exposure to molds 03/04/2021 Last Documented On 3:12PM ; [facility] No HEPA filters 03/04/2021 Last Documented On 1 3:12PM ; [facility] No secondhand cigarette smoke exposure 0 03/04/2021 Last Documented On 1 3:12PM ; [facility] No wall unit cooling in residence 2020 Last Documented On 1 3:12PM ; [facility] Not living near a major source of pollut ion 03/04/2021 Last Documented On 3:12PM ; [facility] Patient does not sleep with stuffed anim [...] Time Diagnosis New Patient Lobito Gould MD [place] [facility] 1 2:26PM 3:12PM Rhinitis Chronic Insurance Includes: Active Insurance Policies Plan Name Member ID Group # Subscriber Relationship Effect kiran Dates 1 - [facility] [id number] Ellis Ellis Self 07/13/2017 - Un known Clinical Notes Includes: Clinical Notes from this encounter No Clinical Notes Recorded
--- OUTSIDE RECORDS SUMMARY | 2024-08-04 08:23 | XMS_ITS | Clinical Summary ---
Author Organization [facility] Address [address] [place] [address] Phone Care Team Providers Care Roll Icer Machine Name Role Phone Luis Fernando WALDROP, Lobito George [phone] [facility], [facility] Primary Care P rovider [phone] Reason for Visit and Chief Complaint visit for: follow-up exam - The Chief Complaint is: allergies Plan of Treatment - Recommended mattress / pillow covers for dust mites - Last Documented On 03/11/2021 1:12PM ; [facility] Pending Tests Order Diagnosis Results Due Ordering P rovider Return Follow Up - Month(s) 3 months Chronic rhinitis Lobito Gould MD Last Documented On 1 1:12PM ; [facility] Plan: Medications - Medication Care Plan Continue current Medications Chronic rhinitis 03/11/21 Lobito Gould MD Last Documented On 1 1:12PM ; [facility] Instructions to patient Avoid allergens Last Documented On 1:11PM ; [facility] Assessments Includes: Assessments from this encounter Findings - Chronic rhinitis - Last Documented On 03/11/2021 1:12PM ; [facility] Instructions Includes: Instructions from this encounter Instructions to patient Avoid allergens Last Documented On 1:11PM ; [facility] Medical Equipment - Implanted Devices Includes: [...] Gould MD ; [facility] Fexofenadine HCl 180 MG Oral Tablet 03/02/2021 Provider: Lisa REYNA ([place]) Diagnosis: 1 tab po qd Last Documented On 2:43PM By Jimmy Luther ; [facility] Medications Administered Includes: Administered Medications from [...] 11:52A M ; [facility] Results Includes: Results discussed during this [...] 1:12PM ; [facility] Smoking Status Unknown Procedures and Surgical History Includes: Procedures from this encounter Procedures Code Diagnosis Performing Provider Service L ocation Service Date avoid allergens Last Documented On 1 1:11PM ; [facility] medication list reviewed Last Documented On 1 1:09PM ; [facility] percutaneous tests with allergenic extracts was [id number] Last Documented On 11:52AM ; [facility] intradermal tests with allergenic extracts (imme diate) was [id number] Last Documented On 12:38PM ; [facility] allergy sensitivity testing Last Documented On 1 11:52AM ; [facility] Medical History Includes: Medical History addressed during this encounter Description Last Updated Past medical history reviewed 03/11/2021 Last Documented On 1 1:12PM ; [facility] Family History Includes: Family History addressed during [...] Time Diagnosis Post Test Lobito Gould MD [place] Office 1 11:04AM 1:08PM Rhinitis Chronic Insurance Includes: Active Insurance Policies Plan Name Member ID Group # Subscriber Relationship Effect kiran Dates 1 - [facility] [id number] Ellis Corral Self 07/13/2017 - Un known Clinical Notes Includes: Clinical Notes from this encounter No Clinical Notes Recorded
--- NOTE | 2024-08-04 08:39 | MHC.OFFWIV ---
Intake Vital Signs 08/04/24 08:40 Weight 184 lb BP 118/80 Blood Pressure Location Rt brachial Position Sitting Pulse 63 Pulse Source Pulse Oximeter Pulse Oximetry (%) 98 Oxygen Delivery Method Room Air Intake Visit Reasons: EP-lt wrist pain Intake Note: Patient here for left wrist pain that has been present for a couple of months, he is so he is having difficulty bearing weight and doing push ups. Patient Tobacco Use Status: Never used Tobacco Allergies No Known Allergies Allergy (Verified 08/04/24 08:42) Do you need a note to return to daycare/school/sports/work: No HPI HPI Comments History of Present Illness Details 44 y/o male patient who presents to the walk in clinic with c/o left wrist pain x 2 months. Pt is in and he is required to do Push-ups daily. Pt reports wrist tenderness when lifting weights and doing push ups. [facility] Medical History Lower back pain Rupture of anterior cruciate ligament of right knee Sleep apnea Hypertension Surgical History (Updated 07/17/23 @ 10:18 by HEATHER Garcia) History of repair of anterior cruciate ligament of right knee Family History Father Prostate cancer Paternal Grandmother Diabetes type 2, controlled Social History Housing: House Patient Tobacco Use Status: Never used Tobacco e-Cigarette/Vaping Use: Never Used Second Hand Smoke Exposure: No service: Yes ([employer] ) Current occupational status: employed Current occupational exposures/hazards: Yes Cognitive needs: No Hearing needs: No Vision needs: No Review of Systems Const All systems reviewed & are unremarkable except as noted in HPI and below Physical Exam Vital Signs: Last Vital Signs Pulse 63 08/04/24 08:40 BP 118/80 08/04/24 08:40 Pulse Ox 98 08/04/24 08:40 Oxygen Delivery Method Room Air 08/04/24 08:40 Const General: cooperative and no acute distress Nutritional Appearance: well nourished Orientation/consciousness: patient oriented x3 Neuro General: patient oriented x3, gait normal and moves all extremities Extrem General: Yes capillary refill normal Left upper extremity: normal to inspection and hand Details: normal to inspection, normal capillary refill, neuromotor exam normal, neurosensory exam normal, normal ROM of fingers and no swelling; no tenderness and no crepitus Psych Speech and movement: Normal speech and movement present Assessment & Plan Assessment & Plan (1) Wrist pain, left: Code(s): M25.532 - Pain in left wrist Plan: Wrapped Hand/Wrist with Danie bandage Ice/Hot Rest joint Recomm referral for EMG with PCP. NSAIDs PRN for pain relief. Coding Level of Care Code Est Pt Level 3 (47116) Diagnoses Wrist pain, left M25.532 Time Spent (min) 15
[2024-08-04 08:40] VITALS: BP 118/80; PULSE 63; O2SAT 98
== END 2024-08-04 09:14 | disposition home or self-care (01) ==
PROVIDERS: Visit Provider Nurse Practitioner Family
DX: M25.532 Pain in left wrist (principal)

== ENCOUNTER → 2024-08-04 08:09 | Outpatient (BNVA) | payer OTHER, SELFPAY | PROVIDERS: Visit Provider Nurse Practitioner Family | DX: M25.532 Pain in left wrist (principal) | CPT/HCPCS: 99212 ==

== ENCOUNTER 2024-09-16 12:56 | Outpatient (AMB) | payer OTHER, SELFPAY ==
[2024-09-16 13:00] VITALS: BP 118/84; PULSE 67; O2SAT 99; BMI 27.4
--- NOTE | 2024-09-16 13:00 | MHC.PC.OV ---
Vital Signs 09/16/24 13:00 Height 5 ft 8 in Weight 180 lb 8 oz BMI 27.4 BP 118/84 Blood Pressure Location Rt brachial Position Sitting Pulse 67 Pulse Source Pulse Oximeter Pulse Oximetry (%) 99 Oxygen Delivery Method Room Air Intake Visit Reasons: Transfer from [facility] Allergies No Known Allergies Allergy (Verified 09/16/24 13:00) Medication List - Last Reconciled 09/16/24 by Katya Chandra MD ascorbate calcium (vitamin C) 500 mg PO DAILY cholecalciferol (vitamin D3) 50 mcg PO DAILY diphenhydramine HCl (Benadryl Allergy) 25 mg PO BEDTIME PRN Tobacco use date assessed: 09/16/24 Dental Screening Dental Screen Date: 09/16/24 Did you have a dental visit in the last 12 months?: Yes Did you have a dental problem in the last 6 months where you did not have access to dental care?: No Was dental information given to patient?: Patient has dentist HPI Transfer from [facility] HPI Details History of Present Illness - The patient is a 44-year-old male presenting for a comprehensive evaluation due to several self-reported health issues. He is encountering auditory issues characterized by muffling sounds , he is requesting auditory consultation - He experiences ear itchiness, speculated to be a response to dryness. - He reports consistent rash formation around the nasal area - He has a notable family history of prostate cancer, prompting a fasting state for potential blood screenings. - He suffers back tightness occasionally, which he associates with aging. - He cites deteriorating vision need project designer consultation, a function he noticed worsening since reaching age 44. - Overall, the patient desires to undergo an annual physical assessment inclusive of comprehensive blood examinations. - history of sleep apnea and is using CPAP machine, we talked about referral to sleep specialist about that which patient will get back to me Currently he has no provider managing his CPAP machine Health Maintenance - Blood work screenings were discussed for prostate cancer due to family history. - Screening for hearing, cholesterol, kidney, liver, and thyroid function, along with vitamin D levels, mumps, chickenpox, and tetanus discussed. - Measles titer order due to outbreak of measles infection - Patient actively uses a CPAP machine for sleep apnea. 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 Patient Instructions - Appointment to be made for a hearing test. 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 - Complete bloodwork as ordered. - Monitor for results and any necessary follow-up consultation through the online chart system. Review of Systems - General: No fever no chills - Neurological: No headaches no dizziness - Ear nose throat: No sore throat no hearing difficulty no ear pain - Cardiovascular: No syncope, no chest pain, no palpitations - Gastrointestinal: No nausea vomiting or diarrhea - Endocrine: No polyuria polydipsia no heat intolerance - Genitourinary: No dysuria Physical Exam General: Cooperative, healthy appearing, comfortable, no acute distress Orientation: Patient oriented x3 Limitations: None Head: Normal to inspection Ears: No rash noted tympanic membrane within normal limit, otherwise within normal limits visually Nose: Normal external nose present, slight rash in the area nasolabial fold bilateral scaly Face and sinus: Normal facial exam except above findings Eyes: Appearance normal, extraocular movement intact pupils reactive Neck: Normal visual inspection and supple Respiratory: Normal respiratory effort and able to speak in complete sentences. Clear to auscultation, no stridor Cardiovascular: S1 and S2 regular in rate and rhythm GI: Normal to inspection. Soft to palpation and nontender Skin: Turgor normal, no acute findings, slight rash in the nose area due to CPAP machine, seborrheic dermatitis noted Neuro: Patient oriented x3, motor sensory intact, balance intact, tandem pass Extremities: Normal to inspection [facility] Medical History Lower back pain Rupture of anterior cruciate ligament of right knee Sleep apnea Hypertension Surgical History History of repair of anterior cruciate ligament of right knee Family History Father Prostate cancer Paternal Grandmother Diabetes type 2, controlled Social History Housing: House Patient Tobacco Use Status: Never used Tobacco e-Cigarette/Vaping Use: Never Used Second Hand Smoke Exposure: No service: Yes ([employer] ) Current occupational status: employed Current occupational exposures/hazards: Yes Cognitive needs: No Hearing needs: No Vision needs: No Questionnaire PHQ-9 Over the last 2 weeks, how often have you been bothered by any of the following problems? 1. Little interest or pleasure in doing things: not at all 2. Feeling down, depressed, or hopeless: not at all 3. Trouble falling or staying asleep, or sleeping too much: not at all 4. Feeling tired or having little energy: not at all 5. Poor appetite or overeating: not at all 6. Feeling bad about yourself - or that you are a failure or have let yourself or your family down: not at all 7. Trouble concentrating on things, such as reading the newspaper or watching television: not at all 8. Moving or speaking so slowly that other people could have noticed. Or the opposite - being so fidgety or restless that you have been moving around a lot more than usual: not at all 9. Thoughts that you would be better off or of hurting yourself in some way: not at all Total score: 0 Depression Screening Interpretation: Negative Depression Screening Done: Yes 98762 - PHQ-9 Billing: Yes Source: Developed by Drs. Scar Mrotensen, Priya Quinteros, Doe Palumbo and colleagues, with an educational gege from [employer]. Thrive Questionnaire Date Thrive assessed: 09/16/24 I am a: Patient What is your living situation today?: I have a steady place to live Within the past 12 months, did the food you bought not last and you didn't have the money to get more?: Never true Within the past 12 months, did you worry whether your food would run out before you got money to buy more?: Never true Do you have trouble paying for medicines?: No Do you have trouble getting transportation to medical appointments?: No Do you have trouble paying your heating and electricity bill?: No Do you have trouble taking care of your child, family member or friend?: No Do you have trouble with day-to-day activities such as bathing, preparing meals, shopping, managing finances, etc.?: No Are you currently unemployed and looking for a job?: No Are you interested in more education?: Yes Please select the resources that you would like help with: None Currently or been in a relationship where the following occur: No concerns reported THRIVE Score: 0 AUDIT C Alcohol Use Questionnaire (AUDIT-C) 1. How often do you have a drink containing alcohol?: Monthly or less 2. How many drinks containing alcohol do you have on a typical day when you are drinking?: 1 or 2 3. How often do you have six or more drinks on one occasion?: Never Total Score: 1 Score Reviewed/Action Taken: Yes BHUPINDER-7 AMB Questionnaire BHUPINDER-7 Date BHUPINDER - 7 assessed: 09/16/24 Feeling nervous, anxious, or on edge: 1 = Several days Not being able to stop or control worryin = Not at all Worrying too much about different things: 1 = Several days Trouble relaxin = Not at all Being so restless that it is hard to sit still: 0 = Not at all Becoming easily annoyed or irritable: 0 = Not at all Feeling afraid as if something awful might happen: 0 = Not at all Total BHUPINDER-7 score (0-4 normal; 5-9 mild; 10-14 moderate; 15-21 severe): 2 Source: Developed by Drs. Scar Mortensen, Priya Quinteros, Doe Palumbo and colleagues, with an educational gege from [employer]. BHUPINDER-7 Assessment Billing BHUPINDER-7 Assessment Tool: BHUPINDER-7 Assessment 05472 Physical exam (Primary Care) Vital Signs: Last Vital Signs Pulse 67 09/16/24 13:00 BP 118/84 09/16/24 13:00 Pulse Ox 99 09/16/24 13:00 Oxygen Delivery Method Room Air 09/16/24 13:00 BMI result Body Mass Index 27.4 Tobacco/Smoking Status: Tobacco use Status Tobacco use date assessed 09/16/24 09/16/24 13:07 Patient Tobacco Use Status Never used Tobacco 09/16/24 13:07 e-Cigarette/Vaping Use Never Used 09/16/24 13:07 PHQ-9: PHQ-9 Score PHQ-9: Total score 0 09/16/24 13:24 Depression Screening Interpretation: Negative Thrive Assessment: Date of Thrive Assessment Date Thrive assessed 09/16/24 09/16/24 13:07 Currently or been in a relationship where the following occur: No concerns reported Coding Level of Care Code New Pt Level 4 (13392) New Pt Prev Care 40-64y(39639) Diagnoses Encounter for general adult medical examination with abnormal findings Z00.01 Seborrheic dermatitis L21.9 Ear itch L29.9 Sleep apnea in adult G47.30 Family history of prostate cancer Z80.42 Immunizations incomplete Z28.39 Hearing difficulty of both ears H91.93 Additional Codes BHUPINDER-7 Assessment Billing - BHUPINDER-7 Assessment Tool: BHUPINDER-7 Assessment 61670 ([id number]) PHQ-9 - 52855 - PHQ-9 Billing: Yes ([id number]) Assessment & Plan Assessment & Plan (1) Encounter for general adult medical examination with abnormal findings: Code(s): Z00.01 - Encounter for general adult medical examination with abnormal findings Category: Medical (2) Seborrheic dermatitis: Code(s): L21.9 - Seborrheic dermatitis, unspecified Category: Medical (3) Ear itch: Code(s): L29.9 - Pruritus, unspecified Category: Medical (4) Sleep apnea in adult: Code(s): G47.30 - Sleep apnea, unspecified Category: Medical (5) Family history of prostate cancer: Code(s): Z80.42 - Family history of malignant neoplasm of prostate Category: Medical (6) Immunizations incomplete: Code(s): Z28.39 - Other underimmunization status Category: Medical (7) Hearing difficulty of both ears: Code(s): H91.93 - Unspecified hearing loss, bilateral Category: Medical Plan History of Present Illness - The patient is a 44-year-old male presenting for a comprehensive evaluation due to several self-reported health issues. He is encountering auditory issues characterized by muffling sounds , he is requesting auditory consultation - He experiences ear itchiness, speculated to be a response to dryness. - He reports consistent rash formation around the nasal area - He has a notable family history of prostate cancer, prompting a fasting state for potential blood screenings. - He suffers back tightness occasionally, which he associates with aging. - He cites deteriorating vision need project designer consultation, a function he noticed worsening since reaching age 44. - Overall, the patient desires to undergo an annual physical assessment inclusive of comprehensive blood examinations. - history of sleep apnea and is using CPAP machine, we talked about referral to sleep specialist about that which patient will get back to me Currently he has no provider managing his CPAP machine Health Maintenance - Blood work screenings were discussed for prostate cancer due to family history. - Screening for hearing, cholesterol, kidney, liver, and thyroid function, along with vitamin D levels, mumps, chickenpox, and tetanus discussed. - Measles titer order due to outbreak of measles infection - Patient actively uses a CPAP machine for sleep apnea. 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 Patient Instructions - Appointment to be made for a hearing test. 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 - Complete bloodwork as ordered. - Monitor for results and any necessary follow-up consultation through the online chart system. Orders: Orders Mumps Virus IgG Antibody Today H91.93 - Unspecified hearing loss, bilateral, L29.9 - Pruritus, unspecified, Z00.01 - Encounter for general adult medical examination with abnormal findings, Z28.39 - Other underimmunization status, Z80.42 - Family history of malignant neoplasm of prostate Tetanus Antitoxiod Antibody Today H91.93 - Unspecified hearing loss, bilateral, L29.9 - Pruritus, unspecified, Z00.01 - Encounter for general adult medical examination with abnormal findings, Z28.39 - Other underimmunization status, Z80.42 - Family history of malignant neoplasm of prostate Lipid Panel Today H91.93 - Unspecified hearing loss, bilateral, L29.9 - Pruritus, unspecified, Z00.01 - Encounter for general adult medical examination with abnormal findings, Z28.39 - Other underimmunization status, Z80.42 - Family history of malignant neoplasm of prostate TSH reflex Free T4 Today H91.93 - Unspecified hearing loss, bilateral, L29.9 - Pruritus, unspecified, Z00.01 - Encounter for general adult medical examination with abnormal findings, Z28.39 - Other underimmunization status, Z80.42 - Family history of malignant neoplasm of prostate Prostate Specific Antigen Today Z80.42 - Family history of malignant neoplasm of prostate Rubella IgG Antibody Today H9 - Unspecified hearing loss, bilateral, L29.9 - Pruritus, unspecified, Z00.01 - Encounter for general adult medical examination with abnormal findings, Z28.39 - Other underimmunization status, Z80.42 - Family history of malignant neoplasm of prostate Rubeola IgG (Measles) Today H9. - Unspecified hearing loss, bilateral, L29.9 - Pruritus, unspecified, Z00.01 - Encounter for general adult medical examination with abnormal findings, Z28.39 - Other underimmunization status, Z80.42 - Family history of malignant neoplasm of prostate Varicella IgG Antibody Today H9. - Unspecified hearing loss, bilateral, L29.9 - Pruritus, unspecified, Z00.01 - Encounter for general adult medical examination with abnormal findings, Z28.39 - Other underimmunization status, Z80.42 - Family history of malignant neoplasm of prostate Complete Blood Count Auto Diff Today - Unspecified hearing loss, bilateral, L29.9 - Pruritus, unspecified, Z00.01 - Encounter for general adult medical examination with abnormal findings, Z28.39 - Other underimmunization status, Z80.42 - Family history of malignant neoplasm of prostate Comprehensive [place]. Panel Fast Today H9. - Unspecified hearing loss, bilateral, L29.9 - Pruritus, unspecified, Z00.01 - Encounter for general adult medical examination with abnormal findings, Z28.39 - Other underimmunization status, Z80.42 - Family history of malignant neoplasm of prostate Vitamin D 25-OH (D2 and D3) Today H9 - Unspecified hearing loss, bilateral, L29.9 - Pruritus, unspecified, Z00.01 - Encounter for general adult medical examination with abnormal findings, Z28.39 - Other underimmunization status, Z80.42 - Family history of malignant neoplasm of prostate Referrals Audiology Referral H9. - Unspecified hearing loss, bilateral
--- OUTSIDE RECORDS SUMMARY | 2024-09-16 14:36 | XMS_ITS | Clinical Summary ---
Author Organization [facility] Address [address] [place] [address] Phone Care Team Providers Care Bacteriologist Medical Name Role Phone Luis Fernando WALDROP, Lobito George [phone] [facility] Primary Care P rovider [phone] Reason for Visit and Chief Complaint visit for: follow-up exam - The Chief Complaint is: allergies Plan of Treatment Pending Tests Order Diagnosis Results Due Ordering P rovider Return Follow Up - Month(s) 6 months Allergic rhinitis, unspecified 06/10/21 Lobito Gould MD Last Documented On 12:44PM ; [facility] Assessments Includes: Assessments from this encounter Findings - Allergic rhinitis - Last Documented On 06/10/2021 12:44PM ; [facility] Medical Equipment - Implanted Devices Includes: Current Devices No Medical Equipment Recorded Medications Includes: Medications discussed during this encounter and other current Medications Discontinued / Stopped on this date Lobito Gould MD on 03/04/2021 Fluticasone Propionate 50 MC G/ACT Nasal Suspension Provider: Lobito Gould MD Diagnosis: Chronic rhinitis Last Documented On 12:25PM By Stef Snow ; [facility] New / Renewed during this visit Lobito Gould MD on 06/10/2021 Fluticasone Propionate 50 MCG/ACT Nasal Suspension Provider: Lobito fiore MD 30 day supply: 16 gram, 3 refills Diagnosis: Allergic rhinitis, unspecified 2 sp en qd as needed Pharmacy: [facility] [id number] [address], [id number] - Last Documented On 12:45PM By Lobito Gould MD ; [facility] Current Medications (continue as prescribed) Fexofenadine HCl 180 MG Oral Tablet 03/02/2021 Provider: Lisa REYNA ([place]) Diagnosis: 1 tab po qd Last Documented On 1 2:43PM By Jimmy Luther ; [facility] Medications Administered Includes: Administered Medications from this [...] 12:26P M ; [facility] Results Includes: Results discussed during this encounter [...] On 12:44PM ; [facility] Smoking Status Unknown Procedures and Surgical History Includes: Procedures from this encounter Procedures Code Diagnosis Performing Provider Service L ocation Service Date medication list reviewed Last Documented On 1 12:26PM ; [facility] Medical History Includes: Medical History addressed during this encounter Description Last Updated Past medical history reviewed 06/10/2021 Last Documented On 12:44PM ; [facility] Family History Includes: Family History addressed during [...] Time Diagnosis Follow Up Lobito Gould MD [place] Office 1 12:16PM 12:46PM Allergic Rhinitis Insurance Includes: Active Insurance Policies Plan Name Member ID Group # Subscriber Relationship Effect kiran Dates 1 - [facility] [id number] Ellis Ellis Self 07/13/2017 - Un known Clinical Notes Includes: Clinical Notes from this encounter No Clinical Notes Recorded
--- OUTSIDE RECORDS SUMMARY | 2024-09-16 14:36 | XMS_ITS | Clinical Summary ---
Author Organization [employer] [facility] it Address [address] [place] [address] Care Team Providers Care Gear Hobber Name Role Phone Unavailable Primary Care Provider Unavailabl e Social History Tobacco Use Types Packs/Day Years Used Date Smoking Tobacco: Never Assessed Sex and Gender Information Value Date Recorded Sex Assigned at Not on file Legal Sex Male 8:39 PM EST Gender Identity Not on file Sexual Orientation Not on file Last Filed Vital Signs Vital Sign Reading Time Taken Comments Blood Pressure - - Pulse - - Temperature - - Respiratory Rate - - Oxygen Saturation - - Inhaled Oxygen Concentration - - Weight 78.5 kg (173 lb) 02/09/2024 10:23 AM EDT Height 172.7 cm (5' 8 ) 02/09/2024 10:23 AM EDT Body Mass Index 26.3 02/09/2024 10:23 AM EDT Plan of Treatment Health Maintenance Due Date Last Done Comments DTaP,Tdap,and Td Vaccines (1 - Tdap) 02/05/1999 Hepatitis B Vaccines (1 of 3 - 19+ 3-dose series) 02/05/1999 Cholesterol Screening (Lipid Panel) 08/07/2023 Depression Screening 08/07/2023 HIV Screening 08/07/2023 Hepatitis C Screening 08/07/2023 Social Influencers of Health Screening 08/07/2023 COVID-19 Vaccine ( - 2023-2 5 season) 2024 Influenza Vaccine (#1) 2024 HIB Vaccines Aged Out No longer eligi ble based on patient's age to complete this topic HPV Vaccines Aged Out No longer eligi ble based on patient's age to complete this topic Hepatitis A Vaccines Aged Out No long er eligible based on patient's age to complete this topic IPV Vaccines Aged Out No longer eligi ble based on patient's age to complete this topic MMR Vaccines Aged Out No longer eligi ble based on patient's age to complete this topic Meningococcal ACWY Vaccine Aged Out N o longer eligible based on patient's age to complete this topic Meningococcal B Vacine Aged Out No lo nger eligible based on patient's age to complete this topic Pneumococcal Vaccine: Pediat rics (0 to 5 Years) and At-Risk Patients (6 to 64 Years) Aged Out No longer eligible b ased on patient's age to complete this topic RSV Immunization Patients Un nat[place] 20 months Aged Out No longer eligible b ased on patient's age to complete this topic Varicella Vaccines Aged Out No longer eligible based on patient's age to complete this topic
--- OUTSIDE RECORDS SUMMARY | 2024-09-16 14:37 | XMS_ITS ---
Author Organization [facility] Address [address] [place] [address] Phone Care Team Providers Care Warehouser Name Role Phone Luis Fernando WALDROP, Lobito George [phone] [facility] [place] P rovider [phone] Plan of Treatment Findings Encounter Date Recommended mattress / helen w covers for dust mites Post Test with Lobito Gould MD 03/11/2021 Last Documented On 1 1:12PM ; [facility] Recommended allergy sensitiv ity testing - abbrev New Patient with Lobito Gould MD 03/04/2021 Last Documented On 1 3:12PM ; [facility] Instructions to patient Avoid allergens Last Documented On 1 1:11PM ; [facility] Instructions for patient - p janell use of nasal spray Last Documented On 1 3:11PM ; [facility] Assessments Includes: Assessments for all patient encounters Findings Encounter Date Allergic rhinitis Follow Up with Lobito fiore MD 06/10/2021 Last Documented On 1 12:44PM ; [facility] Chronic rhinitis Post Test with Lobito Gould MD 03/11/2021 Last Documented On 1 1:12PM ; [facility] Chronic rhinitis New Patient with Lobito kebede MD 03/04/2021 Last Documented On 1 3:12PM ; [facility] Instructions Includes: Instructions for all patient encounters Instructions to patient Avoid allergens Last Documented On 1 1:11PM ; [facility] Instructions for patient - p janell use of nasal spray Last Documented On 3:11PM ; [facility] Medical Equipment - Implanted Devices Includes: Current and historical Devices No Medical Equipment Recorded Medications Includes: Current and historical Medications Current Medications (continue as prescribed) Fluticasone Propionate 50 MCG/ACT Nasal Suspension 06/10/2021 Provider: Lobito fiore MD Diagnosis: Allergic rhiniti s, unspecified 2 sp en qd as needed Last Documented On 12:45PM By Lobtio Gould MD ; [facility] Fexofenadine HCl 180 MG Oral Tablet 03/02/2021 Provider: Lisa REYNA ([place]) Diagnosis: 1 tab po qd Last Documented On 2:43PM By Jimmy Luther ; [facility] Past Medications on file Fluticasone Propionate 50 MCG/ACT Nasal Suspension 03/04/2021 - 06/10/2021 Provider: Lobito pham MD Diagnosis: Chronic rhinitis 2 sp en qam Last Documented On 12:25PM By Stef Snow ; [facility] Azelastine HCl 0.1% Nasal Solution 03/02/2021 - 03/02/2021 Provider: Lisa REYNA ([place]) Diagnosis: prn Last Documented On 2:58PM By Lobito Gould MD ; [facility] Medications Administered Includes: Administered Medications in patient's chart No Administered Medications Recorded Results Includes: Results from 09/17/2023 through 09/16/2024 No Results Recorded For Specified Dates History of Present Illness History of Present Illness not supported for this document type No History of Present Illness Recorded Social History Description Last Updated Past medical history reviewed 06/10/2021 Last Documented On 12:44PM ; [facility] Smoking status : Never smoker 03/04/2021 Last Documented On 3:12PM ; [facility] Air-conditioning filters are changed tim ry 3 months 03/04/2021 Last Documented On 3:12PM ; [facility] Environmental history reviewed 1 Last Documented On 1 3:12PM ; [facility] Housing has central cooling 03/04/2021 Last Documented On 1 3:12PM ; [facility] Housing has windows closed 03/04/2021 Last Documented On 1 3:12PM ; [facility] Lives in apartment 03/04/2021 Last Documented On 1 3:12PM ; [facility] Mattress is encased 03/04/2021 Last Documented On 1 3:12PM ; [facility] No carpets in residence 03/04/2021 Last Documented On 1 3:12PM ; [facility] No contact with pets or other animals Last Documented On 1 3:12PM ; [facility] No exposure to environmental tobacco smo ke 03/04/2021 Last Documented On 1 3:12PM ; [facility] No exposure to molds 03/04/2021 Last Documented On 1 3:12PM ; [facility] No HEPA filters 03/04/2021 Last Documented On 1 3:12PM ; [facility] No secondhand cigarette smoke exposure 0 03/04/2021 Last Documented On 1 3:12PM ; [facility] No wall unit cooling in residence 2020 Last Documented On 1 3:12PM ; [facility] Not living near a major source of pollut ion 03/04/2021 Last Documented On 1 3:12PM ; [facility] Patient does not sleep with stuffed anim als 03/04/2021 Last Documented On 1 3:12PM ; [facility] Patient is not exposed to clutter that [...] Subscriber Relationship Effect kiran Dates 1 - [facility] [phone] Ellis Ellis Self 07/13/2017 - Un known Clinical Notes Includes: Signed Clinical Notes starting from 11/29/2022 No Clinical Notes Recorded
--- OUTSIDE RECORDS SUMMARY | 2024-09-16 14:37 | XMS_ITS | Continuity of Care Document ---
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 It does not include entries that were removed or entered in error. Problem Status Onset Date Problem Type Date of Resolution Comments Source Encounter for other administrative examinations Inactive 11/13/2020 Condition DoD Encounter for immunization Inactive 09/25/2020 Condition DoD Other insomnia Active 07/09/2018 Condition DoD Pain in right knee Active 04/12/2018 Condition DoD Other chronic pain Active 04/12/2018 Condition DoD Low back pain Active 04/12/2018 Condition DoD Chondromalacia patellae, right knee Active 04/07/2018 Condition DoD Other disorders of refraction Active 02/24/2018 Condition DoD Other intervertebral disc degeneration, lumbar region Active 07/20/2017 Condition DoD Primary hypertension Active Condition [facility] Acquired spondylolysis Active Condition [facility] Low back pain Active Condition [facility] Personal History of return from Deployment Active Condition [facility] Adjustment disorder with anxiety Active Condition [facility]D Personal history of deployment Active Condition [facility] Vasectomy status Active Condition DoD backache lower Active Condition DoD diarrhea Inactive Condition DoD Need For Vaccination Against Bacterial Diseases Inactive Condition DoD Need For Vaccination Against Smallpox Inactive Condition DoD visit for: occupational health / fitness exam Active Condition DoD routine pre-employment screening examination Active Condition DoD [...] refill(s ), Hard Stop Complet ed 03/26/2023 2 2022 473.0 Ambulat ory Pharmac y FLUTICASONE PROPIONATE (FLUTICASON E PROPIONATE) , 50MCG, SPRAY SUSP, NASAL, APOTEX CONNER, 16 g AER W/ADAP Cancele d [id number] : 2023 0 Pharmac y Data Transac tion Service Facilit y FLUTICASONE PROPIONATE (FLUTICASON E PROPIONATE) , 50MCG, SPRAY SUSP, NASAL, [facility]., 16 g AER W/ADAP Active [id number] 2023 16 Pharmac y Data Transac tion Service Facilit y PriLOSEC OTC 20 mg oral delayed release tablet 1 tab(s), Oral, BID, before a meal, # 90 cap(s), 3 total refill(s ), Maintena pae, Pharmacy : [facility] Oral (given by mouth) Discont inued 04/22/20222021 90.0 7239[facility] Allergies, Adverse Reactions, Alerts Combined list of allergies from Department of 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 It does not include entries that were removed or entered in error. Substance Category Reaction Severity Reaction type Status Date Reported Comments Source No Known Allergies Drug allergy (disorder) active 08/06/2017 [facility] Immunizations Combined list of available immunizations from the Department of 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 Immunization Series Date Given Administered By Site Reaction Lot Number CVX Code Drug Donor Services Technician Status Comments Source COVID Vaccine [employer] 2020 SREE [id number] complet ed Result Comment: Unit: Unknown Route: Intramusc ular(IM) Manufactu rer: [employer] (PFR) 0039[facility] SARS-COV-2 (COVID-19) vaccine, mRNA, spike protein, LNP, preservative free, 30 mcg/0.3mL dose 2 2020 JOI CHURCHILL [id number] Pfizer, Inc (PFR) complet ed SARS-COV- 2 (COVID-19 ) vaccine, mRNA, spike protein, LNP, preservat kiran free, 30 mcg/0.3mL dose DoD influenza, injectable, quadrivalent- pf 2020 OLLIECOLLINS [id number] complet ed Result Comment: Route: Unknown Manufactu rer: Seqirus (SEQ) [address] [place] [address] Influenza, inj, MDCK, quadrivalent- pf 2020 OLLIECOLLINS 171 complet ed Result Comment: Unit: Unknown Manufactu rer: () [address] [place] [address] Influenza, injectable, MDCK, preservative free, quadrivalent 2020 ANDREA, () Not Given Influenza , injectabl e, MDCK, preservat kiran free, quadrival ent DoD Influenza, injectable, quadrivalent, preservative free 1 2020 [id number] 150 Seqirus (SEQ) comple t ed Influenza , injectabl e, quadrival ent, preservat kiran free DoD Influenza, injectable, Madin Anna Canine Kidney, preservative free, quadrivalent 0 2020 171 Seqirus (SEQ) comple t ed Influenza , injectabl e, Madin [place] Canine Kidney, preservat kiran free, quadrival ent DoD anthrax vaccine 2020 OLLIECOLLINS [id number] complet ed Result Comment: Route: Unknown Manufactu rer: [employer]gent [employer] s [employer] ([facility]) [facility] anthrax vaccine 4 2020 [id number] 24 [employer] (MIP) complet ed anthrax vaccine DoD SARS-CoV-2 (COVID-19) Ad26 vaccine, rec 2020 OLLIECOLLINS [id number] complet ed Result Comment: Route: Unknown Manufactu rer: Rosa (BON) [address] [place] [address] SARS-COV-2 (COVID-19) vaccine, vector non-replicati ng, recombinant spike protein-Ad26, preservative free, 0.5 mL 1 2020 [id number] Rosa (JSN) comple t ed SARS-COV- 2 (COVID-19 ) vaccine, vector non-repli cating, recombina nt spike protein-A d26, preservat kiran free, 0.5 mL DoD influenza, seasonal, injectable 2019 OLLIECOLLINS [id number] 141 complet ed Result Comment: Route: Unknown Manufactu rer: Seqirus (SEQ) 7239[facility] Influenza, inj, MDCK, quadrivalent- pf 2019 OLLIECOLLINS 171 complet ed Result Comment: Unit: Unknown Manufactu rer: () [facility] Influenza, injectable, MDCK, preservative free, quadrivalent 2019 FINDLEN, () Not Given Influenza , injectabl e, MDCK, preservat kiran free, quadrival ent DoD Influenza, seasonal, injectable 1 2019 [id number] 141 Seqirus (SEQ) comple t ed Influenza , seasonal, injectabl e DoD Influenza, injectable, Madin [place] Canine Kidney, preservative free, quadrivalent 0 2019 171 (MVX) complet ed Influenza , injectabl e, Madin [place] Canine Kidney, preservat kiran free, quadrival ent DoD typhoid Vi capsular polysaccharid e vac 2019 [id number] 101 sanofi pasteur complet ed typhoid Vi capsular polysacch aride vac 03/07/20 Given Ambulat ory Pharmac y anthrax vaccine 2019 [id number] 24 Emergent Biosolutions complet ed anthrax vaccine 03/07/20 Given Ambulat ory Pharmac y poliovirus vaccine, inactivated 2019 [id number] 10 sanofi pasteur complet ed polioviru s vaccine, inactivat ed 03/07/20 Given Ambulat ory Pharmac y tetanus-dipht h toxoids (Td) adult/adol 2019 [id number] 09 sanofi pasteur complet ed tetanus-d iphth toxoids (Td) adult/ado l 03/07/20 Given Ambulat ory Pharmac y measles/mumps /rubella virus vaccine 2019 [id number] 03 Merck & Company Inc complet ed measles/m umps/rube lla virus vaccine 03/07/20 Given Ambulat ory Pharmac y typhoid Vi capsular polysaccharid e vac 2019 [id number] 101 sanofi pasteur complet ed typhoid Vi capsular polysacch aride vac 03/07/20 Given Ambulat ory Pharmac y anthrax vaccine 2019 [id number] 24 [employer] complet ed anthrax vaccine 03/07/20 Given Ambulat ory Pharmac y poliovirus vaccine, inactivated 2019 [id number] 10 sanofi pasteur complet ed polioviru s vaccine, inactivat ed 03/07/20 Given Ambulat ory Pharmac y tetanus-dipht h toxoids (Td) adult/adol 2019 [id number] 09 sanofi pasteur complet ed tetanus-d iphth toxoids (Td) adult/ado l 03/07/20 Given Ambulat ory Pharmac y measles/mumps /rubella virus vaccine 2019 [id number] Merck & Company Inc complet ed measles/m umps/rube lla virus vaccine 03/07/20 Given Ambulat ory Pharmac y measles, mumps and rubella virus vaccine 1 2019 [id number] 03 Merck (MSD) complet ed measles, mumps and rubella virus vaccine DoD tetanus and diphtheria toxoids, adsorbed, preservative free, for adult use (2 Lf of tetanus toxoid and 2 Lf of diphtheria toxoid) 1 2019 [id number] 09 Sanofi Pasteur (PMC) complet ed tetanus and diphtheri a toxoids, adsorbed, preservat kiran free, for adult use (2 Lf of tetanus toxoid and 2 Lf of diphtheri a toxoid) DoD poliovirus vaccine, inactivated 1 2019 [id number] 10 Sanofi Pasteur (PMC) complet ed polioviru s vaccine, inactivat ed DoD anthrax vaccine 1 2019 [id number] 24 [facility] [employer] ([facility]) complet ed anthrax vaccine DoD typhoid Vi capsular polysaccharid e vaccine 1 2019 [id number] 101 Sanofi Pasteur (PMC) complet ed typhoid [...] seasonal, injectabl e DoD Influenza, injectable, Madin [place] Canine Kidney, preservative free, quadrivalent 0 2018 171 (MVX) complet ed Influenza , injectabl e, Madin Anna Canine Kidney, preservat kiran free, quadrival ent DoD Influenza, inj, MDCK, quadrivalent- pf 2017 171 complet ed Influenza , inj, MDCK, quadrival ent-pf 04/30/18 Given Ambulat ory Pharmac y influenza, seasonal, injectable 2017 [id number] 141 Se[employer]irus complet ed influenza , seasonal, injectabl e 04/30/18 Given Ambulat ory Pharmac y Influenza, inj, MDCK, quadrivalent- pf 2017 171 complet ed Influenza , inj, MDCK, quadrival ent-pf 04/30/18 Given Ambulat ory Pharmac y influenza, seasonal, injectable 2017 [id number] 141 Seqirus complet ed influenza , seasonal, injectabl e 04/30/18 Given Ambulat ory Pharmac y Influenza, seasonal, injectable 1 2017 [id number] 141 Seqirus (SEQ) comple t ed Influenza , seasonal, injectabl e DoD Influenza, injectable, Madin Anna Canine Kidney, preservative free, quadrivalent 0 2017 171 (MVX) complet ed Influenza , injectabl e, Madin [place] Canine Kidney, preservat kiran free, quadrival ent DoD Influenza, inj, MDCK, quadrivalent- pf 2016 [id number] 171 Seqirus complet ed Influenza , inj, MDCK, quadrival ent-pf 05/15/17 Given Ambulat ory Pharmac y Influenza, inj, MDCK, quadrivalent- pf [id number] 171 Seqirus complet ed Influenza , inj, MDCK, quadrival ent-pf 05/15/17 Given Ambulat ory Pharmac y Influenza, injectable, Madin [place] Canine Kidney, preservative free, quadrivalent 7 [id number] 171 Seqirus (SEQ) comple t ed Influenza , injectabl e, Madin [place] Canine Kidney, preservat kiran free, quadrival ent [...] INFLUENZA, SEASONAL, INJECTABLE 2015 141 complet ed [facility] influenza, seasonal, injectable-pf 2014 [id number] 140 [employer]ring complet ed influenza , seasonal, injectabl e-pf 04/14/15 Given Ambulat ory Pharmac y influenza, seasonal, injectable-pf 2014 [id number] 140 [employer] complet ed influenza , seasonal, injectabl e-pf 04/14/15 Given Ambulat ory Pharmac y INFLUENZA, UNSPECIFIED FORMULATION 2014 88 complet ed [facility],[place], [place] - Immunizat ion record [facility] Influenza, seasonal, injectable, preservative free 8 2014 [id number] 140 [employer] (CSL) complet ed Influenza , seasonal, injectabl e, preservat kiran free DoD tuberculin purified protein derivative 2014 [id number] 96 sanofi pasteur complet ed tuberculi n purified protein derivativ e 02/18/15 Given Ambulat ory Pharmac y measles, mumps and rubella virus vaccine 0 2014 03 () Not Given measles, mumps and rubella virus vaccine DoD varicella virus vaccine 0 2014 21 () Not Given varicella virus vaccine [facility] INFLUENZA, UNSPECIFIED FORMULATION 2013 88 complet ed [facility] influenza, seasonal, injectable 2012 UNK [...] INFLUENZA, UNSPECIFIED FORMULATION 2012 88 complet ed [place] [facility] typhoid Vi capsular polysaccharid e [...] ory Pharmac y influenza, seasonal, injectable-pf 2011 [id number] 140 sanofi pasteur complet ed influenza , seasonal, injectabl e-pf 04/01/12 Given Ambulat ory Pharmac y influenza, seasonal, injectable 2011 UNKNOWN 141 Unknown complet ed influenza , seasonal, injectabl e 04/01/12 Given Ambulat ory Pharmac y influenza, seasonal, injectable-pf 2011 [id number] 140 sanofi pasteur complet ed influenza , seasonal, injectabl e-pf 04/01/12 Given Ambulat ory Pharmac y Influenza, seasonal, injectable, preservative free 0 2011 [id number] 140 Sanofi Pasteur ([facility]) complet ed Influenza , seasonal, injectabl e, [...] y anthrax vaccine 2010 zzRig ht Arm [id number] 24 Unknown complet ed anthrax vaccine 05/20/11 Given Ambulat ory Pharmac y vaccinia (smallpox) vaccine 2010 VV04-00 3A 75 complet ed vaccinia (smallpox ) vaccine 05/20/11 Given Ambulat ory Pharmac y anthrax vaccine 2010 UNK 24 complet ed anthrax vaccine 05/20/11 Given Ambulat ory Pharmac y anthrax vaccine 1 2010 DANTE XIONG [id number] 24 Other (OTH) complet ed anthrax vaccine DoD vaccinia (smallpox) vaccine 1 2010 DANTE XIONG VV04-00 3A 75 Paula ([place]) complet ed vaccinia (smallpox ) vaccine DoD tuberculin purified protein derivative 2010 zzLef t Arm [id number] 96 complet ed tuberculi n purified protein derivativ e 04/23/11 Given Ambulat ory Pharmac y tuberculin skin test; purified protein derivative solution, intradermal 1 2010 TREJORAFA WATSON E [id number] 96 [employer] PA[employer] ([facility]) complet ed tuberculi n skin test; purified protein derivativ e solution, intraderm al DoD influenza, seasonal, injectable 2010 [id number] 141 Unknown complet ed influenza , seasonal, injectabl e 03/06/11 Given Ambulat ory Pharmac y influenza virus vaccine,split 2010 [id number] 15 Unknown complet ed influenza virus vaccine,s plit 03/06/11 Given Ambulat ory Pharmac y influenza, seasonal, injectable 2010 [id number] 141 Unknown complet ed influenza , seasonal, injectabl e 03/06/11 Given Ambulat ory Pharmac y influenza virus vaccine,split 2010 [id number] 15 Unknown complet ed influenza virus vaccine,s plit 03/06/11 Given Ambulat ory Pharmac y influenza virus vaccine, split virus (incl. purified surface antigen)-reti red CODE 0 2010 [id number] 15 Other (OTH) complet ed influenza virus vaccine, split virus (incl. purified surface antigen)- retired CODE DoD Influenza, seasonal, injectable 0 2010 [id number] 141 Other (OTH) complet ed Influenza , [...] vaccine DoD influenza virus vaccine, live 2009 [id number] 111 Unknown complet ed influenza virus vaccine, live 04/29/10 Given Ambulat ory Pharmac y influenza virus vaccine,split 2009 UNKNOWN 15 Unknown complet ed influenza virus vaccine,s plit 04/29/10 Given Ambulat ory Pharmac y influenza virus vaccine, live 2009 [id number] 111 Unknown complet ed influenza virus vaccine, [...] live, attenuated, for intranasal use 0 2009 [id number] 111 Unknown (UNK) comple t ed influenza virus vaccine, live, attenuate d, for intranasa l use DoD hepatitis A-hepatitis B vaccine 2009 [id number] 4BA 104 [employer] fl complet ed hepatitis A-hepatit is B vaccine 04/01/10 Given Ambulat ory Pharmac y typhoid Vi capsular polysaccharid e vac 2009 [id number] 101 Emergent Discovery complet ed typhoid Vi capsular polysacch aride vac 04/01/10 Given Ambulat ory Pharmac y yellow fever vaccine 2009 [id number] 37 Emergent Biosolutions complet ed yellow fever vaccine 04/01/10 Given Ambulat ory Pharmac y anthrax vaccine 2009 UNK 24 complet ed anthrax vaccine 04/01/10 Given Ambulat ory Pharmac y poliovirus vaccine, inactivated 2009 E0123 10 Mint Inc comple t ed polioviru s vaccine, inactivat ed 04/01/10 Given Ambulat ory Pharmac y yellow fever vaccine 2009 [id number] 37 [employer] complet ed yellow fever vaccine 04/01/10 Given Ambulat ory Pharmac y anthrax vaccine 2009 UNK 24 complet ed anthrax vaccine 04/01/10 Given Ambulat ory Pharmac y poliovirus vaccine, inactivated 2009 e0123 10 [employer] comple t ed polioviru s vaccine, inactivat ed 04/01/10 Given Ambulat ory Pharmac y hepatitis A-hepatitis B vaccine 2009 ahabb18 4ba 104 [facility] hepatitis A-hepatit is B vaccine 04/01/10 Given Ambulat ory Pharmac y typhoid Vi capsular polysaccharid e vac 2009 [id number] 101 [employer] Discovery complet ed typhoid Vi capsular polysacch aride vac 04/01/10 Given Ambulat ory Pharmac y poliovirus vaccine, inactivated 0 2009 E0123 10 [employer] (MED) complet ed polioviru s vaccine, inactivat ed DoD anthrax vaccine 1 2009 UNK 24 (EBS) complet ed anthrax vaccine DoD yellow fever vaccine 0 2009 [id number] 37 [employer]gent [employer] ([facility]) complet ed yellow fever vaccine DoD typhoid Vi capsular polysaccharid e vaccine 1 2009 [id number] 101 [facility] (WAL) complet ed typhoid Vi capsular polysacch aride vaccine DoD hepatitis A and hepatitis B vaccine 2 2009 [id number] 4BA 104 [employer] (SKB) complet ed hepatitis A and hepatitis B vaccine DoD tetanus, diphtheria, acellular pertu is 2009 [id number] 4BA 115 sanofi pasteur complet ed tetanus, diphtheri a, acellular pertussis 02/25/10 Given Ambulat ory Pharmac y meningococcal A,C,Y,W-135 (MCV4P) 2009 [id number] 114 C[employer]ring complet ed meningoco ccal [...] y tetanus, diphtheria, acellular pertu is 2009 [id number] 4BA 115 sanofi pasteur complet ed tetanus, diphtheri a, acellular pertussis 02/25/10 Given Ambulat ory Pharmac y meningococcal A,C,Y,W-135 (MCV4P) 2009 [id number] 114 [employer] complet ed meningoco ccal [...] Pharmac y TDAP 2009 115 complet ed [facility] tetanus and diphtheria toxoids, adsorbed, [...] B vaccine 1 2009 AHABB18 4AA 104 [employer] (SKB) complet ed hepatitis A and hepatitis B vaccine DoD meningococcal polysaccharid e (groups A, C, Y and W-135) diphtheria toxoid conjugate vaccine (MCV4P) 0 2009 [id number] 114 [employer] (AVB) complet ed meningoco ccal polysacch aride (groups A, C, Y and W-135) diphtheri a toxoid conjugate vaccine (MCV4P) DoD tetanus toxoid, reduced diphtheria toxoid, and acellular pertu is vaccine, adsorbed 0 2009 [id number] 4BA 115 Sanofi Pasteur (PMC) complet ed tetanus toxoid, reduced diphtheri a toxoid, and acellular pertussis vaccine, adsorbed DoD Results Combined list of recent chemistry, hematology and other laboratory results from Department of Defense and Veterans Affairs, ranging from 15 months to all on record, depending upon the facility. Order Name Results Value Reference Range Date Interpretation Specimen Comments Source Infectiou s Disease HIV-1/O/2 Non-Reac tive 1 ( 3 [...] s HIV diagnostic algorithm. Refer to [facility] Lab Guide for additional information : [email or web address] x Testing performed by Tamia haile 5600A-U [employer] EP[facility] Miscellan eous Sendouts Repository Sample Received ( 3 2:47 PM) 04/21 N 5600A[facility]U [employer] [facility] Vital Signs Combined list of inpatient and outpatient Vital Signs from Department of Defense and Veterans Affairs, ranging from 12 months to all on record, depending upon the facility. Vital Sign Value Date Comments Source Systolic Blood Pressure 123 mm[Hg] 04/22/2022 11:55:00 [facility] Diastolic Blood Pressure 78 mm[Hg] 04/22/2022 11:55:00 [facility] Respiratory Rate 16 br/min 04/22/2022 11:55:[address] [place] [address] Blood Pressure Manual Automatic 04/22/2022 11:55:[address] [place] [address] Temperature Temporal Artery 36.3 Cheri 04/22/2022 11:55:00 [facility] Peripheral Pulse Rate 58 bpm 04/22/2022 11:55:[address] [place] [address] Mean Arterial Pressure, Calc 93 mm[Hg] 04/22/2022 11:55:[address] [place] [address] [facility] Encounters Combined list of: 1) Encounters from Department of Veterans Affairs facilities going backup to the last 18 months, not all VA inpatient encounters are included; 2) Encounters from the Department of Defense facilities going backup to 280 months. Location Location Details Encounter Type Encounter Number Reason For Visit Attending Provider ADM Date DC Date Status Disposition Source Josh Pace [facility] 1523) OUTPATIENT [id number] TAWNY JOYCE 02/22 Released w/o Limitations [facility]( Audiolo gy [facility] 1523) [facility] Male) OUTPATIENT [id number] ARTI VILLEGAS 02/25 [facility]ased w/o Limitations [facility]( [facility] Male) [facility](Op tometry [facility] 1523) OUTPATIENT [id number] recruit screen OMER MEJÍA 02/28 Released w/o Limitations [facility]( Optomet ry [facility] 1523) [facility](Mi litary Sick Call [facility] 237) OUTPATIENT [id number] att...h ead and neck issues ELZBIETA RDZ 08/02 Released w/o Limitations [facility]( Militar y Sick Call [facility] 237) [facility](Mi litary Sick Call [facility] 237) OUTPATIENT [id number] MICHELE MIRZA 08/20 Released w/o Limitations [facility]( Militar y Sick Call [facility] 237) [facility](Mi litary Sick Call [facility] 237) OUTPATIENT [id number] 9 Finn : Twisted right ankle JB BARON 09/05 Released with Work/Duty Limitations [facility]( Militar y Sick Call [facility] 237) [facility](Mi litary Sick Call [facility] 237) TELE CONSULT [id number] pt to see coltro tomorro w 09-06-10 for xray results ROMA NAVARRO 09/05 Referred for Appointment [facility]( Militar y Sick Call [facility] 237) [facility](Mi litary Sick Call [facility] 237) OUTPATIENT [id number] 9C: FOLLOW UP JB BARON 09/06 Released with Work/Duty Limitations [facility]( Militar y Sick Call [facility] 237) [facility](Mi litary Sick Call [facility] 237) OUTPATIENT [id number] 9C f/u COLTRJB Brownlee 09/13 Released w/o Limitations [facility]( Militar y Sick Call [facility] 237) [facility](Immuniz ations [facility]) OUTPATIENT [id number] vaccine MORIAH ODELL 01/30 Released w/o Limitations [facility](Imm unizati ons [facility] ) [facility] [facility](Hearing Cons Dane [facility]) OUTPATIENT [id number] FRANKI MELO 01/30 Released w/o Limitations [facility](Hea ring Cons Dane Sta) [facility]) OUTPATIENT [id number] CHELSEA VAUGHN 02/05 Released w/o Limitations [facility](Opt ometry [facility] ) [facility]) OUTPATIENT [id number] RAFA Jaffe 04/23 Released w/o Limitations [facility](Imm unizati ons [facility] ) [facility] OUTPAT[facility] [id number] IA/AFG RAFA PARHAM 05/16 Released w/o Limitations [facility](Immuniz ation [facility]) OUTPATIENT [id number] NMPS- ANT, SPDANTE SHELTON 05/19 Released w/o Limitations [facility](Imm unizati on NMCP) [facility]) OUTPATIENT [id number] RAFA CAMPO 05/19 Released w/o Limitations [facility](NMP S) [facility] OUTPATIENT [id number] 10/30 Released w/o Limitations [facility] OUTPATIENT [id number] 12/27 Released w/o Limitations Theater Facilit y [facility](NMPS) OUTPATIENT [id number] Notes Entered by: JARVIS HAIR 28 May 2012 0847 ------- ------- ------- ------- -- BRAXTON MCKEON GUERO Martir 05/28 Released w/o Limitations [facility](NMP S) [facility](Hearing Cons Dane Sta) OUTPATIENT [id number] JOSE ALFREDO GARZON 09/21 Released w/o Limitations [facility](Hea ring Cons Dane Sta) [facility](Hearing Cons Dane Sta) OUTPATIENT [id number] MARI SYLVESTER 09/24 Released w/o Limitations [facility](Hea ring Cons Dane Sta) [facility](Hearing Cons Dane Sta) OUTPATIENT [id number] JOSE ALFREDO GARZON 11/08 Released w/o Limitations [facility](Hea ring Cons Dane Sta) [facility](Hearing Cons Dane Sta) OUTPATIENT [id number] JOSE ALFREDO GARZON 12/16 Released w/o Limitations [facility](Hea ring Cons Dane Sta) [facility]) OUTPATIENT [id number] Notes Entered by: BRANDO HARRISON 09 Jan 2014 1329 ------- ------- ------- ------- -- Lower back pain, worseni ng over past 2-3 days CHELLE DANIELS 01/09 Released w/o Limitations [facility] ) [facility](Medical Readiness SURFLANT) OUTPATIENT [id number] Notes Entered by: WALT HOWELL F 10 Jan 2014 0904 ------- ------- ------- ------- -- IRENE Patton 01/10 Released w/o Limitations [facility](Med ical Readine ss SURFLAN T) [facility]) OUTPATIENT [id number] LOWER BACK SPRAIN PORTILLOABHIJIT Mitchell Paula 01/19 Released w/o Limitations [facility] Chiro[facility] act[facility]) [employer](Fam [facility]) OUTPATIENT [id number] REFERRA L FOR CHIROPR ACTIC CLINIC MISSAEL MULLEN 09/12 Released w/o Limitations [employer](F [facility]) [employer](PT [facility]) OUTPATIENT [id number] RIDGE MEANS 09/17 Released w/o Limitations [employer](P T [facility]) [employer](Chi ropractic -Clinic) OUTPATIENT [id number] Low Back MATHEUS DE LOS SANTOS 09/19 Released w/o Limitations [employer](C hiropra ctic-Cl inic) [employer](PT Physical Thpy-Out) OUTPATIENT [id number] Pas entered the order SG CONSTANTINO 09/20 Released w/o Limitations [employer](P T Physica l Thpy-Ou t) [employer](Chi ropractic -Clinic) OUTPATIENT [id number] MATHEUS DE LOS SANTOS 09/25 Released w/o Limitations [employer](C hiropra ctic-Cl inic) [employer](PT Physical Thpy-Out) OUTPATIENT [id number] DEMETRIUS KOHLI 10/04 Released w/o Limitations [employer](P T Physica l Thpy-Ou t) [employer](Chi ropractic -Clinic) OUTPATIENT [id number] MATHEUS DE LOS SANTOS 10/16 Released w/o Limitations [employer](C hiropra ctic-Cl inic) [employer](Urg ent Care Clinic) OUTPATIENT [id number] referra l to urology SAMANTHA BRANDON 10/17 Released w/o Limitations [employer](U rgent Care Clinic) [employer](Chi ropractic -Clinic) OUTPATIENT [id number] MATHEUS DE LOS SANTOS 10/23 Released w/o Limitations [employer](C hiropra ctic-Cl inic) [employer](Urg ent Care [facility]) TELE CONSULT [id number] Notes Entered by: BRANDT FRAIRE 26 Oct 2015 2136 ------- ------- ------- ------- -- Labs SCHULRE SUYAPA J 10/26 [employer]([facility]) [employer]([facility] ent [facility]) TELE CONSULT [id number] Notes Entered by: RODERICK PRIETO 29 Oct 2015 1113 ------- ------- ------- ------- -- Lab results ARLENE HAYNES Marissa 10/28 [facility]) [facility] ent [facility]) TELE CONSULT [id number] Notes Entered by: CHRISTIAN GRANT CIA 13 Nov 2015 0945 ------- ------- ------- ------- -- Network Results Sleep Titrati on DIEGO RYAN 11/12 [facility]) [facility]IENT [id number] MATHEUS DE LOS SANTOS 11/18 Released w/o Limitations [facility](Raza montoya ctic- in) Maribeth zayas [facility]([facility] F01A Team A SCOM) OUTPATIENT [id number] initial visit ERNIE CERVANTES 07/20 Released with Work/Duty Limitations Maribeth corcoran [facility] [place]([facility] F01A Team A SCOM) Maribeth zayas [facility] [place]([facility] Team A SCOM) OUTPATIENT [id number] sore throat ERNIE CERVANTES 08/06 Sick at Home/Quarter s Maribeth corcoran [facility] [place]([facility] F01A Team A SCOM) Maribeth zayas [facility] [place]([facility] Team A SCOM) TELE CONSULT [id number] Notes Entered by: RAINE JAIN 01 Sep 2017 1025 ------- ------- ------- ------- -- MRI lumbar spine wo GENEVIEVE Lang 09/01 [facility] [place]([address] Team A SCOM) Maribeth Benjamin r [facility] [place] [place]([address] Team A SCOM) OUTPATIENT [id number] test results ERNIE CERVANTES 09/14 Released with Work/Duty Limitations [facility] [place]([address] Team A SCOM) Maribeth Maciase r [facility] [place]([address] Team A SCOM) OUTPATIENT [id number] jason klein in leg/ERNIE Craig 02/24 Released with Work/Duty Limitations [facility] [place] Team A SCOM) Maribeth Benjamin r [facility] [place]([address] Team A SCOM) OUTPATIENT [id number] pha ERNIE CERVANTES 03/08 Released w/o Limitations [facility] [place]([address] Team A SCOM) Maribeth Benjamin r [facility] [place]([address] Team A SCOM) OUTPATIENT [id number] Notes Entered by: HUEY BURRELL 07 Apr 2018 0709 ------- ------- ------- ------- -- Right Knee Pain (No Referra ls) ERNIE CERVANTES 04/07 Released with Work/Duty Limitations [facility] [place]([address] Team A SCOM) Maribeth Benjamin r [facility] [place]([address] Team A SCOM) TELE CONSULT [id number] Notes Entered by: CORA VINCENT 12 Apr 2018 1429 ------- ------- ------- ------- -- pt referra l ERNIE CERVANTES 04/12 [facility] [place] Team A SCOM) Maribeth zayas [facility] [place] ([address] Team A SCOM) TELE CONSULT [id number] Notes Entered by: RAINE JAIN 27 May 2018 0755 ------- ------- ------- ------- -- MRI right knee wo ERNIE Clinton 05/27 Maribeth corcoran [facility] [place]([address] Team A SCOM) Maribeth zayas [facility] [place]([address] Team A SCOM) TELE CONSULT [id number] Notes Entered by: RAINE JAIN 14 Jun 2018 0949 ------- ------- ------- ------- -- Orthope dic consult report - right knee ERNIE CERVANTES 06/14 Maribeth corcoran [facility] [place] ([address] Team A SCOM) Maribeth zayas [facility] [place] ([address] Team A SCOM) TELE CONSULT [id number] Notes Entered by: Raza CARBAJAL 15 Jun 2018 1444 ------- ------- ------- ------- -- Pre-op (ortho) ERNIE CERVANTES 06/15 Maribeth corcoran [facility] [place] ([address] Team A SCOM) Maribeth zayas [facility] [place] ([address] Team A SCOM) OUTPATIENT [id number] check up/ phy ERNIE CERVANTES 06/18 Released with Work/Duty Limitations Maribeth corcoran [facility] [place]([facility] Team A SCOM) Maribeth zayas [facility] [place]([address] Team A SCOM) OUTPATIENT [id number] provide r called to follow up ERNIE CERVANTES 07/09 Released with Work/Duty Limitations Maribeth corcoran [facility] [place]([address] Team A SCOM) Maribeth zayas [facility] [place]([address] Team A SCOM) OUTPATIENT [id number] eavl from having knee surg KSENIA CANTU 09/24 Released w/o Limitations Maribeth corcoran [facility] [place]([facility] F01A Team A SCOM) Maribeth zayas [facility]([facility] F[facility] Team A SCOM) OUTPATIENT [id number] follow up from knee surgery ASHVNI FAJARDO KSENIA 10/21 Released w/o Limitations Maribeth corcoran [facility] [place]([facility] Team A SCOM) Maribeth zayas [facility] [place]([facility] F[facility] Team A SCOM) OUTPATIENT [id number] f/u ER visit ASHVIN FAJARDO KSENIA 11/15 Released w/o Limitations Maribeth corcoran [facility] [place]([facility] F01A Team A SCOM) Maribeth zayas [facility] [place]([facility] F01A Team A SCOM) TELE CONSULT [id number] Notes Entered by: RAINE JAIN 10 Dec 2018 0758 ------- ------- ------- ------- -- Orthope dic f/u consult report - right knee ASHVIN FAJARDO [facility] 12/10 Maribeth corcoran [facility] [place]([facility] F01A Team A SCOM) Maribeth zayas [facility] [place] [place]([facility] F01A Team A SCOM) TELE CONSULT [id number] Notes Entered by: RAINE JAIN 02 Feb 2019 0841 ------- ------- ------- ------- -- Orthope dic f/u consult report - right knee postop ASHVIN FAJARDO KSENIA 02/02 Maribeth corcoran [facility] [place]([facility] F[facility] Team A SCOM) Maribeth zayas [facility] [place]([facility] Team A SCOM) OUTPATIENT [id number] ishaan-e scobar/ back pain ASHVIN FAJARDO KSENIA 02/07 Released w/o Limitations Maribeth corcoran [facility] [place]([address] Team A [place]) Maribeth zayas [facility] [place] [place]([address] Team A [facility]) OUTPATIENT [id number] ishaan-e scobar/ pha KSENIA CANTU 04/01 Released w/o Limitations Maribeth corcoran [facility] [place]([address] Team A [facility] [place]ibeth zayas [facility] [place]([address] A [facility]) TELE CONSULT [id number] Notes Entered by: Heber SCOTT 10 May 2019 1432 ------- ------- ------- ------- -- pt report ASHVIN FAJARDO KSENIA J 05/10 Maribeth corcoran [facility] [place]([address] Team A [facility] Maribeth zayas [facility] [place] [place]([address] A [facility]) TELE CONSULT [id number] Notes Entered by: АЛЕКСАНДР MCGOVERN 07 Jun 2019 1327 ------- ------- ------- ------- -- Physica l Therapy ReferHERMELINDO Mac 06/07 Maribeth corcoran [facility] [place]([address] Team A [facility] Maribeth zayas [facility] [place]([address] Team A [facility]) OUTPATIENT [id number] acd/pro blem with shots/3 05-491- 1934/vi rtHERMELINDO Kirby 03/08 Released w/o Limitations Maribeth [facility] [place]([address] Team A [place]) Maribeth zayas [facility] [place]([address] Team A [facility] OUTPATIENT [id number] Ear Checkup KSENIA CANTU 06/12 Released w/o Limitations Maribeth corcoran [facility] [place]([address] Team A [place]) Maribeth zayas [facility] JACQUELINE(Opsurg e Multi-Spe cialty [facility]) TELE CONSULT [id number] Notes Entered by: JOSE ULLOARADHA LILIYA Corona 21 Jun 2020 1343 ------- ------- ------- ------- -- COVID Results MARQUES DAVIS 06/21 DCarlos corcoran [facility] JACQUELINE(Opsu rge Multi-S pecialt y [facility]) Theater Facility OUTPATIENT [id number] Theater Provider 09/25 Released w/o Limitations Theater Facilit y Theater Facility OUTPATIENT [id number] Theater Provider 11/13 Released w/o Limitations Theater Facilit y D. D. Cassidy zayas [facility] JACQUELINE([facility] F01A Team A SCOM) OUTPATIENT [id number] resched uled//g eneral checkup /physic al f2f KSENIA CANTU 01/22 Released w/o Limitations D. DCarlos corcoran [facility] [place]([facility] Team A SCOM) Maribeth zayas [facility] [place]([facility] Team A SCOM) OUTPATIENT [id number] f2f//fo llow-up urgent care visit KSENIA CANTU 09/12 Released w/o Limitations D. DCarlos corcoran [facility] [place]([facility] Team A SCOM) Maribeth zayas [facility] [place]([facility] Team A SCOM) TELE CONSULT [id number] Notes Entered by: RAINE JAIN 23 Sep 2021 0950 ------- ------- ------- ------- -- Chest Xray KSENIA CANTU 09/23 Maribeth corcoran [facility] [place]([facility] Team A SCOM) Maribeth zayas [facility] [place]([facility] Team A SCOM) OUTPATIENT [id number] Discuss followu p on hbp medicat ion//vr //[id number] KSENIA CANTU 10/29 Released w/o Limitations DCarlos [facility] [place]([facility] F01A Team A SCOM) [facility] TELE CONSULT [id number] Notes Entered by: Nicole GR 15 Nov 2021 0720 ------- ------- ------- ------- -- SICK CALL- COVID TEST SHONA OCONNOR 11/[address] [place] [address]([facility]) Maribeth zayas [facility] [place]([facility] F01A Team A SCOM) OUTPATIENT [id number] 4[facility] CARLY Talley 01/08 Sick at Home/Quarter s DCarlos corcoran [facility] JACQUELINE([facility] F01A Team A SCOM) Maribeth zayas [facility] [place]([facility] F01A Team A SCOM) OUTPATIENT [id number] annual check up KSENIA CANTU 04/22 Released w/o Limitations DCarlos [facility] [place]([facility] F01A Team A SCOM) [facility]118M[facility] Between Visit [id number] 05/03 Discharge Disposition: Home or Self Care 6118M-[id number]-[id number] AMDS Between Visit [id number] 05/06 Discharge Disposition: Home or Self Care 8344R-4 39 AMDS 8344R-439 AMDS Between Visit [id number] 08/23 Discharge Disposition: Home or Self Care 8344R-4 39 AMDS Procedures Combined list of: 1) Procedures from Department of Veterans Affairs facilities going back up to thelast 18 months, not all VA non-surgical procedures are included; 2) All procedures from the Department of Defense facilities. Procedure Procedure Type Code Date Perfomer Comments Sourc e Application of a modality to one or more areas; traction, mechanical Application of a modality to one or more areas; traction, mechanical [id number] [facility] Chiropractic manipulative treatment (CMT); spinal, one to two regions Chiropractic manipulative treatment (CMT); spinal, one to two regions [address] [place] [address] Application of a modality to one or more areas; hot or cold packs Application of a modality to one or more areas; hot or cold packs [address] [place] [address] Chiropractic manipulative treatment (CMT); spinal, three to four regions Chiropractic manipulative treatment (CMT); spinal, three to four regions [address] [place] [address] INFLUENZA VIRUS VACCINE, TRIVALENT, LIVE (LAIV3), FOR INTRANASAL USE 04/29/20 10 [facility] YELLOW FEVER VACCINE, LIVE, FOR SUBCUTANEOUS USE 04/01/20 10 [facility] VIS FUNCT SCREEN,AUTOMAT/LINH I-AUTOMAT BILAT QUANT DETERM VISUAL ACUITY,OCULAR ALIGN,COLOR VISION,PSEUDOISOCH ROMAT PLATES,& FIELD VIS (MAY INC ALL/SOME SCRN DETERM FOR CONTRAST SENSITIV,VIS UND GLARE) 02/29/20 10 [facility] YELLOW FEVER VACCINE, LIVE, FOR SUBCUTANEOUS USE 02/26/20 10 [facility] SKIN TEST; TUBERCULOSIS, INTRADERMAL 02/23/20 10 [facility] AUDIOMETRIC TESTING OF GROUPS 02/23/20 10 [facility] COLLECTION OF VENOUS BLOOD BY VENIPUNCTURE 02/22/20 10 [facility] ELECTROCARDIOGRAM, ROUTINE ECG WITH AT LEAST 12 LEADS; WITH INTERPRETATION AND REPORT 12/24/19 22 DoD APPLICATION OF A MODALITY TO 1 OR MORE AREAS; HOT OR COLD PACKS 11/19/19 16 DoD APPLICATION OF A MODALITY TO 1 OR MORE AREAS; HOT OR COLD PACKS 10/24/19 16 DoD APPLICATION OF A MODALITY TO 1 OR MORE AREAS; HOT OR COLD PACKS 10/17/19 16 DoD THERAPEUTIC PROCEDURE, 1 OR MORE AREAS, EACH 15 MINUTES; THERAPEUTIC EXERCISES TO DEVELOP STRENGTH AND ENDURANCE, RANGE OF MOTION AND FLEXIBILITY 10/05/19 16 DoD APPLICATION OF A MODALITY TO 1 OR MORE AREAS; HOT OR COLD PACKS 09/26/19 16 DoD THERAPEUTIC PROCEDURE, 1 OR MORE AREAS, EACH 15 MINUTES; THERAPEUTIC EXERCISES TO DEVELOP STRENGTH AND ENDURANCE, RANGE OF MOTION AND FLEXIBILITY 09/21/19 16 DoD POSITIONING CUSHION/PILLOW/WED GE, ANY SHAPE OR SIZE, INCLUDES ALL COMPONENTS AND ACCESSORIES 09/20/19 16 [facility] THERAPEUTIC PROCEDURE, 1 OR MORE AREAS, EACH 15 MINUTES; THERAPEUTIC EXERCISES TO DEVELOP STRENGTH AND ENDURANCE, RANGE OF MOTION AND FLEXIBILITY 09/18/19 16 [facility] BRIEF EMOTIONAL/BEHAVIOR AL ASSESSMENT (EG, DEPRESSION INVENTORY, ATTENTION-DEFICIT/ HYPERACTIVITY DISORDER [ADHD] SCALE), WITH SCORING AND DOCUMENTATION, PER STANDARDIZED INSTRUMENT 04/15/20 21 [facility] TELE ASSESS & MGT SRV PROV QUAL NONPHYS HLTH CARE PRO TO EST PAT,PARENT,GUARD NOT ORIG REL ASSESS & MGT SRV PROV W/IN PREV 7 DAYS NOR LEAD ASSESS & MGT SRV/PX W/IN NXT 24 HR/SOON APT;5-10 MIN MED DIS 04/12/20 21 [facility] WAIVER SERVICES; NOT OTHERWISE SPECIFIED (NOS) 03/08/20 20 [facility] LIDOCAINE 70 MG/TETRACAINE 70 MG, PER PATCH 07/20/19 18 [facility] CHIROPRACTIC MANIPULATIVE TREATMENT (CMT); SPINAL, 1-2 REGIONS 01/20/20 14 [facility] SCREENING TEST, PURE TONE, AIR ONLY 12/17/19 14 [facility] AUDIOMETRIC TESTING OF GROUPS 11/09/19 13 [facility] SCREENING TEST, PURE TONE, AIR ONLY 09/25/19 13 [facility] AUDIOMETRIC TESTING OF GROUPS 09/22/19 13 [facility] COLLECTION OF VENOUS BLOOD BY VENIPUNCTURE 05/28/20 12 [facility] IMMUNIZATION ADMINISTRATION (INCLUDES PERCUTANEOUS, INTRADERMAL, SUBCUTANEOUS, OR INTRAMUSCULAR INJECTIONS); EACH ADDITIONAL VACCINE (SINGLE OR COMBINATION VACCINE/TOXOID) 05/19/20 11 [facility] SKIN TEST; TUBERCULOSIS, INTRADERMAL 04/23/20 11 [facility] VIS FUNCT SCREEN,AUTOMAT/LINH I-AUTOMAT BILAT QUANT DETERM VISUAL ACUITY,OCULAR ALIGN,COLOR VISION,PSEUDOISOCH ROMAT PLATES,& FIELD VIS (MAY INC ALL/SOME SCRN DETERM FOR CONTRAST SENSITIV,VIS UND GLARE) 02/06/20 11 [facility] SCREENING TEST, PURE TONE, AIR ONLY 01/31/20 11 [facility] Modalities Traction Modalities Traction 71621 11/19/19 16 MATHEUS DE LOS SANTOS [facility] Modalities Heat Hot Packs Modalities Heat Hot Packs 48178 11/19/19 16 MATHEUS DE LOS SANTOS [facility] Chiropractic Manip Treatmt (CMT) Spinal Three To Four Region Chiropractic Manip Treatmt (CMT) Spinal Three To Four Region 18258 11/19/19 16 MATHEUS DE LOS SANTOS Modalities Traction Modalities Traction 08184 10/24/19 16 MATHEUS DE LOS SANTOS Modalities Heat Hot Packs Modalities Heat Hot Packs 65920 10/24/19 16 MATHEUS DE LOS SANTOS Chiropractic Manip Treatmt (CMT) Spinal Three To Four Region Chiropractic Manip Treatmt (CMT) Spinal Three To Four Region 69785 10/24/19 16 MATHEUS DE LOS SANTOS Modalities Traction Modalities Traction 11954 10/17/19 16 MATHEUS DE LOS SANTOS Modalities Heat Hot Packs Modalities Heat Hot Packs 57077 10/17/19 16 MATHEUS DE LOS SANTOS Chiropractic Manip Treatmt (CMT) Spinal Three To Four Region Chiropractic Manip Treatmt (CMT) Spinal Three To Four Region 47151 10/17/19 16 MATHEUS DE LOS SANTOS Physical Therapy: ___ Se ion Segments, 15 Minutes Each Physical Therapy: ___ Session Segments, 15 Minutes Each 40819 10/05/19 16 DEMETRIUS KOHLI Modalities Traction Modalities Traction 37689 09/26/19 16 MATHEUS DE LOS SANTOS Modalities Heat Hot Packs Modalities Heat Hot Packs 29381 09/26/19 16 MATHEUS DE LOS SANTOS Chiropractic Manip Treatmt (CMT) Spinal Three To Four Region Chiropractic Manip Treatmt (CMT) Spinal Three To Four Region 19316 09/26/19 16 MATHEUS DE LOS SANTOS Physical Therapy: ___ Se ion Segments, 15 Minutes Each Physical Therapy: ___ Session Segments, 15 Minutes Each 58163 09/21/19 16 SG CONSTANTINO [facility] Positioning cushion/pillow/wed ge, any shape or size, includes all components and acce ories 09/20/19 16 MATHEUS DE LOS SANTOS Cervical pillow, coby, soft Bettye Hot water bottle, ice cap or collar, heat and/or cold wrap, any type 09/20/19 16 MATHEUS DE LOS SANTOS Chiropractic Manip Treatmt (CMT) Spinal Three To Four Region Chiropractic Manip Treatmt (CMT) Spinal Three To Four Region 31819 09/20/19 16 MATHEUS DE LOS SANTOS A isted Exercises For ROM Assisted [place] 38256 09/18/19 16 RIDGE MEANS [facility] Physical Therapy Service Evaluation Physical Therapy Service Evaluation 40881 09/18/19 16 RIDGE MEANS [facility] Chiropractic Manip Treatmt (CMT) Spinal One To Two Regions Chiropractic Manip Treatmt (CMT) Spinal One To Two Regions 97091 01/20/20 14 ABHIJIT PORTILLO [facility] Audiogram (Screening) Audiogram (Screening) 77530 12/17/19 14 JOSE ALFREDO GARZON [facility] Audiometry Group Testing Audiometry Group Testing 91849 12/17/19 14 JOSE ALFREDO GARZON [facility] Audiogram (Screening) Audiogram (Screening) 21646 11/09/19 13 JOSE ALFREDO GARZON [facility] Audiometry Group Testing Audiometry Group Testing 70473 11/09/19 13 JOSE ALFREDO GARZON [facility] Audiometry Group Testing Audiometry Group Testing 76011 09/25/19 13 JOJO ARMENTA Audiogram (Screening) Audiogram (Screening) 88604 09/25/19 13 JOJO ARMENTA [facility] Audiogram (Screening) Audiogram (Screening) 57954 09/22/19 13 JOSE ALFREDO GARZON [facility] Audiometry Group Testing Audiometry Group Testing 82696 09/22/19 13 JOSE ALFREDO GARZON [facility] Venipuncture Venipuncture 49684 05/28/20 12 GUERO MCKEON DRAWN AT [facility] Immunization Administration By Injection, Each Additional Vaccine 05/20/20 11 DANTE PISANO [facility] Physician Supervised Services Provision Of Educational Supplies Physician Supervised Services Provision Of Educational Supplies [id number] 05/20/20 11 DEYVIDANTE [facility] Physician Services Special Review / Reporting Of Patient Status Physician Services Special Review / Reporting Of Patient Status [id number] 05/20/20 11 DANTE PISANO [facility] Physician Supervised Group Educational Services 05/20/20 11 DANTE PISANO [facility] Vaccines Vaccines [id number] 05/20/20 11 [facility] Immunization Administration By Injection, One Vaccine Immunization Administration By Injection, One Vaccine 51229 05/20/20 [facility] PE[facility]AUGHAN [facility] Skin Test Anergy Tuberculin Intradermal Skin Test Anergy Tuberculin Intradermal 43157 04/23/20 11 RAFA TREJO [facility] Visual Function Screening Visual Function Screening [id number] 02/06/20 11 CHARLOTTE CHELSEA [place] [facility] Screening Test Of Visual Acuity, Quantitative, Bilateral Screening Test Of Visual Acuity, Quantitative, Bilateral [id number] 02/06/20 11 VINNY PORTERJULIEN Yates [facility] Audiometry Group Testing Audiometry Group Testing [id number] 01/31/20 11 KAMERONFRANKI [facility] Audiogram (Screening) Audiogram (Screening) [id number] 01/31/20 11 YOLANDA MELOREY Metz [facility] Visual Function Screening Visual Function Screening [id number] 02/29/20 10 OMER MEJÍA [facility] Screening Test Of Visual Acuity, Quantitative, Bilateral Screening Test Of Visual Acuity, Quantitative, Bilateral [id number] 02/29/20 10 OMER MEJÍA [facility] Threshold Audiogram (Pure Tone) Threshold Audiogram (Pure Tone) [id number] 02/23/20 10 [facility] Audiometry Group Testing Audiometry Group Testing 14058 02/23/20 10 NEBRASKATAWNY PLASCENCIA Carlos [facility] Waiver services; not otherwise specified (NOS) HERMELINDO LOMELI [facility] Non-Physician Phone Call To Patient/Provider Brief (5-10min) Non-Physician Phone Call To Patient/Provider Brief (5-10min) [id number] SHEBA CURTIS [facility] Psychiatric Diagnostic Evaluation Psychiatric Diagnostic Evaluation 09977 SHEBA CURTIS [facility] Psychometric Emotional / Behavioral A e ment Psychometric Emotional / Behavioral Assessment 10453 SHEBA CURTIS [facility] Social History Combined list of available smoking, tobacco, and other social history from Department of 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 Social History Type Response Date Comment Sourc e Sex Representation Male 03/13/2020 Unknow n Organization Tobacco smoking status NHIS LIFETIME NON-USER OF TOBACCO 04/15/2016 [facility] History of tobacco use LIFETIME NON-USER OF TOBACCO 05/28/2015 [facility] History of tobacco use LIFETIME NON-USER OF TOBACCO 05/08/2015 [facility] History of tobacco use LIFETIME NON-USER OF TOBACCO 06/14/2014 [facility] Sexual Orientation Ambula tory Pharmacy Gender identity Ambulator y Pharmacy This section is an empty social history section. [facility] Assessment and Plan Combined list of future [...] equipment Ordered: Referral Request 2.0 ? [facility] ? ? Extracted from:Title: LONNIE Author: KSENIA TURNER Date: 11/28/22 1.?Obstructive sleep apnea of adult Reviewed sleep study, obstructive sleep apnea, referral given for sleep study with CPAP titration. Ordered: Referral Request 2.0 ? Extracted from:Title: sleep disorder Author: KSENIA TURNER Date: 10/29/22 1.?Sleep disorder Pt with hx of obstructive sleep apnea, was recommended CPAP in 2015 but never picked up machine to start [...] blood pressure starts to rise, verb understanding. 09/16/[address] [place] [address] Advance Directives List of completed, amended, or rescinded Advance Directives on record at Department of Veterans Affairs facilities. An actual copy of the Directive is not included. Date Advance Directive Provider Source 06/14/2014 ADVANCE DIRECTIVE DISCUSSION AARON KWON [facility] Functional Status Combined list of recent functional and cognitive assessments recorded at Department of Defense and Veterans Affairs (VA).VA Functional [place] Measurement (FIM) Scale: 1 = Total Assistance (Subject = 0% +), 2 = Maximal Assistance (Subject = 25% +), 3 = Moderate Assistance (Subject = 50% +), 4 = Minimal Assistance (Subject = 75% +), 5 = Supervision, 6 = Modified [place] (Device), 7 = Complete [place] (Timely, Safely). Assessment Date/Time Source Assessment Type Assessment Skill Assessment Score Assessment Details No data available for this section
--- OUTSIDE RECORDS SUMMARY | 2024-09-16 14:37 | XMS_ITS ---
Care Plan - [facility] Created on: September 16, 2024 Ellis Ellis : 1980 Sex: Male Author Organization [facility] Address [address] [facility] [address] [place] [phone] Phone Care Team Providers Care Car Parker Name Role Phone Luis Fernando WALDROP, Lobito George [phone] [facility] Primary Care [place] mckeon [phone]
--- OUTSIDE RECORDS SUMMARY | 2024-09-16 14:37 | XMS_ITS | Clinical Summary ---
Author Organization [facility] Address [address] [facility] [address] [place] [address] Phone Care Team Providers Care Telehealth Nurse Educator Name Role Phone Luis Fernando WALDROP, Lobito George [phone] [facility] Primary Care P rovider [phone] Reason for Visit and Chief Complaint visit for: follow-up exam - The Chief Complaint is: allergies Plan of Treatment - Recommended mattress / pillow covers for dust mites - Last Documented On 03/11/2021 1:12PM ; [facility] Pending Tests Order Diagnosis Results Due Ordering P rovider Return Follow Up - Month(s) 3 months Chronic rhinitis Lobito Gould MD Last Documented On 1 1:12PM ; [facility] Plan: Medications - Medication Care Plan Continue current Medications Chronic rhinitis 03/11/21 Lobito Gould MD Last Documented On 1 1:12PM ; [facility] Instructions to patient Avoid allergens Last Documented On 1:11PM ; [facility] Assessments Includes: Assessments from this encounter Findings - Chronic rhinitis - Last Documented On 03/11/2021 1:12PM ; [facility] Instructions Includes: Instructions from this encounter Instructions to patient Avoid allergens Last Documented On 1:11PM ; [facility] Medical Equipment - Implanted Devices Includes: Current [...] Gould MD ; [facility] Fexofenadine HCl 180 MG Oral Tablet 03/02/2021 Provider: Lisa REYNA ([place]) Diagnosis: 1 tab po qd Last Documented On 2:43PM By Jimmy Luther ; [facility] Medications Administered Includes: Administered Medications from this [...] 11:52A M ; [facility] Results Includes: Results discussed during this encounter [...] 1:12PM ; [facility] Smoking Status Unknown Procedures and Surgical History Includes: Procedures from this encounter Procedures Code Diagnosis Performing Provider Service L ocation Service Date avoid allergens Last Documented On 1 1:11PM ; [facility] medication list reviewed Last Documented On 1 1:09PM ; [facility] percutaneous tests with allergenic extracts was [phone] [id number] Last Documented On 11:52AM ; [facility] intradermal tests with allergenic extracts (imme diate) was [id number] Last Documented On 12:38PM ; [facility] allergy sensitivity testing Last Documented On 1 11:52AM ; [facility] Medical History Includes: Medical History addressed during this encounter Description Last Updated Past medical history reviewed 03/11/2021 Last Documented On 1 1:12PM ; [facility] Family History Includes: Family History addressed [...] Time Diagnosis Post Test Lobito Gould MD [place] Office 1 11:04AM 1:08PM Rhinitis Chronic Insurance Includes: Active Insurance Policies Plan Name Member ID Group # Subscriber Relationship Effect kiran Dates 1 - [facility] [id number] Ellis Corral Self 07/13/2017 - Un known Clinical Notes Includes: Clinical Notes from this encounter No Clinical Notes Recorded
--- OUTSIDE RECORDS SUMMARY | 2024-09-16 14:37 | XMS_ITS | Clinical Summary ---
Author Organization [facility] Address [address] [facility] [address] [place] [address] Phone Care Team Providers Care Skull Splitter Name Role Phone Luis Fernando WALDROP, Lobito George [phone] [facility] Primary Care P rovider [phone] Reason for Visit and Chief Complaint visit for: comprehensive medical evaluation :Consultation - The Chief Complaint is: allergies Plan of Treatment - Recommended allergy sensitivity testing - abbrev - Last Documented On 03/04/2021 3:12PM ; [facility] Pending Tests Order Diagnosis Results Due Ordering P rovider Plan:Test/Treatme nt1 - Allergy Tests Allergy Sensitivity Test Chronic rhinitis 03/04/21 Lobito Gould MD Last Documented On 3:09PM ; [facility] Instructions to patient Instructions for patient - p janell use of nasal spray Last Documented On 1 3:11PM ; [facility] Assessments Includes: Assessments from this encounter Findings - Chronic rhinitis - Last Documented On 03/04/2021 3:12PM ; [facility] Instructions Includes: Instructions from this encounter Instructions to patient Instructions for patient - p janell use of nasal spray Last Documented On 3:11PM ; [facility] Medical Equipment - Implanted Devices Includes: Current Devices No Medical Equipment Recorded Medications Includes: Medications discussed during this encounter and other current Medications New / Renewed during this visit Lobito Gould MD on 03/04/2021 Fluticasone Propionate 50 MCG/ACT Nasal Suspension Provider: Lobito fiore MD 30 day supply: 16 gram, 3 refills Diagnosis: Chronic rhinitis 2 sp en qam [facility] [id number] [facility] [address] [place] [address], [phone] - Last Documented On 1 12:25PM By Stef Snow ; [facility] Current Medications (continue as prescribed) Fluticasone Propionate 50 MCG/ACT Nasal Suspension 06/10/2021 Provider: Lobito fiore MD Diagnosis: Allergic rhiniti s, unspecified 2 sp en qd as needed Last Documented On 1 12:45PM By Lobito Gould MD ; [facility] Fexofenadine HCl 180 MG Oral Tablet 03/02/2021 Provider: Lisa Renee ([place]) STUDENT CAREER DEVELOPMENT SPECIALIST Diagnosis: 1 tab po qd Last Documented On 2:43PM By Jimmy Luther ; [facility] Medications Administered Includes: Administered Medications [...] 03/04/2021 2:40PM ; [facility] Results Includes: Results discussed during this encounter No Results Recorded For Specified Dates History of Present Illness Includes: History of Present Illness from this encounter HPI He is referred by PCP for evaluation. He gets itchy throat at night for several years. He did not have itchy throat will deployed in [facility]. Itchy throat improved with use of Astelin [...] 3:12PM ; [facility] Air-conditioning filters are changed tim ry 3 months 03/04/2021 Last Documented On 1 3:12PM ; [facility] Environmental history reviewed 1 Last Documented On 1 3:12PM ; [facility] Housing has central cooling 03/04/2021 Last Documented On 3:12PM ; [facility] Housing has windows closed 03/04/2021 Last Documented On 1 3:12PM ; [facility] Lives in apartment 03/04/2021 Last Documented On 3:12PM ; [facility] Mattress is encased 03/04/2021 Last Documented On 3:12PM ; [facility] No carpets in residence 03/04/2021 Last Documented On 1 3:12PM ; [facility] No contact with pets or other animals Last Documented On 1 3:12PM ; [facility] No exposure to environmental tobacco smo ke 03/04/2021 Last Documented On 1 3:12PM ; [facility] No exposure to molds 03/04/2021 Last Documented On 3:12PM ; [facility] No HEPA filters 03/04/2021 Last Documented On 1 3:12PM ; [facility] No secondhand cigarette smoke exposure 0 03/04/2021 Last Documented On 1 3:12PM ; [facility] No wall unit cooling in residence 2020 Last Documented On 1 3:12PM ; [facility] Not living near a major source of pollut ion 03/04/2021 Last Documented On 3:12PM ; [facility] Patient does not sleep with stuffed [...] Time Diagnosis New Patient Lobito Gould MD [place] Office 1 2:26PM 3:12PM Rhinitis Chronic Insurance Includes: Active Insurance Policies Plan Name Member ID Group # Subscriber Relationship Effect kiran Dates 1 - [facility] [id number] Ellis Ellis Self 07/13/2017 - Un known Clinical Notes Includes: Clinical Notes from this encounter No Clinical Notes Recorded
== END 2024-09-16 13:25 | disposition home or self-care (01) ==
PROVIDERS: PCP Internal Medicine; Visit Provider Internal Medicine
DX: Z00.01 Encounter for general adult medical examination with abnormal findings (principal); L21.9 Seborrheic dermatitis, unspecified; L29.9 Pruritus, unspecified; G47.30 Sleep apnea, unspecified; Z80.42 Family history of malignant neoplasm of prostate; Z28.39 Other underimmunization status; H91.93 Unspecified hearing loss, bilateral

== ENCOUNTER 2024-09-16 12:56 | Outpatient (REF) | payer OTHER, SELFPAY ==
--- OUTSIDE RECORDS SUMMARY | 2024-09-16 15:03 | XMS_ITS | Clinical Summary ---
Author Organization [facility] it Address [address] [place] [address] Care Team Providers Care Mechanic'S Assistant Name Role Phone Unavailable Primary Care Provider [...]
[2024-09-16 16:18] LABS: MANUAL DIFF FLAG NO
[2024-09-16 16:48] LABS: Alanine Aminotransferase 41 U/L (0-40); Albumin Level 4.1 g/dL (3.5-5.0); Alkaline Phosphatase 75 U/L (39-117); Anion Gap 10 (12-20); Aspartate Amino Transferase 38 U/L (5-37); Bilirubin Total 1.4 mg/dL (0.0-1.0); Blood Urea Nitrogen 12 mg/dL (9-16); Calcium 8.9 mg/dL (8.4-10.2); Carbon Dioxide 27 mmol/L (22-29); Chloride 104 mmol/L (96-108); Cholesterol 161 mg/dL (<200); Estimated Glomerular Filt Rate > 60; Glucose Fasting 89 mg/dL (60-99); HDL Cholesterol 36 mg/dL (>40); LDL Cholesterol Calculated 107 mg/dL (<100); Potassium 3.9 mmol/L (3.3-5.1); Sodium 137 mmol/L (135-145); Total Protein 7.3 g/dL (6.5-8.0); Triglycerides 94 mg/dL (<150)
[2024-09-16 16:55] LABS: Prostate Specific Antigen 1.35 ng/mL (<0.05-4.0)
[2024-09-16 17:04] LABS: TSH reflex Free T4 1.15 uIU/mL (0.32-4.0)
[2024-09-16 18:05] LABS: Basophils Absolute Auto 0.1 X10*3/uL (0.0-0.2); Basophils Percent Auto 0.9 % (0-2); Eosinophils Absolute Auto 0.1 X10*3/uL (0.0-0.4); Eosinophils Percent Auto 2.1 % (0-4); Hematocrit 45.4 % (42.0-52.0); Hemoglobin 15.5 g/dl (14.0-18.0); Imm Gran Abs Auto 0.01 X10*3/uL (0.00-0.03); Imm Gran Pct Auto 0.2 % (0.0-0.4); Lymphocytes Percent Auto 36.8 % (20-40); Mean Corpuscular HGB Conc 34.1 g/dl (31.0-36.0); Mean Corpuscular Hemoglobin 30.2 pg (27.0-33.0); Mean Corpuscular Volume 88.5 fL (80.0-98.0); Mean Platelet Volume 11.1 fL (9.4-12.4); Monocytes Absolute Auto 0.6 X10*3/uL (0.1-1.2); Monocytes Percent Auto 10.5 % (2-11); Neutrophils Absolute Auto 2.7 x10*3/uL (2.0-8.3); Neutrophils Percent Auto 49.5 % (45-73); Platelet Count 268 X10*3/uL (160-400); Red Blood Count 5.13 X10*6/uL (4.60-5.80); Red Cell Distribution Width 12.8 % (11.0-16.0); White Blood Count 5.4 X10*3/uL (4.8-10.8)
[2024-09-19 21:04] LABS: Varicella IgG Antibody 5.04 S/CO
[2024-09-19 21:08] LABS: Rubella IgG Antibody 5.46 Index; Rubeola IgG (Measles) >300.00 AU/mL
[2024-09-22 23:24] LABS: Vitamin D 25-OH, D2 <4 ng/mL; Vitamin D 25-OH, D3 28 ng/mL; Vitamin D 25-OH, Total 28 ng/mL (30-100)
== END 2024-09-16 12:57 | disposition home or self-care (01) ==
LOC: HO.HMGCLDS 12:56
PROVIDERS: PCP Internal Medicine; Visit Provider Internal Medicine
DX: Z00.01 Encounter for general adult medical examination with abnormal findings (principal); Z12.5 Encounter for screening for malignant neoplasm of prostate; Z13.6 Encounter for screening for cardiovascular disorders; H91.93 Unspecified hearing loss, bilateral; L29.9 Pruritus, unspecified; Z28.39 Other underimmunization status; Z80.42 Family history of malignant neoplasm of prostate; L21.9 Seborrheic dermatitis, unspecified; G47.30 Sleep apnea, unspecified
CPT/HCPCS: 36415; 80053; 80061; 82306; 84153; 84443; 85025; 86735; 86762; 86765; 86774; 86787; 96127; 99202

== ENCOUNTER 2024-09-22 09:53 | Outpatient (AMB) | payer OTHER, SELFPAY ==
--- OUTSIDE RECORDS SUMMARY | 2024-09-22 08:19 | XMS_ITS | Clinical Summary ---
Author Organization [employer] [facility] it Address [address] [place] [address] Care Team Providers Care Geoscience Technician Name Role Phone Unavailable Primary Care Provider [...]
--- OUTSIDE RECORDS SUMMARY | 2024-09-22 08:20 | XMS_ITS | Clinical Summary ---
Author Organization [facility] Address [address] [facility] [address] [place] [address] Phone Care Team Providers Care Debt Collector Name Role Phone Luis Fernando WALDROP, Lobito George [phone] [facility] Primary Care P rovider [phone] Reason for Visit and Chief Complaint visit for: comprehensive medical evaluation :Consultation - The Chief Complaint is: allergies Plan of Treatment - Recommended allergy sensitivity testing - abbrev - Last Documented On 03/04/2021 3:12PM ; [facility] Pending Tests Order Diagnosis Results Due Ordering P rovider Plan:Test/Treatme nt1 - Allergy Tests Allergy Sensitivity Test Chronic rhinitis 03/04/21 Lobito Gould MD Last Documented On 3:09PM ; [facility] Instructions to patient Instructions for patient - p janell use of nasal spray Last Documented On 1 3:11PM ; [facility] Assessments Includes: Assessments from this encounter Findings - Chronic rhinitis - Last Documented On 03/04/2021 3:12PM ; [facility] Instructions Includes: Instructions from this encounter Instructions to patient Instructions for patient - p janell use of nasal spray Last Documented On 3:11PM ; [facility] Medical Equipment - Implanted Devices Includes: Current Devices No Medical Equipment Recorded Medications Includes: Medications discussed during this encounter and other current Medications New / Renewed during this visit Lobito Gould MD on 03/04/2021 Fluticasone Propionate 50 MCG/ACT Nasal Suspension Provider: Lobito fiore MD 30 day supply: 16 gram, 3 refills Diagnosis: Chronic rhinitis 2 sp en qam [facility] [id number] [address] [place] [address], [phone] - Last Documented On 1 12:25PM By Stef Snow ; [facility] Current Medications (continue as prescribed) Fluticasone Propionate 50 MCG/ACT Nasal Suspension 06/10/2021 Provider: Lobito fiore MD Diagnosis: Allergic rhiniti s, unspecified 2 sp en qd as needed Last Documented On 1 12:45PM By Lobito Gould MD ; [facility] Fexofenadine HCl 180 MG Oral Tablet 03/02/2021 Provider: Lisa Renee ([place]) CONSERVATION SPECIALIST Diagnosis: 1 tab po qd Last Documented On 2:43PM By Jimmy Luther ; [facility] Medications Administered Includes: Administered Medications from [...] 03/04/2021 2:40PM ; [facility] Results Includes: Results discussed during this encounter No Results Recorded For Specified Dates History of Present Illness Includes: History of Present Illness from this encounter HPI He is referred by PCP for evaluation. He gets itchy throat at night for several years. He did not have itchy throat will deployed in [facility]. Itchy throat improved with use of Astelin [...] 3:12PM ; [facility] Air-conditioning filters are changed tim ry 3 months 03/04/2021 Last Documented On 1 3:12PM ; [facility] Environmental history reviewed 1 Last Documented On 1 3:12PM ; [facility] Housing has central cooling 03/04/2021 Last Documented On 3:12PM ; [facility] Housing has windows closed 03/04/2021 Last Documented On 1 3:12PM ; [facility] Lives in apartment 03/04/2021 Last Documented On 3:12PM ; [facility] Mattress is encased 03/04/2021 Last Documented On 3:12PM ; [facility] No carpets in residence 03/04/2021 Last Documented On 1 3:12PM ; [facility] No contact with pets or other animals Last Documented On 1 3:12PM ; [facility] No exposure to environmental tobacco smo ke 03/04/2021 Last Documented On 1 3:12PM ; [facility] No exposure to molds 03/04/2021 Last Documented On 3:12PM ; [facility] No HEPA filters 03/04/2021 Last Documented On 1 3:12PM ; [facility] No secondhand cigarette smoke exposure 0 03/04/2021 Last Documented On 1 3:12PM ; [facility] No wall unit cooling in residence 2020 Last Documented On 1 3:12PM ; [facility] Not living near a major source of pollut ion 03/04/2021 Last Documented On 3:12PM ; [facility] Patient does not sleep with stuffed anim [...] Time Diagnosis New Patient Lobito Gould MD [place] Office 1 2:26PM 3:12PM Rhinitis Chronic Insurance Includes: Active Insurance Policies Plan Name Member ID Group # Subscriber Relationship Effect kiran Dates 1 - [facility] [id number] Ellis Ellis Self 07/13/2017 - Un known Clinical Notes Includes: Clinical Notes from this encounter No Clinical Notes Recorded
--- OUTSIDE RECORDS SUMMARY | 2024-09-22 08:20 | XMS_ITS ---
Author Organization [facility] Address [address] [place] [address] Phone Care Team Providers Care Acid Loader Name Role Phone Luis Fernando WALDROP, Lobito George [phone] [facility] [place] [facility] Primary Care P rovider [phone] Plan of Treatment Findings Encounter Date Recommended mattress / helen w covers for dust mites Post Test with Lobito Gould MD 03/11/2021 Last Documented On 1 1:12PM ; [facility] Recommended allergy sensitiv ity testing - abbrev New Patient with Lobito Gould MD 03/04/2021 Last Documented On 1 3:12PM ; [facility] Instructions to patient Avoid allergens Last Documented On 1 1:11PM ; [facility] Instructions for patient - p janell use of nasal spray Last Documented On 1 3:11PM ; [facility] Assessments Includes: Assessments for all patient encounters Findings Encounter Date Allergic rhinitis Follow Up with Lobito fiore MD 06/10/2021 Last Documented On 1 12:44PM ; [facility] Chronic rhinitis Post Test with Lobito Gould MD 03/11/2021 Last Documented On 1 1:12PM ; [facility] Chronic rhinitis New Patient with Lobito kebede MD 03/04/2021 Last Documented On 1 3:12PM ; [facility] Instructions Includes: Instructions for all patient encounters Instructions to patient Avoid allergens Last Documented On 1 1:11PM ; [facility] Instructions for patient - p janell use of nasal spray Last Documented On 3:11PM ; [facility] Medical Equipment - Implanted Devices Includes: Current and historical Devices No Medical Equipment Recorded Medications Includes: Current and historical Medications Current Medications (continue as prescribed) Fluticasone Propionate 50 MCG/ACT Nasal Suspension 06/10/2021 Provider: Lobito fiore MD Diagnosis: Allergic rhiniti s, unspecified 2 sp en qd as needed Last Documented On 12:45PM By Lobito Gould MD ; [facility] Fexofenadine HCl 180 MG Oral Tablet 03/02/2021 Provider: Lisa REYNA ([place]) Diagnosis: 1 tab po qd Last Documented On 2:43PM By Jimmy Luther ; [facility] Past Medications on file Fluticasone Propionate 50 MCG/ACT Nasal Suspension 03/04/2021 - 06/10/2021 Provider: Lobito pham MD Diagnosis: Chronic rhinitis 2 sp en qam Last Documented On 12:25PM By Stef Snow ; [facility] Azelastine HCl 0.1% Nasal Solution 03/02/2021 - 03/02/2021 Provider: Lisa REYNA ([place]) Diagnosis: prn Last Documented On 2:58PM By Lobito Gould MD ; [facility] Medications Administered Includes: Administered Medications in patient's chart No Administered Medications Recorded Results Includes: Results from 09/23/2023 through 09/22/2024 No Results Recorded For Specified Dates History of Present Illness History of Present Illness not supported for this document type No History of Present Illness Recorded Social History Description Last Updated Past medical history reviewed 06/10/2021 Last Documented On 12:44PM ; [facility] Smoking status : Never smoker 03/04/2021 Last Documented On 3:12PM ; [facility] Air-conditioning filters are changed tim ry 3 months 03/04/2021 Last Documented On 3:12PM ; [facility] Environmental history reviewed 1 Last Documented On 1 3:12PM ; [facility] Housing has central cooling 03/04/2021 Last Documented On 1 3:12PM ; [facility] Housing has windows closed 03/04/2021 Last Documented On 1 3:12PM ; [facility] Lives in apartment 03/04/2021 Last Documented On 1 3:12PM ; [facility] Mattress is encased 03/04/2021 Last Documented On 1 3:12PM ; [facility] No carpets in residence 03/04/2021 Last Documented On 1 3:12PM ; [facility] No contact with pets or other animals Last Documented On 1 3:12PM ; [facility] No exposure to environmental tobacco smo ke 03/04/2021 Last Documented On 1 3:12PM ; [facility] No exposure to molds 03/04/2021 Last Documented On 1 3:12PM ; [facility] No HEPA filters 03/04/2021 Last Documented On 1 3:12PM ; [facility] No secondhand cigarette smoke exposure 0 03/04/2021 Last Documented On 1 3:12PM ; [facility] No wall unit cooling in residence 2020 Last Documented On 1 3:12PM ; [facility] Not living near a major source of pollut ion 03/04/2021 Last Documented On 1 3:12PM ; [facility] Patient does not sleep with stuffed anim als 03/04/2021 Last Documented On 1 3:12PM ; [facility] Patient is not exposed to clutter [...] Subscriber Relationship Effect kiran Dates 1 - [facility] [id number] Ellis Ellis Self 07/13/2017 - Un known Clinical Notes Includes: Signed Clinical Notes starting from 11/29/2022 No Clinical Notes Recorded
--- OUTSIDE RECORDS SUMMARY | 2024-09-22 08:20 | XMS_ITS | Clinical Summary ---
Author Organization [facility] Address [address] [place] [address] Phone Care Team Providers Care Building Construction Contractor Name Role Phone Luis Fernando WALDROP, Lobito George [phone] [facility] [place] [facility] Primary Care P rovider [phone] Reason for Visit and Chief Complaint visit for: follow-up exam - The Chief Complaint is: allergies Plan of Treatment Pending Tests Order Diagnosis Results Due Ordering P rovider Return Follow Up - Month(s) 6 months Allergic rhinitis, unspecified 06/10/21 Lobito Gould MD Last Documented On 12:44PM ; [facility] Assessments Includes: Assessments from this encounter Findings - Allergic rhinitis - Last Documented On 06/10/2021 12:44PM ; [facility] Medical Equipment - Implanted Devices Includes: Current Devices No Medical Equipment Recorded Medications Includes: Medications discussed during this encounter and other current Medications Discontinued / Stopped on this date Lobito Gould MD on 03/04/2021 Fluticasone Propionate 50 MC G/ACT Nasal Suspension Provider: Lobito Gould MD Diagnosis: Chronic rhinitis Last Documented On 12:25PM By Stef Snow ; [facility] New / Renewed during this visit Lobito Gould MD on 06/10/2021 Fluticasone Propionate 50 MCG/ACT Nasal Suspension Provider: Lobito fiore MD 30 day supply: 16 gram, 3 refills Diagnosis: Allergic rhinitis, unspecified 2 sp en qd as needed Pharmacy: [email or web address] [phone] [id number], [id number] - Last Documented On 12:45PM By Lobito Gould MD ; [facility] Current Medications (continue as prescribed) Fexofenadine HCl 180 MG Oral Tablet 03/02/2021 Provider: Lisa REYNA ([place]) Diagnosis: 1 tab po qd Last Documented On 1 2:43PM By Jimmy Luther ; [facility] Medications Administered Includes: Administered Medications from this [...] 12:26P M ; [facility] Results Includes: Results discussed during this encounter [...] On 12:44PM ; [facility] Smoking Status Unknown Procedures and Surgical History Includes: Procedures from this encounter Procedures Code Diagnosis Performing Provider Service L ocation Service Date medication list reviewed Last Documented On 1 12:26PM ; [facility] Medical History Includes: Medical History addressed during this encounter Description Last Updated Past medical history reviewed 06/10/2021 Last Documented On 12:44PM ; [facility] Family History Includes: Family History addressed during [...] Time Diagnosis Follow Up Lobito Gould MD [place] Office 1 12:16PM 12:46PM Allergic Rhinitis Insurance Includes: Active Insurance Policies Plan Name Member ID Group # Subscriber Relationship Effect kiran Dates 1 - [facility] [id number] Ellis Ellis Self 07/13/2017 - Un known Clinical Notes Includes: Clinical Notes from this encounter No Clinical Notes Recorded
--- OUTSIDE RECORDS SUMMARY | 2024-09-22 08:20 | XMS_ITS | Continuity of Care Document ---
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 Condition DoD Acquired spondylolysis Active Condition [facility] Low back pain Active Condition [facility] Personal History of return from Deployment Active Condition [facility] Primary hypertension Active Condition [facility] Adjustment disorder with anxiety Active Condition DoD Personal history of deployment Active Condition DoD Vasectomy status Active Condition DoD backache lower Active Condition DoD diarrhea Inactive Condition DoD Need For Vaccination Against Bacterial Diseases Inactive Condition DoD Need For Vaccination Against Smallpox Inactive Condition DoD visit for: occupational health / fitness exam Active Condition [facility] routine pre-employment screening examination Active Condition [...] CONNER, 16 g AER W/ADAP Cancele d [id number] : 2023 0 Pharmac y Data Transac tion Service Facilit y FLUTICASONE PROPIONATE (FLUTICASON E PROPIONATE) , 50MCG, SPRAY SUSP, NASAL, [facility]., 16 g AER W/ADAP Active [id number] 2023 16 Pharmac y Data Transac tion Service Facilit y PriLOSEC OTC 20 mg oral delayed release tablet 1 tab(s), Oral, BID, before a meal, # 90 cap(s), 3 total refill(s ), Maintena mne, Pharmacy : [facility] Oral (given by mouth) Discont inued 04/22/20222021 90.0 [facility] Allergies, Adverse Reactions, Alerts Combined list of allergies from Department of 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 It does not include entries that were removed or entered in error. Substance Category Reaction Severity Reaction type Status Date Reported Comments Source No Known Allergies Drug allergy (disorder) active 08/06/2017 [facility] Immunizations Combined list of available immunizations from the Department of 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 Status Comments Source COVID Vaccine [employer] 2020 SREE [id number] complet ed Result Comment: Unit: Unknown Route: Intramusc ular(IM) Manufactu rer: [employer] (PFR) [facility] SARS-COV-2 (COVID-19) vaccine, mRNA, spike protein, LNP, preservative free, 30 mcg/0.3mL dose 2 2020 JOI CHURCHILL [id number] Pfizer, Inc (PFR) complet ed SARS-COV- 2 (COVID-19 ) vaccine, mRNA, spike protein, LNP, preservat kiran free, 30 mcg/0.3mL dose DoD influenza, injectable, quadrivalent- pf 2020 OLLIECOLLINS [id number] 150 complet ed Result Comment: Route: Unknown Manufactu rer: [employer] (SEQ) [address] [place] [address] Influenza, inj, MDCK, quadrivalent- pf 2020 OLLIECOLLINS 171 complet ed Result Comment: Unit: Unknown Manufactu rer: () [address] [place] [address] Influenza, injectable, MDCK, preservative free, quadrivalent 2020 ANDREA, () Not Given Influenza , injectabl e, MDCK, preservat kiran free, quadrival ent DoD Influenza, injectable, quadrivalent, preservative free 1 2020 [id number] 150 [employer] (SEQ) comple t ed Influenza , injectabl e, quadrival ent, preservat kiran free DoD Influenza, injectable, Madin Coolin Canine Kidney, preservative free, quadrivalent 0 2020 171 [employer] (SEQ) comple t ed Influenza , injectabl e, Madin Anna Canine Kidney, preservat kiran free, quadrival ent DoD anthrax vaccine 2020 OLLIECOLLINS [id number] 24 complet ed Result Comment: Route: Unknown Manufactu rer: [employer] s [place] ([facility]) [facility] anthrax vaccine 4 2020 [id number] 24 [employer] Ubaldo (MIP) complet ed anthrax vaccine DoD SARS-CoV-2 (COVID-19) Ad26 vaccine, rec 2020 OLLIECOLLINS [id number] complet ed Result Comment: Route: Unknown Manufactu rer: Rosa (BON) [address] [place] [address] SARS-COV-2 (COVID-19) vaccine, vector non-replicati ng, recombinant spike protein-Ad26, preservative free, 0.5 mL 1 2020 [id number] 212 Rosa (JSN) comple t ed SARS-COV- 2 (COVID-19 ) vaccine, vector non-repli cating, recombina nt spike protein-A d26, preservat kiran free, 0.5 mL DoD influenza, seasonal, injectable 2019 OLLIECOLLINS [id number] 141 complet ed Result Comment: Route: Unknown Manufactu rer: [employer] (SEQ) [facility] Influenza, inj, MDCK, quadrivalent- pf 2019 OLLIECOLLINS 171 complet ed Result Comment: Unit: Unknown Manufactu rer: () [facility] Influenza, injectable, MDCK, preservative free, quadrivalent 2019 FINDLEN, () Not Given Influenza , injectabl e, MDCK, preservat kiran free, quadrival ent DoD Influenza, seasonal, injectable 1 2019 [id number] 141 [employer] (SEQ) comple t ed Influenza , seasonal, injectabl e DoD Influenza, injectable, Madin Anna Canine Kidney, preservative free, quadrivalent 0 2019 171 (MVX) complet ed Influenza , injectabl e, Madin Coolin Canine Kidney, preservat kiran free, quadrival ent DoD typhoid Vi capsular polysaccharid e vac 2019 [id number] 101 sanofi pasteur complet ed typhoid Vi capsular polysacch aride vac 03/07/20 Given Ambulat ory Pharmac y anthrax vaccine 2019 [id number] 24 Emergent [employer] complet ed anthrax vaccine 03/07/20 Given Ambulat ory Pharmac y poliovirus vaccine, inactivated 2019 [id number] 10 sanofi pasteur complet ed polioviru s vaccine, inactivat ed 03/07/20 Given Ambulat ory Pharmac y tetanus-dipht h toxoids (Td) adult/adol 2019 [id number] 09 sanofi pasteur complet ed tetanus-d iphth toxoids (Td) adult/ado l 03/07/20 Given Ambulat ory Pharmac y measles/mumps /rubella virus vaccine 2019 [id number] 03 Merck & Company Inc complet ed measles/m umps/rube lla virus vaccine 03/07/20 Given Ambulat ory Pharmac y typhoid Vi capsular polysaccharid e vac 2019 [id number] 101 sanofi pasteur complet ed typhoid Vi capsular polysacch aride vac 03/07/20 Given Ambulat ory Pharmac y anthrax vaccine 2019 [id number] 24 [employer] complet ed anthrax vaccine 03/07/20 Given Ambulat ory Pharmac y poliovirus vaccine, inactivated 2019 [id number] 10 sanofi pasteur complet ed polioviru s vaccine, inactivat ed 03/07/20 Given Ambulat ory Pharmac y tetanus-dipht h toxoids (Td) adult/adol 2019 [id number] 09 sanofi pasteur complet ed tetanus-d iphth toxoids (Td) adult/ado l 03/07/20 Given Ambulat ory Pharmac y measles/mumps /rubella virus vaccine 2019 [id number] 03 Merck & Company Inc complet ed measles/m umps/rube lla virus vaccine 03/07/20 Given Ambulat ory Pharmac y measles, mumps and rubella virus vaccine 1 2019 [id number] 03 Merck (MSD) complet ed measles, mumps and rubella virus vaccine DoD tetanus and diphtheria toxoids, adsorbed, preservative free, for adult use (2 Lf of tetanus toxoid and 2 Lf of diphtheria toxoid) 1 2019 [id number] 09 Sanofi Pasteur (PMC) complet ed tetanus and diphtheri a toxoids, adsorbed, preservat kiran free, for adult use (2 Lf of tetanus toxoid and 2 Lf of diphtheri a toxoid) DoD poliovirus vaccine, inactivated 1 2019 [id number] 10 Sanofi Pasteur (PMC) complet ed polioviru s vaccine, inactivat ed DoD anthrax vaccine 1 2019 [id number] 24 [employer] [place] ([facility]) complet ed anthrax vaccine DoD typhoid Vi capsular polysaccharid e vaccine 1 2019 [id number] 101 Sanofi Pasteur (PMC) complet ed typhoid [...] ory Pharmac y influenza, seasonal, injectable 2017 [id number] 141 [employer] complet ed influenza , seasonal, injectabl e 04/30/18 Given Ambulat ory Pharmac y Influenza, inj, MDCK, quadrivalent- pf 2017 171 complet ed Influenza , inj, MDCK, quadrival ent-pf 04/30/18 Given Ambulat ory Pharmac y influenza, seasonal, injectable 2017 [id number] 141 [employer] complet ed influenza , seasonal, injectabl e 04/30/18 Given Ambulat ory Pharmac y Influenza, seasonal, injectable 1 2017 [id number] 141 [employer] (SEQ) comple t ed Influenza , seasonal, injectabl e DoD Influenza, injectable, Madin Coolin Canine Kidney, preservative free, quadrivalent 0 2017 171 (MVX) complet ed Influenza , injectabl e, Madin Coolin Canine Kidney, preservat kiran free, quadrival ent DoD Influenza, inj, MDCK, quadrivalent- pf 2016 [id number] 171 [employer] complet ed Influenza , inj, MDCK, quadrival ent-pf 05/15/17 Given Ambulat ory Pharmac y Influenza, inj, MDCK, quadrivalent- pf [id number] 171 [employer] complet ed Influenza , inj, MDCK, quadrival ent-pf 05/15/17 Given Ambulat ory Pharmac y Influenza, injectable, Madin Coolin Canine Kidney, preservative free, quadrivalent 7 [id number] [...] INFLUENZA, SEASONAL, INJECTABLE 2015 141 complet ed [facility] influenza, seasonal, injectable-pf 2014 [id number] 140 CSL Behring complet ed influenza , seasonal, injectabl e-pf 04/14/15 Given Ambulat ory Pharmac y influenza, seasonal, injectable-pf 2014 [id number] 140 CSL Behring complet ed influenza , seasonal, injectabl e-pf 04/14/15 Given Ambulat ory Pharmac y INFLUENZA, UNSPECIFIED FORMULATION [address] [facility],[place], [place] - Immunizat ion record [facility] Influenza, seasonal, injectable, preservative free 8 2014 [id number] 140 CSL [employer] (CSL) complet ed Influenza , seasonal, injectabl e, preservat kiran free DoD tuberculin purified protein derivative 2014 [id number] 96 sanofi pasteur complet ed tuberculi n purified protein derivativ e 02/18/15 Given Ambulat ory Pharmac y measles, mumps and rubella virus vaccine 0 2014 03 () Not Given measles, mumps and rubella virus vaccine DoD varicella virus vaccine 0 2014 21 () Not Given varicella virus vaccine [facility] INFLUENZA, UNSPECIFIED FORMULATION 2013 88 complet ed [facility] influenza, seasonal, injectable 2012 UNK 141 Unknown [...] INFLUENZA, UNSPECIFIED FORMULATION 2012 88 complet ed [place] [facility] typhoid Vi capsular polysaccharid e vac 2012 [...] ory Pharmac y influenza, seasonal, injectable-pf 2011 [id number] 140 sanofi pasteur complet ed influenza , seasonal, injectabl e-pf 04/01/12 Given Ambulat ory Pharmac y influenza, seasonal, injectable 2011 UNKNOWN 141 Unknown complet ed influenza , seasonal, injectabl e 04/01/12 Given Ambulat ory Pharmac y influenza, seasonal, injectable-pf 2011 [id number] 140 sanofi pasteur complet ed influenza , seasonal, injectabl e-pf 04/01/12 Given Ambulat ory Pharmac y Influenza, seasonal, injectable, preservative free 0 2011 [id number] 140 Sanofi Pasteur ([facility]) complet ed Influenza , seasonal, injectabl [...] y anthrax vaccine 2010 zzRig ht Arm [id number] 24 Unknown complet ed anthrax vaccine 05/20/11 Given Ambulat ory Pharmac y vaccinia (smallpox) vaccine 2010 VV04-00 3A 75 complet ed vaccinia (smallpox ) vaccine 05/20/11 Given Ambulat ory Pharmac y anthrax vaccine 2010 UNK 24 complet ed anthrax vaccine 05/20/11 Given Ambulat ory Pharmac y anthrax vaccine 1 2010 DANTE XIONG [id number] 24 Other (OTH) complet ed anthrax vaccine DoD vaccinia (smallpox) vaccine 1 2010 DANTE XIONG VV04-00 3A 75 Paula (ETHAN) complet ed vaccinia (smallpox ) vaccine DoD tuberculin purified protein derivative 2010 zzLef t Arm [id number] 96 complet ed tuberculi n purified protein derivativ e 04/23/11 Given Ambulat ory Pharmac y tuberculin skin test; purified protein derivative solution, intradermal 1 2010 TREJORAFA WATSON E [id number] 96 [employer] PA[employer] ([facility]) complet ed tuberculi n skin test; purified protein derivativ e solution, intraderm al DoD influenza, seasonal, injectable 2010 [id number] 141 Unknown complet ed influenza , seasonal, injectabl e 03/06/11 Given Ambulat ory Pharmac y influenza virus vaccine,split 2010 [id number] 15 Unknown complet ed influenza virus vaccine,s plit 03/06/11 Given Ambulat ory Pharmac y influenza, seasonal, injectable 2010 [id number] 141 Unknown complet ed influenza , seasonal, injectabl e 03/06/11 Given Ambulat ory Pharmac y influenza virus vaccine,split 2010 [id number] 15 Unknown complet ed influenza virus vaccine,s plit 03/06/11 Given Ambulat ory Pharmac y influenza virus vaccine, split virus (incl. purified surface antigen)-reti red CODE 0 2010 [id number] 15 Other (OTH) complet ed influenza virus vaccine, split virus (incl. purified surface antigen)- retired CODE DoD Influenza, seasonal, injectable 0 2010 [id number] 141 Other (OTH) complet ed Influenza , [...] vaccine DoD influenza virus vaccine, live 2009 [id number] 111 Unknown complet ed influenza virus vaccine, live 04/29/10 Given Ambulat ory Pharmac y influenza virus vaccine,split 2009 UNKNOWN 15 Unknown complet ed influenza virus vaccine,s plit 04/29/10 Given Ambulat ory Pharmac y influenza virus vaccine, live 2009 [id number] 111 Unknown complet ed influenza virus vaccine, [...] live, attenuated, for intranasal use 0 2009 [id number] 111 Unknown (UNK) comple t ed influenza virus vaccine, live, attenuate d, for intranasa l use DoD hepatitis A-hepatitis B vaccine 2009 [id number] 4BA 104 [employer] ma complet ed hepatitis A-hepatit is B vaccine 04/01/10 Given Ambulat ory Pharmac y typhoid Vi capsular polysaccharid e vac 2009 [id number] 101 [employer] complet ed typhoid Vi capsular polysacch aride vac 04/01/10 Given Ambulat ory Pharmac y yellow fever vaccine 2009 [id number] 37 Emergent [employer] complet ed yellow fever vaccine 04/01/10 Given Ambulat ory Pharmac y anthrax vaccine 2009 UNK 24 complet ed anthrax vaccine 04/01/10 Given Ambulat ory Pharmac y poliovirus vaccine, inactivated 2009 E0123 10 SMS [employer] comple t ed polioviru s vaccine, inactivat ed 04/01/10 Given Ambulat ory Pharmac y yellow fever vaccine 2009 [id number] 37 [employer] complet ed yellow fever vaccine 04/01/10 Given Ambulat ory Pharmac y anthrax vaccine 2009 UNK 24 complet ed anthrax vaccine 04/01/10 Given Ambulat ory Pharmac y poliovirus vaccine, inactivated 2009 [id number] 10 [employer] comple t ed polioviru s vaccine, inactivat ed 04/01/10 Given Ambulat ory Pharmac y hepatitis A-hepatitis B vaccine 2009 ahabb18 4ba 104 [facility] hepatitis A-hepatit is B vaccine 04/01/10 Given Ambulat ory Pharmac y typhoid Vi capsular polysaccharid e vac 2009 [id number] 101 Biog[employer]elle complet ed typhoid Vi capsular polysacch aride vac 04/01/10 Given Ambulat ory Pharmac y poliovirus vaccine, inactivated 0 2009 E0123 10 [employer] (MED) complet ed polioviru s vaccine, inactivat ed DoD anthrax vaccine 1 2009 UNK 24 (EBS) complet ed anthrax vaccine DoD yellow fever vaccine 0 2009 [id number] 37 [employer] [place] ([facility]) complet ed yellow fever vaccine DoD typhoid Vi capsular polysaccharid e vaccine 1 2009 [id number] 101 [facility] (WAL) complet ed typhoid Vi capsular polysacch aride vaccine DoD hepatitis A and hepatitis B vaccine 2 2009 [id number] 4BA 104 [employer] (SKB) complet ed hepatitis A and hepatitis B vaccine DoD tetanus, diphtheria, acellular pertu is 2009 [id number] 4BA 115 sanofi pasteur complet ed tetanus, diphtheri a, acellular pertussis 02/25/10 Given Ambulat ory Pharmac y meningococcal A,C,Y,W-135 (MCV4P) 2009 [id number] 114 CSL Behring complet ed meningoco ccal [...] y tetanus, diphtheria, acellular pertu is 2009 [id number] 4BA 115 sanofi pasteur complet ed tetanus, diphtheri a, acellular pertussis 02/25/10 Given Ambulat ory Pharmac y meningococcal A,C,Y,W-135 (MCV4P) 2009 [id number] 114 CSL Behring complet ed meningoco ccal [...] Pharmac y TDAP 2009 115 complet ed [facility] tetanus and diphtheria toxoids, adsorbed, preservative free, [...] B vaccine 1 2009 AHABB18 4AA 104 [employer] (SKB) complet ed hepatitis A and hepatitis B vaccine DoD meningococcal polysaccharid e (groups A, C, Y and W-135) diphtheria toxoid conjugate vaccine (MCV4P) 0 2009 [id number] 114 [employer] (AVB) complet ed meningoco ccal polysacch aride (groups A, C, Y and W-135) diphtheri a toxoid conjugate vaccine (MCV4P) DoD tetanus toxoid, reduced diphtheria toxoid, and acellular pertu is vaccine, adsorbed 0 2009 [id number] 4BA 115 Sanofi Pasteur (PMC) complet ed [...] Prevention' s HIV diagnostic algorithm. Refer to [facility] Lab Guide for additional information : [email or web address] x Testing performed by Tamia haile 5600A-U [facility] EPIL[facility] Miscellan eous Sendouts Repository Sample Received ( 3 2:47 PM) 04/21 N 5600A-U [employer] Vital Signs Combined list of inpatient and outpatient Vital Signs from Department of Defense and Veterans Affairs, ranging from 12 months to all on record, depending upon the facility. Vital Sign Value Date Comments Source Systolic Blood Pressure 123 mm[Hg] 04/22/2022 11:55:00 [facility] Diastolic Blood Pressure 78 mm[Hg] 04/22/2022 11:55:00 [facility] Respiratory Rate 16 br/min 04/22/2022 11:55:[address] [place] [address] Blood Pressure Manual Automatic 04/22/2022 11:55:[address] [place] [address] Temperature Temporal Artery 36.3 Cheri 04/22/2022 11:55:00 [facility] Peripheral Pulse Rate 58 bpm 04/22/2022 11:55:[address] [place] [address] Mean Arterial Pressure, Calc 93 mm[Hg] 04/22/2022 11:55:[address] [place] [address] [facility] Encounters Combined list of: 1) Encounters from Department of Veterans Affairs facilities going backup to the last 18 months, not all VA inpatient encounters are included; 2) Encounters from the Department of Defense facilities going backup to 280 months. Location Location Details Encounter Type Encounter Number Reason For Visit Attending Provider ADM Date DC Date Status Disposition Source Josh Pace [facility] 1523) OUTPATIENT [id number] TAWNY JOYCE 02/22 Released w/o Limitations [facility] Fed [facility]( Audiolo gy [facility] 1523) [facility] Fed [facility](We llness Clinic Male) OUTPATIENT [id number] ARTI VILLEGAS 02/25 Released w/o Limitations [facility] Fed [facility]( [facility] Male) [facility] Fed [facility](Op tometry [facility] 1523) OUTPATIENT [id number] recruit screen OMER MEJÍA 02/28 Released w/o Limitations [facility] Fed [facility]( Optomet ry [facility] 1523) [facility](Mi litary Sick Call [facility] 237) OUTPATIENT [id number] att...h ead and neck issues ELZBIETA RDZ 08/02 Released w/o Limitations [facility] Fed [facility] [place]( Militar y Sick Call [facility] 237) [facility](Mi litary Sick Call [facility] 237) OUTPATIENT [id number] MICHELE MIRZA 08/20 Released w/o Limitations [facility]( Militar y Sick Call [facility] 237) [facility](Mi litary Sick Call [facility] 237) OUTPATIENT [id number] 9 Finn : Twisted right ankle JB BARON 09/05 Released with Work/Duty Limitations [facility] Fed [facility] [place]( Militar y Sick Call [facility] 237) [facility](Mi litary Sick Call [facility] 237) TELE CONSULT [id number] pt to see coltro tomorro w 09-06-10 for xray results ROMA NAVARRO 09/05 Referred for Appointment [facility] Fed [facility] [place]( Militar y Sick Call [facility] 237) [facility](Mi litary Sick Call [facility] 237) OUTPATIENT [id number] 9C: FOLLOW UP JB BARON 09/06 Released with Work/Duty Limitations [facility]( Militar y Sick Call [facility] 237) [facility] [place](Mi litary Sick Call [facility] 237) OUTPATIENT [id number] 9C f/u COLTRJB Brownlee 09/13 Released w/o Limitations Josh Metz [facility]( Militar y Sick Call [facility] 237) [facility](Immuniz [facility]ions [facility]) OUTPATIENT [id number] vaccine MORIAH ODELL 01/30 Released w/o Limitations [facility](Imm unizati ons [facility] ) [facility](Hearing Cons [facility]ane [facility]) OUTPATIENT [id number] FRANKI MELO 01/30 Released w/o Limitations [facility](Hea ring Cons [facility]ane Sta) [facility]) OUTPATIENT [id number] CHELSEA VAUGHN 02/05 Released w/o Limitations [facility](Opt ometry [facility] ) [facility] OUTPATIENT [id number] RAFA Jaffe 04/23 Released w/o Limitations [facility](Imm unizati ons [facility] ) [facility] OUTPATIENT [id number] IA/AFG RAFA PARHAM 05/16 Released w/o Limitations [facility](Immuniz ation [facility]) OUTPATIENT [id number] NMPS- ANT, SPDANTE SHELTON 05/19 Released w/o Limitations [facility](Imm unizati on [facility]) [facility] OUTPATIENT [id number] RAFA CAMPO 05/19 Released w/o Limitations [facility](NMP S) [facility] OUTPATIENT [id number] 10/30 Released w/o Limitations [facility] OUTPATIENT [id number] 12/27 Released w/o Limitations Theater Fac[facility] y [facility](NMPS) OUTPATIENT [id number] Notes Entered by: JARVIS HAIR 28 May 2012 0847 ------- ------- ------- ------- -- BRAXTON MCKEON GUERO Martir 05/28 Released w/o Limitations [facility](NMP S) [facility](Hearing Cons [facility]ane Sta) OUTPATIENT [id number] JOSE ALFREDO GARZON 09/21 Released w/o Limitations [facility](Hea ring Cons [facility]ane [facility]) [facility](Hearing Cons Dane Sta) OUTPATIENT [id number] MARI SYLVESTER 09/24 Released w/o Limitations [facility](Hea ring Cons Dane Sta) [facility](Hearing Cons Dane Sta) OUTPATIENT [id number] JOSE ALFREDO GARZON 11/08 Released w/o Limitations [facility](Hea ring Cons Dane Sta) [facility](Hearing Cons Dane Sta) OUTPATIENT [id number] JOSE ALFREDO GARZON 12/16 Released w/o Limitations [facility](Hea ring Cons Dane Sta) [facility] [place]) OUTPATIENT [id number] Notes Entered by: BRANDO HARRISON 09 Jan 2014 1329 ------- ------- ------- ------- -- Lower back pain, worseni ng over past 2-3 days CHELLE DANIELS 01/09 Released w/o Limitations [facility] ) [facility](Medical Readiness SURFLANT) OUTPATIENT [id number] Notes Entered by: WALT HOWELL F 10 Jan 2014 0904 ------- ------- ------- ------- -- IRENE Patton 01/10 Released w/o Limitations [facility](Med ical Readine ss SURFLAN T) [facility]) OUTPATIENT [id number] LOWER BACK SPRAIN PORTILLOABHIJIT Mitchell Paula 01/19 Released w/o Limitations [facility]) [employer](Fam [facility]) OUTPATIENT [id number] REFERRA L FOR CHIROPR ACTIC CLINIC MISSAEL MULLEN 09/12 Released w/o Limitations [employer](F [facility]) [employer](PT [facility]) OUTPATIENT [id number] RIDGE MEANS 09/17 Released w/o Limitations [employer](P T [facility]) [employer](Chi ropractic -Clinic) OUTPATIENT [id number] Low Back MATHEUS DE LOS SANTOS 09/19 Released w/o Limitations [employer](C hiropra ctic-Cl inic) [employer](PT Physical Thpy-Out) OUTPATIENT [id number] Pas entered the order SG CONSTANTINO 09/20 Released w/o Limitations [employer](P T Physica l Thpy-Ou t) [employer](Chi ropractic -Clinic) OUTPATIENT [id number] MATHEUS DE LOS SANTOS 09/25 Released w/o Limitations [employer](C hiropra ctic-Cl inic) [employer](PT Physical Thpy-Out) OUTPATIENT [id number] DEMETRIUS KOHLI 10/04 Released w/o Limitations [employer](P T Physica l Thpy-Ou t) [employer](Chi ropractic -Clinic) OUTPATIENT [id number] MATHEUS DE LOS SANTOS 10/16 Released w/o Limitations [employer](C hiropra ctic-Cl inic) [employer](Urg ent Care Clinic) OUTPATIENT [id number] referra l to urology SAMANTHA BRANDON 10/17 Released w/o Limitations [employer](U rgent Care Clinic) [employer](Chi ropractic -Clinic) OUTPATIENT [id number] MATHEUS DE LOS SANTOS 10/23 Released w/o Limitations [employer](C hiropra ctic-Cl inic) [employer]([facility]rg [facility]) TELE CONSULT [id number] Notes Entered by: BRANDT FRAIRE 26 Oct 2015 2136 ------- ------- ------- ------- -- Labs SCHULER SUYAPA J 10/26 [employer]([facility]) [employer]([facility] ent [facility]) TELE CONSULT [id number] Notes Entered by: RODERICK PRIETO 29 Oct 2015 1113 ------- ------- ------- ------- -- Lab results ARLENE HAYNES Marissa 10/28 [facility]) [facility] ent [facility]) TELE CONSULT [id number] Notes Entered by: CHRISTIAN GRANT CIA 13 Nov 2015 0945 ------- ------- ------- ------- -- Network Results Sleep Titrati on DIEGO RYAN 11/12 [facility]) [facility] [id number] MATHEUS DE LOS SANTOS 11/18 Released w/o Limitations [facility](Raza montoya ctic- in) Maribeth zayas [facility] [place] [employer] F01A Team A SCOM) OUTPATIENT [id number] initial visit ERNIE CERVANTES 07/20 Released with Work/Duty Limitations Maribeth corcoran [facility] [place] [employer] F01A Team A SCOM) Maribeth zayas [facility] [place]([facility] Team A SCOM) OUTPATIENT [id number] sore throat ERNIE CERVANTES 08/06 Sick at Home/Quarter s Maribeth corcoran [facility] [place] [employer] F01A Team A SCOM) Maribeth zayas [facility] [place]([facility] Team A SCOM) TELE CONSULT [id number] Notes Entered by: RAINE JAIN 01 Sep 2017 1025 ------- ------- ------- ------- -- MRI lumbar spine wo GENEVIEVE Lang 09/01 Mar[place] [facility] [place]([address] Team A SCOM) Maribeth Benjamin r [facility] [place]([address] Team A SCOM) OUTPATIENT [id number] test results ERNIE CERVANTES 09/14 Released with Work/Duty Limitations Maribeth Montoy[facility] [place]([address] Team A SCOM) Maribeth Maciase r [facility] [place]([address] Team A SCOM) OUTPATIENT [id number] jason klein in leg/ERNIE Craig 02/24 Released with Work/Duty Limitations [facility] [place] Team A SCOM) Maribeth Benjamin r [facility] [place]([address] Team A SCOM) OUTPATIENT [id number] pha ERNIE CERVANTES 03/08 Released w/o Limitations [place] [facility] [place]([address] Team A SCOM) Maribeth Benjamin r [facility] [place]([address] Team A SCOM) OUTPATIENT [id number] Notes Entered by: HUEY BURRELL 07 Apr 2018 0709 ------- ------- ------- ------- -- Right Knee Pain (No Referra ls) ERNIE CERVANTES 04/07 Released with Work/Duty Limitations [place] [facility] [place]([address] Team A SCOM) Maribeth Benjamin r [facility] [place]([address] Team A SCOM) TELE CONSULT [id number] Notes Entered by: CORA VINCENT 12 Apr 2018 1429 ------- ------- ------- ------- -- pt referra l ERNIE CERVANTES 04/12 [facility] [place] Team A SCOM) Maribeth zayas [facility] [place] ([address] Team A SCOM) TELE CONSULT [id number] Notes Entered by: RAINE JAIN 27 May 2018 0755 ------- ------- ------- ------- -- MRI right knee wo ERNIE Clinton 05/27 Maribeth corcoran [facility] [place]([address] Team A SCOM) Maribeth zayas [facility] [place]([address] Team A SCOM) TELE CONSULT [id number] Notes Entered by: RAINE JAIN 14 Jun 2018 0949 ------- ------- ------- ------- -- Orthope dic consult report - right knee ERNIE CERVANTES 06/14 Maribeth corcoran [facility] [place] ([address] Team A SCOM) Maribeth zayas [facility] [place] ([address] Team A SCOM) TELE CONSULT [id number] Notes Entered by: Raza CARBAJAL 15 Jun 2018 1444 ------- ------- ------- ------- -- Pre-op (ortho) ERNIE CERVANTES 06/15 Maribeth corcoran [facility] [place] ([address] Team A SCOM) Maribeth zayas [facility] [place] ([address] Team A SCOM) OUTPATIENT [id number] 3 check up/ phy ERNIE CERVANTES 06/18 Released with Work/Duty Limitations Maribeth corcoran [facility] [place]([facility] Team A SCOM) Maribeth zayas [facility] [place]([address] Team A SCOM) OUTPATIENT [id number] provide r called to follow up ERNIE CERVANTES 07/09 Released with Work/Duty Limitations Maribeth corcoran [facility] [place]([address] Team A SCOM) Maribeth zayas [facility] [place]([address] Team A SCOM) OUTPATIENT [id number] eavl from having knee surg KSENIA CANTU 09/24 Released w/o Limitations Maribeth corcoran [facility] [place] F[facility]A Team A SCOM) Maribeth zayas [facility] [place]([facility] F01A Team A SCOM) OUTPATIENT [id number] follow up from knee surgery ASHVIN FAJARDO KSENIA 10/21 Released w/o Limitations Maribeth corcoran [facility] [place]([facility] F01A Team A SCOM) Maribeth zayas [facility] [place]([facility] F01A Team A SCOM) OUTPATIENT [id number] f/u ER visit ASHVIN FAJARDO KSENIA 11/15 Released w/o Limitations Maribeth corcoran [facility] [place]([employer] F[facility]A Team A SCOM) Maribeth zayas [facility] [place]([employer] F01A Team A SCOM) TELE CONSULT [id number] Notes Entered by: RAINE JAIN 10 Dec 2018 0758 ------- ------- ------- ------- -- Orthope dic f/u consult report - right knee ASHVIN FAJARDO [facility] 12/10 Maribeth corcoran [facility] [place]([employer] F[facility]A Team A SCOM) Maribeth zayas [facility] [place]([employer] F[facility]A Team A SCOM) TELE CONSULT [id number] Notes Entered by: RAINE JAIN 02 Feb 2019 0841 ------- ------- ------- ------- -- Orthope dic f/u consult report - right knee postop ASHVIN FAJARDO KSENIA 02/02 Maribeth corcoran [facility] [place]([facility] F01A Team A SCOM) Maribeth zayas [facility] [place]([facility] F01A Team A SCOM) OUTPATIENT [id number] ishaan-e scobar/ back pain ASHVIN FAJARDO KSENIA 02/07 Released w/o Limitations Maribeth corcoran [facility] [place]([address] Team A [place]) Maribeth zayas [facility] [place]([address] Team A [facility] OUTPATIENT [id number] ishaan-e scobar/ pha KSENIA CANTU 04/01 Released w/o Limitations Maribeth corcoran [facility] [place]([address] Team A [facility] Maribeth zayas [facility] [place]([address] A [facility] TELE CONSULT [id number] Notes Entered by: Heber SCOTT 10 May 2019 1432 ------- ------- ------- ------- -- pt report ASHVIN FAJARDO KSENIA J 05/10 Maribeth corcoran [facility] [place]([address] Team A [facility] Maribeth zayas [facility] [place]([address] A [facility] TELE CONSULT [id number] Notes Entered by: АЛЕКСАНДР MCGOVERN 07 Jun 2019 1327 ------- ------- ------- ------- -- Physica l Therapy ReferHERMELINDO Mac 06/07 Maribeth corcoran [facility] [place]([address] Team A [facility] Maribeth zayas [facility] [place]([address] Team A [facility] OUTPATIENT [id number] acd/pro blem with shots/3 05[birth year]- 1934/vi rtHERMELINDO Kirby 03/08 Released w/o Limitations Maribeth [place] [facility] [place]([address] Team A [place]) Maribeth zayas [facility] [place]([address] Team A [facility] OUTPATIENT [id number] Ear Checkup KSENIA CANTU 06/12 Released w/o Limitations Maribeth corcoran [facility] [place]([address] Team A [place]) Maribeth zayas [facility] [place] JACQUELINE(Opsurg e Multi-Spe cialty [facility]) TELE CONSULT [id number] Notes Entered by: JOSE ULLOARADHA LILIYA Corona 21 Jun 2020 1343 ------- ------- ------- ------- -- COVID Results MARQUES DAVIS 06/21 DCarlos corcoran [facility] [place] JACQUELINE(Opsu rge Multi-S pecialt y [facility]) Theater Facility OUTPATIENT [id number] Theater Provider 09/25 Released w/o Limitations Theater Fac[facility] Theater Facility OUTPATIENT [id number] Theater Provider 11/13 Released w/o Limitations Theater Facilit y D. D. Cassidy zayas [facility] [place]([employer] F[facility]A Team A SCOM) OUTPATIENT [id number] resched uled//g eneral checkup /physic al f2f KSENIA CANTU 01/22 Released w/o Limitations D. DCarlos corcoran [facility] [place]([facility] Team A SCOM) Maribeth zaays [facility] [place]([facility] Team A SCOM) OUTPATIENT [id number] 9 f2f//fo llow-up urgent care visit KSENIA CANTU 09/12 Released w/o Limitations D. DCarlos corcoran [facility] [place]([facility] Team A SCOM) Maribeth zayas [facility] [place]([facility] Team A SCOM) TELE CONSULT [id number] Notes Entered by: RAINE JAIN 23 Sep 2021 0950 ------- ------- ------- ------- -- Chest Xray KSENIA CANTU 09/23 Maribeth corcoran [facility] [place]([facility] Team A SCOM) Maribeth zayas [facility] [place]([facility] Team A SCOM) OUTPATIENT [id number] Discuss followu p on hbp medicat ion//vr //[id number] KSENIA CANTU 10/29 Released w/o Limitations DCarlos [place] [facility] [place]([employer] F[facility]A Team A SCOM) [facility] TELE CONSULT [id number] Notes Entered by: Nicole GR 15 Nov 2021 0720 ------- ------- ------- ------- -- SICK CALL- COVID TEST SHONA OCONNOR 11/[address] [place] [address]([facility]) Maribeth zayas [facility] [place] F[facility]A Team A SCOM) OUTPATIENT [id number] 4/[facility] CARLY Talley 01/08 Sick at Home/Quarter s DCarlos corcoran [facility] [place] JACQUELINE([employer] F01A Team A SCOM) Maribeth zayas [facility] [place]([employer] F01A Team A SCOM) OUTPATIENT [id number] annual check up KSENIA CANTU 04/22 Released w/o Limitations DCarlos [place] [facility] [place] F01A Team A SCOM) 6118M-[facility] Between Visit [id number] 05/03 Discharge Disposition: Home or Self Care 6118M-[facility] r [id number] AMDS Between Visit [id number] 05/06 Discharge Disposition: Home or Self Care [id number] AMDS [id number] AMDS Between Visit [id number] 08/23 Discharge Disposition: Home or Self Care [...] to one or more areas; traction, mechanical [address] [facility] Chiropractic manipulative treatment (CMT); spinal, one to two regions Chiropractic manipulative treatment (CMT); spinal, one to two regions [address] [place] [address] Application of a modality to one or more areas; hot or cold packs Application of a modality to one or more areas; hot or cold packs [address] [place] [address] Chiropractic manipulative treatment (CMT); spinal, three to four regions Chiropractic manipulative treatment (CMT); spinal, three to four regions [address] [place] [address] INFLUENZA VIRUS VACCINE, TRIVALENT, LIVE (LAIV3), FOR INTRANASAL USE 04/29/20 10 [facility] YELLOW FEVER VACCINE, LIVE, FOR SUBCUTANEOUS USE 04/01/20 10 [facility] VIS FUNCT SCREEN,AUTOMAT/LINH I-AUTOMAT BILAT QUANT DETERM VISUAL ACUITY,OCULAR ALIGN,COLOR VISION,PSEUDOISOCH ROMAT PLATES,& FIELD VIS (MAY INC ALL/SOME SCRN DETERM FOR CONTRAST SENSITIV,VIS UND GLARE) 02/29/20 10 [facility] YELLOW FEVER VACCINE, LIVE, FOR SUBCUTANEOUS USE 02/26/20 10 [facility] SKIN TEST; TUBERCULOSIS, INTRADERMAL 02/23/20 10 [facility] AUDIOMETRIC TESTING OF GROUPS 02/23/20 10 [facility] COLLECTION OF VENOUS BLOOD BY VENIPUNCTURE 02/22/20 10 [facility] ELECTROCARDIOGRAM, ROUTINE ECG WITH AT LEAST [...] INCLUDES ALL COMPONENTS AND ACCESSORIES 09/20/19 16 [facility] THERAPEUTIC PROCEDURE, 1 OR MORE AREAS, EACH 15 MINUTES; THERAPEUTIC EXERCISES TO DEVELOP STRENGTH AND ENDURANCE, RANGE OF MOTION AND FLEXIBILITY 09/18/19 16 [facility] BRIEF EMOTIONAL/BEHAVIOR AL ASSESSMENT (EG, DEPRESSION INVENTORY, ATTENTION-DEFICIT/ HYPERACTIVITY DISORDER [ADHD] SCALE), WITH SCORING AND DOCUMENTATION, PER STANDARDIZED INSTRUMENT 04/15/20 21 [facility] TELE ASSESS & MGT SRV PROV QUAL NONPHYS HLTH CARE PRO TO EST PAT,PARENT,GUARD NOT ORIG REL ASSESS & MGT SRV PROV W/IN PREV 7 DAYS NOR LEAD ASSESS & MGT SRV/PX W/IN NXT 24 HR/SOON APT;5-10 MIN MED DIS 04/12/20 21 [facility] WAIVER SERVICES; NOT OTHERWISE SPECIFIED (NOS) 03/08/20 20 [facility] LIDOCAINE 70 MG/TETRACAINE 70 MG, PER PATCH 07/20/19 18 [facility] CHIROPRACTIC MANIPULATIVE TREATMENT (CMT); SPINAL, 1-2 REGIONS 01/20/20 14 [facility] SCREENING TEST, PURE TONE, AIR ONLY 12/17/19 14 [facility] AUDIOMETRIC TESTING OF GROUPS 11/09/19 13 [facility] SCREENING TEST, PURE TONE, AIR ONLY 09/25/19 13 [facility] AUDIOMETRIC TESTING OF GROUPS 09/22/19 13 [facility] COLLECTION OF VENOUS BLOOD BY VENIPUNCTURE 05/28/20 12 [facility] IMMUNIZATION ADMINISTRATION (INCLUDES PERCUTANEOUS, INTRADERMAL, SUBCUTANEOUS, OR INTRAMUSCULAR INJECTIONS); EACH ADDITIONAL VACCINE (SINGLE OR COMBINATION VACCINE/TOXOID) 05/19/20 11 [facility] SKIN TEST; TUBERCULOSIS, INTRADERMAL 04/23/20 11 [facility] VIS FUNCT SCREEN,AUTOMAT/LINH I-AUTOMAT BILAT QUANT DETERM VISUAL ACUITY,OCULAR ALIGN,COLOR VISION,PSEUDOISOCH ROMAT PLATES,& FIELD VIS (MAY INC ALL/SOME SCRN DETERM FOR CONTRAST SENSITIV,VIS UND GLARE) 02/06/20 11 [facility] SCREENING TEST, PURE TONE, AIR ONLY 01/31/20 11 [facility] Modalities Traction Modalities Traction 32835 11/19/19 16 MATHEUS DE LOS SANTOS [facility] Modalities Heat Hot Packs Modalities Heat Hot Packs 14861 11/19/19 16 MATHEUS DE LOS SANTOS [facility] Chiropractic Manip Treatmt (CMT) Spinal Three To Four Region Chiropractic Manip Treatmt (CMT) Spinal Three To Four Region 70683 11/19/19 16 MATHEUS DE LOS SANTOS Modalities Traction Modalities Traction 06529 10/24/19 16 MATHEUS DE LOS SANTOS Modalities Heat Hot Packs Modalities Heat Hot Packs 52892 10/24/19 16 MATHEUS DE LOS SANTOS Chiropractic Manip Treatmt (CMT) Spinal Three To Four Region Chiropractic Manip Treatmt (CMT) Spinal Three To Four Region 01313 10/24/19 16 MATHEUS DE LOS SANTOS Modalities Traction Modalities Traction 29328 10/17/19 16 MATHEUS DE LOS SANTOS Modalities Heat Hot Packs Modalities Heat Hot Packs 56472 10/17/19 16 MATHEUS DE LOS SANTOS Chiropractic Manip Treatmt (CMT) Spinal Three To Four Region Chiropractic Manip Treatmt (CMT) Spinal Three To Four Region 76083 10/17/19 16 MATHEUS DE LOS SANTOS Physical Therapy: ___ Se ion Segments, 15 Minutes Each Physical Therapy: ___ Session Segments, 15 Minutes Each 19818 10/05/19 16 DEMETRIUS KOHLI Modalities Traction Modalities Traction 14049 09/26/19 16 MATHEUS DE LOS SANTOS Modalities Heat Hot Packs Modalities Heat Hot Packs 88561 09/26/19 16 MATHEUS DE LOS SANTOS Chiropractic Manip Treatmt (CMT) Spinal Three To Four Region Chiropractic Manip Treatmt (CMT) Spinal Three To Four Region 41918 09/26/19 16 MATHEUS DE LOS SANTOS Physical Therapy: ___ Se ion Segments, 15 Minutes Each Physical Therapy: ___ Session Segments, 15 Minutes Each 99603 09/21/19 16 SG CONSTANTINO [facility] Positioning cushion/pillow/wed ge, any shape or size, includes all components and acce ories 09/20/19 16 MATHEUS DE LOS SANTOS Cervical pillow, coby, soft Bettye Hot water bottle, ice cap or collar, heat and/or cold wrap, any type 09/20/19 16 MATHEUS DE LOS SANTOS Chiropractic Manip Treatmt (CMT) Spinal Three To Four Region Chiropractic Manip Treatmt (CMT) Spinal Three To Four Region 80992 09/20/19 16 MATHEUS DE LOS SANTOS A isted Exercises For ROM Assisted Exercises For ROM 83576 09/18/19 16 RIDGE MEANS [facility] Physical Therapy Service Evaluation Physical Therapy Service Evaluation 88559 09/18/19 16 RIDGE MEANS [facility] Chiropractic Manip Treatmt (CMT) Spinal One To Two Regions Chiropractic Manip Treatmt (CMT) Spinal One To Two Regions 28170 01/20/20 14 ABHIJIT PORTILLO [facility] Audiogram (Screening) Audiogram (Screening) 26432 12/17/19 14 JOSE ALFREDO GARZON [facility] Audiometry Group Testing Audiometry Group Testing 71489 12/17/19 14 JOSE ALFREDO GARZON [facility] Audiogram (Screening) Audiogram (Screening) 95995 11/09/19 13 JOSE ALFREDO GARZON [facility] Audiometry Group Testing Audiometry Group Testing 43618 11/09/19 13 JOSE ALFREDO GARZON [facility] Audiometry Group Testing Audiometry Group Testing 45901 09/25/19 13 JOJO ARMENTA Audiogram (Screening) Audiogram (Screening) 24709 09/25/19 13 JOJO ARMENTA [facility] Audiogram (Screening) Audiogram (Screening) 67549 09/22/19 13 JOSE ALFREDO GARZON [facility] Audiometry Group Testing Audiometry Group Testing 21730 09/22/19 13 JOSE ALFREDO GARZON [facility] Venipuncture Venipuncture 57313 05/28/20 12 GUERO MCKEON [facility] Immunization Administration By Injection, Each Additional Vaccine 05/20/20 11 DANTE PISANO [facility] Physician Supervised Services Provision Of Educational Supplies Physician Supervised Services Provision Of Educational Supplies 92923 05/20/20 11 DEYVIDANTE [facility] Physician Services Special Review / Reporting Of Patient Status Physician Services Special Review / Reporting Of Patient Status 35628 05/20/20 11 DANTE PISANO [facility] Physician Supervised Group Educational Services 05/20/20 11 DANTE PISANO [facility] Vaccines Vaccines 58227 05/20/20 11 [facility] Immunization Administration By Injection, One Vaccine Immunization Administration By Injection, One Vaccine 02803 05/20/20 [facility] Skin Test Anergy Tuberculin Intradermal Skin Test Anergy Tuberculin Intradermal 80420 04/23/20 11 RAFA TREJO [facility] Visual Function Screening Visual Function Screening 13713 02/06/20 11 CHARLOTTE CHELSEA Milan [facility] Screening Test Of Visual Acuity, Quantitative, Bilateral Screening Test Of Visual Acuity, Quantitative, Bilateral 94682 02/06/20 11 VINNY PORTERJULIEN Yates [facility] Audiometry Group Testing Audiometry Group Testing 96992 01/31/20 11 KAMERONFRANKI [facility] Audiogram (Screening) Audiogram (Screening) 90363 01/31/20 11 YOLANDA MELOREY Metz [facility] Visual Function Screening Visual Function Screening 32325 02/29/20 10 OMER MEJÍA [facility] Screening Test Of Visual Acuity, Quantitative, Bilateral Screening Test Of Visual Acuity, Quantitative, Bilateral 04112 02/29/20 10 OMER MEJÍA [facility] Threshold Audiogram (Pure Tone) Threshold Audiogram (Pure Tone) 36508 02/23/20 10 [facility] Audiometry Group Testing Audiometry Group Testing 69983 02/23/20 10 [place] [facility] Waiver services; not otherwise specified (NOS) HERMELINDO LOMELI [facility] Non-Physician Phone Call To Patient/Provider Brief (5-10min) Non-Physician Phone Call To Patient/Provider Brief (5-10min) 12984 SHEBA CURTIS [facility] Psychiatric Diagnostic Evaluation Psychiatric Diagnostic Evaluation 03177 SHEBA CURTIS [facility] Psychometric Emotional / Behavioral A e ment Psychometric Emotional / Behavioral Assessment 97135 SHEBA CURTIS [facility] Social History Combined list of available smoking, tobacco, and other social history from [facility] of 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 Social History Type Response Date Comment Sourc e Sex Representation Male 03/13/2020 Unknow n Organization Tobacco smoking status NHIS LIFETIME NON-USER OF TOBACCO 04/15/2016 [facility] History of tobacco use LIFETIME NON-USER OF TOBACCO 05/28/2015 [facility] History of tobacco use LIFETIME NON-USER OF TOBACCO 05/08/2015 [facility] History of tobacco use LIFETIME NON-USER OF TOBACCO 06/14/2014 [facility] Sexual Orientation Ambula tory Pharmacy Gender identity Ambulator y Pharmacy This section is an empty social history section. [facility] Assessment and Plan Combined list of [...] equipment Ordered: Referral Request 2.0 ? [facility] ? ? Extracted from:Title: LONNIE Author: [...] blood pressure starts to rise, verb understanding. 09/22/[address] [place] [address] Advance Directives List of completed, amended, or rescinded Advance Directives on record at Department of Veterans Affairs facilities. An actual copy of the Directive is not included. Date Advance Directive Provider Source 06/14/2014 ADVANCE DIRECTIVE DISCUSSION AARON KWON [facility] Functional Status Combined list of recent functional and cognitive assessments recorded at [facility] and [facility] ([facility] Functional [place] Measurement (FIM) Scale: 1 = Total Assistance (Subject = 0% +), 2 = Maximal Assistance (Subject = 25% +), 3 = Moderate Assistance (Subject = 50% +), 4 = Minimal Assistance (Subject = 75% +), 5 = Supervision, 6 = Modified [place] (Device), 7 = Complete [place] (Timely, Safely). Assessment Date/Time Source Assessment Type Assessment Skill Assessment Score Assessment Details No data available for this section
--- OUTSIDE RECORDS SUMMARY | 2024-09-22 08:20 | XMS_ITS ---
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, [facility] Primary Care [place] mckeon [phone]
--- OUTSIDE RECORDS SUMMARY | 2024-09-22 08:20 | XMS_ITS | Clinical Summary ---
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 Name Role Phone Luis Fernando WALDROP, Lobito George [phone] [facility] Primary Care P rovider [phone] Reason for Visit and Chief Complaint visit for: follow-up exam - The Chief Complaint is: allergies Plan of Treatment - Recommended mattress / pillow covers for dust mites - Last Documented On 03/11/2021 1:12PM ; [facility] Pending Tests Order Diagnosis Results Due Ordering P rovider Return Follow Up - Month(s) 3 months Chronic rhinitis Lobito Gould MD Last Documented On 1 1:12PM ; [facility] Plan: Medications - Medication Care Plan Continue current Medications Chronic rhinitis 03/11/21 Lobito Gould MD Last Documented On 1 1:12PM ; [facility] Instructions to patient Avoid allergens Last Documented On 1:11PM ; [facility] Assessments Includes: Assessments from this encounter Findings - Chronic rhinitis - Last Documented On 03/11/2021 1:12PM ; [facility] Instructions Includes: Instructions from this encounter Instructions to patient Avoid allergens Last Documented On 1:11PM ; [facility] Medical Equipment - Implanted Devices [...] Gould MD ; [facility] Fexofenadine HCl 180 MG Oral Tablet 03/02/2021 Provider: Lisa REYNA ([place]) Diagnosis: 1 tab po qd Last Documented On 2:43PM By Jimmy Luther ; [facility] Medications Administered Includes: Administered Medications from this [...] 11:52A M ; [facility] Results Includes: Results discussed during this encounter [...] 1:12PM ; [facility] Smoking Status Unknown Procedures and Surgical History Includes: Procedures from this encounter Procedures Code Diagnosis Performing Provider Service L ocation Service Date avoid allergens Last Documented On 1 1:11PM ; [facility] medication list reviewed Last Documented On 1 1:09PM ; [facility] percutaneous tests with allergenic extracts was [phone] [id number] Last Documented On 11:52AM ; [facility] intradermal tests with allergenic extracts (imme diate) was 58 [id number] Last Documented On 12:38PM ; [facility] allergy sensitivity testing Last Documented On 1 11:52AM ; [facility] Medical History Includes: Medical History addressed during this encounter Description Last Updated Past medical history reviewed 03/11/2021 Last Documented On 1 1:12PM ; [facility] Family History Includes: Family History addressed during [...] Time Diagnosis Post Test Lobito Gould MD [place] Office 1 11:04AM 1:08PM Rhinitis Chronic Insurance Includes: Active Insurance Policies Plan Name Member ID Group # Subscriber Relationship Effect kiran Dates 1 - [facility] [id number] Ellis Corral Self 07/13/2017 - Un known Clinical Notes Includes: Clinical Notes from this encounter No Clinical Notes Recorded
--- NOTE | 2024-09-22 09:59 | A.OFFPC_ITS ---
Intake Visit Reasons: Discuss Labs Allergies No Known Allergies Allergy (Verified 09/16/24 13:00) Medication List - Last Reconciled 09/22/24 by Katya Chandra MD ascorbate calcium (vitamin C) 500 mg PO DAILY cholecalciferol (vitamin D3) 50 mcg PO DAILY diphenhydramine HCl (Benadryl Allergy) 25 mg PO BEDTIME PRN Tobacco use date assessed: 09/16/24 Dental Screening Dental Screen Date: 09/16/24 HPI Discuss Labs HPI Details History The patient is a 44-year-old male presenting with elevated liver enzymes identified during recent laboratory testing. - Last year's tests indicated only a sli ght abnormality in one enzyme, whereas the current test shows worsening levels affecting multiple enzymes. - Alcohol consumption is infrequent, not ed as once monthly, in small amounts, with advice provided to avoid it completely to reduce liver stress. - No recent changes in weight were obser alla. - The patient denies the presence of sym ptoms such as nausea or abdominal pain. Problem List - Elevated Liver Enzymes Patient Instructions - Avoid alcohol consumption to reduce li ana stress. - Do not take Tylenol for pain relief. - Eat healthy foods and avoid processed or pre-made foods. - Avoid consuming energy drinks. - No need to fast for the next scheduled blood test. - Follow-up with another blood test in s ix months. Review of Systems - Gastrointestinal: Denies nausea, denie s abdominal pain. - General: No fever no chills - Neurological: No headaches no dizziness - Ear nose throat: No sore throat no hearing difficulty no ear pain - Cardiovascular: No syncope, no chest pain, no palpitations - Endocrine: No polyuria polydipsia no heat intolerance - Genitourinary: No dysuria , no blood in urine [facility] Medical History Lower back pain Rupture of anterior cruciate ligament of right knee Sleep apnea Hypertension Surgical History History of repair of anterior cruciate ligament of right knee Family History Father Prostate cancer Paternal Grandmother Diabetes type 2, controlled Social History Housing: House Patient Tobacco Use Status: Never used Tobacco e-Cigarette/Vaping Use: Never Used Second Hand Smoke Exposure: No service: Yes ([employer] ) Current occupational status: employed Current occupational exposures/hazards: Yes Cognitive needs: No Hearing needs: No Vision needs: No Questionnaire Thrive Questionnaire Date Thrive assessed: 09/09/24 I am a: Patient What is your living situation today?: I have a steady place to live Within the past 12 months, did the food you bought not last and you didn't have the money to get more?: Never true Within the past 12 months, did you worry whether your food would run out before you got money to buy more?: Never true Do you have trouble paying for medicines?: No Do you have trouble getting transportation to medical appointments?: No Do you have trouble paying your heating and electricity bill?: No Do you have trouble taking care of your child, family member or friend?: No Do you have trouble with day-to-day activities such as bathing, preparing meals, shopping, managing finances, etc.?: No Are you currently unemployed and looking for a job?: No Are you interested in more education?: Yes Please select the resources that you would like help with: None Currently or been in a relationship where the following occur: No concerns reported THRIVE Score: 0 BHUPINDER-7 AMB Questionnaire BHUPINDER-7 Date BHUPINDER - 7 assessed: 09/16/24 Source: Developed by Drs. Scar Mortensen, Priya Quinteros, Doe Palumbo and colleagues, with an educational gege from [employer]. Physical exam (Primary Care) Tobacco/Smoking Status: Tobacco use Status Tobacco use date assessed 09/16/24 09/22/24 09:59 Patient Tobacco Use Status Never used Tobacco 09/22/24 09:59 e-Cigarette/Vaping Use Never Used 09/22/24 09:59 Thrive Assessment: Date of Thrive Assessment Date Thrive assessed 09/09/24 09/22/24 09:59 Currently or been in a relationship where the following occur: No concerns reported Telehealth Telehealth [facility]health [facility] Location of provider rendering services: practice address Location of patient: address on file Patient Identification confirmed using: Name, : Yes Telehealth method: voice only Patient verbally consented to treatment: Yes Patient verbally consented to billing insurance company: Yes Patient informed of any privacy concerns related to visit: Yes Minutes spent on Phone/Video with Pt.: 13 Coding Level of Care Code Tele Est Pt Level 3 (54492) Diagnoses LFT elevation R79.89 Assessment & Plan Assessment & Plan (1) LFT elevation: Code(s): R79.89 - Other specified abnormal findings of blood chemistry Category: Medical Plan History The patient is a 44-year-old male presenting with elevated liver enzymes identified during recent laboratory testing. - Last year's tests indicated only a slight abnormality in one enzyme, whereas the current test shows worsening levels affecting multiple enzymes. - Alcohol consumption is infrequent, noted as once monthly, in small amounts, with advice provided to avoid it completely to reduce liver stress. - No recent changes in weight were observed. - The patient denies the presence of symptoms such as nausea or abdominal pain. Problem List - Elevated Liver Enzymes Patient Instructions - Avoid alcohol consumption to reduce liver stress. - Do not take Tylenol for pain relief. - Eat healthy foods and avoid processed or pre-made foods. - Avoid consuming energy drinks. - No need to fast for the next scheduled blood test. - Follow-up with another blood test in six months. Orders: Orders Liver Panel 5 Months R79.89 - Other specified abnormal findings of blood chemistry
--- OUTSIDE RECORDS SUMMARY | 2024-09-22 12:05 | XMS_ITS | Clinical Summary ---
Author Organization [employer] [facility] it Address [address] [place] [address] Care Team Providers Care Data Processing Specialist Name Role Phone Unavailable Primary Care Provider [...]
--- OUTSIDE RECORDS SUMMARY | 2024-09-22 12:06 | XMS_ITS ---
Author Organization [facility] Address [address] [facility] [address] [place] [address] Phone Care Team Providers Care Application Lead Name Role Phone Luis Fernando WALDROP, Lobito George [phone] [facility] Primary [facility] P rovider [phone] Plan of Treatment Findings Encounter Date Recommended mattress / helen w covers for dust mites Post Test with Lobito Gould MD 03/11/2021 Last Documented On 1 1:12PM ; [facility] Recommended allergy sensitiv ity testing - abbrev New Patient with Lobito Gould MD 03/04/2021 Last Documented On 1 3:12PM ; [facility] Instructions to patient Avoid allergens Last Documented On 1 1:11PM ; [facility] Instructions for patient - p janell use of nasal spray Last Documented On 1 3:11PM ; [facility] Assessments Includes: Assessments for all patient encounters Findings Encounter Date Allergic rhinitis Follow Up with Lobito fiore MD 06/10/2021 Last Documented On 1 12:44PM ; [facility] Chronic rhinitis Post Test with Lobito Gould MD 03/11/2021 Last Documented On 1 1:12PM ; [facility] Chronic rhinitis New Patient with Lobito kebede MD 03/04/2021 Last Documented On 1 3:12PM ; [facility] Instructions Includes: Instructions for all patient encounters Instructions to patient Avoid allergens Last Documented On 1 1:11PM ; [facility] Instructions for patient - p janell use of nasal spray Last Documented On 3:11PM ; [facility] Medical Equipment - Implanted Devices Includes: Current and historical Devices No Medical Equipment Recorded Medications Includes: Current and historical Medications Current Medications (continue as prescribed) Fluticasone Propionate 50 MCG/ACT Nasal Suspension 06/10/2021 Provider: Lobito fiore MD Diagnosis: Allergic rhiniti s, unspecified 2 sp en qd as needed Last Documented On 12:45PM By Lobito Gould MD ; [facility] Fexofenadine HCl 180 MG Oral Tablet 03/02/2021 Provider: Lisa REYNA ([place]) Diagnosis: 1 tab po qd Last Documented On 2:43PM By Jimmy Luther ; [facility] Past Medications on file Fluticasone Propionate 50 MCG/ACT Nasal Suspension 03/04/2021 - 06/10/2021 Provider: Lobito pham MD Diagnosis: Chronic rhinitis 2 sp en qam Last Documented On 12:25PM By Stef Snow ; [facility] Azelastine HCl 0.1% Nasal Solution 03/02/2021 - 03/02/2021 Provider: Lisa REYNA ([place]) Diagnosis: prn Last Documented On 2:58PM By Lobito Gould MD ; [facility] Medications Administered Includes: Administered Medications in patient's [...] 12:44PM ; [facility] Smoking status : Never smoker 03/04/2021 Last Documented On 3:12PM ; [facility] Air-conditioning filters are changed tim ry 3 months 03/04/2021 Last Documented On 3:12PM ; [facility] Environmental history reviewed 1 Last Documented On 1 3:12PM ; [facility] Housing has central cooling 03/04/2021 Last Documented On 1 3:12PM ; [facility] Housing has windows closed 03/04/2021 Last Documented On 1 3:12PM ; [facility] Lives in apartment 03/04/2021 Last Documented On 1 3:12PM ; [facility] Mattress is encased 03/04/2021 Last Documented On 1 3:12PM ; [facility] No carpets in residence 03/04/2021 Last Documented On 1 3:12PM ; [facility] No contact with pets or other animals Last Documented On 1 3:12PM ; [facility] No exposure to environmental tobacco smo ke 03/04/2021 Last Documented On 1 3:12PM ; [facility] No exposure to molds 03/04/2021 Last Documented On 1 3:12PM ; [facility] No HEPA filters 03/04/2021 Last Documented On 1 3:12PM ; [facility] No secondhand cigarette smoke exposure 0 03/04/2021 Last Documented On 1 3:12PM ; [facility] No wall unit cooling in residence 2020 Last Documented On 1 3:12PM ; [facility] Not living near a major source of pollut ion 03/04/2021 Last Documented On 1 3:12PM ; [facility] Patient does not sleep with stuffed anim als 03/04/2021 Last Documented On 1 3:12PM ; [facility] Patient is not exposed to clutter [...] Subscriber Relationship Effect kiran Dates 1 - [facility] [id number] Ellis Ellis Self 07/13/2017 - Un known Clinical Notes Includes: Signed Clinical Notes starting from 11/29/2022 No Clinical Notes Recorded
--- OUTSIDE RECORDS SUMMARY | 2024-09-22 12:06 | XMS_ITS | Clinical Summary ---
Author Organization [facility] Address [address] [facility] [address] [place] [address] Phone Care Team Providers Care Caregivers Non Medical Name Role Phone Luis Fernando WALDROP, Lobito George [phone] [facility], [facility] Primary Care P rovider [phone] Reason for Visit and Chief Complaint visit for: follow-up exam - The Chief Complaint is: allergies Plan of Treatment Pending Tests Order Diagnosis Results Due Ordering P rovider Return Follow Up - Month(s) 6 months Allergic rhinitis, unspecified 06/10/21 Lobito Gould MD Last Documented On 12:44PM ; [facility] Assessments Includes: Assessments from this encounter Findings - Allergic rhinitis - Last Documented On 06/10/2021 12:44PM ; [facility] Medical Equipment - Implanted Devices Includes: Current Devices No Medical Equipment Recorded Medications Includes: Medications discussed during this encounter and other current Medications Discontinued / Stopped on this date Lobito Gould MD on 03/04/2021 Fluticasone Propionate 50 MC G/ACT Nasal Suspension Provider: Lobito Gould MD Diagnosis: Chronic rhinitis Last Documented On 12:25PM By Stef Snow ; [facility] New / Renewed during this visit Lobito Gould MD on 06/10/2021 Fluticasone Propionate 50 MCG/ACT Nasal Suspension Provider: Lobito fiore MD 30 day supply: 16 gram, 3 refills Diagnosis: Allergic rhinitis, unspecified 2 sp en qd as needed Pharmacy: [facility] [id number] [address], [phone] - Last Documented On 12:45PM By Lobito Gould MD ; [facility] Current Medications (continue as prescribed) Fexofenadine HCl 180 MG Oral Tablet 03/02/2021 Provider: Lisa REYNA ([place]) Diagnosis: 1 tab po qd Last Documented On 1 2:43PM By Jimmy Luther ; [facility] Medications Administered Includes: Administered Medications from [...] 12:26P M ; [facility] Results Includes: Results discussed during this [...] On 12:44PM ; [facility] Smoking Status Unknown Procedures and Surgical History Includes: Procedures from this encounter Procedures Code Diagnosis Performing Provider Service L ocation Service Date medication list reviewed Last Documented On 1 12:26PM ; [facility] Medical History Includes: Medical History addressed during this encounter Description Last Updated Past medical history reviewed 06/10/2021 Last Documented On 12:44PM ; [facility] Family History Includes: Family History addressed [...] Time Diagnosis Follow Up Lobito Gould MD [place] Office 1 12:16PM 12:46PM Allergic Rhinitis Insurance Includes: Active Insurance Policies Plan Name Member ID Group # Subscriber Relationship Effect kiran Dates 1 - [facility] [id number] Ellis Ellis Self 07/13/2017 - Un known Clinical Notes Includes: Clinical Notes from this encounter No Clinical Notes Recorded
--- OUTSIDE RECORDS SUMMARY | 2024-09-22 12:06 | XMS_ITS | Clinical Summary ---
Author Organization [facility] Address [address] [place] [address] Phone Care Team Providers Care Rubber Block Layer Name Role Phone Luis Fernando WALDROP, Lobito George [phone] [facility] Primary Care P rovider [phone] Reason for Visit and Chief Complaint visit for: comprehensive medical evaluation :Consultation - The Chief Complaint is: allergies Plan of Treatment - Recommended allergy sensitivity testing - abbrev - Last Documented On 03/04/2021 3:12PM ; [facility] Pending Tests Order Diagnosis Results Due Ordering P rovider Plan:Test/Treatme nt1 - Allergy Tests Allergy Sensitivity Test Chronic rhinitis 03/04/21 Lobito Gould MD Last Documented On 3:09PM ; [facility] Instructions to patient Instructions for patient - p janell use of nasal spray Last Documented On 1 3:11PM ; [facility] Assessments Includes: Assessments from this encounter Findings - Chronic rhinitis - Last Documented On 03/04/2021 3:12PM ; [facility] Instructions Includes: Instructions from this encounter Instructions to patient Instructions for patient - p janell use of nasal spray Last Documented On 3:11PM ; [facility] Medical Equipment - Implanted Devices Includes: Current Devices No Medical Equipment Recorded Medications Includes: Medications discussed during this encounter and other current Medications New / Renewed during this visit Lobito Gould MD on 03/04/2021 Fluticasone Propionate 50 MCG/ACT Nasal Suspension Provider: Lobito fiore MD 30 day supply: 16 gram, 3 refills Diagnosis: Chronic rhinitis 2 sp en qam Pharmacy: [facility] [id number] [address] [place] [address], [phone] - Last Documented On 1 12:25PM By Stef Snow ; [facility] Current Medications (continue as prescribed) Fluticasone Propionate 50 MCG/ACT Nasal Suspension 06/10/2021 Provider: Lobito fiore MD Diagnosis: Allergic rhiniti s, unspecified 2 sp en qd as needed Last Documented On 1 12:45PM By Lobito Gould MD ; [facility] Fexofenadine HCl 180 MG Oral Tablet 03/02/2021 Provider: Lisa Renee ([place]) COLORING MACHINE OPERATOR Diagnosis: 1 tab po qd Last Documented On 2:43PM By Jimmy Luther ; [facility] Medications Administered Includes: Administered Medications from [...] 03/04/2021 2:40PM ; [facility] Results Includes: Results discussed during this encounter No Results Recorded For Specified Dates History of Present Illness Includes: History of Present Illness from this encounter HPI He is referred by PCP for evaluation. He gets itchy throat at night for several years. 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 Itchy throat improved with use of Astelin [...] [facility] Air-conditioning filters are changed tim ry 3 months 03/04/2021 Last Documented On 1 3:12PM ; [facility] Environmental history reviewed 1 Last Documented On 1 3:12PM ; [facility] Housing has central cooling 03/04/2021 Last Documented On 3:12PM ; [facility] Housing has windows closed 03/04/2021 Last Documented On 1 3:12PM ; [facility] Lives in apartment 03/04/2021 Last Documented On 3:12PM ; [facility] Mattress is encased 03/04/2021 Last Documented On 3:12PM ; [facility] No carpets in residence 03/04/2021 Last Documented On 1 3:12PM ; [facility] No contact with pets or other animals Last Documented On 1 3:12PM ; [facility] No exposure to environmental tobacco smo ke 03/04/2021 Last Documented On 1 3:12PM ; [facility] No exposure to molds 03/04/2021 Last Documented On 3:12PM ; [facility] No HEPA filters 03/04/2021 Last Documented On 1 3:12PM ; [facility] No secondhand cigarette smoke exposure 0 03/04/2021 Last Documented On 1 3:12PM ; [facility] No wall unit cooling in residence 2020 Last Documented On 1 3:12PM ; [facility] Not living near a major source of pollut ion 03/04/2021 Last Documented On 3:12PM ; [facility] Patient does not sleep with stuffed anim [...] Time Diagnosis New Patient Lobito Gould MD [place] [facility] 1 2:26PM 3:12PM Rhinitis Chronic Insurance Includes: Active Insurance Policies Plan Name Member ID Group # Subscriber Relationship Effect kiran Dates 1 - [facility] [id number] Ellis Ellis Self 07/13/2017 - Un known Clinical Notes Includes: Clinical Notes from this encounter No Clinical Notes Recorded
--- OUTSIDE RECORDS SUMMARY | 2024-09-22 12:06 | XMS_ITS | Clinical Summary ---
Author Organization [facility] Address [address] [place] [address] Phone Care Team Providers Care Air Traffic Systems Technician Name Role Phone Luis Fernando WALDROP, Lobito George [phone] [facility] ([facility], [facility] Primary Care P rovider [phone] Reason for Visit and Chief Complaint visit for: follow-up exam - The Chief Complaint is: allergies Plan of Treatment - Recommended mattress / pillow covers for dust mites - Last Documented On 03/11/2021 1:12PM ; [facility] Pending Tests Order Diagnosis Results Due Ordering P rovider Return Follow Up - Month(s) 3 months Chronic rhinitis Lobito Gould MD Last Documented On 1 1:12PM ; [facility] Plan: Medications - Medication Care Plan Continue current Medications Chronic rhinitis 03/11/21 Lobito Gould MD Last Documented On 1 1:12PM ; [facility] Instructions to patient Avoid allergens Last Documented On 1:11PM ; [facility] Assessments Includes: Assessments from this encounter Findings - Chronic rhinitis - Last Documented On 03/11/2021 1:12PM ; [facility] Instructions Includes: Instructions from this encounter Instructions to patient Avoid allergens Last Documented On 1:11PM ; [facility] Medical Equipment - Implanted Devices Includes: [...] Gould MD ; [facility] Fexofenadine HCl 180 MG Oral Tablet 03/02/2021 Provider: Lisa REYNA ([place]) Diagnosis: 1 tab po qd Last Documented On 2:43PM By Jimmy Luther ; [facility] Medications Administered Includes: Administered Medications from [...] 11:52A M ; [facility] Results Includes: Results discussed during this [...] 1:12PM ; [facility] Smoking Status Unknown Procedures and Surgical History Includes: Procedures from this encounter Procedures Code Diagnosis Performing Provider Service L ocation Service Date avoid allergens Last Documented On 1 1:11PM ; [facility] medication list reviewed Last Documented On 1 1:09PM ; [facility] percutaneous tests with allergenic extracts was [phone] [id number] Last Documented On 11:52AM ; [facility] intradermal tests with allergenic extracts (imme diate) was [id number] Last Documented On 12:38PM ; [facility] allergy sensitivity testing Last Documented On 1 11:52AM ; [facility] Medical History Includes: Medical History addressed during this encounter Description Last Updated Past medical history reviewed 03/11/2021 Last Documented On 1 1:12PM ; [facility] Family History Includes: Family History addressed [...] Time Diagnosis Post Test Lobito Gould MD [place] [facility] 1 11:04AM 1:08PM Rhinitis Chronic Insurance Includes: Active Insurance Policies Plan Name Member ID Group # Subscriber Relationship Effect kiran Dates 1 - [facility] [id number] Ellis Corral Self 07/13/2017 - Un known Clinical Notes Includes: Clinical Notes from this encounter No Clinical Notes Recorded
--- OUTSIDE RECORDS SUMMARY | 2024-09-22 12:06 | XMS_ITS | Continuity of Care Document ---
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 visit for: occupational health / fitness exam Active Condition [facility] routine pre-employment screening examination Active Condition [facility] visit for: screening exam pulmonary tuberculosis Inactive [...] ears / hearing exam Active Condition DoD Primary hypertension Active Condition [facility] Medications Combined list of outpatient medications from [...] CONNER, 16 g AER W/ADAP Cancele d [id number] : 2023 0 Pharmac y Data Transac tion Service Facilit y FLUTICASONE PROPIONATE (FLUTICASON E PROPIONATE) , 50MCG, SPRAY SUSP, NASAL, [facility] 16 g AER W/ADAP Active [id number] 2023 16 Pharmac y Data Transac tion Service Facilit y PriLOSEC OTC 20 mg oral delayed release tablet 1 tab(s), Oral, BID, before a meal, # 90 cap(s), 3 total refill(s ), [facility], Pharmacy : [facility] Oral (given by mouth) Discont inued 04/22/20222021 90.[facility], Adverse Reactions, Alerts Combined list of allergies from Department of 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 It does not include entries that were removed or entered in error. Substance Category Reaction Severity Reaction type Status Date Reported Comments Source No Known Allergies Drug allergy (disorder) active 08/06/2017 [facility] Immunizations Combined list of available immunizations from the Department of 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 Immunization Series Date Given Administered By Site Reaction Lot Number CVX Code Drug Dry Color Mixer Status Comments Source SARS-COV-2 (COVID-19) vaccine, mRNA, spike protein, LNP, preservative free, 30 mcg/0.3mL dose 2 2020 JOI CHURCHILL [id number] Pfizer, Inc (PFR) complet ed SARS-COV- 2 (COVID-19 ) vaccine, mRNA, spike protein, LNP, preservat kiran free, 30 mcg/0.3mL dose DoD COVID Vaccine Pfizer 2020 OLLIECOLLINS [id number] complet ed Result Comment: Unit: Unknown Route: Intramusc ular(IM) Manufactu rer: Pfizer, Inc (PFR) [facility] Influenza, injectable, MDCK, preservative free, quadrivalent 2020 , () Not Given Influenza , injectabl e, MDCK, preservat kiran free, quadrival ent DoD Influenza, injectable, quadrivalent, preservative free 1 2020 [id number] Seqirus (SEQ) comple t ed Influenza , injectabl e, quadrival ent, preservat kiran free DoD Influenza, injectable, Madin Anan Canine Kidney, preservative free, quadrivalent 0 2020 171 Seqirus (SEQ) comple t ed Influenza , injectabl e, Madin Anna Canine Kidney, preservat kiran free, quadrival ent DoD influenza, injectable, quadrivalent- pf 2020 OLLIECOLLINS [id number] 150 complet ed Result Comment: Route: Unknown Manufactu rer: Seqirus (SEQ) [facility] Influenza, inj, MDCK, quadrivalent- 2020 OLLIECOLLINS 171 complet ed Result Comment: Unit: Unknown Manufactu rer: () [facility] 4 2020 [id number] 24 [employer] [place] ([facility]) complet ed anthrax vaccine [facility] anthrax vaccine 2020 OLLIECOLLINS [id number] 24 complet ed Result Comment: Route: Unknown Manufactu rer: [employer]gent [employer] [place] (MIP) [facility] SARS-COV-2 (COVID-19) vaccine, vector non-replicati ng, recombinant spike protein-Ad26, preservative free, 0.5 mL 1 2020 [id number] Rosa (BESSY) comple t ed SARS-COV- 2 (COVID-19 ) vaccine, vector non-repli cating, recombina nt spike protein-A d26, preservat kiran free, 0.5 mL DoD SARS-CoV-2 (COVID-19) Ad26 vaccine, rec 2020 OLLIECOLLINS [id number] 212 complet ed Result Comment: Route: Unknown Manufactu rer: Rosa (BESSY) [facility] Influenza, injectable, MDCK, preservative free, quadrivalent 2019 FINDLEN, () Not Given Influenza , injectabl e, MDCK, preservat kiran free, quadrival ent DoD Influenza, seasonal, injectable 1 2019 [id number] 141 Seqirus (SEQ) comple t ed Influenza , seasonal, injectabl e DoD Influenza, injectable, Madin Raysal Canine Kidney, preservative free, quadrivalent 0 2019 171 (MVX) complet ed Influenza , injectabl e, Madin Anna Canine Kidney, preservat kiran free, quadrival ent DoD influenza, seasonal, injectable 2019 OLLIECOLLINS [id number] 141 complet ed Result Comment: Route: Unknown Manufactu rer: Wuirus (SEQ) [address] [place] [address] Influenza, inj, MDCK, quadrivalent- pf 2019 OLLIECOLLINS 171 complet ed Result Comment: Unit: Unknown Manufactu rer: () [address] [place] [address] typhoid Vi capsular polysaccharid e vac 2019 [id number] 101 sanofi pasteur complet ed typhoid Vi capsular polysacch aride vac 03/07/20 Given Ambulat ory Pharmac y anthrax vaccine 2019 [id number] 24 Emergent Biosolutions complet ed anthrax vaccine 03/07/20 Given Ambulat ory Pharmac y poliovirus vaccine, inactivated 2019 [id number] 10 sanofi pasteur complet ed polioviru s vaccine, inactivat ed 03/07/20 Given Ambulat ory Pharmac y tetanus-dipht h toxoids (Td) adult/adol 2019 [id number] 09 sanofi pasteur complet ed tetanus-d iphth toxoids (Td) adult/ado l 03/07/20 Given Ambulat ory Pharmac y measles/mumps /rubella virus vaccine 2019 [id number] Merck & Company Inc complet ed measles/m umps/rube lla virus vaccine 03/07/20 Given Ambulat ory Pharmac y typhoid Vi capsular polysaccharid e vac 2019 [id number] 101 sanofi pasteur complet ed typhoid Vi capsular polysacch aride vac 03/07/20 Given Ambulat ory Pharmac y anthrax vaccine 2019 [id number] 24 [employer] complet ed anthrax vaccine 03/07/20 Given Ambulat ory Pharmac y poliovirus vaccine, inactivated 2019 [id number] 10 sanofi pasteur complet ed polioviru s vaccine, inactivat ed 03/07/20 Given Ambulat ory Pharmac y tetanus-dipht h toxoids (Td) adult/adol 2019 [id number] 09 sanofi pasteur complet ed tetanus-d iphth toxoids (Td) adult/ado l 03/07/20 Given Ambulat ory Pharmac y measles/mumps /rubella virus vaccine 2019 [id number] Merck & Company Inc complet ed measles/m umps/rube lla virus vaccine 03/07/20 Given Ambulat ory Pharmac y measles, mumps and rubella virus vaccine 1 2019 [id number] 03 Merck (MSD) complet ed measles, mumps and rubella virus vaccine DoD tetanus and diphtheria toxoids, adsorbed, preservative free, for adult use (2 Lf of tetanus toxoid and 2 Lf of diphtheria toxoid) 1 2019 [id number] 09 Sanofi Pasteur (PMC) complet ed tetanus and diphtheri a toxoids, adsorbed, preservat kiran free, for adult use (2 Lf of tetanus toxoid and 2 Lf of diphtheri a toxoid) DoD poliovirus vaccine, inactivated 1 2019 [id number] 10 Sanofi Pasteur (PMC) complet ed polioviru s vaccine, inactivat ed DoD anthrax vaccine 1 2019 [id number] 24 [facility] [employer] [place] ([facility]) complet ed anthrax vaccine DoD typhoid Vi capsular polysaccharid e vaccine 1 2019 [id number] 101 Sanofi Pasteur (PMC) complet ed typhoid [...] ory Pharmac y influenza, seasonal, injectable 2017 [id number] 141 Seqirus complet ed influenza , seasonal, injectabl e 04/30/18 Given Ambulat ory Pharmac y Influenza, inj, MDCK, quadrivalent- pf 2017 171 complet ed Influenza , inj, MDCK, quadrival ent-pf 04/30/18 Given Ambulat ory Pharmac y influenza, seasonal, injectable 2017 [id number] 141 Seqirus complet ed influenza , seasonal, injectabl e 04/30/18 Given Ambulat ory Pharmac y Influenza, seasonal, injectable 1 2017 [id number] 141 Seqirus (SEQ) comple t ed Influenza , seasonal, injectabl e DoD Influenza, injectable, Madin Raysal Canine Kidney, preservative free, quadrivalent 0 2017 171 (MVX) complet ed Influenza , injectabl e, Madin Raysal Canine Kidney, preservat kiran free, quadrival ent DoD Influenza, inj, MDCK, quadrivalent- pf 2016 [id number] 171 Seqirus complet ed Influenza , inj, MDCK, quadrival ent-pf 05/15/17 Given Ambulat ory Pharmac y Influenza, inj, MDCK, quadrivalent- pf [id number] 171 Seqirus complet ed Influenza , inj, MDCK, quadrival ent-pf 05/15/17 Given Ambulat ory Pharmac y Influenza, injectable, Madin Raysal Canine Kidney, preservative free, quadrivalent 7 [id number] [...] INFLUENZA, SEASONAL, INJECTABLE 2015 141 complet ed [facility] influenza, seasonal, injectable-pf 2014 [id number] 140 CSL Behring complet ed influenza , seasonal, injectabl e-pf 04/14/15 Given Ambulat ory Pharmac y influenza, seasonal, injectable-pf 2014 [id number] 140 CSL Behring complet ed influenza , seasonal, injectabl e-pf 04/14/15 Given Ambulat ory Pharmac y INFLUENZA, UNSPECIFIED FORMULATION 2014 88 complet ed [facility] - Immunizat ion record [facility] Influenza, seasonal, injectable, preservative free 8 2014 [id number] 140 CSL [employer] (CSL) complet ed Influenza , seasonal, injectabl e, preservat kiran free DoD tuberculin purified protein derivative 2014 [id number] 96 sanofi pasteur complet ed tuberculi n purified protein derivativ e 02/18/15 Given Ambulat ory Pharmac y measles, mumps and rubella virus vaccine 0 2014 03 () Not Given measles, mumps and rubella virus vaccine DoD varicella virus vaccine 0 2014 21 () Not Given varicella virus vaccine [facility] INFLUENZA, UNSPECIFIED FORMULATION 2013 88 complet ed [facility] influenza, seasonal, injectable 2012 UNK 141 [...] INFLUENZA, UNSPECIFIED FORMULATION 2012 88 complet ed [place] [facility] typhoid Vi capsular polysaccharid e vac [...] ory Pharmac y influenza, seasonal, injectable-pf 2011 [id number] 140 sanofi pasteur complet ed influenza , seasonal, injectabl e-pf 04/01/12 Given Ambulat ory Pharmac y influenza, seasonal, injectable 2011 UNKNOWN 141 Unknown complet ed influenza , seasonal, injectabl e 04/01/12 Given Ambulat ory Pharmac y influenza, seasonal, injectable-pf 2011 [id number] 140 sanofi pasteur complet ed influenza , seasonal, injectabl e-pf 04/01/12 Given Ambulat ory Pharmac y Influenza, seasonal, injectable, preservative free 0 2011 [id number] 140 Sanofi Pasteur ([facility]) complet ed Influenza , seasonal, [...] y anthrax vaccine 2010 zzRig ht Arm [id number] 24 Unknown complet ed anthrax vaccine 05/20/11 Given Ambulat ory Pharmac y vaccinia (smallpox) vaccine 2010 VV04-00 3A 75 complet ed vaccinia (smallpox ) vaccine 05/20/11 Given Ambulat ory Pharmac y anthrax vaccine 2010 UNK 24 complet ed anthrax vaccine 05/20/11 Given Ambulat ory Pharmac y anthrax vaccine 1 2010 DANTE XIONG [id number] 24 Other (OTH) complet ed anthrax vaccine DoD vaccinia (smallpox) vaccine 1 2010 DANTE XIONG VV04-00 3A 75 Paula ([place]) complet ed vaccinia (smallpox ) vaccine DoD tuberculin purified protein derivative 2010 zzLef t Arm [id number] 96 complet ed tuberculi n purified protein derivativ e 04/23/11 Given Ambulat ory Pharmac y tuberculin skin test; purified protein derivative solution, intradermal 1 2010 TREJORAFA WATSON E [id number] 96 [employer]ENT[employer] PASTEUR ([facility]) complet ed tuberculi n skin test; purified protein derivativ e solution, intraderm al DoD influenza, seasonal, injectable 2010 [id number] 141 Unknown complet ed influenza , seasonal, injectabl e 03/06/11 Given Ambulat ory Pharmac y influenza virus vaccine,split 2010 [id number] 15 Unknown complet ed influenza virus vaccine,s plit 03/06/11 Given Ambulat ory Pharmac y influenza, seasonal, injectable 2010 [id number] 141 Unknown complet ed influenza , seasonal, injectabl e 03/06/11 Given Ambulat ory Pharmac y influenza virus vaccine,split 2010 [id number] 15 Unknown complet ed influenza virus vaccine,s plit 03/06/11 Given Ambulat ory Pharmac y influenza virus vaccine, split virus (incl. purified surface antigen)-reti red CODE 0 2010 [id number] 15 Other (OTH) complet ed influenza virus vaccine, split virus (incl. purified surface antigen)- retired CODE DoD Influenza, seasonal, injectable 0 2010 [id number] 141 Other (OTH) complet ed Influenza , [...] vaccine DoD influenza virus vaccine, live 2009 [id number] 111 Unknown complet ed influenza virus vaccine, live 04/29/10 Given Ambulat ory Pharmac y influenza virus vaccine,split 2009 UNKNOWN 15 Unknown complet ed influenza virus vaccine,s plit 04/29/10 Given Ambulat ory Pharmac y influenza virus vaccine, live 2009 [id number] 111 Unknown complet ed influenza virus vaccine, [...] live, attenuated, for intranasal use 0 2009 [id number] 111 Unknown (UNK) comple t ed influenza virus vaccine, live, attenuate d, for intranasa l use DoD hepatitis A-hepatitis B vaccine 2009 [id number] 4BA 104 [employer] complet ed hepatitis A-hepatit is B vaccine 04/01/10 Given Ambulat ory Pharmac y typhoid Vi capsular polysaccharid e vac 2009 [id number] 101 Pricing Assistant complet ed typhoid Vi capsular polysacch aride vac 04/01/10 Given Ambulat ory Pharmac y yellow fever vaccine 2009 [id number] 37 Emergent Biosolutions complet ed yellow fever vaccine 04/01/10 Given Ambulat ory Pharmac y anthrax vaccine 2009 UNK 24 complet ed anthrax vaccine 04/01/10 Given Ambulat ory Pharmac y poliovirus vaccine, inactivated 2009 E0123 10 [employer] Inc comple t ed polioviru s vaccine, inactivat ed 04/01/10 Given Ambulat ory Pharmac y yellow fever vaccine 2009 [id number] 37 [employer]gent [employer]olutions complet ed yellow fever vaccine 04/01/10 Given Ambulat ory Pharmac y anthrax vaccine 2009 UNK 24 complet ed anthrax vaccine 04/01/10 Given Ambulat ory Pharmac y poliovirus vaccine, inactivated 2009 e0123 10 Appeon Corporation comple t ed polioviru s vaccine, inactivat ed 04/01/10 Given Ambulat ory Pharmac y hepatitis A-hepatitis B vaccine 2009 ahabb18 4ba 104 Connect Financial Software Solutions[facility] complet ed hepatitis A-hepatit is B vaccine 04/01/10 Given Ambulat ory Pharmac y typhoid Vi capsular polysaccharid e vac 2009 [id number] 101 Pricing Assistant complet ed typhoid Vi capsular polysacch aride vac 04/01/10 Given Ambulat ory Pharmac y poliovirus vaccine, inactivated 0 2009 E0123 10 [employer]. (MED) complet ed polioviru s vaccine, inactivat ed DoD anthrax vaccine 1 2009 UNK 24 (EBS) complet ed anthrax vaccine DoD yellow fever vaccine 0 2009 [id number] 37 [employer]gent [employer] [place] ([facility]) complet ed yellow fever vaccine DoD typhoid Vi capsular polysaccharid e vaccine 1 2009 [id number] 101 [facility] (WAL) complet ed typhoid Vi capsular polysacch aride vaccine DoD hepatitis A and hepatitis B vaccine 2 2009 [id number] 4BA 104 Powerphotonic (SKB) complet ed hepatitis A and hepatitis B vaccine DoD tetanus, diphtheria, acellular pertu is 2009 [id number] 4BA 115 sanofi pasteur complet ed tetanus, diphtheri a, acellular pertussis 02/25/10 Given Ambulat ory Pharmac y meningococcal A,C,Y,W-135 (MCV4P) 2009 [id number] 114 CSL Behring complet ed meningoco ccal [...] y tetanus, diphtheria, acellular pertu is 2009 [id number] 4BA 115 sanofi pasteur complet ed tetanus, diphtheri a, acellular pertussis 02/25/10 Given Ambulat ory Pharmac y meningococcal A,C,Y,W-135 (MCV4P) 2009 [id number] 114 CSL Behring complet ed meningoco ccal [...] Pharmac y TDAP 2009 115 complet ed [facility] tetanus and diphtheria toxoids, adsorbed, preservative [...] B vaccine 1 2009 AHABB18 4AA 104 Power[employer]onic (SKB) complet ed hepatitis A and hepatitis B vaccine DoD meningococcal polysaccharid e (groups A, C, Y and W-135) diphtheria toxoid conjugate vaccine (MCV4P) 0 2009 [id number] 114 [employer] (AVB) complet ed meningoco ccal polysacch aride (groups A, C, Y and W-135) diphtheri a toxoid conjugate vaccine (MCV4P) DoD tetanus toxoid, reduced diphtheria toxoid, and acellular pertu is vaccine, adsorbed 0 2009 [id number] 4BA 115 Sanofi Pasteur (PMC) complet ed [...] s HIV diagnostic algorithm. Refer to [facility] Lab Guide for additional information : [email or web address]/ [email or web address] [email or web address] x Testing performed by Tamia haile 5600A-U [employer] EPILAB Miscellan eous Sendouts Repository Sample Received ( 3 2:47 PM) 04/21 N [employer] Vital Signs Combined list of inpatient and outpatient Vital Signs from Department of Defense and Veterans Affairs, ranging from 12 months to all on record, depending upon the facility. Vital Sign Value Date Comments Source Systolic Blood Pressure 123 mm[Hg] 04/22/2022 11:55:00 [facility] Diastolic Blood Pressure 78 mm[Hg] 04/22/2022 11:55:00 [facility] Respiratory Rate 16 br/min 04/22/2022 11:55:[address] [place] [address] Blood Pressure Manual Automatic 04/22/2022 11:55:[address] [place] [address] Temperature Temporal Artery 36.3 Cheri 04/22/2022 11:55:00 [facility] Peripheral Pulse Rate 58 bpm 04/22/2022 11:55:[address] [place] [address] Mean Arterial Pressure, Calc 93 mm[Hg] 04/22/2022 11:55:[address] [place] [address] [facility] Encounters Combined list of: 1) Encounters from Department of Veterans Affairs facilities going backup to the last 18 months, not all VA inpatient encounters are included; 2) Encounters from the Department of Defense facilities going backup to 280 months. Location Location Details Encounter Type Encounter Number Reason For Visit Attending Provider ADM Date DC Date Status Disposition Source Josh Pace [facility] 1523) OUTPATIENT [id number] TAWNY JOYCE 02/22 Released w/o Limitations [facility]( Audiolo gy [facility] 1523) [facility] Male) OUTPATIENT [id number] ARTI VILLEGAS 02/25 [facility] w[facility]o Limitations [facility](Op tometry [facility] 1523) OUTPATIENT [id number] recruit screen OMER MEJÍA 02/28 Released w/o Limitations [facility]( Optomet ry [facility] 1523) [facility](Mi litary Sick Call [facility] 237) OUTPATIENT [id number] att...h ead and neck issues ELZBIETA RDZ 08/02 Released w/o Limitations [facility] [place]( Militar y Sick Call [facility] 237) [facility](Mi litary Sick Call [facility] 237) OUTPATIENT [id number] MICHELE MIRZA 08/20 Released w/o Limitations [facility] [place]( Militar y Sick Call [facility] 237) [facility](Mi litary Sick Call [facility] 237) OUTPATIENT [id number] 9 Finn : Twisted right ankle JB BARON 09/05 Released with Work/Duty Limitations [facility] [place]( Militar y Sick Call [facility] 237) [facility](Mi litary Sick Call [facility] 237) TELE CONSULT [id number] pt to see coltro tomorro w 09-06-10 for xray results ROMA NAVARRO 09/05 Referred for Appointment [facility] [place]( Militar y Sick Call [facility] 237) [facility](Mi litary Sick Call [facility] 237) OUTPATIENT [id number] 9C: FOLLOW UP JB BARON 09/06 Released with Work/Duty Limitations [facility] [place] [facility] [place]( Militar y Sick Call [facility] 237) [facility] [place](Mi litary Sick Call [facility] 237) OUTPATIENT [id number] 9C f/u COLTRJB Brownlee 09/13 Released w/o Limitations [facility]( Militar y Sick Call [facility] 237) [facility] [place] [facility](Immuniz ations [facility]) OUTPATIENT [id number] vaccine MORIAH ODELL 01/30 Released w/o Limitations [facility](Imm unizati ons [facility] ) [facility] [place] [facility](Hearing Cons [facility]) OUTPATIENT [id number] FRANKI MELO 01/30 Released w/o Limitations [facility](Hea ring Cons [facility]) [facility] [facility] OUTPATIENT [id number] CHELSEA VAUGHN 02/05 Released w/o Limitations [facility](Opt ometry [facility] ) [facility] [place] [facility](Immuniz ations [facility]) OUTPATIENT [id number] RAFA Jaffe 04/23 Released w/o Limitations [facility](Imm unizati ons [facility] ) [facility] [place] [facility] [id number] IA/AFG RAFA PARHAM 05/16 Released w/o Limitations [facility](Immuniz ation [facility]) OUTPATIENT [id number] NMPS- ANT, SPDANTE SHELTON 05/19 Released w/o Limitations [facility](Imm unizati on [facility]) [facility] [place] [facility] OUTPATIENT [id number] RAFA CAMPO 05/19 Released w/o Limitations [facility](NMP S) [facility] OUTPATIENT [id number] 10/30 Released w/o Limitations [facility] OUTPATIENT [id number] 12/27 Released w/o Limitations Theater Facilit y [facility] [place] [facility](NMPS) OUTPATIENT [id number] Notes Entered by: JARVIS HAIR 28 May 2012 0847 ------- ------- ------- ------- -- BRAXTON MCKEON GUERO Martir 05/28 Released w/o Limitations [facility](NMP S) [facility](Hearing Cons [facility]) OUTPATIENT [id number] JOSE ALFREDO GARZON 09/21 Released w/o Limitations [facility](Hea ring Cons [facility]) [facility](Hearing Cons [facility]) OUTPATIENT [id number] MARI SYLVESTER 09/24 Released w/o Limitations [facility](Hea ring Cons [facility]) [facility](Hearing Cons [facility]) OUTPATIENT [id number] JOSE ALFREDO GARZON 11/08 Released w/o Limitations [facility](Hea ring Cons [facility]) [facility](Hearing Cons [facility]) OUTPATIENT [id number] JOSE ALFREDO GARZON 12/16 Released w/o Limitations [facility](Hea ring Cons [facility]ane [facility]) [facility] [place]) OUTPATIENT [id number] Notes Entered by: BRANDO HARRISON 09 Jan 2014 1329 ------- ------- ------- ------- -- Lower back pain, worseni ng over past 2-3 days CHELLE DANIELS 01/09 Released w/o Limitations [facility] [place] ) [facility](Medical Readiness [facility]) OUTPATIENT [id number] Notes Entered by: WALT HOWELL F 10 Jan 2014 0904 ------- ------- ------- ------- -- IRENE Patton 01/10 Released w/o Limitations [facility](Med ical Readine ss [facility]) [facility]) OUTPATIENT [id number] LOWER BACK SPRAIN PORTILLOABHIJIT Mitchell Paula 01/19 Released w/o Limitations [facility]) [employer](Fam [facility]) OUTPATIENT [id number] REFERRA L FOR CHIROPR ACTIC CLINIC MISSAEL MULLEN 09/12 Released w/o Limitations [employer](F [facility]) [employer](PT [facility]) OUTPATIENT [id number] RIDGE MEANS 09/17 Released w/o Limitations [employer](P T [facility]) [employer](Chi ropractic -Clinic) OUTPATIENT [id number] Low Back MATHEUS DE LOS SANTOS 09/19 Released w/o Limitations [employer](C hiropra ctic-Cl inic) [employer](PT Physical Thpy-Out) OUTPATIENT [id number] Pas entered the order SG CONSTANTINO 09/20 Released w/o Limitations [employer](P T Physica l Thpy-Ou t) [employer](Chi ropractic -Clinic) OUTPATIENT [id number] MATHEUS DE LOS SANTOS 09/25 Released w/o Limitations [employer](C hiropra ctic-Cl inic) [employer](PT Physical Thpy-Out) OUTPATIENT [id number] DEMETRIUS KOHLI 10/04 Released w/o Limitations [employer](P T Physica l Thpy-Ou t) [employer](Chi ropractic -Clinic) OUTPATIENT [id number] MATHEUS DE LOS SANTOS 10/16 Released w/o Limitations [employer](C hiropra ctic-Cl inic) [employer](Urg ent Care Clinic) OUTPATIENT [id number] referra l to urology SAMANTHA BRANDON 10/17 Released w/o Limitations [employer](U rgent Care Clinic) [employer](Chi ropractic -Clinic) OUTPATIENT [id number] MATHEUS DE LOS SANTOS 10/23 Released w/o Limitations [employer](C hiropra ctic-Cl inic) [employer]([facility]) TELE CONSULT [id number] Notes Entered by: BRANDT FRAIRE 26 Oct 2015 2136 ------- ------- ------- ------- -- Labs SCHULER SUYAPA J 10/26 [employer]([facility]) [employer]([facility] ent [facility]) TELE CONSULT [id number] Notes Entered by: RODERICK PRIETO 29 Oct 2015 1113 ------- ------- ------- ------- -- Lab results ARLENE HAYNES Marissa 10/28 [facility]) [facility] ent [facility]) TELE CONSULT [id number] Notes Entered by: CHRISTIAN GRANT CIA 13 Nov 2015 0945 ------- ------- ------- ------- -- Network Results Sleep Titrati on DIEGO RYAN 11/12 [facility]) [facility] OUTPATIENT [id number] MATHEUS DE LOS SANTOS 11/18 Released w/o Limitations [facility](Raza montoya ctic- in) Maribeth zayas [facility] [place]([facility] F01A Team A SCOM) OUTPATIENT [id number] initial visit ERNIE CERVANTES 07/20 Released with Work/Duty Limitations Maribeth corcoran [facility] [place]([facility] F01A Team A SCOM) Maribeth zayas [facility] [place]([facility] Team A SCOM) OUTPATIENT [id number] sore throat ERNIE CERVANTES 08/06 Sick at Home/Quarter s Maribeth corcoran [facility] [place]([facility] F01A Team A SCOM) Maribeth zayas [facility] [place]([facility] Team A SCOM) TELE CONSULT [id number] Notes Entered by: RAINE JAIN 01 Sep 2017 1025 ------- ------- ------- ------- -- MRI lumbar spine wo GENEVIEVE Lang 09/01 Maribeth [place] [facility] [place]([address] Team A SCOM) Maribeth Benjamin r [facility] [place] Team A SCOM) OUTPATIENT [id number] test results ERNIE CERVANTES 09/14 Released with Work/Duty Limitations Maribeth Montoyao [facility] [place] Team A SCOM) Maribeth Maciase r [facility] [place] Team A SCOM) OUTPATIENT [id number] jason klein in leg/ERNIE Craig 02/24 Released with Work/Duty Limitations [facility] [place] Team A [place]COM) Maribeth Benjamin r [facility] [place] Team A SCOM) OUTPATIENT [id number] pha ERNIE CERVANTES 03/08 Released w/o Limitations Maribeth [place] [facility] [place] Team A SCOM) Maribeth Benjamin r [facility] [place] Team A SCOM) OUTPATIENT [id number] Notes Entered by: HUEY BURRELL 07 Apr 2018 0709 ------- ------- ------- ------- -- Right Knee Pain (No Referra ls) ERNIE CERVANTES 04/07 Released with Work/Duty Limitations Maribeth [place] [facility] [place] Team A SCOM) Maribeth Benjamin r [facility] [place] Team A SCOM) TELE CONSULT [id number] Notes Entered by: CORA VINCENT 12 Apr 2018 1429 ------- ------- ------- ------- -- pt referra l ERNIE CERVANTES 04/12 [facility] [place] Team A SCOM) Maribeth zayas [facility] [place] ([address] Team A SCOM) TELE CONSULT [id number] Notes Entered by: RAINE JAIN 27 May 2018 0755 ------- ------- ------- ------- -- MRI right knee wo ERNIE Clinton 05/27 Maribeth corcoran [facility] [place] Team A SCOM) Maribeth zayas [facility] [place] Team A SCOM) TELE CONSULT [id number] Notes Entered by: RAINE JAIN 14 Jun 2018 0949 ------- ------- ------- ------- -- Orthope dic consult report - right knee ERNIE CERVANTES 06/14 Maribeth corcoran [facility] [place] ([address] Team A SCOM) Maribeth zayas [facility] [place] ([address] Team A SCOM) TELE CONSULT [id number] Notes Entered by: Raza CARBAJAL 15 Jun 2018 1444 ------- ------- ------- ------- -- Pre-op (ortho) ERNIE CERVANTES 06/15 Maribeth corcoran [facility] [place] ([address] Team A SCOM) Maribeth zayas [facility] [place] ([address] Team A SCOM) OUTPATIENT [id number] check up/ phy ERNIE CERVANTES 06/18 Released with Work/Duty Limitations Maribeth corcoran [facility] [place]([facility] Team A SCOM) Maribeth zayas [facility] [place] Team A SCOM) OUTPATIENT [id number] 9 provide r called to follow up ERNIE CERVANTES 07/09 Released with Work/Duty Limitations Maribeth corcoran [facility] [place] Team A SCOM) Maribeth zayas [facility] [place] Team A SCOM) OUTPATIENT [id number] eavl from having knee surg KSENIA CANTU 09/24 Released w/o Limitations Maribeth corcoran [facility] [place]([facility] F01A Team A SCOM) Maribeth zayas [facility] [place]([facility] F[facility] Team A SCOM) OUTPATIENT [id number] follow up from knee surgery ASHVIN FAJARDO KSENIA 10/21 Released w/o Limitations Maribeth corcoran [facility] [place]([facility] F[facility]A Team A SCOM) Maribeth zayas [facility] [place]([facility] F01A Team A SCOM) OUTPATIENT [id number] f/u ER visit ASHVIN FAJARDO KSENIA 11/15 Released w/o Limitations Maribeth corcoran [facility] [place]([facility] F01A Team A SCOM) Maribeth zayas [facility] [place]([facility] F01A Team A SCOM) TELE CONSULT [id number] Notes Entered by: RAINE JAIN 10 Dec 2018 0758 ------- ------- ------- ------- -- Orthope dic f/u consult report - right knee ASHVIN FAJARDO [facility] 12/10 Maribeth corcoran [facility] [place]([facility] F01A Team A SCOM) Maribeth zayas [facility] [place]([facility] F01A Team A SCOM) TELE CONSULT [id number] 2 Notes Entered by: RAINE JAIN 02 Feb 2019 0841 ------- ------- ------- ------- -- Orthope dic f/u consult report - right knee postop ASHVIN FAJARDO KSENIA 02/02 Maribeth corcoran [facility] [place]([facility] F[facility] Team A SCOM) Maribeth zayas [facility] [place]([facility] F01A Team A SCOM) OUTPATIENT [id number] 4 ishaan-e scobar/ back pain ASHVIN FAJARDO KSENIA 02/07 Released w/o Limitations Maribeth corcoran [facility] [place]([address] Team A [place]) Maribeth zayas [facility] [place]([address] Team A [facility] OUTPATIENT [id number] 0 ishaan-e scobar/ pha KSENIA CANTU 04/01 Released w/o Limitations Maribeth corcoran [facility] [place]([address] Team A [facility] Maribeth zayas [facility] [place] A [facility] TELE CONSULT [id number] Notes Entered by: Heber SCOTT 10 May 2019 1432 ------- ------- ------- ------- -- pt report ASHVIN FAJARDO KSENIA J 05/10 Maribeth corcoran [facility] [place]([address] Team A [facility] Maribeth zayas [facility] [place] A [facility] TELE CONSULT [id number] 2 Notes Entered by: АЛЕКСАНДР MCGOVERN 07 Jun 2019 1327 ------- ------- ------- ------- -- Physica l Therapy ReferHERMELINDO Mac 06/07 Maribeth corcoran [facility] [place]([address] Team A [facility] Maribeth zayas [facility] [place]([address] Team A [facility] OUTPATIENT [id number] 6 acd/pro blem with shots/3 05-491- 1934/vi rtHERMELINDO Kirby 03/08 Released w/o Limitations Maribeth [place] [facility] [place]([address] Team A [place]) Maribeth zayas [facility] [place]([address] Team A [facility] OUTPATIENT [id number] Ear Checkup KSENIA CANTU 06/12 Released w/o Limitations Maribeth corcoran [facility] [place] [place] Maribeth zayas [facility] [place] JACQUELINE(Opsurg e Multi-Spe cialty [facility]) TELE CONSULT [id number] Notes Entered by: JOSE ULLOARADHA LILIYA Corona 21 Jun 2020 1343 ------- ------- ------- ------- -- COVID Results MARQUES DAVIS 06/21 DCarlos corcoran [facility] [place] JACQUELINE(Opsu rge Multi-S pecialt y [facility]) Theater Facility OUTPATIENT [id number] Theater Provider 09/25 Released w/o Limitations Theater Facilit y Theater Facility OUTPATIENT [id number] Theater Provider 11/13 Released w/o Limitations Theater Facilit y D. D. Cassidy zayas [facility] [place] JACQUELINE([facility] F01A Team A SCOM) OUTPATIENT [id number] 2 resched uled//g eneral checkup /physic al f2f KSENIA CANTU 01/22 Released w/o Limitations D. DCarlos corcoran [facility] [place]([facility] Team A SCOM) Maribeth zayas [facility] [place]([facility] Team A SCOM) OUTPATIENT [id number] 9 f2f//fo llow-up urgent care visit KSENIA CANTU 09/12 Released w/o Limitations D. DCarlos corcoran [facility] [place]([facility] Team A SCOM) Maribeth zayas [facility] [place]([facility] Team A SCOM) TELE CONSULT [id number] Notes Entered by: RAINE JAIN 23 Sep 2021 0950 ------- ------- ------- ------- -- Chest Xray KSENIA CANTU 09/23 Maribeth corcoran [facility] [place]([facility] Team A SCOM) Maribeth zayas [facility] [place]([facility] Team A SCOM) OUTPATIENT [id number] Discuss followu p on hbp medicat ion//vr //[id number] KSENIA CANTU 10/29 Released w/o Limitations D. Chon. Tiki [facility] [place] JACQUELINE([facility] F01A Team A SCOM) [facility] Medical [facility] TELE CONSULT [id number] Notes Entered by: Nicole GR 15 Nov 2021 0720 ------- ------- ------- ------- -- SICK CALL- COVID TEST SHONA OCONNOR 11/[address] [place] [address]( [facility] Maribeth zayas [facility] [place] JACQUELINE([facility] F01A Team A SCOM) OUTPATIENT [id number] VR [id number] 4/[facility] CARLY Talley 01/08 Sick at Home/Quarter s DCarlos corcoran [facility] [place] JACQUELINE([facility] F01A Team A SCOM) Maribeth zayas [facility] [place] JACQUELINE([facility] F01A Team A SCOM) OUTPATIENT [id number] annual check up KSENIA CANTU 04/22 Released w/o Limitations DCarlos [place] [facility] [place] JACQUELINE([facility] Team A SCOM) [facility] Between Visit [id number] 05/03 Discharge Disposition: Home or Self Care 6118M-C [facility] [facility] [id number]-[id number] AMDS Between Visit [id number] 05/06 Discharge Disposition: Home or Self Care [id number]-4 39 AMDS [id number]-439 AMDS Between Visit [id number] 08/23 Discharge Disposition: Home or Self Care 8344R-4 39 AMDS Procedures Combined list of: 1) Procedures from Department of Veterans Affairs facilities going back up to thelast 18 months, not all VA non-surgical procedures are included; 2) All procedures from the Department of Defense facilities. Procedure Procedure Type Code Date Perfomer Comments [facility] e INFLUENZA VIRUS VACCINE, TRIVALENT, LIVE (LAIV3), FOR INTRANASAL USE 04/29/[address] [facility] YELLOW FEVER VACCINE, LIVE, FOR SUBCUTANEOUS USE 04/01/[address] [facility] VIS FUNCT SCREEN,AUTOMAT/LINH I-AUTOMAT BILAT QUANT DETERM VISUAL ACUITY,OCULAR ALIGN,COLOR VISION,PSEUDOISOCH ROMAT PLATES,& FIELD VIS (MAY INC ALL/SOME SCRN DETERM FOR CONTRAST SENSITIV,VIS UND GLARE) 02/29/[address] [facility] YELLOW FEVER VACCINE, LIVE, FOR SUBCUTANEOUS USE 02/26/[address] [facility] SKIN TEST; TUBERCULOSIS, INTRADERMAL 02/23/[address] [facility] AUDIOMETRIC TESTING OF GROUPS 02/23/[address] [facility] COLLECTION OF VENOUS BLOOD BY VENIPUNCTURE 02/22/[address] [facility] ELECTROCARDIOGRAM, ROUTINE ECG WITH AT LEAST 12 LEADS; WITH INTERPRETATION AND REPORT 12/24/19 [facility] APPLICATION OF A MODALITY TO 1 OR MORE AREAS; HOT OR COLD PACKS 11/19/[address] [facility] APPLICATION OF A MODALITY TO 1 OR MORE AREAS; HOT OR COLD PACKS 10/24/[address] [facility] APPLICATION OF A MODALITY TO 1 OR MORE AREAS; HOT OR COLD PACKS 10/17/[address] [facility] THERAPEUTIC PROCEDURE, 1 OR MORE AREAS, EACH 15 MINUTES; THERAPEUTIC EXERCISES TO DEVELOP STRENGTH AND ENDURANCE, RANGE OF MOTION AND FLEXIBILITY 10/05/[address] [facility] APPLICATION OF A MODALITY TO 1 OR MORE AREAS; HOT OR COLD PACKS 09/26/[address] [facility] THERAPEUTIC PROCEDURE, 1 OR MORE AREAS, EACH 15 MINUTES; THERAPEUTIC EXERCISES TO DEVELOP STRENGTH AND ENDURANCE, RANGE OF MOTION AND FLEXIBILITY 09/21/[address] [facility] POSITIONING CUSHION/PILLOW/WED GE, ANY SHAPE OR SIZE, INCLUDES ALL COMPONENTS AND ACCESSORIES 09/20/[address] [facility] THERAPEUTIC PROCEDURE, 1 OR MORE AREAS, EACH 15 MINUTES; THERAPEUTIC EXERCISES TO DEVELOP STRENGTH AND ENDURANCE, RANGE OF MOTION AND FLEXIBILITY 09/18/[address] [facility] BRIEF EMOTIONAL/BEHAVIOR AL ASSESSMENT (EG, DEPRESSION INVENTORY, ATTENTION-DEFICIT/ HYPERACTIVITY DISORDER [ADHD] SCALE), WITH SCORING AND DOCUMENTATION, PER STANDARDIZED INSTRUMENT 04/15/20 [facility] TELE ASSESS & MGT SRV PROV QUAL NONPHYS HLTH CARE PRO TO EST PAT,PARENT,GUARD NOT ORIG REL ASSESS & MGT SRV PROV W/IN PREV 7 DAYS NOR LEAD ASSESS & MGT SRV/PX W/IN NXT 24 HR/SOON APT;5-10 MIN MED DIS 04/12/[address] [facility] WAIVER SERVICES; NOT OTHERWISE SPECIFIED (NOS) 03/08/20 [facility] LIDOCAINE 70 MG/TETRACAINE 70 MG, PER PATCH 07/20/[address] [facility] CHIROPRACTIC MANIPULATIVE TREATMENT (CMT); SPINAL, 1-2 REGIONS 01/20/[address] [facility] SCREENING TEST, PURE TONE, AIR ONLY 12/17/[address] [facility] AUDIOMETRIC TESTING OF GROUPS 11/09/[address] [facility] SCREENING TEST, PURE TONE, AIR ONLY 09/25/[address] [facility] AUDIOMETRIC TESTING OF GROUPS 09/22/[address] [facility] COLLECTION OF VENOUS BLOOD BY VENIPUNCTURE 05/28/[address] [facility] IMMUNIZATION ADMINISTRATION (INCLUDES PERCUTANEOUS, INTRADERMAL, SUBCUTANEOUS, OR INTRAMUSCULAR INJECTIONS); EACH ADDITIONAL VACCINE (SINGLE OR COMBINATION VACCINE/TOXOID) 05/19/[address] [facility] SKIN TEST; TUBERCULOSIS, INTRADERMAL 04/23/[address] [facility] VIS FUNCT SCREEN,AUTOMAT/LINH I-AUTOMAT BILAT QUANT DETERM VISUAL ACUITY,OCULAR ALIGN,COLOR VISION,PSEUDOISOCH ROMAT PLATES,& FIELD VIS (MAY INC ALL/SOME SCRN DETERM FOR CONTRAST SENSITIV,VIS UND GLARE) 02/06/[address] [facility] SCREENING TEST, PURE TONE, AIR ONLY 01/31/[address] [facility] Modalities Traction Modalities Traction 94092 11/19/19 [address] [facility] Modalities Heat Hot Packs Modalities Heat Hot Packs 32799 11/19/[address] [facility] Chiropractic Manip Treatmt (CMT) Spinal Three To Four Region Chiropractic Manip Treatmt (CMT) Spinal Three To Four Region 76901 11/19/19 16 MATHEUS DE LOS SANTOS Modalities Traction Modalities Traction 57432 10/24/19 16 MATHEUS DE LOS SANTOS Modalities Heat Hot Packs Modalities Heat Hot Packs 25882 10/24/19 16 MATHEUS DE LOS SANTOS Chiropractic Manip Treatmt (CMT) Spinal Three To Four Region Chiropractic Manip Treatmt (CMT) Spinal Three To Four Region 11542 10/24/19 16 MATHEUS DE LOS SANTOS Modalities Traction Modalities Traction 03191 10/17/19 16 MATHEUS DE LOS SANTOS Modalities Heat Hot Packs Modalities Heat Hot Packs 68751 10/17/[address] [facility] Chiropractic Manip Treatmt (CMT) Spinal Three To Four Region Chiropractic Manip Treatmt (CMT) Spinal Three To Four Region 44556 10/17/19 16 MATHEUS DE LOS SANTOS Physical Therapy: ___ Se ion Segments, 15 Minutes Each Physical Therapy: ___ Session Segments, 15 Minutes Each 87652 10/05/19 16 DEMETRIUS KOHLI Modalities Traction Modalities Traction 33428 09/26/19 16 MATHEUS DE LOS SANTOS Modalities Heat Hot Packs Modalities Heat Hot Packs 56074 09/26/19 16 MATHEUS DE LOS SANTOS Chiropractic Manip Treatmt (CMT) Spinal Three To Four Region Chiropractic Manip Treatmt (CMT) Spinal Three To Four Region 47474 09/26/19 16 MATHEUS DE LOS SANTOS Physical Therapy: ___ Se ion Segments, 15 Minutes Each Physical Therapy: ___ Session Segments, 15 Minutes Each 23653 09/21/19 16 SG CONSTANTINO Positioning cushion/pillow/wed ge, [...] Treatmt (CMT) Spinal Three To Four Region 36669 09/20/19 16 MATHEUS DE LOS SANTOS A isted Exercises For ROM Assisted Exercises For ROM 82644 09/18/19 16 RIDGE MEANS Physical Therapy Service Evaluation Physical Therapy Service Evaluation 33788 09/18/19 16 RIDGE MEANS Chiropractic Manip Treatmt (CMT) Spinal One To Two Regions Chiropractic Manip Treatmt (CMT) Spinal One To Two Regions 69601 01/20/20 14 ABHIJIT PORTILLO Audiogram (Screening) Audiogram (Screening) 30937 12/17/19 14 JOSE ALFREDO GARZON Audiometry Group Testing Audiometry Group Testing 19701 12/17/19 14 JOSE ALFREDO GARZON Audiogram (Screening) Audiogram (Screening) 42230 11/09/19 13 JOSE ALFREDO GARZON Audiometry Group Testing Audiometry Group Testing 13190 11/09/19 13 JOSE ALFREDO GARZON Audiometry Group Testing Audiometry Group Testing 27885 09/25/[address] [facility] Audiogram (Screening) Audiogram (Screening) 77119 09/25/[address] [facility] Audiogram (Screening) Audiogram (Screening) 46406 09/22/[address] [facility] Audiometry Group Testing Audiometry Group Testing 04761 09/22/[address] [facility] Venipuncture Venipuncture 31446 05/28/20 12 GUERO MCKEON DRAWN AT [facility] Immunization Administration By Injection, Each Additional Vaccine 05/20/20 [facility] Physician Supervised Services Provision Of Educational Supplies Physician Supervised Services Provision Of Educational Supplies 98581 05/20/20 11 [facility] Physician Services Special Review / Reporting Of Patient Status Physician Services Special Review / Reporting Of Patient Status 89096 05/20/20 11 [facility] Physician Supervised Group Educational Services 05/20/20 11 [facility] Vaccines Vaccines 40919 05/20/20 11 [facility] Immunization Administration By Injection, One Vaccine Immunization Administration By Injection, One Vaccine 70886 05/20/20 11 [facility] Skin Test Anergy Tuberculin Intradermal Skin Test Anergy Tuberculin Intradermal 50097 04/23/[address] [facility] Visual Function Screening Visual Function Screening 76338 02/06/[address] [facility] Screening Test Of Visual Acuity, Quantitative, Bilateral Screening Test Of Visual Acuity, Quantitative, Bilateral 35385 02/06/[address] [facility] Audiometry Group Testing Audiometry Group Testing 77970 01/31/[address] [facility] Audiogram (Screening) Audiogram (Screening) 93229 01/31/[address] [facility] Visual Function Screening Visual Function Screening 29823 02/29/[address] [facility] Screening Test Of Visual Acuity, Quantitative, Bilateral Screening Test Of Visual Acuity, Quantitative, Bilateral 84815 02/29/[address] [facility] Threshold Audiogram (Pure Tone) Threshold Audiogram (Pure Tone) 02805 02/23/[address] [facility] Audiometry Group Testing Audiometry Group Testing 96102 02/23/[address] [facility] Waiver services; not otherwise specified (NOS) HERMELINDO LOMELI [facility] Non-Physician Phone Call To Patient/Provider Brief (5-10min) Non-Physician Phone Call To Patient/Provider Brief (5-10min) [address] [facility] Psychiatric Diagnostic Evaluation Psychiatric Diagnostic Evaluation [address] [facility] Psychometric Emotional / Behavioral A e ment Psychometric Emotional / Behavioral Assessment [address] [facility] Application of a modality to one or more areas; traction, mechanical Application of a modality to one or more areas; traction, mechanical 86785 7239-[facility] enhower Chiropractic manipulative treatment (CMT); spinal, one to two regions Chiropractic manipulative treatment (CMT); spinal, one to two regions 12931 7239-[facility] enhower Application of a modality to one or more areas; hot or cold packs Application of a modality to one or more areas; hot or cold packs [id number] 7239C-[facility] enhower Chiropractic manipulative treatment (CMT); spinal, three to four regions Chiropractic manipulative treatment (CMT); spinal, three to four regions [id number] 7239C-[facility] enhower Social History Combined list of available smoking, tobacco, and other social history from Department of 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 Social History Type Response Date Comment [facility] e Sex Representation Male 03/13/2020 Unknow n Organization Tobacco smoking status NHIS LIFETIME NON-USER OF TOBACCO 04/15/2016 [facility] History of tobacco use LIFETIME NON-USER OF TOBACCO 05/28/2015 [facility] History of tobacco use LIFETIME NON-USER OF TOBACCO 05/08/2015 [facility] History of tobacco use LIFETIME NON-USER OF TOBACCO 06/14/2014 [facility] This section is an empty social history section. DoD Sexual Orientation Ambula tory Pharmacy Gender identity Ambulator y Pharmacy Assessment and Plan Combined list of future [...] equipment Ordered: Referral Request 2.0 ? [facility] ? ? Extracted from:Title: LONNIE Author: [...] pressure starts to rise, verb understanding. 09/22/[address] [place] [address] Advance Directives List of completed, amended, or rescinded Advance Directives on record at Department of Veterans Affairs facilities. An actual copy of the Directive is not included. Date Advance Directive Provider Source 06/14/2014 ADVANCE DIRECTIVE DISCUSSION AARON KWON [facility] Functional Status Combined list of recent functional and cognitive assessments recorded at Department of Defense and Veterans Affairs (VA).VA Functional [place] Measurement (FIM) Scale: 1 = Total Assistance (Subject = 0% +), 2 = Maximal Assistance (Subject = 25% +), 3 = Moderate Assistance (Subject = 50% +), 4 = Minimal Assistance (Subject = 75% +), 5 = Supervision, 6 = Modified [place] (Device), 7 = Complete [place] (Timely, Safely). Assessment Date/Time Source Assessment Type Assessment Skill Assessment Score Assessment Details No data available for this section
== END 2024-09-22 10:09 | disposition home or self-care (01) ==
PROVIDERS: PCP Internal Medicine; Visit Provider Internal Medicine
DX: R79.89 Other specified abnormal findings of blood chemistry (principal)

== ENCOUNTER 2024-10-11 07:56 | Outpatient (REF) | payer OTHER, SELFPAY ==
--- OUTSIDE RECORDS SUMMARY | 2024-10-11 08:01 | XMS_ITS ---
Care Plan - [facility] Created on: October 11, 2024 Ellis Ellis : 1980 Sex: Male Author Organization [facility] Address [address] [facility] [address] [place] [id number] Phone Care Team Providers Care Cage Maker Name Role Phone Luis Fernando WALDROP, Lobito George [phone] [facility] Primary [facility] [place] mckeon [phone]
--- OUTSIDE RECORDS SUMMARY | 2024-10-11 08:01 | XMS_ITS | Clinical Summary ---
Author Organization [facility] it Address [address] [place] [address] Care Team Providers Care Venetian Blind Tape Cutter Name Role Phone Unavailable Primary Care Provider [...]
--- OUTSIDE RECORDS SUMMARY | 2024-10-11 08:01 | XMS_ITS | Continuity of Care Document ---
Author Name [facility] Organization [facility] Care Team Providers Care Rd Manager Name Role Phone [facility] Unavailable Unavailable Problems Combined list of problems from Department [facility] and [facility] facilities. It does not include entries that were removed or entered in error. Problem Status Onset Date Problem Type Date of Resolution Comments Source Acquired spondylolysis Active Condition [facility] Low back pain Active Condition [facility] Personal History of return from Deployment Active Condition [facility] Primary hypertension Active Condition [address] [place] [address] yue Medications Combined list of outpatient medications from [facility] and [facility] facilities.Medications provided include 1) outpatient medications from the last 15 months, and 2) patient-reported medications. Medication Details Route Status Patient Instructions Prescription Expires Prescription Number Last Dispense Date Ordering Provider Order Date Order Qty Source chlorhexidi ne oral rinse 0.12% liquid [473mL] See Rx Instruct ions, 0, 0, # 473 mL, 0 total refill(s ), Hard Stop Complet ed 03/26/2023 2022 473.0 Ambulat ory Pharmac y PriLOSEC OTC 20 mg oral delayed release tablet 1 tab(s), Oral, BID, before a meal, # 90 cap(s), 3 total refill(s ), Harry wiaric, Pharmacy : [facility] Oral (given by mouth) Discont inued 04/22/20222021 90.0 7239CS [facility] Immunizations Combined list of available immunizations from the [facility] and [facility] facilities. Immunization Series Date Given Administered By Site Reaction Lot Number CVX Code Drug Assistant Dean Status Comments Source COVID Vaccine Pfizer 2020 SREE [id number] complet ed Result Comment: Unit: Unknown Route: Intramusc ular(IM) Manufactu rer: Pfizer, Inc (PFR) 7239CS [facility] influenza, injectable, quadrivalent- pf 2020 OLLIECOLLINS [id number] 150 complet ed Result Comment: Route: Unknown Manufactu rer: Seqirus (SEQ) 7239C-S [facility] Influenza, inj, MDCK, quadrivalent- pf 2020 OLLIECOLLINS 171 complet ed Result Comment: Unit: Unknown Manufactu rer: () 7239C-S [facility] anthrax vaccine 2020 OLLIECOLLINS [id number] 24 complet ed Result Comment: Route: Unknown Manufactu rer: Emergent BioDefens e Operation s Morral (MIP) 7239CS [facility] SARS-CoV-2 (COVID-19) Ad26 vaccine, rec 2020 OLLIECOLLINS [id number] complet ed Result Comment: Route: Unknown Manufactu rer: [employer] (JSN) 7239C-S [facility] influenza, seasonal, injectable 2019 OLLIECOLLINS [id number] 141 complet ed Result Comment: Route: Unknown Manufactu rer: Seqirus (SEQ) 7239CS [facility] Influenza, inj, MDCK, quadrivalent- pf 2019 OLLIECOLLINS 171 complet ed Result Comment: Unit: Unknown Manufactu rer: () 7239CS [facility] typhoid Vi capsular polysaccharid e vac 2019 [id number] sanofi pasteur complet ed typhoid Vi capsular polysacch aride vac 03/07/20 Given Ambulat ory Pharmac y anthrax vaccine 2019 [id number] Emergent Bios[employer] complet ed anthrax vaccine 03/07/20 Given Ambulat ory Pharmac y poliovirus vaccine, inactivated 2019 [id number] 10 sanofi pasteur complet ed polioviru s vaccine, inactivat ed 03/07/20 Given Ambulat ory Pharmac y tetanus-dipht h toxoids (Td) adult/adol 2019 [id number] 09 sanofi pasteur complet ed tetanus-d iphth toxoids (Td) adult/ado l 03/07/20 Given Ambulat ory Pharmac y measles/mumps /rubella virus vaccine 2019 [id number] Merck & Company Inc complet ed measles/m umps/rube lla virus vaccine 03/07/20 Given Ambulat ory Pharmac y typhoid Vi capsular polysaccharid e vac 2019 [id number] 101 sanofi pasteur complet ed typhoid Vi capsular polysacch aride vac 03/07/20 Given Ambulat ory Pharmac y anthrax vaccine 2019 [id number] 24 [employer] complet ed anthrax vaccine 03/07/20 Given Ambulat ory Pharmac y poliovirus vaccine, inactivated 2019 [id number] 10 sanofi pasteur complet ed polioviru s vaccine, inactivat ed 03/07/20 Given Ambulat ory Pharmac y tetanus-dipht h toxoids (Td) adult/adol 2019 [id number] 09 sanofi pasteur complet ed tetanus-d iphth toxoids (Td) adult/ado l 03/07/20 Given Ambulat ory Pharmac y measles/mumps /rubella virus vaccine 2019 [id number] Merck & Company Inc complet ed measles/m umps/rube lla virus vaccine 03/07/20 Given Ambulat ory Pharmac y influenza, seasonal, [...] ory Pharmac y influenza, seasonal, injectable 2017 [id number] 141 Seqirus complet ed influenza , seasonal, injectabl e 04/30/18 Given Ambulat ory Pharmac y Influenza, inj, MDCK, quadrivalent- pf 2017 171 complet ed Influenza , inj, MDCK, quadrival ent-pf 04/30/18 Given Ambulat ory Pharmac y influenza, seasonal, injectable 2017 [id number] 141 Seqirus complet ed influenza , seasonal, injectabl e 04/30/18 Given Ambulat ory Pharmac y Influenza, inj, MDCK, quadrivalent- pf [id number] 171 Seqirus complet ed Influenza , inj, MDCK, quadrival ent-pf 05/15/17 Given Ambulat ory Pharmac y Influenza, inj, MDCK, quadrivalent- pf [id number] 171 Seqirus complet ed Influenza , inj, MDCK, quadrival ent-pf 05/15/17 Given Ambulat ory Pharmac y influenza, seasonal, injectable 2015 TRANSCR IBED 141 complet ed influenza , seasonal, injectabl e 05/05/16 Given Ambulat ory Pharmac y influenza, seasonal, injectable 2015 TRANSCR IBED 141 complet ed influenza , seasonal, injectabl e 05/05/16 Given Ambulat ory Pharmac y INFLUENZA, SEASONAL, INJECTABLE 2015 141 complet ed [facility] influenza, seasonal, injectable-pf 2014 [id number] 140 CSL Behring complet ed influenza , seasonal, injectabl e-pf 04/14/15 Given Ambulat ory Pharmac y influenza, seasonal, injectable-pf 2014 [id number] 140 CSL Behring complet ed influenza , seasonal, injectabl e-pf 04/14/15 Given Ambulat ory Pharmac y INFLUENZA, UNSPECIFIED FORMULATION 2014 88 complet ed [employer] - Immunizat ion record [facility] tuberculin purified protein derivative 2014 [id number] 96 sanofi pasteur complet ed tuberculi n purified protein derivativ e 02/18/15 Given Ambulat ory Pharmac y INFLUENZA, UNSPECIFIED FORMULATION 2013 88 complet ed [facility] influenza, seasonal, injectable 2012 UNK 141 Unknown complet ed influenza , seasonal, injectabl e 06/03/13 Given Ambulat ory Pharmac y influenza, seasonal, injectable 2012 UNK 141 Unknown complet ed influenza , seasonal, injectabl e 06/03/13 Given Ambulat ory Pharmac y INFLUENZA, UNSPECIFIED FORMULATION 2012 88 complet ed Shy,V elroy [facility] typhoid Vi capsular polysaccharid e vac 2012 UNK 101 Unknown complet ed typhoid Vi capsular polysacch aride vac 08/25/12 Given Ambulat ory Pharmac y typhoid Vi capsular polysaccharid e vac 2012 UNK 101 Unknown complet ed typhoid Vi capsular polysacch aride vac 08/25/12 Given Ambulat ory Pharmac y influenza, seasonal, injectable 2011 UNKNOWN 141 Unknown complet ed influenza , seasonal, injectabl e 04/01/12 Given Ambulat ory Pharmac y influenza, seasonal, injectable-pf 2011 [id number] 140 sanofi pasteur complet ed influenza , seasonal, injectabl e-pf 04/01/12 Given Ambulat ory Pharmac y influenza, seasonal, injectable 2011 UNKNOWN 141 Unknown complet ed influenza , seasonal, injectabl e 04/01/12 Given Ambulat ory Pharmac y influenza, seasonal, injectable-pf 2011 [id number] 140 sanofi pasteur complet ed influenza , seasonal, injectabl e-pf 04/01/12 Given Ambulat ory Pharmac y anthrax vaccine 2011 UNK 24 complet ed anthrax vaccine 07/16/11 Given Ambulat ory Pharmac y vaccinia (smallpox) vaccine 2010 zzLef t Arm [id number] 75 complet ed vaccinia (smallpox ) vaccine 05/20/11 Given Ambulat ory Pharmac y anthrax vaccine 2010 zzWalker Arm [id number] 24 Unknown complet ed anthrax vaccine 05/20/11 Given Ambulat ory Pharmac y vaccinia (smallpox) vaccine 2010 [id number] 3A 75 complet ed vaccinia (smallpox ) vaccine 05/20/11 Given Ambulat ory Pharmac y anthrax vaccine 2010 UNK 24 complet ed anthrax vaccine 05/20/11 Given Ambulat ory Pharmac y tuberculin purified protein derivative 2010 zzLef t Arm [id number] 96 complet ed tuberculi n purified protein derivativ e 04/23/11 Given Ambulat ory Pharmac y influenza, seasonal, injectable 2010 [id number] 141 Unknown complet ed influenza , seasonal, injectabl e 03/06/11 Given Ambulat ory Pharmac y influenza virus vaccine,split 2010 [id number] 15 Unknown complet ed influenza virus vaccine,s plit 03/06/11 Given Ambulat ory Pharmac y influenza, seasonal, injectable 2010 [id number] 141 Unknown complet ed influenza , seasonal, injectabl e 03/06/11 Given Ambulat ory Pharmac y influenza virus vaccine,split 2010 [id number] 15 Unknown complet ed influenza virus vaccine,s plit 03/06/11 Given Ambulat ory Pharmac y hepatitis A-hepatitis B vaccine 2010 UNK 104 Unknown complet ed hepatitis A-hepatit is B vaccine 10/05/10 Given Ambulat ory Pharmac y hepatitis A-hepatitis B vaccine 2010 UNK 104 Unknown complet ed hepatitis A-hepatit is B vaccine 10/05/10 Given Ambulat ory Pharmac y influenza virus vaccine, live 2009 [id number] 111 Unknown complet ed influenza virus vaccine, live 04/29/10 Given Ambulat ory Pharmac y influenza virus vaccine,split 2009 UNKNOWN 15 Unknown complet ed influenza virus vaccine,s plit 04/29/10 Given Ambulat ory Pharmac y influenza virus vaccine, live 2009 [id number] 111 Unknown complet ed influenza virus vaccine, live 04/29/10 Given Ambulat ory Pharmac y influenza virus vaccine,split 2009 UNKNOWN 15 Unknown complet ed influenza virus vaccine,s plit 04/29/10 Given Ambulat ory Pharmac y hepatitis A-hepatitis B vaccine 2009 [id number] 104 GlaxoSmithKli co complet ed hepatitis A-hepatit is B vaccine 04/01/10 Given Ambulat ory Pharmac y typhoid Vi capsular polysaccharid e vac 2009 [id number] 101 [employer] complet ed typhoid Vi capsular polysacch aride vac 04/01/10 Given Ambulat ory Pharmac y yellow fever vaccine 2009 [id number] 37 Emergent Biosolutions complet ed yellow fever vaccine 04/01/10 Given Ambulat ory Pharmac y anthrax vaccine 2009 UNK 24 complet ed anthrax vaccine 04/01/10 Given Ambulat ory Pharmac y poliovirus vaccine, inactivated 2009 [id number] [address] [employer] [employer] comple t ed polioviru s vaccine, inactivat ed 04/01/10 Given Ambulat ory Pharmac y yellow fever vaccine 2009 [id number] 37 Emergent Biosolutions complet ed yellow fever vaccine 04/01/10 Given Ambulat ory Pharmac y anthrax vaccine 2009 UNK 24 complet ed anthrax vaccine 04/01/10 Given Ambulat ory Pharmac y poliovirus vaccine, inactivated 2009 [id number] [address] [employer] [address] [employer] comple t ed polioviru s vaccine, inactivat ed 04/01/10 Given Ambulat ory Pharmac y hepatitis A-hepatitis B vaccine 2009 [id number] 4ba 104 GlaxoSmithKli ne complet ed hepatitis A-hepatit is B vaccine 04/01/10 Given Ambulat ory Pharmac y typhoid Vi capsular polysaccharid e vac 2009 [id number] 101 [employer] complet ed typhoid Vi capsular polysacch aride vac 04/01/10 Given Ambulat ory Pharmac y tetanus, diphtheria, acellular pertu is 2009 [id number] 4BA 115 sanofi pasteur complet ed tetanus, diphtheri a, acellular pertussis 02/25/10 Given Ambulat ory Pharmac y meningococcal A,C,Y,W-135 (MCV4P) 2009 [id number] 114 CSL Behring complet ed meningoco ccal [...] y tetanus, diphtheria, acellular pertu is 2009 [id number] 4BA 115 sanofi pasteur complet ed tetanus, diphtheri a, acellular pertussis 02/25/10 Given Ambulat ory Pharmac y meningococcal A,C,Y,W-135 (MCV4P) 2009 [id number] 114 CSL Behring complet ed meningoco ccal A,C,Y,W-1 35 (MCV4P) 02/25/10 Given Ambulat ory Pharmac y hepatitis A-hepatitis B vaccine 2009 [id number] 4AA 104 ChegongfangK[employer] co complet ed hepatitis A-hepatit is B vaccine 02/25/10 Given Ambulat ory Pharmac y meningococcal polysaccharid e (MPSV4) 2009 UNKNOWN 32 Unknown complet ed meningoco ccal polysacch aride (MPSV4) 02/25/10 Given Ambulat ory Pharmac y tetanus-dipht h toxoids (Td) adult/adol 2009 UNKNOWN 09 Unknown complet ed tetanus-d iphth toxoids (Td) adult/ado l 02/25/10 Given Ambulat ory Pharmac y TDAP 2009 115 complet ed [facility] Results Combined list of recent chemistry, hematology [...] Prevention' s HIV diagnostic algorithm. Refer to [facility] Lab Guide for additional information : [email or web address] x Testing performed by Tamia cesar. 5600A[facility]U [facility] Miscellan eous Sendouts Repository Sample Received ( 3 2:47 PM) 04/21 N [facility] Vital Signs Combined list of inpatient and outpatient Vital Signs from Department of [facility] and [facility], ranging from 12 months to all on record, depending upon the facility. Vital Sign Value Date Comments Source Systolic Blood Pressure 123 mm[Hg] 04/22/2022 11:55:00 [facility] Diastolic Blood Pressure 78 mm[Hg] 04/22/2022 11:55:[address] [place] [address] Respiratory Rate 16 br/min 04/22/2022 11:55:[address] [place] [address] Blood Pressure Manual Automatic 04/22/2022 11:55:00 [facility] Temperature Temporal Artery 36.3 Cheri 04/22/2022 11:55:00 [facility] Peripheral Pulse Rate 58 bpm 04/22/2022 11:55:[address] [place] [address] Mean Arterial Pressure, Calc 93 mm[Hg] 04/22/2022 11:55:[address] [place] [address] [facility] Encounters Combined list of: 1) Encounters from Department of Veterans Affairs facilities going backup to the last 18 months, not all CT inpatient encounters are included; 2) Encounters from the Department of [facility] facilities going backup to 280 months. Location Location Details Encounter Type Encounter Number Reason For Visit Attending Provider ADM Date DC Date Status Disposition Source [facility] [place] Between Visit [id number] 05/03 Discharge Disposition: Home or Self Care [facility] [place] 8344R-439 AMDS Between Visit [id number] 05/06 Discharge Disposition: Home or Self Care 8344R-4 39 AMDS 8344R-439 AMDS Between Visit [id number] 08/23 Discharge Disposition: Home or Self Care 8344R-4 39 AMDS [facility] Between Visit [id number] 09/23 Discharge Disposition: Home or Self Care [facility] Between Visit [id number] 09/23 Discharge Disposition: Home or Self Care [facility] Procedures Combined list of: 1) Procedures from [facility] of Veterans Affairs facilities going back up to thelast 18 months, not all CT non-surgical procedures are included; 2) All procedures from the Department of [facility] facilities. Procedure Procedure Type Code Date Perfomer Comments Sourc e Application of a modality to one or more areas; traction, mechanical Application of a modality to one or more areas; traction, mechanical [address] [place] [address] Chiropractic manipulative treatment (CMT); spinal, one to two regions Chiropractic manipulative treatment (CMT); spinal, one to two regions [address] [place] [address] Application of a modality to one or more areas; hot or cold packs Application of a modality to one or more areas; hot or cold packs [address] [place] [address] Chiropractic manipulative treatment (CMT); spinal, three to four regions Chiropractic manipulative treatment (CMT); spinal, three to four regions [address] [place] [address] Social History Combined list of available smoking, tobacco, and other social history from Department of 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 Social History Type Response Date Comment Sourc e Sex Representation Male (finding) 03/13/2020 Un known Organization Tobacco smoking status NHIS LIFETIME NON-USER OF TOBACCO 04/15/2016 [facility] History of tobacco use LIFETIME NON-USER OF TOBACCO 05/28/2015 [facility] History of tobacco use LIFETIME NON-USER OF TOBACCO 05/08/2015 [facility] History of tobacco use LIFETIME NON-USER OF TOBACCO 06/14/2014 [facility] Sexual Orientation Ambula tory Pharmacy Gender [...] equipment Ordered: Referral Request 2.0 ? AXEL Chilel- [facility] ? ? Extracted from:Title: LONNIE Author: KSENIA [...] blood pressure starts to rise, verb understanding. 10/11/[address] [place] [address] Advance Directives List of completed, amended, or rescinded Advance Directives on record at Department of Veterans Affairs facilities. An actual copy of the Directive is not included. Date Advance Directive Provider Source 06/14/2014 ADVANCE DIRECTIVE DISCUSSION [facility] Functional Status Combined list of recent functional and cognitive assessments recorded at [facility] of Defense and [facility] ([facility] Functional [place] Measurement (FIM) Scale: 1 = Total Assistance (Subject = 0% +), 2 = Maximal Assistance (Subject = 25% +), 3 = Moderate Assistance (Subject = 50% +), 4 = Minimal Assistance (Subject = 75% +), 5 = Supervision, 6 = Modified [place] (Device), 7 = Complete [place] (Timely, Safely). Assessment Date/Time Source Assessment Type Assessment Skill Assessment Score Assessment Details No data available for this section
--- OUTSIDE RECORDS SUMMARY | 2024-10-11 08:01 | XMS_ITS ---
Author Organization [facility] Address [address] [facility] [facility] [address] [place] [address] Phone Care Team Providers Care Family Preservation Worker Name Role Phone Luis Fernando WALDROP, Lobito George [phone] [facility] Station Primary Care P rovider [phone] Plan of Treatment Findings Encounter Date Recommended mattress / helen w covers for dust mites Post Test with Lobito Gould MD 03/11/2021 Last Documented On 1 1:12PM ; [facility] Recommended allergy sensitiv ity testing - abbrev New Patient with Lobito Gould MD 03/04/2021 Last Documented On 1 3:12PM ; [facility] Instructions to patient Avoid allergens Last Documented On 1 1:11PM ; [facility] Instructions for patient - p janell use of nasal spray Last Documented On 1 3:11PM ; [facility] Assessments Includes: Assessments for all patient encounters Findings Encounter Date Allergic rhinitis Follow Up with Lobito fiore MD 06/10/2021 Last Documented On 1 12:44PM ; [facility] Chronic rhinitis Post Test with Lobito Gould MD 03/11/2021 Last Documented On 1 1:12PM ; [facility] Chronic rhinitis New Patient with Lobito kebede MD 03/04/2021 Last Documented On 1 3:12PM ; [facility] Instructions Includes: Instructions for all patient encounters Instructions to patient Avoid allergens Last Documented On 1 1:11PM ; [facility] Instructions for patient - p janell use of nasal spray Last Documented On 3:11PM ; [facility] ; [facility] Fexofenadine HCl 180 MG Oral Tablet 03/02/2021 Provider: Lisa REYNA ([place]) Diagnosis: 1 tab po qd Last Documented On 2:43PM By Jimmy Luther ; [facility] Past Medications on file Fluticasone Propionate 50 MCG/ACT Nasal Suspension 03/04/2021 - 06/10/2021 Provider: Lobito pham MD Diagnosis: Chronic rhinitis 2 sp en qam Last Documented On 12:25PM By Stef Snow ; [facility] Azelastine HCl 0.1% Nasal Solution 03/02/2021 - 03/02/2021 Provider: Lisa REYNA ([place]) Diagnosis: prn Last Documented On 2:58PM By Lobito Gould MD ; [facility] Medications Administered Includes: Administered Medications in patient's chart No Administered Medications Recorded Results Includes: Results from 10/12/2023 through 10/11/2024 No Results Recorded For Specified Dates History of Present Illness History of Present Illness not supported for this document type No History of Present Illness Recorded Social History Description Last Updated Past medical history reviewed 06/10/2021 Last Documented On 12:44PM ; [facility] Smoking status : Never smoker 03/04/2021 Last Documented On 3:12PM ; [facility] Air-conditioning filters are changed tim ry 3 months 03/04/2021 Last Documented On 3:12PM ; [facility] Environmental history reviewed 1 Last Documented On 1 3:12PM ; [facility] Housing has central cooling 03/04/2021 Last Documented On 1 3:12PM ; [facility] Housing has windows closed 03/04/2021 Last Documented On 1 3:12PM ; [facility] Lives in apartment 03/04/2021 Last Documented On 1 3:12PM ; [facility] Mattress is encased 03/04/2021 Last Documented On 1 3:12PM ; [facility] No carpets in residence 03/04/2021 Last Documented On 1 3:12PM ; [facility] No contact with pets or other animals Last Documented On 1 3:12PM ; [facility] No exposure to environmental tobacco smo ke 03/04/2021 Last Documented On 1 3:12PM ; [facility] No exposure to molds 03/04/2021 Last Documented On 1 3:12PM ; [facility] No HEPA filters 03/04/2021 Last Documented On 1 3:12PM ; [facility] No secondhand cigarette smoke exposure 0 03/04/2021 Last Documented On 1 3:12PM ; [facility] No wall unit cooling in residence 2020 Last Documented On 1 3:12PM ; [facility] Not living near a major source of pollut ion 03/04/2021 Last Documented On 1 3:12PM ; [facility] Patient does not sleep with stuffed anim als 03/04/2021 Last Documented On 1 3:12PM ; [facility] Patient is not exposed to clutter that [...] Subscriber Relationship Effect kiran Dates 1 - [facility] [id number] Ellis Ellis Self 07/13/2017 - Un known Clinical Notes Includes: Signed Clinical Notes starting from 11/29/2022 No Clinical Notes Recorded
--- OUTSIDE RECORDS SUMMARY | 2024-10-11 08:01 | XMS_ITS | Clinical Summary ---
Author Organization [facility] Address [facility] [facility] [address] [place] [address] Phone Care Team Providers Care Harness Worker Name Role Phone Luis Fernando WALDROP, Lobito George [phone] [facility], Clinic Station Primary Care P rovider [phone] Reason for Visit and Chief Complaint visit for: follow-up exam - The Chief Complaint is: allergies Plan of Treatment - Recommended mattress / pillow covers for dust mites - Last Documented On 03/11/2021 1:12PM ; [facility] Pending Tests Order Diagnosis Results Due Ordering P rovider Return Follow Up - Month(s) 3 months Chronic rhinitis Lobito Gould MD Last Documented On 1 1:12PM ; [facility] Plan: Medications - Medication Care Plan Continue current Medications Chronic rhinitis 03/11/21 Lobito Gould MD Last Documented On 1 1:12PM ; [facility] Instructions to patient Avoid allergens Last Documented On 1:11PM ; [facility] Assessments Includes: Assessments from this encounter Findings - Chronic rhinitis - Last Documented On 03/11/2021 1:12PM ; [facility] Instructions Includes: Instructions from this encounter Instructions to patient Avoid allergens Last Documented On 1:11PM ; [facility] Gould MD ; [facility] Fexofenadine HCl 180 MG Oral Tablet [...] 11:52A M ; [facility] [...] 1:12PM ; [facility] Smoking Status Unknown Procedures and Surgical History Includes: Procedures from this encounter Procedures Code Diagnosis Performing Provider Service L ocation Service Date avoid allergens Last Documented On 1 1:11PM ; [facility] medication list reviewed Last Documented On 1 1:09PM ; [facility] percutaneous tests with allergenic extracts was [id number] Last Documented On 11:52AM ; [facility] intradermal tests with allergenic extracts (imme diate) was 58 [id number] Last Documented On 12:38PM ; [facility] allergy sensitivity testing Last Documented On 1 11:52AM ; [facility] Medical History Includes: Medical History addressed during this encounter Description Last Updated Past medical history reviewed 03/11/2021 Last Documented On 1 1:12PM ; [facility] Family History Includes: Family History addressed [...] Time Diagnosis Post Test Lobito Gould MD [facility] 1 11:04AM 1:08PM Rhinitis Chronic Insurance Includes: Active Insurance Policies Plan Name Member ID Group # Subscriber Relationship Effect kiran Dates 1 - [facility] [id number] Ellis Corral Self 07/13/2017 - Un known Clinical Notes Includes: Clinical Notes from this encounter No Clinical Notes Recorded
--- OUTSIDE RECORDS SUMMARY | 2024-10-11 08:01 | XMS_ITS | Clinical Summary ---
Author Organization [facility] Address [address] [facility] [address] [place] [address] Phone Care Team Providers Care Drupal Web Developer Name Role Phone Luis Fernando WALDROP, Lobito George [phone] [facility], Clinic Station Primary Care P rovider [phone] Reason for Visit and Chief Complaint visit for: comprehensive medical evaluation :Consultation - The Chief Complaint is: allergies Plan of Treatment - Recommended allergy sensitivity testing - abbrev - Last Documented On 03/04/2021 3:12PM ; [facility] Pending Tests Order Diagnosis Results Due Ordering P rovider Plan:Test/Treatme nt1 - Allergy Tests Allergy Sensitivity Test Chronic rhinitis 03/04/21 Lobito Gould MD Last Documented On 3:09PM ; [facility] Instructions to patient Instructions for patient - p janell use of nasal spray Last Documented On 1 3:11PM ; [facility] Assessments Includes: Assessments from this encounter Findings - Chronic rhinitis - Last Documented On 03/04/2021 3:12PM ; [facility] Instructions Includes: Instructions from this encounter Instructions to patient Instructions for patient - p janell use of nasal spray Last Documented On 3:11PM ; [facility] Medical Equipment - Implanted Devices Includes: Current Devices No Medical Equipment Recorded Medications Includes: Medications discussed during this encounter and other current Medications New / Renewed during this visit Lobito Gould MD on 03/04/2021 Fluticasone Propionate 50 MCG/ACT Nasal Suspension Provider: Lobito fiore MD 30 day supply: 16 gram, 3 refills Diagnosis: Chronic rhinitis 2 sp en qam [facility] [id number] [address] [place] [address], [phone] - Last Documented On 1 12:25PM By Stef Snow ; [facility] Current Medications (continue as prescribed) Fluticasone Propionate 50 MCG/ACT Nasal Suspension 06/10/2021 Provider: Lobito fiore MD Diagnosis: Allergic rhiniti s, unspecified 2 sp en qd as needed Last Documented On 1 12:45PM By Lobito Gould MD ; [facility] Fexofenadine HCl 180 MG Oral Tablet 03/02/2021 Provider: Lisa Renee ([place]) 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 He gets itchy throat at night for several years. He did not have itchy throat will deployed in [employer]. Itchy throat improved with use of Astelin [...] 3:12PM ; [facility] Air-conditioning filters are changed tim ry 3 months 03/04/2021 Last Documented On 1 3:12PM ; [facility] Environmental history reviewed 1 Last Documented On 1 3:12PM ; [facility] Housing has central cooling 03/04/2021 Last Documented On 3:12PM ; [facility] Housing has windows closed 03/04/2021 Last Documented On 1 3:12PM ; [facility] Lives in apartment 03/04/2021 Last Documented On 3:12PM ; [facility] Mattress is encased 03/04/2021 Last Documented On 3:12PM ; [facility] No carpets in residence 03/04/2021 Last Documented On 1 3:12PM ; [facility] No contact with pets or other animals Last Documented On 1 3:12PM ; [facility] No exposure to environmental tobacco smo ke 03/04/2021 Last Documented On 1 3:12PM ; [facility] No exposure to molds 03/04/2021 Last Documented On 3:12PM ; [facility] No HEPA filters 03/04/2021 Last Documented On 1 3:12PM ; [facility] No secondhand cigarette smoke exposure 0 03/04/2021 Last Documented On 1 3:12PM ; [facility] No wall unit cooling in residence 2020 Last Documented On 1 3:12PM ; [facility] Not living near a major source of pollut ion 03/04/2021 Last Documented On 3:12PM ; [facility] Patient does not sleep with stuffed [...] Time Diagnosis New Patient Lobito Gould MD [place] [facility] 1 2:26PM 3:12PM Rhinitis Chronic Insurance Includes: Active Insurance Policies Plan Name Member ID Group # Subscriber Relationship Effect kiran Dates 1 - [facility] [id number] Ellis Ellis Self 07/13/2017 - Un known Clinical Notes Includes: Clinical Notes from this encounter No Clinical Notes Recorded
--- OUTSIDE RECORDS SUMMARY | 2024-10-11 08:01 | XMS_ITS | Clinical Summary ---
Author Organization [facility] Address [address] [facility] [address] [place] [address] Phone Care Team Providers Care Field Marketing Manager Name Role Phone Luis Fernando WALDROP, Lobito George [phone] [facility] ([facility], Clinic Station Primary Care P rovider [phone] Reason for Visit and Chief Complaint visit for: follow-up exam - The Chief Complaint is: allergies Plan of Treatment Pending Tests Order Diagnosis Results Due Ordering P rovider Return Follow Up - Month(s) 6 months Allergic rhinitis, unspecified 06/10/21 Lobito Gould MD Last Documented On 12:44PM ; [facility] Assessments Includes: Assessments from this encounter Findings - Allergic rhinitis - Last Documented On 06/10/2021 12:44PM ; [facility] [...] Snow ; [facility] New / Renewed during this visit Lobito Gould MD on 06/10/2021 Fluticasone Propionate 50 MCG/ACT Nasal Suspension Provider: Lobito fiore MD 30 day supply: 16 gram, 3 refills Diagnosis: Allergic rhinitis, unspecified 2 sp en qd as needed Pharmacy: [facility] [id number] [address], [phone] - Last Documented On 12:45PM By Lobito Gould MD ; [facility] Current Medications (continue as prescribed) Fexofenadine [...] 12:26P M ; [facility] [...] On 12:44PM ; [facility] Smoking Status Unknown Procedures and Surgical History Includes: Procedures from this encounter Procedures Code Diagnosis Performing Provider Service L ocation Service Date medication list reviewed Last Documented On 1 12:26PM ; [facility] Medical History Includes: Medical History addressed during this encounter Description Last Updated Past medical history reviewed 06/10/2021 Last Documented On 12:44PM ; [facility] Family History Includes: Family History addressed [...] Time Diagnosis Follow Up Lobito Gould MD [place] [facility] 1 12:16PM 12:46PM Allergic Rhinitis Insurance Includes: Active Insurance Policies Plan Name Member ID Group # Subscriber Relationship Effect kiran Dates 1 - [facility] [id number] Ellis Ellis Self 07/13/2017 - Un known Clinical Notes Includes: Clinical Notes from this encounter No Clinical Notes Recorded
== END 2024-10-11 07:57 | disposition home or self-care (01) ==
LOC: HO.SH 07:56
PROVIDERS: Visit Provider Internal Medicine
DX: Z01.118 Encounter for examination of ears and hearing with other abnormal findings (principal); H93.293 Other abnormal auditory perceptions, bilateral
CPT/HCPCS: 92557; 92567

== ENCOUNTER 2024-10-21 13:56 | Outpatient (AMB) | payer OTHER, SELFPAY ==
[2024-10-21 13:58] VITALS: PULSE 67; O2SAT 98; BMI 27.1
--- NOTE | 2024-10-21 13:58 | A.OFFVIS_ITS ---
Vital Signs 10/21/24 13:58 Height 5 ft 8 in Weight 178 lb BMI 27.1 Pulse 67 Pulse Source Pulse Oximeter Pulse Oximetry (%) 98 Oxygen Delivery Method Room Air Intake Visit Reasons: INP-LONNIE Intake Note: Internal referral for LONNIE. Allergies No Known Allergies Allergy (Verified 10/21/24 14:01) HPI Comments Details: 44 year old r. handed male referred to us for a sleep evaluation. He wakes up tired always and he was diagnosed with sleep apnea in 2022 while living in [place], it works great for him now. He gets his supplies through his old [employer] company, however no one is monitoring for compliance here in [place]. 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 He has a positive FH of Alzheimers dementia. He denies RLS, or uncomfortable feeling of numbness, tingling, sensation at night. He has muscle spasms and twitches after long distance bike rides. He denies morning headaches. He uses a mouth guard due to Bruxism, and sleeps on his back, sometimes he yells and talks in his sleep. He denies smoking, or MJ use, drinks alcohol only socially. He takes Benadryl nightly to help him sleep through the night although it helps with his allergies also. He anxious about work related decisions, but is very good at identifying deficits in his health and attends to self care accordingly. He is interested in [facility] therapy will f/u at next visit. [facility] Medical History Lower back pain Rupture of anterior cruciate ligament of right knee Sleep apnea Hypertension Surgical History History of repair of anterior cruciate ligament of right knee Family History Father Prostate cancer Paternal Grandmother Diabetes type 2, controlled Social History Housing: House Patient Tobacco Use Status: Never used Tobacco e-Cigarette/Vaping Use: Never Used Second Hand Smoke Exposure: No service: Yes ([employer] ) Current occupational status: employed Current occupational exposures/hazards: Yes Cognitive needs: No Hearing needs: No Vision needs: No Physical Exam Vital Signs: Last Vital Signs Pulse 67 10/21/24 13:58 Pulse Ox 98 10/21/24 13:58 Oxygen Delivery Method Room Air 10/21/24 13:58 BMI result Body Mass Index 27.1 Const General: cooperative and comfortable Nutritional Appearance: average body habitus Orientation/consciousness: patient oriented x3 HEENT Face and sinus: Yes face symmetric Teeth and gingiva: other (mallampti score of 3) Eyes Pupils: Equal, round and reactive pupils present Neck Neck: Yes full ROM Resp Effort & Inspection: normal respiratory effort and able to speak in complete sentences Neuro General: patient oriented x3 and moves all extremities Cranial nerves: Yes Facial sensation intact/muscles of mastication intact, Yes Equal, round and reactive pupils present, Yes Normal accommodation reflex present, Yes Bilaterally intact EOM present, Yes Nystagmus not present, Yes Normal facial strength present, Yes Midline tongue present, Yes Ability to bilaterally rotate head present and Yes Ability to bilaterally elevate shoulders present Gait exam (Neuro): Normal gait present Motor exam (neuro): 5/5 motor strength present throughout and Normal motor muscle tone present throughout Deep tendon reflexes (DTR's): Right triceps reflex intensity grade: 2+, Left triceps reflex intensity grade: 2+, Rt Biceps (C5, C6): 2+, Left biceps reflex intensity grade: 2+, Right brachioradialis reflex intensity grade: 2+, Left brachioradialis reflex intensity grade: 2+, Right patellar reflex intensity grade: 2+, Left patellar reflex intensity grade: 2+, Right ankle reflex intensity grade: 2+ and Left ankle reflex intensity grade: 2+ Coordination: [id number] test normal Psych Appearance: grossly normal Insight: Good insight present (Psych) Judgement: Good judgement present (Psych) Results Reviewed Results Reviewed: Labs ALT /AST / elevated. Fasting Glucose is elevated. HDL is low LDL is elevated. D is low. TSH is normal. Assessment & Plan Assessment & Plan (1) Low vitamin D level: Code(s): R79.89 - Other specified abnormal findings of blood chemistry Category: Medical (2) Sleep talking: Code(s): G47.8 - Other sleep disorders Category: Medical (3) Excessive daytime sleepiness: Code(s): G47.19 - Other hypersomnia Category: Medical Plan HST to evaluate sleep apnea: Excessive Daytime Fatigue when not using CPAP Labs to r/o deficiencies. B12/ Homocysteine/ MMA/ Folate TSH/ Iron/ TSH is normal Patient Education: [facility] Orders: Orders Vitamin B12 and Folate Today G47.19 - Other hypersomnia Methylmalonic Acid Today G47.9 - Sleep disorder, unspecified, R53.83 - Other fatigue Ferritin Today G47.19 - Other hypersomnia Homocysteine Today G47.9 - Sleep disorder, unspecified, R53.83 - Other fatigue IRON PROFILE Today G47.9 - Sleep disorder, unspecified, R53.83 - Other fatigue RT home sleep study Today G47.19 - Other hypersomnia Medications: New cholecalciferol (vitamin D3) 50 mcg PO DAILY 30 caps 3RF low vitamin D MDD 1 cap R79.89 - Other specified abnormal findings of blood chemistry Patient Instructions: Sleep Hygiene provided: set a scheduled bedtime and wake time to help regulate the circadian rhythm and balance the release of pituitary hormones. Sleep in a dark room, temperatures below 68 degrees, and no devices n bed. Limit caffeinated products 6 hours prior to bed, and limit fluids 2-4 hours prior to bed. Gentle night yoga, diffusing essential oils, and playing soft music can be relaxing. Continue to wash your mask daily, and request supplies as needed. Continue to take one capsule of vitamin D, by mouth daily. Continue to take B12 daily, vitamin C 500mg to 1000mg daily. F/U with [facility] therapy if still interested in using it at the next visit. Coding Level of Care Code New Pt Level 4 (46475) Diagnoses Low vitamin D level R79.89 Sleep talking G47.8 Excessive daytime sleepiness G47.19 Time Spent (min) 30 Comment Sleep Evaluation Sleep Questionnaire Difficulty falling asleep: No Difficulty staying asleep?: Yes Snoring: Yes (prior to using) Witnessed apneas: Yes (prior to cpap use ) Gasping arousals: Yes Nocturia: No GERD: No Vivid dreams: No Acting out dreams: Yes Abnormal behavior in sleep: No Abnormal movements in sleep: No Morning headaches: No Excessive daytime sleepiness: No Daytime naps: No Restless legs: Yes Hallucinations: No Sleep paralysis: No Drop attacks: No Sleep Study: Yes (2022 in [place] ) CPAP: Yes
--- OUTSIDE RECORDS SUMMARY | 2024-10-21 14:19 | XMS_ITS | Clinical Summary ---
Author Organization [facility] it Address [address] [place] [address] Care Team Providers Care Hand Tube Winder Name Role Phone Unavailable Primary Care Provider [...] age to complete this topic Meningococcal B Vaccine Aged Out No l onger eligible based on patient's age to complete [...]
--- OUTSIDE RECORDS SUMMARY | 2024-10-21 14:19 | XMS_ITS ---
Author Organization [facility] Address [address] [facility] [address] [place] [address] Phone Care Team Providers Care Pressure Tester Name Role Phone Luis Fernando WALDROP, Lobito George [phone] [facility] [place] [facility] Primary Care P rovider [phone] Plan of Treatment Findings Encounter Date Recommended mattress / helen w covers for dust mites Post Test with Lobito Gould MD 03/11/2021 Last Documented On 1 1:12PM ; [facility] Recommended allergy sensitiv ity testing - abbrev New Patient with Lobito Gould MD 03/04/2021 Last Documented On 1 3:12PM ; [facility] Instructions to patient Avoid allergens Last Documented On 1 1:11PM ; [facility] Instructions for patient - p janell use of nasal spray Last Documented On 1 3:11PM ; [facility] Assessments Includes: Assessments for all patient encounters Findings Encounter Date Allergic rhinitis Follow Up with Lobito fiore MD 06/10/2021 Last Documented On 1 12:44PM ; [facility] Chronic rhinitis Post Test with Lobito Gould MD 03/11/2021 Last Documented On 1 1:12PM ; [facility] Chronic rhinitis New Patient with Lobito kebede MD 03/04/2021 Last Documented On 1 3:12PM ; [facility] Instructions Includes: Instructions for all patient encounters Instructions to patient Avoid allergens Last Documented On 1 1:11PM ; [facility] Instructions for patient - p janell use of nasal spray Last Documented On 3:11PM ; [facility] Medical Equipment - Implanted Devices Includes: Current and historical Devices No Medical Equipment Recorded Medications Includes: Current and historical Medications Current Medications (continue as prescribed) Fluticasone Propionate 50 MCG/ACT Nasal Suspension 06/10/2021 Provider: Lobito fiore MD Diagnosis: Allergic rhiniti s, unspecified 2 sp en qd as needed Last Documented On 12:45PM By Lobito Gould MD ; [facility] Fexofenadine HCl 180 MG Oral Tablet 03/02/2021 Provider: Lisa REYNA ([place]) Diagnosis: 1 tab po qd Last Documented On 2:43PM By Jimmy Luther ; [facility] Past Medications on file Fluticasone Propionate 50 MCG/ACT Nasal Suspension 03/04/2021 - 06/10/2021 Provider: Lobito pham MD Diagnosis: Chronic rhinitis 2 sp en qam Last Documented On 12:25PM By Stef Snow ; [facility] Azelastine HCl 0.1% Nasal Solution 03/02/2021 - 03/02/2021 Provider: Lisa REYNA ([place]) Diagnosis: prn Last Documented On 2:58PM By Lobito Gould MD ; [facility] Medications Administered Includes: Administered Medications in patient's chart No Administered Medications Recorded Results Includes: Results from 10/22/2023 through 10/21/2024 No Results Recorded For Specified Dates History of Present Illness History of Present Illness not supported for this document type No History of Present Illness Recorded Social History Description Last Updated Past medical history reviewed 06/10/2021 Last Documented On 12:44PM ; [facility] Smoking status : Never smoker 03/04/2021 Last Documented On 3:12PM ; [facility] Air-conditioning filters are changed tim ry 3 months 03/04/2021 Last Documented On 3:12PM ; [facility] Environmental history reviewed 1 Last Documented On 1 3:12PM ; [facility] Housing has central cooling 03/04/2021 Last Documented On 1 3:12PM ; [facility] Housing has windows closed 03/04/2021 Last Documented On 1 3:12PM ; [facility] Lives in apartment 03/04/2021 Last Documented On 1 3:12PM ; [facility] Mattress is encased 03/04/2021 Last Documented On 1 3:12PM ; [facility] No carpets in residence 03/04/2021 Last Documented On 1 3:12PM ; [facility] No contact with pets or other animals Last Documented On 1 3:12PM ; [facility] No exposure to environmental tobacco smo ke 03/04/2021 Last Documented On 1 3:12PM ; [facility] No exposure to molds 03/04/2021 Last Documented On 1 3:12PM ; [facility] No HEPA filters 03/04/2021 Last Documented On 1 3:12PM ; [facility] No secondhand cigarette smoke exposure 0 03/04/2021 Last Documented On 1 3:12PM ; [facility] No wall unit cooling in residence 2020 Last Documented On 1 3:12PM ; [facility] Not living near a major source of pollut ion 03/04/2021 Last Documented On 1 3:12PM ; [facility] Patient does not sleep with stuffed anim als 03/04/2021 Last Documented On 1 3:12PM ; [facility] Patient is not exposed to clutter [...] Subscriber Relationship Effect kiran Dates 1 - [facility] [id number] Ellis Ellis Self 07/13/2017 - Un known Clinical Notes Includes: Signed Clinical Notes starting from 11/29/2022 No Clinical Notes Recorded
--- OUTSIDE RECORDS SUMMARY | 2024-10-21 14:19 | XMS_ITS | Clinical Summary ---
Author Organization [facility] Address [address] [facility] [address] [place] [address] Phone Care Team Providers Care Divinity Teacher Name Role Phone Luis Fernando WALDROP, Lobito George [phone] [facility], Clinic Station Primary Care P rovider [phone] Reason for Visit and Chief Complaint visit for: comprehensive medical evaluation :Consultation - The Chief Complaint is: allergies Plan of Treatment - Recommended allergy sensitivity testing - abbrev - Last Documented On 03/04/2021 3:12PM ; [facility] Pending Tests Order Diagnosis Results Due Ordering P rovider Plan:Test/Treatme nt1 - Allergy Tests Allergy Sensitivity Test Chronic rhinitis 03/04/21 Lobito Gould MD Last Documented On 3:09PM ; [facility] Instructions to patient Instructions for patient - p janell use of nasal spray Last Documented On 1 3:11PM ; [facility] Assessments Includes: Assessments from this encounter Findings - Chronic rhinitis - Last Documented On 03/04/2021 3:12PM ; [facility] Instructions Includes: Instructions from this encounter Instructions to patient Instructions for patient - p janell use of nasal spray Last Documented On 3:11PM ; [facility] Medical Equipment - Implanted Devices Includes: Current Devices No Medical Equipment Recorded Medications Includes: Medications discussed during this encounter and other current Medications New / Renewed during this visit Lobito Gould MD on 03/04/2021 Fluticasone Propionate 50 MCG/ACT Nasal Suspension Provider: Lobito fiore MD 30 day supply: 16 gram, 3 refills Diagnosis: Chronic rhinitis 2 sp en qam [facility] [id number] [place] [address], [id number] - Last Documented On 1 12:25PM By Stef Snow ; [facility] Current Medications (continue as prescribed) Fluticasone Propionate 50 MCG/ACT Nasal Suspension 06/10/2021 Provider: Lobito fiore MD Diagnosis: Allergic rhiniti s, unspecified 2 sp en qd as needed Last Documented On 1 12:45PM By Lobito Gould MD ; [facility] Fexofenadine HCl 180 MG Oral Tablet 03/02/2021 Provider: Lisa Renee ([place]) POISON INFORMATION SPECIALIST Diagnosis: 1 tab po qd Last Documented On 2:43PM By Jimmy Luther ; [facility] Medications Administered Includes: Administered Medications from [...] 03/04/2021 2:40PM ; [facility] Results Includes: Results discussed during this encounter No Results Recorded For Specified Dates History of Present Illness Includes: History of Present Illness from this encounter HPI He is referred by PCP for evaluation. He gets itchy throat at night for several years. He did not have itchy throat will deployed in [facility]. Itchy throat improved with use of [...] 3:12PM ; [facility] Air-conditioning filters are changed tim ry 3 months 03/04/2021 Last Documented On 1 3:12PM ; [facility] Environmental history reviewed 1 Last Documented On 1 3:12PM ; [facility] Housing has central cooling 03/04/2021 Last Documented On 3:12PM ; [facility] Housing has windows closed 03/04/2021 Last Documented On 1 3:12PM ; [facility] Lives in apartment 03/04/2021 Last Documented On 3:12PM ; [facility] Mattress is encased 03/04/2021 Last Documented On 3:12PM ; [facility] No carpets in residence 03/04/2021 Last Documented On 1 3:12PM ; [facility] No contact with pets or other animals Last Documented On 1 3:12PM ; [facility] No exposure to environmental tobacco smo ke 03/04/2021 Last Documented On 1 3:12PM ; [facility] No exposure to molds 03/04/2021 Last Documented On 3:12PM ; [facility] No HEPA filters 03/04/2021 Last Documented On 1 3:12PM ; [facility] No secondhand cigarette smoke exposure 0 03/04/2021 Last Documented On 1 3:12PM ; [facility] No wall unit cooling in residence 2020 Last Documented On 1 3:12PM ; [facility] Not living near a major source of pollut ion 03/04/2021 Last Documented On 3:12PM ; [facility] Patient does not sleep with stuffed anim [...] Time Diagnosis New Patient Lobito Gould MD [place] [facility] 1 2:26PM 3:12PM Rhinitis Chronic Insurance Includes: Active Insurance Policies Plan Name Member ID Group # Subscriber Relationship Effect kiran Dates 1 - [facility] [id number] Ellis Ellis Self 07/13/2017 - Un known Clinical Notes Includes: Clinical Notes from this encounter No Clinical Notes Recorded
--- OUTSIDE RECORDS SUMMARY | 2024-10-21 14:19 | XMS_ITS | Clinical Summary ---
Author Organization [facility] Address [address] [facility] [address] [place] [address] Phone Care Team Providers Care Reservation Manager Name Role Phone Luis Fernando WALDROP, Lobito George [phone] [facility] Primary Care P rovider [phone] Reason for Visit and Chief Complaint visit for: follow-up exam - The Chief Complaint is: allergies Plan of Treatment Pending Tests Order Diagnosis Results Due Ordering P rovider Return Follow Up - Month(s) 6 months Allergic rhinitis, unspecified 06/10/21 Lobito Gould MD Last Documented On 12:44PM ; [facility] Assessments Includes: Assessments from this encounter Findings - Allergic rhinitis - Last Documented On 06/10/2021 12:44PM ; [facility] Medical Equipment - Implanted Devices Includes: Current Devices No Medical Equipment Recorded Medications Includes: Medications discussed during this encounter and other current Medications Discontinued / Stopped on this date Lobito Gould MD on 03/04/2021 Fluticasone Propionate 50 MC G/ACT Nasal Suspension Provider: Lobito Gould MD Diagnosis: Chronic rhinitis Last Documented On 12:25PM By Stef Snow ; [facility] New / Renewed during this visit Lobito Gould MD on 06/10/2021 Fluticasone Propionate 50 MCG/ACT Nasal Suspension Provider: Lobito fiore MD 30 day supply: 16 gram, 3 refills Diagnosis: Allergic rhinitis, unspecified 2 sp en qd as needed Pharmacy: [facility] [id number] [address], [phone] - Last Documented On 12:45PM By Lobito Gould MD ; [facility] Current Medications (continue as prescribed) Fexofenadine HCl 180 MG Oral Tablet 03/02/2021 Provider: Lisa REYNA ([place]) Diagnosis: 1 tab po qd Last Documented On 1 2:43PM By Jimmy Luther ; [facility] Medications Administered Includes: Administered Medications from this [...] 12:26P M ; [facility] Results Includes: Results discussed during this encounter [...] On 12:44PM ; [facility] Smoking Status Unknown Procedures and Surgical History Includes: Procedures from this encounter Procedures Code Diagnosis Performing Provider Service L ocation Service Date medication list reviewed Last Documented On 1 12:26PM ; [facility] Medical History Includes: Medical History addressed during this encounter Description Last Updated Past medical history reviewed 06/10/2021 Last Documented On 12:44PM ; [facility] Family History Includes: Family History addressed during [...] Time Diagnosis Follow Up Lobito Gould MD [facility] 1 12:16PM 12:46PM Allergic Rhinitis Insurance Includes: Active Insurance Policies Plan Name Member ID Group # Subscriber Relationship Effect kiran Dates 1 - [facility] [id number] Ellis Ellis Self 07/13/2017 - Un known Clinical Notes Includes: Clinical Notes from this encounter No Clinical Notes Recorded
--- OUTSIDE RECORDS SUMMARY | 2024-10-21 14:19 | XMS_ITS ---
Care Plan - [facility] Created on: October 21, 2024 Ellis Ellis : 1980 Sex: Male Author Organization [facility] Address [address] [facility] [address] [place] [phone] Phone Care Team Providers Care Pediatrics Teacher Name Role Phone Luis Fernando WALDROP, Lobito George [phone] [facility], Clinic Station Primary Care [place] mckeon [phone]
--- OUTSIDE RECORDS SUMMARY | 2024-10-21 14:19 | XMS_ITS | Continuity of Care Document ---
Author Name [facility] Organization [facility] Care Team Providers Care Photographer News Name Role Phone [facility] Unavailable Unavailable Problems Combined list of problems from Department [facility] and [facility] facilities. It does not include entries that were removed or entered in error. Problem Status Onset Date Problem Type Date of Resolution Comments Source Acquired spondylolysis Active Condition [facility] Low back pain Active Condition [facility] Personal History of return from Deployment Active Condition [facility] Primary hypertension Active Condition [address] [place] [address] yue Medications Combined list of outpatient medications from [facility] and [facility] facilities.Medications provided include 1) outpatient medications [...] 90 cap(s), 3 total refill(s ), [facility], Pharmacy : [facility] Oral (given by mouth) Discont inued 04/22/20222021 90.0 7239CS [facility] Immunizations Combined list of available immunizations from the [facility] and [facility] facilities. Immunization Series Date Given Administered By Site Reaction Lot Number CVX Code Drug Butcher All Round Status Comments Source COVID Vaccine Pfizer 2020 SREE [id number] complet ed Result Comment: Unit: Unknown Route: Intramusc ular(IM) Manufactu rer: Pfizer, Inc (PFR) 7239CS [facility] influenza, injectable, quadrivalent- pf 2020 OLLIECOLLINS [id number] 150 complet ed Result Comment: Route: Unknown Manufactu rer: Seqirus (SEQ) 7239C-S [facility] Influenza, inj, MDCK, quadrivalent- pf 2020 OLLIECOLLINS 171 complet ed Result Comment: Unit: Unknown Manufactu rer: () 7239C-S [facility] anthrax vaccine 2020 OLLIECOLLINS [id number] 24 complet ed Result Comment: Route: Unknown Manufactu rer: [employer]gent [employer] s [place] (MIP) 7239CS [facility] SARS-CoV-2 (COVID-19) Ad26 vaccine, rec 2020 OLLIECOLLINS [id number] 212 complet ed Result Comment: Route: Unknown Manufactu rer: [employer] (JSN) 7239C-S [facility] influenza, seasonal, injectable 2019 OLLIECOLLINS [id number] 141 complet ed Result Comment: Route: Unknown Manufactu rer: Seqirus (SEQ) 7239CS [facility] Influenza, inj, MDCK, quadrivalent- pf 2019 OLLIECOLLINS 171 complet ed Result Comment: Unit: Unknown Manufactu rer: () 7239CS [facility] typhoid Vi capsular polysaccharid e vac 2019 [id number] 101 sanofi pasteur complet ed typhoid Vi capsular polysacch aride vac 03/07/20 Given Ambulat ory Pharmac y anthrax vaccine 2019 [id number] 24 [employer] complet ed anthrax vaccine 03/07/20 Given Ambulat ory Pharmac y poliovirus vaccine, inactivated 2019 [id number] 10 sanofi pasteur complet ed polioviru s vaccine, inactivat ed 03/07/20 Given Ambulat ory Pharmac y tetanus-dipht h toxoids (Td) adult/adol 2019 [id number] 09 sanofi pasteur complet ed tetanus-d iphth toxoids (Td) adult/ado l 03/07/20 Given Ambulat ory Pharmac y measles/mumps /rubella virus vaccine 2019 [id number] Merck & Company Inc complet ed measles/m umps/rube lla virus vaccine 03/07/20 Given Ambulat ory Pharmac y typhoid Vi capsular polysaccharid e vac 2019 [id number] 101 sanofi pasteur complet ed typhoid Vi capsular polysacch aride vac 03/07/20 Given Ambulat ory Pharmac y anthrax vaccine 2019 [id number] 24 [employer] complet ed anthrax vaccine 03/07/20 Given Ambulat ory Pharmac y poliovirus vaccine, inactivated 2019 [id number] 10 sanofi pasteur complet ed polioviru s vaccine, inactivat ed 03/07/20 Given Ambulat ory Pharmac y tetanus-dipht h toxoids (Td) adult/adol 2019 [id number] 09 sanofi pasteur complet ed tetanus-d iphth toxoids (Td) adult/ado l 03/07/20 Given Ambulat ory Pharmac y measles/mumps /rubella virus vaccine 2019 [id number] Merck & Company Inc complet ed [...] ory Pharmac y influenza, seasonal, injectable 2017 [id number] 141 Seqirus complet ed influenza , seasonal, injectabl e 04/30/18 Given Ambulat ory Pharmac y Influenza, inj, MDCK, quadrivalent- pf 2017 171 complet ed Influenza , inj, MDCK, quadrival ent-pf 04/30/18 Given Ambulat ory Pharmac y influenza, seasonal, injectable 2017 [id number] 141 Seqirus complet ed influenza , seasonal, [...] INFLUENZA, SEASONAL, INJECTABLE 2015 141 complet ed [facility] influenza, seasonal, injectable-pf 2014 [id number] 140 CSL Behring complet ed influenza , seasonal, injectabl e-pf 04/14/15 Given Ambulat ory Pharmac y influenza, seasonal, injectable-pf 2014 [id number] 140 CSL Behring complet ed influenza , seasonal, injectabl e-pf 04/14/15 Given Ambulat ory Pharmac y INFLUENZA, UNSPECIFIED FORMULATION 2014 88 complet ed [employer] - Immunizat ion record [facility] tuberculin purified protein derivative 2014 [id number] 96 sanofi pasteur complet ed tuberculi n purified protein derivativ e 02/18/15 Given Ambulat ory Pharmac y INFLUENZA, UNSPECIFIED FORMULATION 2013 88 complet ed [facility] influenza, seasonal, injectable 2012 UNK 141 Unknown complet ed influenza , seasonal, injectabl e 06/03/13 Given Ambulat ory Pharmac y influenza, seasonal, injectable 2012 UNK 141 Unknown complet ed influenza , seasonal, injectabl e 06/03/13 Given Ambulat ory Pharmac y INFLUENZA, UNSPECIFIED FORMULATION 2012 88 complet ed Shy,V elroy [facility] typhoid Vi capsular polysaccharid e vac [...] ory Pharmac y influenza, seasonal, injectable-pf 2011 [id number] 140 sanofi pasteur complet ed influenza , seasonal, injectabl e-pf 04/01/12 Given Ambulat ory Pharmac y influenza, seasonal, injectable 2011 UNKNOWN 141 Unknown complet ed influenza , seasonal, injectabl e 04/01/12 Given Ambulat ory Pharmac y influenza, seasonal, injectable-pf 2011 [id number] 140 sanofi pasteur complet ed influenza , seasonal, injectabl e-pf 04/01/12 Given Ambulat ory Pharmac y anthrax vaccine 2011 UNK 24 complet ed anthrax vaccine 07/16/11 Given Ambulat ory Pharmac y vaccinia (smallpox) vaccine 2010 zzLef t Arm [id number] 75 complet ed vaccinia (smallpox ) vaccine 05/20/11 Given Ambulat ory Pharmac y anthrax vaccine 2010 zzWalker Arm [id number] 24 Unknown complet ed anthrax vaccine 05/20/11 Given Ambulat ory Pharmac y vaccinia (smallpox) vaccine 2010 [id number] 3A 75 complet ed vaccinia (smallpox ) vaccine 05/20/11 Given Ambulat ory Pharmac y anthrax vaccine 2010 UNK 24 complet ed anthrax vaccine 05/20/11 Given Ambulat ory Pharmac y tuberculin purified protein derivative 2010 zzLef t Arm [id number] 96 complet ed tuberculi n purified protein derivativ e 04/23/11 Given Ambulat ory Pharmac y influenza, seasonal, injectable 2010 [id number] 141 Unknown complet ed influenza , seasonal, injectabl e 03/06/11 Given Ambulat ory Pharmac y influenza virus vaccine,split 2010 [id number] 15 Unknown complet ed influenza virus vaccine,s plit 03/06/11 Given Ambulat ory Pharmac y influenza, seasonal, injectable 2010 [id number] 141 Unknown complet ed influenza , seasonal, injectabl e 03/06/11 Given Ambulat ory Pharmac y influenza virus vaccine,split 2010 [id number] 15 Unknown complet ed influenza virus vaccine,s plit 03/06/11 Given Ambulat ory Pharmac y hepatitis A-hepatitis B vaccine 2010 UNK 104 Unknown complet ed hepatitis A-hepatit is B vaccine 10/05/10 Given Ambulat ory Pharmac y hepatitis A-hepatitis B vaccine 2010 UNK 104 Unknown complet ed hepatitis A-hepatit is B vaccine 10/05/10 Given Ambulat ory Pharmac y influenza virus vaccine, live 2009 [id number] 111 Unknown complet ed influenza virus vaccine, live 04/29/10 Given Ambulat ory Pharmac y influenza virus vaccine,split 2009 UNKNOWN 15 Unknown complet ed influenza virus vaccine,s plit 04/29/10 Given Ambulat ory Pharmac y influenza virus vaccine, live 2009 [id number] 111 Unknown complet ed influenza virus vaccine, live 04/29/10 Given Ambulat ory Pharmac y influenza virus vaccine,split 2009 UNKNOWN 15 Unknown complet ed influenza virus vaccine,s plit 04/29/10 Given Ambulat ory Pharmac y hepatitis A-hepatitis B vaccine 2009 [id number] 104 GlaxoSmithKli ga complet ed hepatitis A-hepatit is B vaccine 04/01/10 Given Ambulat ory Pharmac y typhoid Vi capsular polysaccharid e vac 2009 [id number] 101 [employer] complet ed typhoid Vi capsular polysacch aride vac 04/01/10 Given Ambulat ory Pharmac y yellow fever vaccine 2009 [id number] 37 Emergent Bios[employer] complet ed yellow fever vaccine 04/01/10 Given Ambulat ory Pharmac y anthrax vaccine 2009 UNK 24 complet ed anthrax vaccine 04/01/10 Given Ambulat ory Pharmac y poliovirus vaccine, inactivated 2009 [id number] 10 [employer] comple t ed polioviru s vaccine, inactivat ed 04/01/10 Given Ambulat ory Pharmac y yellow fever vaccine 2009 [id number] 37 [employer] complet ed yellow fever vaccine 04/01/10 Given Ambulat ory Pharmac y anthrax vaccine 2009 UNK 24 complet ed anthrax vaccine 04/01/10 Given Ambulat ory Pharmac y poliovirus vaccine, inactivated 2009 [id number] 10 [employer] comple t ed polioviru s vaccine, inactivat ed 04/01/10 Given Ambulat ory Pharmac y hepatitis A-hepatitis B vaccine 2009 [id number] 4ba 104 GlaxoSmithKli ne complet ed hepatitis A-hepatit is B vaccine 04/01/10 Given Ambulat ory Pharmac y typhoid Vi capsular polysaccharid e vac 2009 [id number] 101 [employer] complet ed typhoid Vi capsular polysacch aride vac 04/01/10 Given Ambulat ory Pharmac y tetanus, diphtheria, acellular pertu is 2009 [id number] 4BA 115 sanofi pasteur complet ed tetanus, diphtheri a, acellular pertussis 02/25/10 Given Ambulat ory Pharmac y meningococcal A,C,Y,W-135 (MCV4P) 2009 [id number] 114 CSL Behring complet ed meningoco ccal [...] y tetanus, diphtheria, acellular pertu is 2009 [id number] 4BA 115 sanofi pasteur complet ed tetanus, diphtheri a, acellular pertussis 02/25/10 Given Ambulat ory Pharmac y meningococcal A,C,Y,W-135 (MCV4P) 2009 [id number] 114 CSL Behring complet ed meningoco ccal A,C,Y,W-1 35 (MCV4P) 02/25/10 Given Ambulat ory Pharmac y hepatitis A-hepatitis B vaccine 2009 [id number] 4AA 104 [employer] ga complet ed hepatitis A-hepatit is B vaccine 02/25/10 Given Ambulat ory Pharmac y meningococcal polysaccharid e (MPSV4) 2009 UNKNOWN 32 Unknown complet ed meningoco ccal polysacch aride (MPSV4) 02/25/10 Given Ambulat ory Pharmac y tetanus-dipht h toxoids (Td) adult/adol 2009 UNKNOWN 09 Unknown complet ed tetanus-d iphth toxoids (Td) adult/ado l 02/25/10 Given Ambulat ory Pharmac y TDAP 2009 115 complet ed [facility] Results Combined list of recent chemistry, [...] Prevention' s HIV diagnostic algorithm. Refer to [facility] Lab Guide for additional information : [email or web address] x Testing performed by Tamia cesar. [facility] Miscellan eous Sendouts Repository Sample Received ( 3 2:47 PM) 04/21 N [facility] Vital Signs Combined list of inpatient and outpatient Vital Signs from [facility] and [facility], ranging from 12 months to all on record, depending upon the facility. Vital Sign Value Date Comments Source Systolic Blood Pressure 123 mm[Hg] 04/22/2022 11:55:00 [facility] Diastolic Blood Pressure 78 mm[Hg] 04/22/2022 11:55:[address] [place] [address] Respiratory Rate 16 br/min 04/22/2022 11:55:[address] [place] [address] Blood Pressure Manual Automatic 04/22/2022 11:55:00 [facility] Temperature Temporal Artery 36.3 Cheri 04/22/2022 11:55:00 [facility] Peripheral Pulse Rate 58 bpm 04/22/2022 11:55:[address] [place] [address] Mean Arterial Pressure, Calc 93 mm[Hg] 04/22/2022 11:55:[address] [place] [address] [facility] Encounters Combined list of: 1) Encounters from [facility] facilities going backup to the last 18 months, not all [place] inpatient encounters are included; 2) Encounters from the Department of [facility] facilities going backup to 280 months. Location Location Details Encounter Type Encounter Number Reason For Visit Attending Provider ADM Date DC Date Status Disposition Source [facility] Between Visit [id number] 05/03 Discharge Disposition: Home or Self Care [facility] [place] 8344R-439 AMDS Between Visit [id number] 05/06 Discharge Disposition: Home or Self Care 8344R-4 39 AMDS 8344R-439 AMDS Between Visit [id number] 08/23 Discharge Disposition: Home or Self Care 8344R-4 39 AMDS [facility] Between Visit [id number] 09/23 Discharge Disposition: Home or Self Care [facility] Between Visit [id number] 09/23 Discharge Disposition: Home or Self Care [facility] Procedures Combined list of: 1) Procedures from [facility] facilities going back up to thelast 18 months, not all [place] non-surgical procedures are included; 2) All procedures from the Department of [facility] facilities. Procedure Procedure Type Code Date Perfomer Comments Sourc e Application of a modality to one or more areas; traction, mechanical Application of a modality to one or more areas; traction, mechanical [address] [place] [address] Chiropractic manipulative treatment (CMT); spinal, one to two regions Chiropractic manipulative treatment (CMT); spinal, one to two regions [address] [place] [address] Application of a modality to one or more areas; hot or cold packs Application of a modality to one or more areas; hot or cold packs [address] [place] [address] Chiropractic manipulative treatment (CMT); spinal, three to four regions Chiropractic manipulative treatment (CMT); spinal, three to four regions [address] [place] [address] Social History Combined list of available smoking, tobacco, and other social history from [facility] of 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 Social History Type Response Date Comment Sourc e Sex Representation Male (finding) 03/13/2020 Un known Organization Tobacco smoking status NHIS LIFETIME NON-USER OF TOBACCO 04/15/2016 [facility] History of tobacco use LIFETIME NON-USER OF TOBACCO 05/28/2015 [facility] History of tobacco use LIFETIME NON-USER OF TOBACCO 05/08/2015 [facility] History of tobacco use LIFETIME NON-USER OF TOBACCO 06/14/2014 [facility] Sexual Orientation Ambula tory Pharmacy Gender [...] Referral Request 2.0 ? AXEL Chilel- [facility] ? ? Extracted from:Title: LONNIE Author: [...] blood pressure starts to rise, verb understanding. 10/21/[address] [place] [address] Advance Directives List of completed, amended, or rescinded Advance Directives on record at Department of Veterans Affairs facilities. An actual copy of the Directive is not included. Date Advance Directive Provider Source 06/14/2014 ADVANCE DIRECTIVE DISCUSSION AARON KWON [facility] Functional Status Combined list of recent functional and cognitive assessments recorded at [facility] and [facility] Functional Garvin Measurement (FIM) Scale: 1 = Total Assistance (Subject = 0% +), 2 = Maximal Assistance (Subject = 25% +), 3 = Moderate Assistance (Subject = 50% +), 4 = Minimal Assistance (Subject = 75% +), 5 = Supervision, 6 = Modified Garvin (Device), 7 = Complete Garvin (Timely, Safely). Assessment Date/Time Source Assessment Type Assessment Skill Assessment Score Assessment Details No data available for this section
--- OUTSIDE RECORDS SUMMARY | 2024-10-21 14:19 | XMS_ITS | Clinical Summary ---
Author Organization [facility] Address On license of [facility] [address] [place] [address] Phone Care Team Providers Care Sales Promotion Representative Name Role Phone Luis Fernando WALDROP, Lobito George [phone] [facility] P rovider [phone] Reason for Visit and Chief Complaint visit for: follow-up exam - The Chief Complaint is: allergies Plan of Treatment - Recommended mattress / pillow covers for dust mites - Last Documented On 03/11/2021 1:12PM ; [facility] Pending Tests Order Diagnosis Results Due Ordering P rovider Return Follow Up - Month(s) 3 months Chronic rhinitis Lobito Gould MD Last Documented On 1 1:12PM ; [facility] Plan: Medications - Medication Care Plan Continue current Medications Chronic rhinitis 03/11/21 Lobito Gould MD Last Documented On 1 1:12PM ; [facility] Instructions to patient Avoid allergens Last Documented On 1:11PM ; [facility] Assessments Includes: Assessments from this encounter Findings - Chronic rhinitis - Last Documented On 03/11/2021 1:12PM ; [facility] Instructions Includes: Instructions from this encounter Instructions to patient Avoid allergens Last Documented On 1:11PM ; [facility] Medical Equipment - Implanted Devices Includes: [...] Gould MD ; [facility] Fexofenadine HCl 180 MG Oral Tablet 03/02/2021 Provider: Lisa REYNA ([place]) Diagnosis: 1 tab po qd Last Documented On 2:43PM By Jimmy Luther ; [facility] Medications Administered Includes: Administered Medications from [...] 11:52A M ; [facility] Results Includes: Results discussed during this [...] 1:12PM ; [facility] Smoking Status Unknown Procedures and Surgical History Includes: Procedures from this encounter Procedures Code Diagnosis Performing Provider Service L ocation Service Date avoid allergens Last Documented On 1 1:11PM ; [facility] medication list reviewed Last Documented On 1 1:09PM ; [facility] percutaneous tests with allergenic extracts was [id number] Last Documented On 11:52AM ; [facility] intradermal tests with allergenic extracts (imme diate) was [id number] Last Documented On 12:38PM ; [facility] allergy sensitivity testing Last Documented On 1 11:52AM ; [facility] Medical History Includes: Medical History addressed during this encounter Description Last Updated Past medical history reviewed 03/11/2021 Last Documented On 1 1:12PM ; [facility] Family History Includes: Family History [...] Time Diagnosis Post Test Lobito Gould MD [place] [facility] 1 11:04AM 1:08PM Rhinitis Chronic Insurance Includes: Active Insurance Policies Plan Name Member ID Group # Subscriber Relationship Effect kiran Dates 1 - [facility] [id number] Ellis Corral Self 07/13/2017 - Un known Clinical Notes Includes: Clinical Notes from this encounter No Clinical Notes Recorded
== END 2024-10-21 14:52 | disposition home or self-care (01) ==
LOC: HO.HSMS 13:57
PROVIDERS: PCP Internal Medicine; Visit Provider Physician Assistant Medical
DX: R79.89 Other specified abnormal findings of blood chemistry (principal); G47.8 Other sleep disorders; G47.19 Other hypersomnia
CPT/HCPCS: 99204

== ENCOUNTER → 2024-10-21 13:56 | Outpatient (BNVA) | payer OTHER, SELFPAY | PROVIDERS: PCP Internal Medicine; Visit Provider Physician Assistant Medical | DX: G47.19 Other hypersomnia (principal); G47.8 Other sleep disorders; R79.89 Other specified abnormal findings of blood chemistry | CPT/HCPCS: 99202 ==

== ENCOUNTER 2024-11-09 09:28 | Outpatient (AMB) | payer OTHER, SELFPAY ==
[2024-11-09 09:34] VITALS: BP 120/80; PULSE 64; O2SAT 98; BMI 27.1
--- NOTE | 2024-11-09 09:34 | MHC.PC.OV ---
Vital Signs 11/09/24 09:34 Height 5 ft 8 in Weight 178 lb 6 oz BMI 27.1 BP 120/80 Blood Pressure Location Lt brachial Position Sitting Pulse 64 Pulse Source Pulse Oximeter Pulse Oximetry (%) 98 Oxygen Delivery Method Room Air Intake Visit Reasons: Referral Req Allergies No Known Allergies Allergy (Verified 11/09/24 09:36) Medication List - Last Reconciled 11/09/24 by Katya Chandra MD ascorbate calcium (vitamin C) 500 mg PO DAILY cholecalciferol (vitamin D3) 50 mcg PO DAILY MDD 1 cap diphenhydramine HCl (Benadryl Allergy) 25 mg PO BEDTIME PRN mecobalamin (vitamin B12) 1,000 mcg PO DAILY Tobacco use date assessed: 11/09/24 Dental Screening Dental Screen Date: 11/09/24 Did you have a dental visit in the last 12 months?: Yes Did you have a dental problem in the last 6 months where you did not have access to dental care?: No Was dental information given to patient?: Patient has dentist HPI Referral Req HPI Details History - The patient is a 44-year-old male presenting with a slowly growing lesion on the right side of the face - The lesion is not prominent but noticeable by the patient. - The patient reports historical sun exposure and inadequate sunscreen use, which might contribute to skin changes. - The growth of the lesion has been gradual. - patient also have seborrheic dermatitis which is no longer responding to steroid cream Problem List - Right face skin lesion - seborrheic dermatitis Patient Instructions - Follow up with a dermatology appointment for further evaluation. 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: Alert awake oriented x3 motor sensory intact Skin: small papule right side upper face close to taoist [facility] Medical History Lower back pain Rupture of anterior cruciate ligament of right knee Sleep apnea Hypertension Surgical History History of repair of anterior cruciate ligament of right knee Family History Father Prostate cancer Paternal Grandmother Diabetes type 2, controlled Social History Housing: House Patient Tobacco Use Status: Never used Tobacco e-Cigarette/Vaping Use: Never Used Second Hand Smoke Exposure: No service: Yes ([employer] ) Current occupational status: employed Current occupational exposures/hazards: Yes Cognitive needs: No Hearing needs: No Vision needs: No Questionnaire Thrive Questionnaire Date Thrive assessed: 09/09/24 I am a: Patient What is your living situation today?: I have a steady place to live Within the past 12 months, did the food you bought not last and you didn't have the money to get more?: Never true Within the past 12 months, did you worry whether your food would run out before you got money to buy more?: Never true Do you have trouble paying for medicines?: No Do you have trouble getting transportation to medical appointments?: No Do you have trouble paying your heating and electricity bill?: No Do you have trouble taking care of your child, family member or friend?: No Do you have trouble with day-to-day activities such as bathing, preparing meals, shopping, managing finances, etc.?: No Are you currently unemployed and looking for a job?: No Are you interested in more education?: Yes Please select the resources that you would like help with: None Currently or been in a relationship where the following occur: No concerns reported THRIVE Score: 0 BHUPINDER-7 AMB Questionnaire BHUPINDER-7 Date BHUPINDER - 7 assessed: 09/16/24 Source: Developed by Drs. Scar Mortensen, Priya Quinteros, Doe Palumbo and colleagues, with an educational gege from [employer]. Physical exam (Primary Care) Vital Signs: Last Vital Signs Pulse 64 11/09/24 09:34 BP 120/80 11/09/24 09:34 Pulse Ox 98 11/09/24 09:34 Oxygen Delivery Method Room Air 11/09/24 09:34 BMI result Body Mass Index 27.1 Tobacco/Smoking Status: Tobacco use Status Tobacco use date assessed 11/09/24 11/09/24 09:51 Patient Tobacco Use Status Never used Tobacco 11/09/24 09:38 e-Cigarette/Vaping Use Never Used 11/09/24 09:38 Thrive Assessment: Date of Thrive Assessment Date Thrive assessed 09/09/24 11/09/24 09:38 Currently or been in a relationship where the following occur: No concerns reported Coding Level of Care Code Est Pt Level 3 (76231) Diagnoses Skin growth D49.2 Rash of face R21 Assessment & Plan Assessment & Plan (1) Skin growth: Code(s): D49.2 - Neoplasm of unspecified behavior of bone, soft tissue, and skin Category: Medical (2) Rash of face: Code(s): R21 - Rash and other nonspecific skin eruption Category: Medical Plan History - The patient is a 44-year-old male presenting with a slowly growing lesion on the right side of the face - The lesion is not prominent but noticeable by the patient. - The patient reports historical sun exposure and inadequate sunscreen use, which might contribute to skin changes. - The growth of the lesion has been gradual. - patient also have seborrheic dermatitis which is no longer responding to steroid cream Problem List - Right face skin lesion - seborrheic dermatitis Patient Instructions - Follow up with a dermatology appointment for further evaluation. Orders: Referrals Dermatology Referral D49.2 - Neoplasm of unspecified behavior of bone, soft tissue, and skin, R21 - Rash and other nonspecific skin eruption
--- OUTSIDE RECORDS SUMMARY | 2024-11-09 10:11 | XMS_ITS | Continuity of Care Document ---
Author Name [facility] Organization [facility] Care Team Providers [facility] Nurse Liaison Name Role Phone [facility] Unavailable Unavailable Problems Combined list of problems [...] 07/20/2017 Condition DoD Acquired spondylolysis Active Condition [facility] Low back pain Active Condition [facility] Personal History of return from Deployment Active Condition [facility] Adjustment disorder with anxiety Active Condition [facility] Personal history of deployment Active Condition DoD Vasectomy status Active Condition DoD diarrhea Inactive Condition DoD Vaccines Prophylactic Need Against Bacterial Diseases Inactive Condition DoD Vaccines Prophylactic Need Against Smallpox Inactive Condition [facility] visit for: occupational health / fitness exam Active Condition [facility] NORMAL PRE-EMPLOYMENT SCREENING EXAMINATION Active Condition [facility] visit for: screening exam pulmonary tuberculosis Inactive Condition DoD ASSESSMENT OF PATIENT CONDITION WORK STATUS Active Condition [facility] ASSESSMENT OF PATIENT CONDITION WORK-RELATED Active Condition [facility] visit for: follow-up exam Inactive Condition DoD pain in the leg (below the knee) Inactive Condition [facility] visit for: administrative purpose Inactive Condition DoD UPPER RESPIRATORY INFECTION Inactive Condition DoD visit for: services physical Active Condition DoD Patient Education Active Condition DoD Anticipatory Guidance: Unsafe Sexual Practices Inactive Condition DoD Inquiry [...] [facility] [employer] 16 g AER W/ADAP Active [id number] 4 2023 16 Pharmac y Data Transac tion Service Facilit y PriLOSEC OTC 20 mg oral delayed release tablet 1 tab(s), Oral, BID, before a meal, # 90 cap(s), 3 total refill(s ), [place], Pharmacy : [facility] Oral (given by mouth) Discont inued 04/22/20222021 90.0 [facility] Allergies, Adverse Reactions, Alerts Combined list of allergies from Department of 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 It does not include entries that were removed or entered in error. Substance Category Reaction Severity Reaction type Status Date Reported Comments Source No Known Allergies Drug allergy (disorder) active 08/06/2017 [facility] Immunizations Combined list of available immunizations from the Department of 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 Immunization Series Date Given Administered By Site Reaction Lot Number CVX Code Drug Tactical Deception Plans Officer Status Comments Source SARS-COV-2 (COVID-19) vaccine, mRNA, spike protein, LNP, preservative free, 30 mcg/0.3mL dose 2 2020 JOI CHURCHILL F [id number] Pfizer, Smappo (PFR) complet ed SARS-COV- 2 (COVID-19 ) vaccine, mRNA, spike protein, LNP, preservat kiran free, 30 mcg/0.3mL dose DoD COVID Vaccine Pfizer 2020 OLLIECOLLINS [id number] complet ed Result Comment: Unit: Unknown Route: Intramusc ular(IM) Manufactu rer: tvCompass, Inc (PFR) [facility] Influenza, injectable, MDCK, preservative free, quadrivalent 2020 ANDREA, () Not Given Influenza , injectabl e, MDCK, preservat kiran free, quadrival ent DoD Influenza, injectable, quadrivalent, preservative free 1 2020 [id number] 150 Seqirus (SEQ) comple t ed Influenza , injectabl e, quadrival ent, preservat kiran free DoD Influenza, injectable, Madin Anna Canine Kidney, preservative free, quadrivalent 0 2020 171 Seqirus (SEQ) comple t ed Influenza , injectabl e, Madin Prather Canine Kidney, preservat kiran free, quadrival ent DoD influenza, injectable, quadrivalent- pf 2020 OLLIECOLLINS [id number] 150 complet ed Result Comment: Route: Unknown Manufactu rer: Seqirus (SEQ) [facility] Influenza, inj, MDCK, quadrivalent- pf 2020 OLLIECOLLINS 171 complet ed Result Comment: Unit: Unknown Manufactu rer: () [facility] anthrax vaccine 4 2020 [id number] 24 [employer] [place] ([facility]) complet ed anthrax vaccine DoD anthrax vaccine 2020 OLLIECOLLINS [id number] 24 complet ed Result Comment: Route: Unknown Manufactu rer: Emergent BioDefens e Operation s [place] ([facility]) [facility] SARS-COV-2 (COVID-19) vaccine, vector non-replicati ng, recombinant spike protein-Ad26, preservative free, 0.5 mL 1 2020 [id number] 212 Rosa (BESYS) comple t ed SARS-COV- 2 (COVID-19 ) vaccine, vector non-repli cating, recombina nt spike protein-A d26, preservat kiran free, 0.5 mL [facility] SARS-CoV-2 (COVID-19) Ad26 vaccine, rec 2020 OLLIECOLLINS [id number] 212 complet ed Result Comment: Route: Unknown Manufactu rer: Rosa (BESSY) 39[facility] Influenza, injectable, MDCK, preservative free, quadrivalent 2019 FINDLEN, () Not Given Influenza , injectabl e, MDCK, preservat kiran free, quadrival ent DoD Influenza, seasonal, injectable 1 2019 [id number] 141 Seqirus (SEQ) comple t ed Influenza , seasonal, injectabl e DoD Influenza, injectable, Madin Prather Canine Kidney, preservative free, quadrivalent 0 2019 171 (MVX) complet ed Influenza , injectabl e, Madin Prather Canine Kidney, preservat kiran free, quadrival ent DoD influenza, seasonal, injectable 2019 OLLIECOLLINS [id number] 141 complet ed Result Comment: Route: Unknown Manufactu rer: Seqirus (SEQ) [facility] Influenza, inj, MDCK, quadrivalent- pf 2019 OLLIECOLLINS 171 complet ed Result Comment: Unit: Unknown Manufactu rer: () [facility] typhoid Vi capsular polysaccharid e vac 2019 [id number] 101 sanofi pasteur complet ed typhoid Vi capsular polysacch aride vac 03/07/20 Given Ambulat ory Pharmac y anthrax vaccine 2019 [id number] 24 Emergent Bios[employer] complet ed anthrax vaccine 03/07/20 Given Ambulat ory Pharmac y poliovirus vaccine, inactivated 2019 [id number] 10 sanofi pasteur complet ed polioviru s vaccine, inactivat ed 03/07/20 Given Ambulat ory Pharmac y tetanus-dipht h toxoids (Td) adult/adol 2019 [id number] 09 sanofi pasteur complet ed tetanus-d iphth toxoids (Td) adult/ado l 03/07/20 Given Ambulat ory Pharmac y measles/mumps /rubella virus vaccine 2019 [id number] 03 Merck & Company Inc complet ed measles/m umps/rube lla virus vaccine 03/07/20 Given Ambulat ory Pharmac y typhoid Vi capsular polysaccharid e vac 2019 [id number] 101 sanofi pasteur complet ed typhoid Vi capsular polysacch aride vac 03/07/20 Given Ambulat ory Pharmac y anthrax vaccine 2019 [id number] 24 [employer] complet ed anthrax vaccine 03/07/20 Given Ambulat ory Pharmac y poliovirus vaccine, inactivated 2019 [id number] 10 sanofi pasteur complet ed polioviru s vaccine, inactivat ed 03/07/20 Given Ambulat ory Pharmac y tetanus-dipht h toxoids (Td) adult/adol 2019 [id number] 09 sanofi pasteur complet ed tetanus-d iphth toxoids (Td) adult/ado l 03/07/20 Given Ambulat ory Pharmac y measles/mumps /rubella virus vaccine 2019 [id number] 03 Merck & [employer] Inc complet ed measles/m umps/rube lla virus vaccine 03/07/20 Given Ambulat ory Pharmac y measles, mumps and rubella virus vaccine 1 2019 [id number] 03 Merck (MSD) complet ed measles, mumps and rubella virus vaccine DoD tetanus and diphtheria toxoids, adsorbed, preservative free, for adult use (2 Lf of tetanus toxoid and 2 Lf of diphtheria toxoid) 1 2019 [id number] 09 Sanofi Pasteur (PMC) complet ed tetanus and diphtheri a toxoids, adsorbed, preservat kiran free, for adult use (2 Lf of tetanus toxoid and 2 Lf of diphtheri a toxoid) DoD poliovirus vaccine, inactivated 1 2019 [id number] 10 Sanofi Pasteur (PMC) complet ed polioviru s vaccine, inactivat ed DoD anthrax vaccine 1 2019 [id number] 24 [facility] [employer] [place] ([facility]) complet ed anthrax vaccine DoD typhoid Vi capsular polysaccharid e vaccine 1 2019 [id number] 101 Sanofi Pasteur (PMC) complet ed typhoid [...] seasonal, injectabl e DoD Influenza, injectable, Madin Prather Canine Kidney, preservative free, quadrivalent 0 2018 171 (MVX) complet ed Influenza , injectabl e, Madin Anna Canine Kidney, preservat kiran free, quadrival ent DoD Influenza, inj, MDCK, quadrivalent- pf 2017 171 complet ed Influenza , inj, MDCK, quadrival ent-pf 04/30/18 Given Ambulat ory Pharmac y influenza, seasonal, injectable 2017 [id number] 141 Seqirus complet ed influenza , seasonal, injectabl e 04/30/18 Given Ambulat ory Pharmac y Influenza, inj, MDCK, quadrivalent- pf 2017 171 complet ed Influenza , inj, MDCK, quadrival ent-pf 04/30/18 Given Ambulat ory Pharmac y influenza, seasonal, injectable 2017 [id number] 141 Seqirus complet ed influenza , seasonal, injectabl e 04/30/18 Given Ambulat ory Pharmac y Influenza, seasonal, injectable 1 2017 [id number] 141 Seqirus (SEQ) comple t ed Influenza , seasonal, injectabl e DoD Influenza, injectable, Madin Prather Canine Kidney, preservative free, quadrivalent 0 2017 171 (MVX) complet ed Influenza , injectabl e, Madin Prather Canine Kidney, preservat kiran free, quadrival ent DoD Influenza, inj, MDCK, quadrivalent- pf [id number] 171 Seqirus complet ed Influenza , inj, MDCK, quadrival ent-pf 05/15/17 Given Ambulat ory Pharmac y Influenza, inj, MDCK, quadrivalent- pf [id number] 171 Seqirus complet ed Influenza , inj, MDCK, quadrival ent-pf 05/15/17 Given Ambulat ory Pharmac y Influenza, injectable, Madin Anna Canine Kidney, preservative free, quadrivalent 7 2016 [id number] 171 Seqirus (SEQ) comple t ed Influenza , injectabl e, Madin Prather Canine Kidney, preservat kiran free, quadrival ent [...] INFLUENZA, SEASONAL, INJECTABLE 2015 141 complet ed [facility] influenza, seasonal, injectable-pf 2014 [id number] 140 CSL Behring complet ed influenza , seasonal, injectabl e-pf 04/14/15 Given Ambulat ory Pharmac y influenza, seasonal, injectable-pf 2014 [id number] 140 CSL Behring complet ed influenza , seasonal, injectabl e-pf 04/14/15 Given Ambulat ory Pharmac y INFLUENZA, UNSPECIFIED FORMULATION 2014 88 complet ed [employer],[place] - Immunizat ion record [facility] Influenza, seasonal, injectable, preservative free 8 2014 [id number] 140 CSL [employer] (CSL) complet ed Influenza , seasonal, injectabl e, preservat kiran free DoD tuberculin purified protein derivative 2014 [id number] 96 sanofi pasteur complet ed tuberculi n purified protein derivativ e 02/18/15 Given Ambulat ory Pharmac y measles, mumps and rubella virus vaccine 0 2014 03 () Not Given measles, mumps and rubella virus vaccine DoD varicella virus vaccine 0 2014 21 () Not Given varicella virus vaccine DoD INFLUENZA, UNSPECIFIED FORMULATION 2013 88 complet ed [facility] influenza, seasonal, injectable 2012 UNK 141 [...] INFLUENZA, UNSPECIFIED FORMULATION 2012 88 complet ed [place] [facility] typhoid Vi capsular polysaccharid e vac [...] ory Pharmac y influenza, seasonal, injectable-pf 2011 [id number] 140 sanofi pasteur complet ed influenza , seasonal, injectabl e-pf 04/01/12 Given Ambulat ory Pharmac y influenza, seasonal, injectable 2011 UNKNOWN 141 Unknown complet ed influenza , seasonal, injectabl e 04/01/12 Given Ambulat ory Pharmac y influenza, seasonal, injectable-pf 2011 [id number] 140 sanofi pasteur complet ed influenza , seasonal, injectabl e-pf 04/01/12 Given Ambulat ory Pharmac y Influenza, seasonal, injectable, preservative free 0 2011 [id number] 140 Sanofi Pasteur ([facility]) complet ed Influenza , seasonal, injectabl e, [...] Ambulat ory Pharmac y anthrax vaccine 2010 zDaya ht Arm [id number] 24 Unknown complet ed anthrax vaccine 05/20/11 Given Ambulat ory Pharmac y vaccinia (smallpox) vaccine 2010 VV04-00 3A 75 complet ed vaccinia (smallpox ) vaccine 05/20/11 Given Ambulat ory Pharmac y anthrax vaccine 2010 UNK 24 complet ed anthrax vaccine 05/20/11 Given Ambulat ory Pharmac y anthrax vaccine 1 2010 DANTE XIONG [id number] 24 Other (OTH) complet ed anthrax vaccine DoD vaccinia (smallpox) vaccine 1 2010 INGA, MAYALashay Person VV04-00 3A 75 Paula (BAY) complet ed vaccinia (smallpox ) vaccine DoD tuberculin purified protein derivative 2010 zzLkaiser t Arm [id number] 96 complet ed tuberculi n purified protein derivativ e 04/23/11 Given Ambulat ory Pharmac y tuberculin skin test; purified protein derivative solution, intradermal 1 2010 RAFA TREJO [id number] 96 [employer] PA[employer] (OVERCOILER) complet ed tuberculi n skin test; purified protein derivativ e solution, intraderm al DoD influenza, seasonal, injectable 2010 [id number] 141 Unknown complet ed influenza , seasonal, injectabl e 03/06/11 Given Ambulat ory Pharmac y influenza virus vaccine,split 2010 [id number] 15 Unknown complet ed influenza virus vaccine,s plit 03/06/11 Given Ambulat ory Pharmac y influenza, seasonal, injectable 2010 [id number] 141 Unknown complet ed influenza , seasonal, injectabl e 03/06/11 Given Ambulat ory Pharmac y influenza virus vaccine,split 2010 [id number] 15 Unknown complet ed influenza virus vaccine,s plit 03/06/11 Given Ambulat ory Pharmac y influenza virus vaccine, split virus (incl. purified surface antigen)-reti red CODE 0 2010 [id number] 15 Other (OTH) complet ed influenza virus vaccine, split virus (incl. purified surface antigen)- retired CODE DoD Influenza, seasonal, injectable 0 2010 [id number] 141 Other (OTH) complet ed Influenza , seasonal, injectabl e DoD hepatitis A-hepatitis B vaccine 03/26/ 2011 UNK 104 Unknown complet ed hepatitis A-hepatit [...] vaccine DoD influenza virus vaccine, live 2009 [id number] 111 Unknown complet ed influenza virus vaccine, live 04/29/10 Given Ambulat ory Pharmac y influenza virus vaccine,split 2009 UNKNOWN 15 Unknown complet ed influenza virus vaccine,s plit 04/29/10 Given Ambulat ory Pharmac y influenza virus vaccine, live 2009 [id number] 111 Unknown complet ed influenza virus vaccine, [...] live, attenuated, for intranasal use 0 2009 [id number] 111 Unknown (UNK) comple t ed influenza virus vaccine, live, attenuate d, for intranasa l use DoD hepatitis A-hepatitis B vaccine 2009 [id number] 4BA 104 GlaxoSmithKli pr complet ed hepatitis A-hepatit is B vaccine 04/01/10 Given Ambulat ory Pharmac y typhoid Vi capsular polysaccharid e vac 2009 [id number] 101 [employer] complet ed typhoid Vi capsular polysacch aride vac 04/01/10 Given Ambulat ory Pharmac y yellow fever vaccine 2009 [id number] 37 Emergent Biosolutions complet ed yellow fever vaccine 04/01/10 Given Ambulat ory Pharmac y anthrax vaccine 2009 UNK 24 complet ed anthrax vaccine 04/01/10 Given Ambulat ory Pharmac y poliovirus vaccine, inactivated 2009 E0123 10 Medimmune Inc comple t ed polioviru s vaccine, inactivat ed 04/01/10 Given Ambulat ory Pharmac y yellow fever vaccine 2009 [id number] 37 Emergent Biosolutions complet ed yellow fever vaccine 04/01/10 Given Ambulat ory Pharmac y anthrax vaccine 2009 UNK 24 complet ed anthrax vaccine 04/01/10 Given Ambulat ory Pharmac y poliovirus vaccine, inactivated 2009 e0123 10 Kera[employer]ast Technologies Inc comple t ed polioviru s vaccine, inactivat ed 04/01/10 Given Ambulat ory Pharmac y hepatitis A-hepatitis B vaccine 2009 ahabb18 4ba 104 [facility] complet ed hepatitis A-hepatit is B vaccine 04/01/10 Given Ambulat ory Pharmac y typhoid Vi capsular polysaccharid e vac 2009 [id number] 101 [email or web address] complet ed typhoid Vi capsular polysacch aride vac 04/01/10 Given Ambulat ory Pharmac y poliovirus vaccine, inactivated 0 2009 E0123 10 [employer]. (MED) complet ed polioviru s vaccine, inactivat ed DoD anthrax vaccine 1 2009 UNK 24 (EBS) complet ed anthrax vaccine DoD yellow fever vaccine 0 2009 [id number] 37 [employer] [place] (MIP) complet ed yellow fever vaccine DoD typhoid Vi capsular polysaccharid e vaccine 1 2009 [id number] 101 [facility] ([facility]) complet ed typhoid Vi capsular polysacch aride vaccine DoD hepatitis A and hepatitis B vaccine 2 2009 [id number] 4BA 104 Phonologics (SKB) complet ed hepatitis A and hepatitis B vaccine DoD tetanus, diphtheria, acellular pertu is 2009 [id number] 4BA 115 sanofi pasteur complet ed tetanus, diphtheri a, acellular pertussis 02/25/10 Given Ambulat ory Pharmac y meningococcal A,C,Y,W-135 (MCV4P) 2009 [id number] 114 CSL Behring complet ed meningoco ccal [...] y tetanus, diphtheria, acellular pertu is 2009 [id number] 4BA 115 sanofi pasteur complet ed tetanus, diphtheri a, acellular pertussis 02/25/10 Given Ambulat ory Pharmac y meningococcal A,C,Y,W-135 (MCV4P) 2009 [id number] 114 CSL Behring complet ed meningoco ccal [...] Pharmac y TDAP 2009 115 complet ed [facility] tetanus and diphtheria toxoids, adsorbed, preservative [...] B vaccine 1 2009 AHABB18 4AA 104 [employer] (SKB) complet ed hepatitis A and hepatitis B vaccine DoD meningococcal polysaccharid e (groups A, C, Y and W-135) diphtheria toxoid conjugate vaccine (MCV4P) 0 2009 [id number] 114 [employer] (AVB) complet ed meningoco ccal polysacch aride (groups A, C, Y and W-135) diphtheri a toxoid conjugate vaccine (MCV4P) DoD tetanus toxoid, reduced diphtheria toxoid, and acellular pertu is vaccine, adsorbed 0 2009 [id number] 4BA 115 Sanofi Pasteur (PMC) complet ed [...] Prevention' s HIV diagnostic algorithm. Refer to [facility] Guide for additional information : [email or web address] x Testing performed by Tamia haile [facility] Miscellan eous Sendouts Repository Sample Received ( 3 2:47 PM) 04/21 N [facility] Vital Signs Combined list of inpatient and outpatient Vital Signs from Department of Defense and Veterans [facility], ranging from 12 months to all on record, depending upon the facility. Vital Sign Value Date Comments Source Systolic Blood Pressure 123 mm[Hg] 04/22/2022 11:55:00 [facility] Diastolic Blood Pressure 78 mm[Hg] 04/22/2022 11:55:00 [facility] Respiratory Rate 16 br/min 04/22/2022 11:55:00 [facility] Blood Pressure Manual Automatic 04/22/2022 11:55:[address] [place] [address] Temperature Temporal Artery 36.3 Cheri 04/22/2022 11:55:00 [facility] Peripheral Pulse Rate 58 bpm 04/22/2022 11:55:00 [facility] Mean Arterial Pressure, Calc 93 mm[Hg] 04/22/2022 11:55:00 [facility] Encounters Combined list of: 1) Encounters from Department of Veterans Affairs facilities going backup to the last 18 months, not all VA inpatient encounters are included; 2) Encounters from the Department of [facility] facilities going backup to 280 months. Location Location Details Encounter Type Encounter Number Reason For Visit Attending Provider ADM Date DC Date Status Disposition Source [facility](Au diology [facility]) OUTPATIENT [id number] TAWNY JOYCE 02/22 Released w/o Limitations [facility]( Audiolo gy [facility]23) [facility] Male) OUTPATIENT [id number] ARTI VILLEGAS 02/25 Released w/o Limitations [facility]( [facility] Male) [facility](Op tometry [facility]23) OUTPATIENT [id number] recruit screen OMER MEJÍA 02/28 Released w/o Limitations [facility]( Optomet ry [facility]23) [facility](Mi litary Sick Call [facility] 237) OUTPATIENT [id number] att...h ead and neck issues ELZBIETA RDZ 08/02 Released w/o Limitations [facility]( Militar y Sick Call [facility]) [facility](Mi litary Sick Call [facility]) OUTPATIENT [id number] OSS MICHELE EMMANUEL 08/20 Released w/o Limitations [facility]( Militar y Sick Call [facility] 237) [facility](Mi litary Sick Call [facility]) OUTPATIENT [id number] 9 Finn : Twisted right ankle COLJB CHIRINOS 09/05 Released with Work/Duty Limitations [facility]( Militar y Sick Call [facility]) [facility](Mi litary Sick Call [facility]) TELE CONSULT [id number] pt to see saraho tomorro w 09-06-10 for xray results ROMA NAVARRO 09/05 Referred for Appointment [facility]( Militar y Sick Call [facility]) [facility](Mi litary Sick Call [facility]) OUTPATIENT [id number] 9C: FOLLOW UP JB BARON 09/06 Released with Work/Duty Limitations [facility]( Militar y Sick Call [facility]) [facility](Mi litary Sick Call [facility]) OUTPATIENT [id number] 9C f/u COLJB CHIRINOS 09/13 Released w/o Limitations [facility] [place]( Militar y Sick Call [facility]) [facility](Immuniz ations [facility]) OUTPATIENT [id number] vaccine MORIAH ODELL 01/30 Released w/o Limitations [facility](Imm unizati ons [facility] ) [facility]Hearing Cons [facility]ane [facility]) OUTPATIENT [id number] FRANKI MELO 01/30 Released w/o Limitations [facility](Hea ring Cons [facility]) [facility](Optomet ry [facility]) OUTPATIENT [id number] CHELSEA VAUGHN 02/05 Released w/o Limitations [facility](Opt ometry [facility] ) [facility](Immuniz ations [facility]) OUTPATIENT [id number] vaccine RAFA TREJO 04/23 Released w/o Limitations [facility](Imm unizati ons [facility] ) [facility] [id number] IA/AFG RAFA PARHAM 05/16 Released w/o Limitations [facility](Dep loyment [facility] ) [facility](Immuniz ation [facility]) OUTPATIENT [id number] NMPS- ANT, DANTE CAMPUZANO 05/19 Released w/o Limitations [facility](Imm unizati on [facility]) [facility]) OUTPATIENT [id number] MOB RAFA PARHAM 05/19 Released w/o Limitations [facility](NMP S) [facility] OUTPATIENT [id number] 10/30 Released w/o Limitations [facility] OUTPATIENT [id number] 12/27 Released w/o Limitations Theater Facilit y [facility]PAT[facility] [id number] Notes Entered by: JARVSI HAIR 28 May 2012 0847 ------- ------- ------- ------- -- GUERO WEBER 05/28 Released w/o Limitations [facility](NMP S) [facility](Hearing Cons Dane Sta) OUTPATIENT [id number] JOSE ALFREDO GARZON 09/21 Released w/o Limitations [facility](Hea ring Cons [facility]ane [facility]) [facility](Hearing Cons Dane Sta) OUTPATIENT [id number] MARI SYLVESTER Lashay 09/24 Released w/o Limitations [facility](Hea ring Cons [facility]ane [facility]) [facility](Hearing Cons Dane Sta) OUTPATIENT [id number] JOSE ALFREDO GARZON 11/08 Released w/o Limitations [facility](Hea ring Cons [facility]) [facility](Hearing Cons Dane Sta) OUTPATIENT [id number] JOSE ALFREDO GARZON 12/16 Released w/o Limitations [facility](Hea ring Cons [facility]ane [facility]) [facility]) OUTPATIENT [id number] Notes Entered by: BRANDO HARRISON 09 Jan 2014 1329 ------- ------- ------- ------- -- Lower back pain, worseni ng over past 2-3 days CHELLE DANIELS 01/09 Released w/o Limitations [facility] ) [facility] [facility] Readiness SURFLANT) OUTPATIENT [id number] Notes Entered by: WALT HOWELL F 10 Jan 2014 0904 ------- ------- ------- ------- -- Separat ion Physica l RIENE HOWELL 01/10 Released w/o Limitations [facility](Med ical Readine ss SURFLAN T) [facility] OUTPATIENT [id number] LOWER BACK SPRAIN ABHIJIT PORTILLO 01/19 Released w/o Limitations [facility]ce an[facility]) [facility]) OUTPATIENT [id number] REFERRA L FOR CHIROPR ACTIC CLINIC MISSAEL MULLEN 09/12 Released w/o Limitations [employer](F [facility]) [employer](PT [facility]) OUTPATIENT [id number] RIDGE MEANS 09/17 Released w/o Limitations [employer](P T Family Health) [employer](Chi ropractic -Clinic) OUTPATIENT [id number] Low Back MATHEUS DE LOS SANTOS 09/19 Released w/o Limitations [employer](C hiropra ctic-Cl inic) [employer](PT Physical Thpy-Out) OUTPATIENT [id number] Pas entered the order SG CONSTANTINO 09/20 Released w/o Limitations [employer](P T Physica l Thpy-Ou t) [employer](Chi ropractic -Clinic) OUTPATIENT [id number] MATHEUS DE LOS SANTOS 09/25 Released w/o Limitations [employer](C hiropra ctic-Cl inic) [employer](PT Physical Thpy-Out) OUTPATIENT [id number] DEMETRIUS KOHLI 10/04 Released w/o Limitations [employer](P T Physica l Thpy-Ou t) [employer](Chi ropractic -Clinic) OUTPATIENT [id number] MATHEUS DE LOS SANTOS 10/16 Released w/o Limitations [employer](C hiropra ctic-Cl inic) [employer](Urg ent Care Clinic) OUTPATIENT [id number] referra l to urology SAMANTHA BRANDON 10/17 Released w/o Limitations [employer](U [facility]) [employer](Chi ropractic -Clinic) OUTPATIENT [id number] MATHEUS DE LOS SANTOS 10/23 Released w/o Limitations [employer](C hiropra ctic-Cl inic) [employer](Urg ent Care Clinic) TELE CONSULT [id number] Notes Entered by: BRANDT FRAIRE 26 Oct 2015 2136 ------- ------- ------- ------- -- Labs SUYAPA SCHULER 10/26 [employer](U rgent Care Clinic) [employer]([facility]) TELE CONSULT [id number] Notes Entered by: RODERICK PRIETO 29 Oct 2015 1113 ------- ------- ------- ------- -- Lab results ARLENE HAYNES Marissa 10/28 [facility]) [employer]([facility]) TELE CONSULT [id number] Notes Entered by: CHRISTIAN GRANT CIA 13 Nov 2015 0945 ------- ------- ------- ------- -- Network Results Sleep Titrati on DIEGO RYAN 11/12 [facility]) [facility] Medical [facility] ropractic [facility]) OUTPATIENT [id number] MATHEUS DE LOS SANTOS 11/18 Released w/o Limitations [facility] Medical [facility](C hiropra ctic-Cl inic) Maribeth zayas [facility] [place]([address] [place]) OUTPATIENT [id number] initial visit ERNIE CERVANTES 07/20 Released with Work/Duty Limitations Maribeth corcoran [facility] [place]([address] Team [place]) Maribeth zayas [facility] [place] Team [place]) OUTPATIENT [id number] sore throat ERNIE CERVANTES 08/06 Sick at Home/Quarter s Maribeth corcoran [facility] [place]([address] Team A SCOM) Maribeth zayas [facility]([address] Team [place]) TELE CONSULT [id number] Notes Entered by: RAINE JAIN 01 Sep 2017 1025 ------- ------- ------- ------- -- MRI lumbar spine wo GENEVIEVE Lang 09/01 Maribeth corcoran [facility] [place]([address] Team A SCOM) Maribeth zayas [facility] [place] Team A [place]) OUTPATIENT [id number] test results ERNIE CERVANTES 09/14 Released with Work/Duty Limitations Mar[place]eth [place] [facility] [place] ([address] Team A SCOM) Maribeth zayas [facility] [place] ([address] Team A SCOM) OUTPATIENT [id number] harrisontamiko ernie in leg/reinaldo t ERNIE CERVANTES 02/24 Released with Work/Duty Limitations Maribeth [place] [facility] [place] ([address] Team A SCOM) Maribeth zayas [facility] [place] ([address] Team A SCOM) OUTPATIENT [id number] pha ERNIE CERVANTES 03/08 Released w/o Limitations Maribeth [place] [facility] [place] ([address] Team A SCOM) Maribeth zayas [facility] [place] ([address] Team A SCOM) OUTPATIENT [id number] Notes Entered by: HUEY BURRELL 07 Apr 2018 0709 ------- ------- ------- ------- -- Right Knee Pain (No Referra ls) ERNIE CERVANTES 04/07 Released with Work/Duty Limitations Maribeth corcoran [facility] [place] ([address] Team A SCOM) Maribeth zayas [facility] [place] ([address] Team A SCOM) TELE CONSULT [id number] Notes Entered by: CORA VINCENT 12 Apr 2018 1429 ------- ------- ------- ------- -- pt referra l ERNIE CERVANTES 04/12 Maribeth [place] [facility] [place] ([address] Team A SCOM) Maribeth zayas [facility] [place] ([address] Team A SCOM) TELE CONSULT [id number] Notes Entered by: RAINE JAIN 27 May 2018 0755 ------- ------- ------- ------- -- MRI right knee wo amandoomer t ERNIE CERVANTES 05/27 Maribeth corcoran [facility] [place] ([facility] Team A SCOM) Maribeth zayas [facility] [place] ([address] Team A SCOM) TELE CONSULT [id number] Notes Entered by: RAINE JAIN 14 Jun 2018 0949 ------- ------- ------- ------- -- Orthope dic consult report - right knee ERNIE CERVANTES 06/14 Maribeth [place] [facility] [place] ([address] Team A SCOM) Maribeth zayas [facility] [place] ([address] Team A SCOM) TELE CONSULT [id number] Notes Entered by: Raza CARBAJAL 15 Jun 2018 1444 ------- ------- ------- ------- -- Pre-op (ortho) ERNIE CERVANTES 06/15 Mar[place]eth [place] [facility] [place] ([address] Team A SCOM) Maribeth zayas [facility] [place] ([facility] Team A SCOM) OUTPATIENT [id number] 3 check up/ phy ERNIE CERVANTES 06/18 Released with Work/Duty Limitations Maribeth [place] [facility] [place] ([address] Team A SCOM) Maribeth zayas [facility] [place] ([address] Team A SCOM) OUTPATIENT [id number] 9 provide r called to follow up ERNIE CERVANTES 07/09 Released with Work/Duty Limitations Maribeth [place] [facility] [place] ([facility] Team A SCOM) Maribeth zayas [facility] [place] ([facility] Team A SCOM) OUTPATIENT [id number] 4 eavl from having knee surg KSENIA CANTU 09/24 Released w/o Limitations Maribeth corcoran [facility] [place] ([facility] Team A SCOM) Maribeth zayas [facility] [place] Team A SCOM) OUTPATIENT [id number] follow up from knee surgery ISHAAN-YURIY SCOTTY KSENIA Esperanza 10/21 Released w/o Limitations Maribeth corcoran [facility] [place]([facility] F01A Team A SCOM) Maribeth zayas [facility] [place] F01A Team A SCOM) OUTPATIENT [id number] f/u ER visit ISHAAN-YURIY SCOTTY KSENIA Esperanza 11/15 Released w/o Limitations Maribeth corcoran [facility] [place]([facility] F0 Team A SCOM) Maribeth zayas [facility] F01A Team A SCOM) TELE CONSULT [id number] Notes Entered by: RAINE JAIN 10 Dec 2018 0758 ------- ------- ------- ------- -- Orthope dic f/u consult report - right knee ISHAAN-YURIY SCOTTY [facility] 12/10 Maribeth corcoran [facility] [place] Team A SCOM) Maribeth zayas [facility] F0 Team A SCOM) TELE CONSULT [id number] Notes Entered by: RAINE JAIN 02 Feb 2019 0841 ------- ------- ------- ------- -- Orthope dic f/u consult report - right knee postop ISHAAN-YURIY SCOTTY [facility] 02/02 Maribeth corcoran [facility] [place] F0 Team A SCOM) Maribeth zayas [facility] [place] F0 Team A SCOM) OUTPATIENT [id number] 4 ishaan-e scobar/ back pain ISHAAN-YURIY SCOTTY [facility] 02/07 Released w/o Limitations Maribeth corcoran [facility] [place] F01A Team A SCOM) Maribeth zayas [facility] [place] F01A Team A SCOM) OUTPATIENT [id number] ishaan-e scobar/ pha ISHAAN-YURIY SCOTTY, [facility] 04/01 Released w/o Limitations Maribeth [place] [facility] [place]([address] Team A SC) Maribeth zayas [facility] [place]([address] Team A [facility]) TELE CONSULT [id number] Notes Entered by: Heber SCOTT 10 May 2019 1432 ------- ------- ------- ------- -- pt report ASHVIN FAJARDO KSENIA Esperanza 05/10 Maribeth [place] [facility] [place]([address] Team A SC) Maribeth zayas [facility] [place] Team A [facility]) TELE CONSULT [id number] Notes Entered by: АЛЕКСАНДР MCGOVERN 07 Jun 2019 1327 ------- ------- ------- ------- -- Physica l Therapy ReferHERMELINDO Mac 06/07 [place] [facility] [place] Team [place]) Maribeth zayas [facility] [place] Team A [facility]) OUTPATIENT [id number] acd/pro blem with shots/3 05-491- 1934/vi rtHERMELINDO Kirby 03/08 Released w/o Limitations [facility] [place] Team A [facility]) Maribeth zayas [facility] [place] Team A [facility]) OUTPATIENT [id number] Ear Checkup ISHAANDennyYURIY SCOTTY KSENIA Esperanza 06/12 Released w/o Limitations Maribeth [place] [facility] [place]([address] Team A [place]) Maribeth zayas [facility] [place](Opsurg e Multi-Spe cialty [facility]) TELE CONSULT [id number] Notes Entered by: RADHA LEWIS 21 Jun 2020 1343 ------- ------- ------- ------- -- COVID Results SUSAN MARQUES M 06/21 Maribeth corcoran [facility] [place](Opsu rge Multi-S pecialt y [facility]) Theater Facility OUTPATIENT [id number] Theater Provider 09/25 Released w/o Limitations Theater Facilit y Theater Facility OUTPATIENT [id number] Theater Provider 11/13 Released w/o Limitations Theater Facilit y D. D. Cassidy zayas [facility] [place]([facility] F01A Team A SCOM) OUTPATIENT [id number] 2 resched uled//g eneral checkup /physic al f2f KSENIA CANTU 01/22 Released w/o Limitations D. DCarlos [place] [facility] [place]([facility] F01A Team A SCOM) Maribeth zayas [facility] [place]([facility] F01A Team A SCOM) OUTPATIENT [id number] 9 f2f//fo llow-up urgent care visit KSENIA CANTU 09/12 Released w/o Limitations D. Maribeth corcoran [facility] Naig JACQUELINE([facility] F01A Team A SCOM) Maribeth zayas [facility] [place] JACQU[place]INE([facility] F01A Team A SCOM) TELE CONSULT [id number] Notes Entered by: RAINE JAIN 23 Sep 2021 0950 ------- ------- ------- ------- -- Chest Xray KSENIA CANTU 09/23 Maribeth [place] [facility] [place] JACQUELINE([facility] F01A Team A SCOM) Maribeth zayas [facility] [place] JACQUELINE([facility] F01A Team A SCOM) OUTPATIENT [id number] Discuss followu p on hbp medicat ion//vr //[id number] KSENIA CANTU 10/29 Released w/o Limitations D. DCarlos [place] [facility] [place]([facility] F01A Team A SCOM) st [facility]) TELE CONSULT [id number] Notes Entered by: Nicole GR 15 Nov 2021 0720 ------- ------- ------- ------- -- SICK CALL- COVID TEST SHONA OCONNOR 11/15 [facility] Medical Group([facility]) Maribeth zayas [facility] [place] F01A Team A SCOM) OUTPATIENT [id number] [facility] CARLY Murphy 01/08 Sick at Home/Quarter s Maribeth corcoran [facility] [place] F01A Team A SCOM) Maribeth zayas [facility] [place] F01A Team A SCOM) OUTPATIENT [id number] annual check up ISHAANDennyKSENIA BOLIVAR Esperanza 04/22 Released w/o Limitations Maribeth corcoran [facility] [place]([facility] F01A Team A SCOM) 6118M-CBM [facility] Between Visit [id number] 05/03 Discharge Disposition: Home or Self Care 6118M-C [facility] r [id number]-[id number] AMDS Between Visit [id number] 05/06 Discharge Disposition: Home or Self Care 8344R-4 39 AMDS 8344R-439 AMDS Between Visit [id number] 08/23 Discharge Disposition: Home or Self Care 8344R-4 39 AMDS 7239[facility] [place] Between Visit [id number] 09/23 Discharge Disposition: Home or Self Care 7239C-S OUTOM [facility] [place] 7239C-ZAFAR THCOM [facility] Between Visit [id number] 09/23 Discharge Disposition: Home or Self Care 7239C-S OUTOM [facility] [place] Procedures Combined list of: 1) Procedures from Department of Veterans Affairs facilities [facility], not all VA non-surgical procedures are included; 2) All procedures from the Department of Defense facilities. Procedure Procedure Type Code Date Perfomer Comments Sour e INFLUENZA VIRUS VACCINE, TRIVALENT, LIVE (LAIV3), FOR INTRANASAL USE 04/29/20 10 [facility] YELLOW FEVER VACCINE, LIVE, FOR SUBCUTANEOUS USE 04/01/20 10 [facility] VIS FUNCT SCREEN,AUTOMAT/LINH I-AUTOMAT BILAT QUANT DETERM VISUAL ACUITY,OCULAR ALIGN,COLOR VISION,PSEUDOISOCH ROMAT PLATES,& FIELD VIS (MAY INC ALL/SOME SCRN DETERM FOR CONTRAST SENSITIV,VIS UND GLARE) 02/29/20 10 [facility] YELLOW FEVER VACCINE, LIVE, FOR SUBCUTANEOUS USE 02/26/20 10 [facility] SKIN TEST; TUBERCULOSIS, INTRADERMAL 02/23/20 10 [facility] AUDIOMETRIC TESTING OF GROUPS 02/23/20 10 [facility] COLLECTION OF VENOUS BLOOD BY VENIPUNCTURE 02/22/20 10 [facility] ELECTROCARDIOGRAM, ROUTINE ECG WITH AT LEAST 12 LEADS; WITH INTERPRETATION AND REPORT 12/24/19 [facility] APPLICATION OF A MODALITY TO 1 OR MORE AREAS; HOT OR COLD PACKS 11/19/19 16 [facility] APPLICATION OF A MODALITY TO 1 OR MORE AREAS; HOT OR COLD PACKS 10/24/19 16 [facility] APPLICATION OF A MODALITY TO 1 OR MORE AREAS; HOT OR COLD PACKS 10/17/19 16 [facility] THERAPEUTIC PROCEDURE, 1 OR MORE AREAS, EACH 15 MINUTES; THERAPEUTIC EXERCISES TO DEVELOP STRENGTH AND ENDURANCE, RANGE OF MOTION AND FLEXIBILITY 10/05/19 16 [facility] APPLICATION OF A MODALITY TO 1 OR MORE AREAS; HOT OR COLD PACKS 09/26/19 16 [facility] THERAPEUTIC PROCEDURE, 1 OR MORE AREAS, EACH 15 MINUTES; THERAPEUTIC EXERCISES TO DEVELOP STRENGTH AND ENDURANCE, RANGE OF MOTION AND FLEXIBILITY 09/21/19 16 [facility] POSITIONING CUSHION/PILLOW/WED GE, ANY SHAPE OR SIZE, INCLUDES ALL COMPONENTS AND ACCESSORIES 09/20/19 16 [facility] THERAPEUTIC PROCEDURE, 1 OR MORE AREAS, EACH 15 MINUTES; THERAPEUTIC EXERCISES TO DEVELOP STRENGTH AND ENDURANCE, RANGE OF MOTION AND FLEXIBILITY 09/18/19 16 [facility] BRIEF EMOTIONAL/BEHAVIOR AL ASSESSMENT (EG, DEPRESSION INVENTORY, ATTENTION-DEFICIT/ HYPERACTIVITY DISORDER [ADHD] SCALE), WITH SCORING AND DOCUMENTATION, PER STANDARDIZED INSTRUMENT 04/15/20 21 [facility] TELE ASSESS & MGT SRV PROV QUAL NONPHYS HLTH CARE PRO TO EST PAT,PARENT,GUARD NOT ORIG REL ASSESS & MGT SRV PROV W/IN PREV 7 DAYS NOR LEAD ASSESS & MGT SRV/PX W/IN NXT 24 HR/SOON APT;5-10 MIN MED DIS 04/12/20 21 [facility] WAIVER SERVICES; NOT OTHERWISE SPECIFIED (NOS) 03/08/20 20 [facility] LIDOCAINE 70 MG/TETRACAINE 70 MG, PER PATCH 07/20/19 18 [facility] CHIROPRACTIC MANIPULATIVE TREATMENT (CMT); SPINAL, 1-2 REGIONS 01/20/20 14 [facility] SCREENING TEST, PURE TONE, AIR ONLY 12/17/19 14 [facility] AUDIOMETRIC TESTING OF GROUPS 11/09/19 13 [facility] SCREENING TEST, PURE TONE, AIR ONLY 09/25/19 13 [facility] AUDIOMETRIC TESTING OF GROUPS 09/22/19 13 [facility] COLLECTION OF VENOUS BLOOD BY VENIPUNCTURE 05/28/20 12 [facility] IMMUNIZATION ADMINISTRATION (INCLUDES PERCUTANEOUS, INTRADERMAL, SUBCUTANEOUS, OR INTRAMUSCULAR INJECTIONS); EACH ADDITIONAL VACCINE (SINGLE OR COMBINATION VACCINE/TOXOID) 05/19/20 11 [facility] SKIN TEST; TUBERCULOSIS, INTRADERMAL 04/23/20 11 [facility] VIS FUNCT SCREEN,AUTOMAT/LINH I-AUTOMAT BILAT QUANT DETERM VISUAL ACUITY,OCULAR ALIGN,COLOR VISION,PSEUDOISOCH ROMAT PLATES,& FIELD VIS (MAY INC ALL/SOME SCRN DETERM FOR CONTRAST SENSITIV,VIS UND GLARE) 02/06/20 11 [facility] SCREENING TEST, PURE TONE, AIR ONLY 01/31/20 11 [facility] Modalities Traction Modalities Traction 40259 11/19/19 16 MATHEUS DE LOS SANTOS [facility] Modalities Heat Hot Packs Modalities Heat Hot Packs 75635 11/19/19 16 MATHEUS DE LOS SANTOS [facility] Chiropractic Manip Treatmt (CMT) Spinal Three To Four Region Chiropractic Manip Treatmt (CMT) Spinal Three To Four Region 09106 11/19/19 16 MATHEUS DE LOS SANTOS Modalities Traction Modalities Traction 45701 10/24/19 16 MATHEUS DE LOS SANTOS Modalities Heat Hot Packs Modalities Heat Hot Packs 58833 10/24/19 16 MATHEUS DE LOS SANTOS [facility] Chiropractic Manip Treatmt (CMT) Spinal Three To Four Region Chiropractic Manip Treatmt (CMT) Spinal Three To Four Region 04021 10/24/19 16 MATHEUS DE LOS SANTOS Modalities Traction Modalities Traction 82330 10/17/19 16 MATHEUS DE LOS SANTOS Modalities Heat Hot Packs Modalities Heat Hot Packs 09117 10/17/19 16 MATHEUS DE LOS SANTOS [facility] Chiropractic Manip Treatmt (CMT) Spinal Three To Four Region Chiropractic Manip Treatmt (CMT) Spinal Three To Four Region 72452 10/17/19 16 MATHEUS DE LOS SANTOS Physical Therapy: ___ Se ion Segments, 15 Minutes Each Physical Therapy: ___ Session Segments, 15 Minutes Each 58198 10/05/19 16 DEMETRIUS KOHLI Modalities Traction Modalities Traction 78467 09/26/19 16 MATHEUS DE LOS SANTOS Modalities Heat Hot Packs Modalities Heat Hot Packs 18571 09/26/19 16 MATHEUS DE LOS SANTOS Chiropractic Manip Treatmt (CMT) Spinal Three To Four Region Chiropractic Manip Treatmt (CMT) Spinal Three To Four Region 59280 09/26/19 16 MATHEUS DE LOS SANTOS Physical Therapy: ___ Se ion Segments, 15 Minutes Each Physical Therapy: ___ Session Segments, 15 Minutes Each 00319 09/21/19 16 SG CONSTANTINO Positioning cushion/pillow/wed ge, [...] Treatmt (CMT) Spinal Three To Four Region 98743 09/20/19 16 MATHEUS DE LOS SANTOS Exercises A isted Exercises For ROM Exercises Assisted Exercises For ROM 31566 09/18/19 16 RIDGE MEANS Physical Medicine Physical Therapy Evaluation Physical Medicine Physical Therapy Evaluation 46847 09/18/19 16 [facility] Chiropractic Manip Treatmt (CMT) Spinal One To Two Regions Chiropractic Manip Treatmt (CMT) Spinal One To Two Regions 82493 01/20/20 14 ABHIJIT PORTILLO Audiogram (Screening) Audiogram (Screening) 68115 12/17/19 14 JOSE ALFREDO GARZON Audiometry Group Testing Audiometry Group Testing 91201 12/17/19 14 JOSE ALFREDO GARZON Audiogram (Screening) Audiogram (Screening) 25491 11/09/19 13 JOSE ALFREDO GARZON [facility] Audiometry Group Testing Audiometry Group Testing 53291 11/09/19 13 JOSE ALFREDO GARZON [facility] Audiometry Group Testing Audiometry Group Testing 02435 09/25/19 13 JOJO ARMENTA [facility] Audiogram (Screening) Audiogram (Screening) 40032 09/25/19 13 JOJO ARMENTA [facility] Audiogram (Screening) Audiogram (Screening) 34803 09/22/19 13 JOSE ALFREDO GARZON [facility] Audiometry Group Testing Audiometry Group Testing 11469 09/22/19 13 JOSE ALFREDO GARZON [facility] Venipuncture Venipuncture 85084 05/28/20 12 GUERO MCKEON DRAWN AT [facility] Immunization Administration Each Additional Vaccine 05/20/20 11 [facility] -Supervised Services Provision Of Educational Supplies -Supervised Services Provision Of Educational Supplies 04176 05/20/20 11 [facility] Services Special Review / Reporting Of Patient Status Services Special Review / Reporting Of Patient Status 82699 05/20/20 11 [facility] -Supervised Group Educational Services 05/20/20 11 [facility] Vaccines Vaccines 83956 05/20/20 11 [facility] Immunization Administration One Vaccine Immunization Administration One Vaccine 81668 05/20/20 11 [facility] Skin Test Anergy Tuberculin Intradermal Skin Test Anergy Tuberculin Intradermal 10146 04/23/20 11 RAFA TREJO [facility] Visual Function Screening Visual Function Screening 53227 02/06/20 11 CHELSEA PORTER [facility] Screening Test Of Visual Acuity, Quantitative, Bilateral Screening Test Of Visual Acuity, Quantitative, Bilateral 74347 02/06/20 11 [place], CHELSEA P [facility] Audiometry Group Testing Audiometry Group Testing 26754 01/31/20 11 FRANKI MELO [facility] Audiogram (Screening) Audiogram (Screening) 30741 01/31/20 11 FRANKI MELO [facility] Visual Function Screening Visual Function Screening 92565 02/29/20 10 OMER MEJÍA [facility] Screening Test Of Visual Acuity, Quantitative, Bilateral Screening Test Of Visual Acuity, Quantitative, Bilateral 26719 02/29/20 10 OMER MEJÍA [facility] Threshold Audiogram (Pure Tone) Threshold Audiogram (Pure Tone) 63631 02/23/20 10 TAWNY JOYCE [facility] Audiometry Group Testing Audiometry Group Testing 68411 02/23/20 10 TAWNY JOYCE [facility] Waiver services; not otherwise specified (NOS) HERMELINDO LOMELI [facility] Non-Physician Phone Call To Patient/Provider Brief (5-10min) Non-Physician Phone Call To Patient/Provider Brief (5-10min) [id number] SHEBA CURTIS [facility] Psychiatric Evaluation Psychiatric Evaluation [id number] SHEBA CURTIS [facility] Application of a modality to one or more areas; traction, mechanical Application of a modality to one or more areas; traction, mechanical [id number] enhower Chiropractic manipulative treatment (CMT); spinal, one to two regions Chiropractic manipulative treatment (CMT); spinal, one to two regions [id number]-[facility] enhower Application of a modality to one or more areas; hot or cold packs Application of a modality to one or more areas; hot or cold packs [id number]-[facility] enhower Chiropractic manipulative treatment (CMT); spinal, three to four regions Chiropractic manipulative treatment (CMT); spinal, three to four regions [id number]-[facility] enhower Social History Combined list of available smoking, tobacco, and other social history from Department of 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 Social History Type Response Date Comment Sourc e Sex Representation Male (finding) 03/13/2020 Un known Organization Tobacco smoking status NHIS LIFETIME NON-USER OF TOBACCO 04/15/2016 [facility] History of tobacco use LIFETIME NON-USER OF TOBACCO 05/28/2015 [facility] History of tobacco use LIFETIME NON-USER OF TOBACCO 05/08/2015 [facility] History of tobacco use LIFETIME NON-USER OF TOBACCO 06/14/2014 [facility] This section is an empty social history [...] Referral Request 2.0 ? [facility] ? ? Extracted from:Title: LONNIE Author: KSENIA [...] blood pressure starts to rise, verb understanding. 11/09/2024 7239[facility] Advance Directives List of completed, amended, or rescinded Advance Directives on record at Department of Veterans Affairs facilities. An actual copy of the Directive is not included. Date Advance Directive Provider Source 06/14/2014 ADVANCE DIRECTIVE DISCUSSION AARON KWON [facility] Functional Status Combined list of recent functional and cognitive assessments recorded at Department of Defense and Veterans Affairs (VA).VA Functional Swift Measurement (FIM) Scale: 1 = Total Assistance (Subject = 0% +), 2 = Maximal Assistance (Subject = 25% +), 3 = Moderate Assistance (Subject = 50% +), 4 = Minimal Assistance (Subject = 75% +), 5 = Supervision, 6 = Modified Swift (Device), 7 = Complete Swift (Timely, Safely). Assessment Date/Time Source Assessment Type Assessment Skill Assessment Score Assessment Details No data available for this section
--- OUTSIDE RECORDS SUMMARY | 2024-11-09 10:11 | XMS_ITS | Clinical Summary ---
Author Organization [facility] it Address [address] [place] [address] Care Team Providers Care Econometrician Name Role Phone Unavailable Primary Care Provider [...] - 2023-2 5 season) 2024 Influenza Vaccine (Season Ended) 2025 HIB Vaccines Aged Out No longer eligi [...]
--- OUTSIDE RECORDS SUMMARY | 2024-11-09 10:11 | XMS_ITS | Clinical Summary ---
Author Organization [facility] Address [address] [place] [address] Phone Care Team Providers Care Morgue Librarian Name Role Phone Luis Fernando WALDROP, Lobito George [phone] [facility] ([facility], Clinic Station Primary Care P rovider [phone] Reason for Visit and Chief Complaint visit for: follow-up exam - The Chief Complaint is: allergies Plan of Treatment Pending Tests Order Diagnosis Results Due Ordering P rovider Return Follow Up - Month(s) 6 months Allergic rhinitis, unspecified 06/10/21 Lobito Gould MD Last Documented On 12:44PM ; [facility] Assessments Includes: Assessments from this encounter Findings - Allergic rhinitis - Last Documented On 06/10/2021 12:44PM ; [facility] Medical Equipment - Implanted Devices Includes: Current Devices No Medical Equipment Recorded Medications Includes: Medications discussed during this encounter and other current Medications Discontinued / Stopped on this date Lobito Gould MD on 03/04/2021 Fluticasone Propionate 50 MC G/ACT Nasal Suspension Provider: Lobito Gould MD Diagnosis: Chronic rhinitis Last Documented On 12:25PM By Stef Snow ; [facility] New / Renewed during this visit Lobito Gould MD on 06/10/2021 Fluticasone Propionate 50 MCG/ACT Nasal Suspension Provider: Lobito fiore MD 30 day supply: 16 gram, 3 refills Diagnosis: Allergic rhinitis, unspecified 2 sp en qd as needed Pharmacy: [facility] [id number] [id number], [id number] - Last Documented On 12:45PM By Lobito Gould MD ; [facility] Current Medications (continue as prescribed) Fexofenadine HCl 180 MG Oral Tablet 03/02/2021 Provider: Lisa REYNA ([place]) Diagnosis: 1 tab po qd Last Documented On 1 2:43PM By Jimmy Luther ; [facility] Medications Administered Includes: Administered Medications from [...] 12:26P M ; [facility] Results Includes: Results discussed during this [...] On 12:44PM ; [facility] Smoking Status Unknown Procedures and Surgical History Includes: Procedures from this encounter Procedures Code Diagnosis Performing Provider Service L ocation Service Date medication list reviewed Last Documented On 1 12:26PM ; [facility] Medical History Includes: Medical History addressed during this encounter Description Last Updated Past medical history reviewed 06/10/2021 Last Documented On 12:44PM ; [facility] Family History Includes: Family History addressed [...] Time Diagnosis Follow Up Lobito Gould MD [place] [facility] 1 12:16PM 12:46PM Allergic Rhinitis Insurance Includes: Active Insurance Policies Plan Name Member ID Group # Subscriber Relationship Effect kiran Dates 1 - [facility] [id number] Ellis Ellis Self 07/13/2017 - Un known Clinical Notes Includes: Clinical Notes from this encounter No Clinical Notes Recorded
--- OUTSIDE RECORDS SUMMARY | 2024-11-09 10:12 | XMS_ITS | Clinical Summary ---
Author Organization [facility] Address [address] [place] [address] Phone Care Team Providers Care Manufacturing Engineer Machining Name Role Phone Luis Fernando WALDROP, Lobito George [phone] [facility] ([facility], Clinic Station Primary Care P rovider [phone] Reason for Visit and Chief Complaint visit for: follow-up exam - The Chief Complaint is: allergies Plan of Treatment - Recommended mattress / pillow covers for dust mites - Last Documented On 03/11/2021 1:12PM ; [facility] Pending Tests Order Diagnosis Results Due Ordering P rovider Return Follow Up - Month(s) 3 months Chronic rhinitis Lobito Gould MD Last Documented On 1 1:12PM ; [facility] Plan: Medications - Medication Care Plan Continue current Medications Chronic rhinitis 03/11/21 Lobito Gould MD Last Documented On 1 1:12PM ; [facility] Instructions to patient Avoid allergens Last Documented On 1:11PM ; [facility] Assessments Includes: Assessments from this encounter Findings - Chronic rhinitis - Last Documented On 03/11/2021 1:12PM ; [facility] Instructions Includes: Instructions from this encounter Instructions to patient Avoid allergens Last Documented On 1:11PM ; [facility] Medical Equipment - Implanted Devices Includes: [...] Gould MD ; [facility] Fexofenadine HCl 180 MG Oral Tablet 03/02/2021 Provider: Lisa REYNA ([place]) Diagnosis: 1 tab po qd Last Documented On 2:43PM By Jimmy Luther ; [facility] Medications Administered Includes: Administered Medications from [...] 11:52A M ; [facility] Results Includes: Results discussed during this [...] 1:12PM ; [facility] Smoking Status Unknown Procedures and Surgical History Includes: Procedures from this encounter Procedures Code Diagnosis Performing Provider Service L ocation Service Date avoid allergens Last Documented On 1 1:11PM ; [facility] medication list reviewed Last Documented On 1 1:09PM ; [facility] percutaneous tests with allergenic extracts was [phone] Last Documented On 11:52AM ; [facility] intradermal tests with allergenic extracts (imme diate) was [phone] Last Documented On 12:38PM ; [facility] allergy sensitivity testing Last Documented On 1 11:52AM ; [facility] Medical History Includes: Medical History addressed during this encounter Description Last Updated Past medical history reviewed 03/11/2021 Last Documented On 1 1:12PM ; [facility] Family History Includes: Family History addressed during [...] Time Diagnosis Post Test Lobito Gould MD [place] [facility] 1 11:04AM 1:08PM Rhinitis Chronic Insurance Includes: Active Insurance Policies Plan Name Member ID Group # Subscriber Relationship Effect kiran Dates 1 - [facility] [id number] Ellis Corral Self 07/13/2017 - Un known Clinical Notes Includes: Clinical Notes from this encounter No Clinical Notes Recorded
--- OUTSIDE RECORDS SUMMARY | 2024-11-09 10:12 | XMS_ITS | Clinical Summary ---
Author Organization [facility] Address [address] [place] [address] Phone Care Team Providers Care Interdisciplinary Professor Name Role Phone Luis Fernando WALDROP, Lobito George [phone] [facility], Clinic Station Primary Care P rovider [phone] Reason for Visit and Chief Complaint visit [...] Chronic rhinitis 2 sp en qam [facility]acy: [facility] [id number] [phone] [place] [address], [id number] - Last Documented On 1 12:25PM By Stef Snow ; [facility] Current Medications (continue as prescribed) Fluticasone Propionate 50 MCG/ACT Nasal Suspension 06/10/2021 Provider: Lobito fiore MD Diagnosis: Allergic rhiniti s, unspecified 2 sp en qd as needed Last Documented On 1 12:45PM By Lobito Gould MD ; [facility] Fexofenadine HCl 180 MG Oral Tablet 03/02/2021 Provider: Lisa Renee ([place]) SOFT SUGAR CUTTER Diagnosis: 1 tab po qd Last Documented [...] have itchy throat will deployed in [facility]. Itchy throat improved with use [...] ; [facility] Air-conditioning filters are changed tim ry 3 months 03/04/2021 Last Documented On 1 3:12PM ; [facility] Environmental history reviewed 1 Last Documented On 1 3:12PM ; [facility] Housing has central cooling 03/04/2021 Last Documented On 3:12PM ; [facility] Housing has windows closed 03/04/2021 Last Documented On 1 3:12PM ; [facility] Lives in apartment 03/04/2021 Last Documented On 3:12PM ; [facility] Mattress is encased 03/04/2021 Last Documented On 3:12PM ; [facility] No carpets in residence 03/04/2021 Last Documented On 1 3:12PM ; [facility] No contact with pets or other animals Last Documented On 1 3:12PM ; [facility] No exposure to environmental tobacco smo ke 03/04/2021 Last Documented On 1 3:12PM ; [facility] No exposure to molds 03/04/2021 Last Documented On 3:12PM ; [facility] No HEPA filters 03/04/2021 Last Documented On 1 3:12PM ; [facility] No secondhand cigarette smoke exposure 0 03/04/2021 Last Documented On 1 3:12PM ; [facility] No wall unit cooling in residence 2020 Last Documented On 1 3:12PM ; [facility] Not living near a major source of pollut ion 03/04/2021 Last Documented On 3:12PM ; [facility] Patient does not sleep with stuffed anim [...] Time Diagnosis New Patient Lobito Gould MD [place] Office 1 2:26PM 3:12PM Rhinitis Chronic Insurance Includes: Active Insurance Policies Plan Name Member ID Group # Subscriber Relationship Effect kiran Dates 1 - [facility] [id number] Ellis Ellis Self 07/13/2017 - Un known Clinical Notes Includes: Clinical Notes from this encounter No Clinical Notes Recorded
--- OUTSIDE RECORDS SUMMARY | 2024-11-09 10:12 | XMS_ITS ---
Author Organization [facility] Address [address] [place] [address] Phone Care Team Providers Care Technology Adoption Manager Name Role Phone Luis Fernando WALDROP, Lobito George [phone] [facility] [place] Clinic Station Primary Care P rovider [phone] Plan of Treatment Findings Encounter Date Recommended mattress / helen w covers for dust mites Post Test with Lobito Gould MD 03/11/2021 Last Documented On 1 1:12PM ; [facility] Recommended allergy sensitiv ity testing - abbrev New Patient with Lobito Gould MD 03/04/2021 Last Documented On 1 3:12PM ; [facility] Instructions to patient Avoid allergens Last Documented On 1 1:11PM ; [facility] Instructions for patient - p janell use of nasal spray Last Documented On 1 3:11PM ; [facility] Assessments Includes: Assessments for all patient encounters Findings Encounter Date Allergic rhinitis Follow Up with Lobito fiore MD 06/10/2021 Last Documented On 1 12:44PM ; [facility] Chronic rhinitis Post Test with Lobito Gould MD 03/11/2021 Last Documented On 1 1:12PM ; [facility] Chronic rhinitis New Patient with Lobito kebede MD 03/04/2021 Last Documented On 1 3:12PM ; [facility] Instructions Includes: Instructions for all patient encounters Instructions to patient Avoid allergens Last Documented On 1 1:11PM ; [facility] Instructions for patient - p janell use of nasal spray Last Documented On 3:11PM ; [facility] Medical Equipment - Implanted Devices Includes: Current and historical Devices No Medical Equipment Recorded Medications Includes: Current and historical Medications Current Medications (continue as prescribed) Fluticasone Propionate 50 MCG/ACT Nasal Suspension 06/10/2021 Provider: Lobito fiore MD Diagnosis: Allergic rhiniti s, unspecified 2 sp en qd as needed Last Documented On 12:45PM By Lobito Gould MD ; [facility] Fexofenadine HCl 180 MG Oral Tablet 03/02/2021 Provider: Lisa REYNA ([place]) Diagnosis: 1 tab po qd Last Documented On 2:43PM By Jimmy Luther ; [facility] Past Medications on file Fluticasone Propionate 50 MCG/ACT Nasal Suspension 03/04/2021 - 06/10/2021 Provider: Lobito pham MD Diagnosis: Chronic rhinitis 2 sp en qam Last Documented On 12:25PM By Stef Snow ; [facility] Azelastine HCl 0.1% Nasal Solution 03/02/2021 - 03/02/2021 Provider: Lisa REYNA ([place]) Diagnosis: prn Last Documented On 2:58PM By Lobito Gould MD ; [facility] Medications Administered Includes: Administered Medications in patient's chart No Administered Medications Recorded Results Includes: Results from 11/10/2023 through 11/09/2024 No Results Recorded For Specified Dates History of Present Illness History of Present Illness not supported for this document type No History of Present Illness Recorded Social History Description Last Updated Past medical history reviewed 06/10/2021 Last Documented On 12:44PM ; [facility] Smoking status : Never smoker 03/04/2021 Last Documented On 3:12PM ; [facility] Air-conditioning filters are changed tim ry 3 months 03/04/2021 Last Documented On 3:12PM ; [facility] Environmental history reviewed 1 Last Documented On 1 3:12PM ; [facility] Housing has central cooling 03/04/2021 Last Documented On 1 3:12PM ; [facility] Housing has windows closed 03/04/2021 Last Documented On 1 3:12PM ; [facility] Lives in apartment 03/04/2021 Last Documented On 1 3:12PM ; [facility] Mattress is encased 03/04/2021 Last Documented On 1 3:12PM ; [facility] No carpets in residence 03/04/2021 Last Documented On 1 3:12PM ; [facility] No contact with pets or other animals Last Documented On 1 3:12PM ; [facility] No exposure to environmental tobacco smo ke 03/04/2021 Last Documented On 1 3:12PM ; [facility] No exposure to molds 03/04/2021 Last Documented On 1 3:12PM ; [facility] No HEPA filters 03/04/2021 Last Documented On 1 3:12PM ; [facility] No secondhand cigarette smoke exposure 0 03/04/2021 Last Documented On 1 3:12PM ; [facility] No wall unit cooling in residence 2020 Last Documented On 1 3:12PM ; [facility] Not living near a major source of pollut ion 03/04/2021 Last Documented On 1 3:12PM ; [facility] Patient does not sleep with stuffed anim als 03/04/2021 Last Documented On 1 3:12PM ; [facility] Patient is not exposed to [...] Subscriber Relationship Effect kiran Dates 1 - [facility] [id number] Ellis Ellis Self 07/13/2017 - Un known Clinical Notes Includes: Signed Clinical Notes starting from 11/29/2022 No Clinical Notes Recorded
--- OUTSIDE RECORDS SUMMARY | 2024-11-09 10:12 | XMS_ITS ---
Care Plan - [facility] Created on: November 09, 2024 Ellis Ellis : 1980 Sex: Male Author Organization [facility] Address [address] [place] [address] Phone Care Team Providers Care Director Biology Name Role Phone Luis Fernando WALDROP, Lobito George [phone] [facility], Clinic Station Primary Care [place] mckeon [phone]
== END 2024-11-09 10:23 | disposition home or self-care (01) ==
LOC: HO.HMCC 09:29
PROVIDERS: PCP Internal Medicine; Visit Provider Internal Medicine
DX: D49.2 Neoplasm of unspecified behavior of bone, soft tissue, and skin (principal); R21 Rash and other nonspecific skin eruption

== ENCOUNTER → 2024-11-09 09:28 | Outpatient (BNVA) | payer OTHER, SELFPAY | PROVIDERS: PCP Internal Medicine; Visit Provider Internal Medicine | DX: D49.2 Neoplasm of unspecified behavior of bone, soft tissue, and skin (principal); R21 Rash and other nonspecific skin eruption | CPT/HCPCS: 99212 ==

== ENCOUNTER 2025-01-16 14:56 | Outpatient (AMB) | payer OTHER, SELFPAY ==
--- NOTE | 2025-01-16 15:06 | MHC.OFFVIS ---
Vital Signs 01/16/25 15:07 Height 5 ft 8 in Weight 176 lb BMI 26.8 BP 120/82 Blood Pressure Location Lt brachial Position Sitting Pulse 76 Pulse Source Pulse Oximeter Pulse Oximetry (%) 98 Oxygen Delivery Method Room Air Intake Visit Reasons: 3 mo follow up Intake Note: Patient presents follow up Compliance in chart(85/90 days, >=4hrs-93%, average usage- 6hrs 58min, Med pressure- 5.9, Med leaks- 5.6, AHI-1.4) Patient Financial Services Specialist Required: No Accompanied by: Self / Same As Patient Allergies No Known Allergies Allergy (Verified 01/16/25 15:09) HPI Comments Details: 44 year old r. handed male referred to us for a sleep evaluation. Interim Med history: He was recently stung by a jelly fish January 01 and hospitalized, he was evaluated by the ED and cleared. 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 He was diagnosed with LONNIE, in 2022 and has been using his cpap daily as he can not sleep without it. He gets his supplies through his old sleep company, however no one is monitoring for compliance here in [place] since the move. He denies RLS, or uncomfortable feeling of numbness, tingling, sensation at night. He has muscle spasms and twitches after long distance bike rides. He denies morning headaches. He uses a mouth guard due to Bruxism, and sleeps on his back, sometimes he yells and talks in his sleep. Denies parasomnias. He denies smoking, or MJ use, drinks alcohol only socially. He takes Benadryl nightly to help him sleep through the night although it also helps with his allergies. He anxious about work related decisions, but is very good at identifying deficits in his health and attends to self care promtly. He is interested in [facility] will f/u at next visit. Vitamin D is low, continue vit d 1000 units daily. [facility] Medical History Lower back pain Rupture of anterior cruciate ligament of right knee Sleep apnea Hypertension Surgical History History of repair of anterior cruciate ligament of right knee Family History Father Prostate cancer Paternal Grandmother Diabetes type 2, controlled Social History Housing: House Patient Tobacco Use Status: Never used Tobacco e-Cigarette/Vaping Use: Never Used Second Hand Smoke Exposure: No service: Yes ([employer] ) Current occupational status: employed Current occupational exposures/hazards: Yes Cognitive needs: No Hearing needs: No Vision needs: No Physical Exam Vital Signs: Last Vital Signs Pulse 76 01/16/25 15:07 BP 120/82 01/16/25 15:07 Pulse Ox 98 01/16/25 15:07 Oxygen Delivery Method Room Air 01/16/25 15:07 BMI result Body Mass Index 26.8 Const General: cooperative and comfortable Nutritional Appearance: average body habitus Orientation/consciousness: patient oriented x3 HEENT Face and sinus: Yes face symmetric Teeth and gingiva: other (mallampti score of 3) Eyes Pupils: Equal, round and reactive pupils present Resp Effort & Inspection: normal respiratory effort and able to speak in complete sentences Neuro General: patient oriented x3 and moves all extremities Cranial nerves: Yes Equal, round and reactive pupils present, Yes Normal accommodation reflex present, Yes Bilaterally intact EOM present, Yes Nystagmus not present, Yes Normal facial strength present, Yes Midline tongue present and Yes Ability to bilaterally rotate head present Gait exam (Neuro): Normal gait present Motor exam (neuro): 5/5 motor strength present throughout and Normal motor muscle tone present throughout Psych Appearance: grossly normal Insight: Good insight present (Psych) Judgement: Good judgement present (Psych) Results Reviewed Results Reviewed: Labs reviewed with patient today. Assessment & Plan Assessment & Plan (1) Excessive daytime sleepiness: Comment: will send for psg if hst is inconclusive Code(s): G47.19 - Other hypersomnia Category: Medical (2) Low vitamin D level: Comment: cont vit d 1000units daily Code(s): R79.89 - Other specified abnormal findings of blood chemistry Category: Medical (3) Sleep talking: Comment: uses a mouth gaurd and this helps Code(s): G47.8 - Other sleep disorders Category: Medical (4) Excessive daytime and night-time sleepiness: Code(s): G47.19 - Other hypersomnia Category: Medical Plan HST to evaluate sleep apnea, Excessive Daytime Fatigue when not using his CPAP Labs to r/o deficiencies. B12/ Homocysteine/ MMA/ Folate Patient Education: [facility] will refer. Orders: Orders Vitamin D 25-OH Total Today R79.89 - Other specified abnormal findings of blood chemistry RT home sleep study Today G47.19 - Other hypersomnia Patient Instructions: Sleep Hygiene provided: set a scheduled bedtime and wake time to help regulate the circadian rhythm and balance the release of pituitary hormones. Sleep in a dark room, temperatures below 68 degrees, and no devices n bed. Limit caffeinated products 6 hours prior to bed, and limit fluids 2-4 hours prior to bed. Gentle night yoga, diffusing essential oils, and playing soft music can be relaxing. Coding Level of Care Code Est Pt Level 4 (79852) Diagnoses Excessive daytime sleepiness G47.19 Low vitamin D level R79.89 Sleep talking G47.8 Excessive daytime and night-time sleepiness G47.19 Time Spent (min) 20 Comment evaluation of sleep
[2025-01-16 15:07] VITALS: BP 120/82; PULSE 76; O2SAT 98; BMI 26.8
--- OUTSIDE RECORDS SUMMARY | 2025-01-16 15:25 | XMS_ITS | Clinical Summary ---
Author Organization [facility] it Address [address] [place] [address] Care Team Providers Care Forestry Aid Technician Name Role Phone Unavailable Primary Care [...] 5 Years) and At-Risk Patients (6 to 49 Years) Aged Out No longer eligible b ased on patient's age to complete this topic RSV Immunization Patients Un natalia 20 months Aged Out No longer eligible b ased on patient's age to complete this topic Varicella Vaccines Aged Out No longer eligible based on patient's age to complete this topic
== END 2025-01-16 15:41 | disposition home or self-care (01) ==
LOC: HO.HSMS 14:56
PROVIDERS: PCP Internal Medicine; Visit Provider Physician Assistant Medical
DX: G47.19 Other hypersomnia (principal); R79.89 Other specified abnormal findings of blood chemistry; G47.8 Other sleep disorders
CPT/HCPCS: 99214

== ENCOUNTER → 2025-01-16 14:56 | Outpatient (BNVA) | payer OTHER, SELFPAY | PROVIDERS: PCP Internal Medicine; Visit Provider Physician Assistant Medical | DX: G47.19 Other hypersomnia (principal); G47.8 Other sleep disorders; R79.89 Other specified abnormal findings of blood chemistry | CPT/HCPCS: 99212 ==

== ENCOUNTER → 2025-02-27 13:51 | Outpatient (REF) | payer OTHER, SELFPAY ==
--- OUTSIDE RECORDS SUMMARY | 2025-02-27 14:41 | XMS_ITS | Clinical Summary ---
Author Organization [employer] [facility] Address [address] [place] [address] Care Team Providers Care Range Rider Name Role Phone Unavailable Primary Care Provider [...] series) 02/05/1999 Cholesterol Screening (Lipid Panel) 08/07/2023 Colorectal Cancer Screening: Colonoscopy 08/07/2023 HIV Screening 08/07/2023 Hepatitis C Screening 08/07/2023 Social Influencers of Health Screening 08/07/2023 COVID-19 Vaccine ( - 2023-2 5 season) 2024 Depression Screening 07/13/2024 Influenza Vaccine (#1) 2025 HIB Vaccines Aged Out No longer [...]
== END ==
LOC: HO.SL 13:51
PROVIDERS: PCP Internal Medicine; Visit Provider Physician Assistant Medical
DX: G47.19 Other hypersomnia (principal)
CPT/HCPCS: 95806

== ENCOUNTER → 2025-02-27 14:15 | Outpatient (BNV) | payer OTHER, SELFPAY | PROVIDERS: PCP Internal Medicine; Visit Provider Psychiatry & Neurology Neurology | DX: R06.83 Snoring (principal) | CPT/HCPCS: 95806 ==

== ENCOUNTER 2025-04-17 13:58 | Outpatient (AMB) | payer OTHER, SELFPAY ==
[2025-04-17 14:01] VITALS: BP 120/76; PULSE 63; O2SAT 97; BMI 26.8
--- NOTE | 2025-04-17 14:01 | A.OFFVIS_ITS ---
Vital Signs 04/17/25 14:01 Height 5 ft 8 in Weight 176 lb 8 oz BMI 26.8 BP 120/76 Blood Pressure Location Rt brachial Position Sitting Pulse 63 Pulse Source Pulse Oximeter Pulse Oximetry (%) 97 Oxygen Delivery Method Room Air Intake Visit Reasons: 3 mo follow up Intake Note: Patient presents follow up LONNIE. HST/Compliance in chart.( AHI-4, AGATA-87%. PSG for further eval.(84/90days, >=4hrs-89%, Average Usage- 6hr 43min, Med Pressure- 5.8, Med Leaks- 9.8, AHI-1.3)) PSG scheduled for 05/01. Allergies No Known Allergies Allergy (Verified 04/17/25 14:05) HPI Comments Details: 45 year old trinidad dale with LONNIE on cpap therapy presents to review his HST results. LONNIE Compliance Report Reviewed for 01/2025 - 03/2025 Avg use is 6 hours 43min and 84/90 days, >4 hours is 89%. Pressures 5-13olR08 and Leaks 9.8cmH20 and AHI is 1.3. He washes his mask, rinses hoses, changes filters and fills reservoir with water. 03/2025 HST reviewed with pt. ERAN is 4.1 and oxygen nadirs to 81% with 20% of snoring. 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 He was diagnosed with LONNIE in 2022 and has been using his cpap daily as he sleeps comfortably with his machine and can sleep through the night now. He notices he snores, gasps for air and will choke if he does not have his cpap on. He denies RLS, or an uncomfortable feeling of numbness, tingling, sensation at night. He has muscle spasms and twitches after long distance bike rides. He denies morning headaches. He uses a mouth guard due to bruxism, and clenches his jaw. He is a r/l suppine sleeper. Sometimes he yells and talks in his sleep but denies Parasomnias. He takes Benadryl nightly to help him sleep through the night although it hel also helps with his chronic allergies. He gets anxious about work related decisions, though is very good at identifying deficits with his own health and attends to self care promptly. He is interested in [facility], will f/u after his PSG. [facility] Medical History Lower back pain Rupture of anterior cruciate ligament of right knee Sleep apnea Hypertension Surgical History History of repair of anterior cruciate ligament of right knee Family History Father Prostate cancer Paternal Grandmother Diabetes type 2, controlled Social History Housing: House Patient Tobacco Use Status: Never used Tobacco e-Cigarette/Vaping Use: Never Used Second Hand Smoke Exposure: No service: Yes ([employer] ) Current occupational status: employed Current occupational exposures/hazards: Yes Cognitive needs: No Hearing needs: No Vision needs: No Physical Exam Vital Signs: Last Vital Signs Pulse 63 04/17/25 14:01 BP 120/76 04/17/25 14:01 Pulse Ox 97 04/17/25 14:01 Oxygen Delivery Method Room Air 04/17/25 14:01 BMI result Body Mass Index 26.8 Const General: cooperative and comfortable Nutritional Appearance: average body habitus Orientation/consciousness: patient oriented x3 HEENT Face and sinus: Yes face symmetric Teeth and gingiva: other (mallampti score of 3) Eyes Pupils: Equal, round and reactive pupils present Resp Effort & Inspection: normal respiratory effort and able to speak in complete sentences Neuro General: patient oriented x3 and moves all extremities Cranial nerves: Yes Equal, round and reactive pupils present, Yes Normal accommodation reflex present, Yes Bilaterally intact EOM present, Yes Nystagmus not present, Yes Normal facial strength present, Yes Midline tongue present and Yes Ability to bilaterally rotate head present Gait exam (Neuro): Normal gait present Motor exam (neuro): 5/5 motor strength present throughout and Normal motor muscle tone present throughout Psych Appearance: grossly normal Speech and movement: Normal speech and movement present Thought process: Normal thought process present Insight: Good insight present (Psych) Judgement: Good judgement present (Psych) Results Reviewed Results Reviewed: LONNIE Compliance Report Reviewed for 01/2025 - 03/2025 Avg use is 6 hours 43min and 84/90 days, >4 hours is 89%. Pressures [id number] and Leaks 9.8cmH20 and AHI is 1.3. He washes his mask, rinses hoses, changes filters and fills reservoir with water. 03/2025 HST reviewed with pt. ERAN is 4.1 and oxygen nadirs to 81% with 20% of sno ring. Assessment & Plan Assessment & Plan (1) Excessive daytime and night-time sleepiness: Code(s): G47.19 - Other hypersomnia Category: Medical (2) Snoring: Code(s): R06.83 - Snoring Category: Medical (3) Bruxism, sleep-related: Code(s): G47.63 - Sleep related bruxism Category: Medical (4) Excessive daytime sleepiness: Comment: will send for psg if hst is inconclusive Code(s): G47.19 - Other hypersomnia Category: Medical (5) Low vitamin D level: Comment: cont vit d 1000units daily Code(s): R79.89 - Other specified abnormal findings of blood chemistry Category: Medical (6) Sleep talking: Comment: uses a mouth gaurd and this helps Code(s): G47.8 - Other sleep disorders Category: Medical Plan LONNIE with Snoring, continue CPAP therapy, HST reviewed with pt today. Reviewed compliance requirements of 4 hours or more per daily. Labs to r/o deficiencies. B12/ Homocysteine/ MMA/ Folate, Vitamin D is low continue taking 50mcg of Vitamin D daily. Snoring and Bruxism Sleep denistry referral if mouth guard evaluation is ne eded. Patient Education: ENT [facility] will refer after PSG results. F/U in 3 months Orders: Referrals Dentistry Referral G47.63 - Sleep related bruxism, R06.83 - Snoring Patient Instructions: Sleep Hygiene provided: set a scheduled bedtime and wake time to help regulate the circadian rhythm and balance the release of pituitary hormones. Sleep in a dark room, temperatures below 68 degrees, and no devices n bed. Limit caffeinated products 6 hours prior to bed, and limit fluids 2-4 hours prior to bed. Gentle night yoga, diffusing essential oils, and playing soft music can be relaxing. Coding Level of Care Code Est Pt Level 4 (34170) Diagnoses Excessive daytime and night-time sleepiness G47.19 Snoring R06.83 Bruxism, sleep-related G47.63 Excessive daytime sleepiness G47.19 Low vitamin D level R79.89 Sleep talking G47.8
--- OUTSIDE RECORDS SUMMARY | 2025-04-17 16:29 | XMS_ITS | Clinical Summary ---
Author Organization [employer] [facility] it Address [address] [place] [address] Care Team Providers Care Security Incident Response Specialist Name Role Phone Unavailable Primary Care [...] Health Maintenance Due Date Last Done Comments Colorectal Cancer Screening: Colonoscopy 1980 DTaP,Tdap,and Td Vaccines (1 - Tdap) 02/05/1999 Hepatitis B Vaccines (1 of 3 - 19+ 3-dose series) 02/05/1999 HPV Vaccines (1 - 3-dose SCD M series) 02/05/2007 Cholesterol Screening (Lipid Panel) 08/07/2023 HIV Screening 08/07/2023 Hepatitis C Screening 08/07/2023 Social Influencers of Health Screening 08/07/2023 Depression Screening 07/13/2024 COVID-19 Vaccine ( - 2023-2 5 season) 2025 Influenza Vaccine (#1) 2025 RSV Immunization Adult Patie nts (1 - 1-dose 75+ series) 02/05/2055 HIB Vaccines Aged Out No longer eligi [...]
== END 2025-04-17 14:33 | disposition home or self-care (01) ==
LOC: HO.HSMS 13:59
PROVIDERS: PCP Internal Medicine; Visit Provider Physician Assistant Medical
DX: G47.19 Other hypersomnia (principal); R06.83 Snoring; G47.63 Sleep related bruxism; R79.89 Other specified abnormal findings of blood chemistry; G47.8 Other sleep disorders
CPT/HCPCS: 99214

== ENCOUNTER → 2025-04-17 13:58 | Outpatient (BNVA) | payer OTHER, SELFPAY | PROVIDERS: PCP Internal Medicine; Visit Provider Physician Assistant Medical | DX: G47.19 Other hypersomnia (principal); G47.63 Sleep related bruxism; G47.8 Other sleep disorders; R79.89 Other specified abnormal findings of blood chemistry; R06.83 Snoring | CPT/HCPCS: 99212 ==

== ENCOUNTER → 2025-05-01 20:30 | Outpatient (REF) | payer OTHER, SELFPAY | LOC: HO.SL 20:30 | PROVIDERS: PCP Internal Medicine; Visit Provider Physician Assistant Medical | DX: G47.19 Other hypersomnia (principal) | CPT/HCPCS: 95810 ==

== ENCOUNTER → 2025-05-01 21:34 | Outpatient (BNV) | payer OTHER, SELFPAY | PROVIDERS: PCP Internal Medicine; Visit Provider Psychiatry & Neurology Neurology | DX: R40.0 Somnolence (principal) | CPT/HCPCS: 95810 ==

== ENCOUNTER 2025-07-03 08:33 | Outpatient (REF) | payer OTHER, SELFPAY ==
[2025-07-03 11:43] LABS: Resp Syncy Virus RNA Qual PCR NEGATIVE (Negative); SARS COV2 PCR INHOUSE POSITIVE (Negative)
== END 2025-07-03 08:34 | disposition home or self-care (01) ==
LOC: HO.LNP 08:33
PROVIDERS: PCP Internal Medicine; Visit Provider Physician Assistant Medical
DX: R50.9 Fever, unspecified (principal); B34.9 Viral infection, unspecified
CPT/HCPCS: 87637; 99212

== ENCOUNTER 2025-07-03 08:33 | Outpatient (AMB) | payer OTHER, SELFPAY ==
[2025-07-03 08:34] VITALS: BP 124/80; PULSE 86; TEMP 38.3; O2SAT 98; BMI 27.4
--- NOTE | 2025-07-03 08:34 | AM.OFFWIN_ITS ---
Intake Vital Signs 07/03/25 08:34 Height 5 ft 8 in Weight 180 lb BMI 27.4 BP 124/80 Blood Pressure Location Rt brachial Position Sitting Pulse 86 Pulse Source Pulse Oximeter Temp 101.0 F H Temp Source Oral Pulse Oximetry (%) 98 Oxygen Delivery Method Room Air Intake Visit Reasons: EP sore throat mild cough chills fever Intake Note: Patient presents c/o headache, cough, chills, body aches, sinus congestion since yesterday. Patient Tobacco Use Status: Never used Tobacco Allergies No Known Allergies Allergy (Verified 07/03/25 08:39) HPI HPI Comments History of Present Illness Details History - The patient is a 45-year-old male pres enting with a sore throat, fever, and weakness. - He reports that his symptoms began yes terday afternoon, and he was unable to sleep last night. - He has a fever today and has not been feeling well. - Associated symptoms include a swollen top gum, throat pain, weakness, and a minimal cough. - He has tried propolis and oregano oil with warm water for his symptoms. - The patient denies any sick contacts a t home or work, a history of asthma, shortness of breath, nausea, vomiting, or facial pressure. - He denies n/v/d, abd pain, MAHARAJ, or ear pain. Physical Exam General: Cooperative, healthy appearing, comfortable and no acute distress Orientation/consciousness: Patient oriented x3 Limitations: No limitations Head: Normal to inspection Ears: Hearing grossly normal bilaterally, external ears normal and TM's normal bilaterally Nose: Normal external nose present, normal nares present, and no nasal discharge present. Face and sinus: Sinuses nontender to palpation. Mouth: Normal oral and palatal mucosa present and moist mucous membranes noted. Throat: Tonsils normal. Uvula is midline. Posterior oropharynx with erythema and no exudates. Neck: Normal visual inspection, full ROM. No lymphadenopathy noted. Respiratory: Clear to auscultation bilaterally. Normal respiratory effort, able to speak in complete sentences. No respiratory distress, not tachypneic, no tripod positioning and no use of accessory muscles. Cardiovascular: Regular rate and rhythm. Normal S1 and S2. No m/r/g noted. Skin: No rashes or lesions noted Patient was informed and verbally consented to the use of an ambient scribe for clinic note documentation during this visit REPLACED BY [facility] Medical History Lower back pain Rupture of anterior cruciate ligament of right knee Sleep apnea Hypertension Surgical History History of repair of anterior cruciate ligament of right knee Family History Father Prostate cancer Paternal Grandmother Diabetes type 2, controlled Social History Housing: House Patient Tobacco Use Status: Never used Tobacco e-Cigarette/Vaping Use: Never Used Second Hand Smoke Exposure: No service: Yes ([employer] ) Current occupational status: employed Current occupational exposures/hazards: Yes Cognitive needs: No Hearing needs: No Vision needs: No Review of Systems Const All systems reviewed & are unremarkable except as noted in HPI and below Physical Exam Vital Signs: Last Vital Signs Temp 101.0 F H 07/03/25 08:34 Pulse 86 07/03/25 08:34 BP 124/80 07/03/25 08:34 Pulse Ox 98 07/03/25 08:34 Oxygen Delivery Method Room Air 07/03/25 08:34 BMI result Body Mass Index 27.4 Assessment & Plan Assessment & Plan (1) Fever: Code(s): R50.9 - Fever, unspecified Qualifiers: Fever type: unspecified Qualified Code(s): R50.9 - Fever, unspecified (2) Viral illness: Code(s): B34.9 - Viral infection, unspecified Plan Most likely viral illness vs covid vd flu vs RSV vs Acute Upper Respiratory Infection plan - The likely etiology is a viral illness such as influenza, COVID-19, or RSV. - A nasal swab was collected for a COVID-19, influenza, and RSV panel, with results expected later today. - For symptomatic relief, recommended alternating Tylenol and Motrin for fever. - A prescription for a cough medicine for throat pain was sent to the pharmacy. - A work note was provided for two days. - follow up with PCP Medications: New benzonatate 100 mg PO bid-tid PRN 21 caps 0RF Cough 7 days cetirizine-pseudoephedrine 5-120 mg ER 1 tab PO BID 14 tabs 0RF 7 days Coding Level of Care Code Est Pt Level 3 (56380) Diagnoses Fever, unspecified fever cause R50.9 Fever type: unspecified Viral illness B34.9
--- OUTSIDE RECORDS SUMMARY | 2025-07-03 08:49 | XMS_ITS | Clinical Summary ---
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
== END 2025-07-03 09:20 | disposition home or self-care (01) ==
PROVIDERS: PCP Internal Medicine; Visit Provider Physician Assistant Medical
DX: R50.9 Fever, unspecified (principal); B34.9 Viral infection, unspecified